=== PATIENT | male | born 1965 | race Caucasian/White ===

== ENCOUNTER → 2020-08-02 14:02 | Outpatient (BNVA) | payer OTHER, SELFPAY | PROVIDERS: PCP Internal Medicine; Visit Provider Internal Medicine | DX: Z86.718 Personal history of other venous thrombosis and embolism (principal); Z51.81 Encounter for therapeutic drug level monitoring; Z79.01 Long term (current) use of anticoagulants | CPT/HCPCS: 85610; 99211 ==

== ENCOUNTER → 2020-09-19 14:33 | Outpatient (BNVA) | payer OTHER, SELFPAY | PROVIDERS: PCP Internal Medicine; Visit Provider Internal Medicine | DX: Z86.718 Personal history of other venous thrombosis and embolism (principal); Z51.81 Encounter for therapeutic drug level monitoring; Z79.01 Long term (current) use of anticoagulants | CPT/HCPCS: 85610; 99211 ==

== ENCOUNTER → 2020-10-22 14:47 | Outpatient (BNVA) | payer OTHER, SELFPAY | PROVIDERS: PCP Internal Medicine; Visit Provider Internal Medicine | DX: Z86.718 Personal history of other venous thrombosis and embolism (principal); Z51.81 Encounter for therapeutic drug level monitoring; Z79.01 Long term (current) use of anticoagulants | CPT/HCPCS: 85610; 99211 ==

== ENCOUNTER → 2020-11-08 16:08 | Outpatient (BNV) | payer OTHER, SELFPAY | PROVIDERS: PCP Internal Medicine; Visit Provider Internal Medicine Medical Oncology | DX: D58.9 Hereditary hemolytic anemia, unspecified (principal) | CPT/HCPCS: 99213; 99214 ==

== ENCOUNTER → 2020-11-26 14:10 | Outpatient (BNVA) | payer OTHER, SELFPAY | PROVIDERS: PCP Internal Medicine; Visit Provider Internal Medicine | DX: Z86.718 Personal history of other venous thrombosis and embolism (principal); Z51.81 Encounter for therapeutic drug level monitoring; Z79.01 Long term (current) use of anticoagulants | CPT/HCPCS: 85610; 99211 ==

== ENCOUNTER → 2021-01-09 14:34 | Outpatient (BNVA) | payer OTHER, SELFPAY | PROVIDERS: PCP Internal Medicine; Visit Provider Internal Medicine | DX: Z86.718 Personal history of other venous thrombosis and embolism (principal); Z51.81 Encounter for therapeutic drug level monitoring; Z79.01 Long term (current) use of anticoagulants | CPT/HCPCS: 85610; 99211 ==

== ENCOUNTER → 2021-02-06 14:39 | Outpatient (BNVA) | payer OTHER, SELFPAY | PROVIDERS: PCP Internal Medicine; Visit Provider Internal Medicine | DX: Z86.718 Personal history of other venous thrombosis and embolism (principal); Z79.01 Long term (current) use of anticoagulants; Z51.81 Encounter for therapeutic drug level monitoring | CPT/HCPCS: 85610; 99211 ==

== ENCOUNTER → 2021-02-11 14:56 | Outpatient (BNVA) | payer OTHER, SELFPAY | PROVIDERS: PCP Internal Medicine; Visit Provider Internal Medicine | DX: Z86.718 Personal history of other venous thrombosis and embolism (principal); Z51.81 Encounter for therapeutic drug level monitoring; Z79.01 Long term (current) use of anticoagulants | CPT/HCPCS: 85610; 99211 ==

== ENCOUNTER → 2021-02-20 14:31 | Outpatient (BNVA) | payer OTHER, SELFPAY | PROVIDERS: PCP Internal Medicine; Visit Provider Internal Medicine | DX: Z86.718 Personal history of other venous thrombosis and embolism (principal); Z79.01 Long term (current) use of anticoagulants; Z51.81 Encounter for therapeutic drug level monitoring | CPT/HCPCS: 85610; 99211 ==

== ENCOUNTER → 2021-03-05 15:38 | Outpatient (BNVA) | payer OTHER, SELFPAY | PROVIDERS: PCP Internal Medicine; Visit Provider Internal Medicine | DX: Z86.718 Personal history of other venous thrombosis and embolism (principal); Z51.81 Encounter for therapeutic drug level monitoring; Z79.01 Long term (current) use of anticoagulants | CPT/HCPCS: 85610; 99211 ==

== ENCOUNTER → 2021-04-17 15:51 | Outpatient (BNVA) | payer OTHER, SELFPAY | PROVIDERS: PCP Internal Medicine; Visit Provider Internal Medicine | DX: Z86.718 Personal history of other venous thrombosis and embolism (principal); Z51.81 Encounter for therapeutic drug level monitoring; Z79.01 Long term (current) use of anticoagulants | CPT/HCPCS: 85610; 99211 ==

== ENCOUNTER → 2021-05-15 15:11 | Outpatient (BNVA) | payer OTHER, SELFPAY | PROVIDERS: PCP Internal Medicine; Visit Provider Internal Medicine | DX: Z86.718 Personal history of other venous thrombosis and embolism (principal); Z51.81 Encounter for therapeutic drug level monitoring; Z79.01 Long term (current) use of anticoagulants | CPT/HCPCS: 85610; 99211 ==

== ENCOUNTER 2021-06-06 11:12 | Outpatient (REF) | payer OTHER, SELFPAY ==
--- NOTE | ~2021-06-06 | MM_ITS ---
EXAMINATION: MM DIAGNOSTIC DIGITAL BREAST TOMOSYNTHESIS, BILATERAL US DIAGNOSTIC ULTRASOUND BREAST, LEFT CLINICAL INFORMATION: 55-year-old male with recent left breast sensitivity retroareolar region and 6-7 months. No palpable mass or discharge. No symptoms today. No known family history breast cancer. COMPARISON: Mammography: 05/20/2009 TECHNIQUE: Digital breast tomosynthesis is performed in both the craniocaudal and mediolateral oblique views along with computer-aided detection (CAD). Synthesized 2D images are generated from the tomosynthesis. Additional bilateral CC views are obtained. Ultrasound left breast is targeted to the area of clinical concern retroareolar and periareolar left breast. Grayscale imaging and color Doppler are performed without and with harmonics. FINDINGS: The breasts are almost entirely fatty (ACR BI-RADS breast composition Category a). There is mild asymmetry in the subareolar stromal markings, slightly greater on left, but stable to decreased when compared with remote prior mammography 2008. There is no interval mass or architectural abnormality. No interval duct ectasia. No abnormal calcifications. No skin thickening or coarsening of the Robert's ligaments. Ultrasound demonstrates no cystic or solid mass or architectural abnormality. There is no skin thickening or edema tracking in soft tissue planes. No hyperemia. Results are discussed with the patient at time of visit. MM/MM tomosynthesis diagnostic BI IMPRESSION: No mammographic evidence of malignancy or focal inflammatory changes. Unremarkable targeted left breast ultrasound. ASSESSMENT: BI-RADS 2: Benign RECOMMENDATION: Patient should be managed as needed based on the clinical impression.
== END 2021-06-06 11:13 | disposition home or self-care (01) ==
LOC: HO.MAMMO 11:12
PROVIDERS: PCP Internal Medicine; Visit Provider Internal Medicine
DX: N64.4 Mastodynia (principal)
CPT/HCPCS: 76642; 77062; 77066

== ENCOUNTER → 2021-06-26 08:49 | Outpatient (BNVA) | payer OTHER, SELFPAY | PROVIDERS: PCP Internal Medicine; Visit Provider Internal Medicine | DX: Z86.718 Personal history of other venous thrombosis and embolism (principal); Z51.81 Encounter for therapeutic drug level monitoring; Z79.01 Long term (current) use of anticoagulants | CPT/HCPCS: 85610; 99211 ==

== ENCOUNTER 2021-07-07 15:19 | Outpatient (REF) | payer OTHER, SELFPAY | END 2021-07-07 15:20 | disposition home or self-care (01) | LOC: HO.LAB 15:19 | PROVIDERS: PCP Internal Medicine; Visit Provider Internal Medicine | DX: Z20.822 Contact with and (suspected) exposure to COVID-19 (principal) | CPT/HCPCS: C9803; U0003; U0005 ==

== ENCOUNTER → 2021-07-11 08:33 | Outpatient (BNVA) | payer OTHER, SELFPAY | PROVIDERS: PCP Internal Medicine; Visit Provider Internal Medicine | DX: Z86.718 Personal history of other venous thrombosis and embolism (principal); Z51.81 Encounter for therapeutic drug level monitoring; Z79.01 Long term (current) use of anticoagulants | CPT/HCPCS: 85610; 99211 ==

== ENCOUNTER 2021-07-22 21:12 | Inpatient (IN) | payer OTHER, SELFPAY ==
[2021-07-22 22:02] VITALS: BP 109/82; PULSE 96; RESP 20; TEMP 36.2; O2SAT 98; BMI 56.9
[2021-07-22 22:42] LABS: MANUAL DIFF FLAG NO
[2021-07-22 22:43] LABS: Basophils Absolute Auto 0.1 X10*3/uL (0.0-0.2); Basophils Percent Auto 0.5 % (0-2); Eosinophils Absolute Auto 0.3 X10*3/uL (0.0-0.4); Eosinophils Percent Auto 3.2 % (0-4); Hematocrit 38.4 % (42-52); Hemoglobin 12.1 g/dl (14.0-18.0); Imm Gran Abs Auto 0.02 X10*3/uL (0.00-0.03); Imm Gran Pct Auto 0.2 % (0.0-0.4); Lymphocytes Absolute Auto 1.4 X10*3/uL (1.2-4.9); Lymphocytes Percent Auto 13.8 % (20-40); Mean Corpuscular HGB Conc 31.5 g/dl (31.0-36.0); Mean Corpuscular Hemoglobin 27.3 pg (27.0-33.0); Mean Corpuscular Volume 86.7 fL (80-98); Monocytes Absolute Auto 0.7 X10*3/uL (0.1-1.2); Monocytes Percent Auto 6.8 % (2-11); Neutrophils Absolute Auto 7.5 X10*3/uL (2.0-8.3); Neutrophils Percent Auto 75.5 % (45-73); Platelet Count 154 X10*3/uL (160-400); Red Blood Count 4.43 X10*6/uL (4.60-5.80); Red Cell Distribution Width 14.6 % (11.0-16.0); White Blood Count 9.9 X10*3/uL (4.8-10.8)
[2021-07-22 23:05] LABS: Alanine Aminotransferase 9 U/L (0-40); Albumin Level 3.9 g/dL (3.5-5.0); Alkaline Phosphatase 93 U/L (39-117); Anion Gap 12 (12-20); Aspartate Amino Transferase 15 U/L (5-37); Bilirubin Total 2.2 mg/dL (0.0-1.0); Blood Urea Nitrogen 14 mg/dL (9-16); Calcium 9.1 mg/dL (8.4-10.2); Carbon Dioxide 24 mmol/L (22-29); Chloride 109 mmol/L (96-108); Creatinine Clr Calc Pharmacy 115.9; Estimated Glomerular Filt Rate 60; Glucose Random 116 mg/dL (60-115); Potassium 3.8 mmol/L (3.3-5.1); Sodium 141 mmol/L (135-145); Total Protein 6.2 g/dL (6.5-8.0)
--- NOTE | 2021-07-22 23:24 | ECG_ITS ---
Test Reason : ABNORM LABS Blood Pressure : / mmHG Vent. Rate : 066 BPM Atrial Rate : 066 BPM P-R Int : 202 ms QRS Dur : 076 ms QT Int : 406 ms P-R-T Axes : 038 -10 011 degrees QTc Int : 425 ms Poor data quality, interpretation may be adversely affected Sinus rhythm with occasional Premature atrial complexes Moderate voltage criteria for LVH, may be normal variant Junctional ST depression, probably normal Borderline ECG When compared with ECG of 22-SEP-2008 17:36, Premature atrial complexes are now Present Referred By: Chino Cleary Electronically Signed By:MINNIE WARNER
[2021-07-22 23:52] LABS: INTERNATIONAL NORM RATIO 1.8 (0.9-1.1); Prothrombin Time 20.3 SEC (9.9-13.0)
[2021-07-22 23:54] LABS: Partial Thromboplastin Time 38.2 SEC (24.1-38.0)
[2021-07-22] MEDS: 0.9 % Sodium Chloride 1,000 ML 999 ML IV (23:57)
[2021-07-23] VITALS (7 sets, daily range): BP systolic 93–149; BP diastolic 49–94; PULSE 50–86; RESP 15–18; TEMP 36.5–37.2; O2SAT 97–100
[2021-07-23 00:03] LABS: COVID-19 Test Negative (Negative); Troponin-I High Sensitivity 26.1 ng/L (<3.5-35.0)
[2021-07-23 00:12] LABS: Lactic Acid 0.6 mmol/L (0.5-2.0)
--- NOTE | 2021-07-23 00:17 | ED.GENADULT ---
HPI - General Adult General Chief complaint: Skin/Abscess/Foreign Body Stated complaint: leg pain and swelling Time Seen by Provider: 07/22/21 23:01 Source: patient Mode of arrival: ambulatory Limitations: no limitations History of Present Illness HPI narrative: 56-year-old male who presents emergency department for evaluation of right lower extremity pain, swelling, chills and fatigue. Patient states that last night he developed fatigue and uncontrollable chills. States that several episodes throughout the night. He did notice some mild redness to his right lower extremity. He states that he is feeling dizzy and his entire body ache as well. Today, he states that the redness in his right lower extremity was worse, he states that he also had pain in his right lower extremity which described as a constant, your taking pain which was 5/10. Continued to have intermittent shaking chills and fatigue. He also states that today developed 3 episodes of loose diarrheal stools. Patient states that approximately 10 days ago at similar symptoms of shaking chills and fatigue without leg pain. States that a COVID-19 test which was negative at that time. Patient states he did have cellulitis of his lower extremities in the past. Patient has a history of atrial fibrillation is currently taking warfarin. He also has a history of DVT and pulmonary embolism, he has an IVC filter in place. Related Data Home Medications Medication Instructions Recorded Confirmed acetaminophen 500 mg tablet 500 mg PO Q6H PRN 02/11/21 04/17/21 Previous Rx's Medication Instructions Recorded warfarin 2.5 mg tablet 2.5 mg PO DAILY #90 tab 08/02/20 docusate sodium 100 mg capsule 100 mg PO DAILY PRN #30 cap 09/11/20 citalopram 20 mg tablet 20 mg PO DAILY #90 tab 01/24/21 allopurinol 300 mg tablet 450 mg PO DAILY #135 tab 03/20/21 omeprazole 40 mg capsule,delayed 40 mg PO DAILY #90 cap 04/02/21 release warfarin 10 mg tablet 10 mg PO DAILY #90 tab 04/25/21 diclofenac sodium 75 mg 75 mg PO BID #180 tab 05/20/21 tablet,delayed release Allergies Allergy/AdvReac Type Severity Reaction Status Date / Time warfarin AdvReac Mild hives Verified 07/11/21 08:46 Review of Systems Review of Systems: Yes all other systems are reviewed and are negative PMFSH Past Medical History PMFSH Narrative: Social history: The patient denies tobacco use. He occasionally drinks alcohol. He denies drug use. Medical History Atrial fibrillation Essential (primary) hypertension Morbid obesity with BMI of 60.0-69.9, adult Osteoarthritis Surgical History [place] filter in place Hematoma of left knee region History of appendectomy History of hernia repair History of removal of laparoscopic gastric banding device History of sleeve gastrectomy Hx of laparoscopic gastric banding Family History Family History Father Lung cancer Bone cancer Mother No problems noted. Social History Social History Housing: House Alcohol intake: current Alcohol intake frequency: holidays/special occasions only Alcohol type: hard liquor Patient Tobacco Use Status: Never used Tobacco Advance Directives: No Advance Directives Information Provided: No service: No Current occupational status: employed Physical Exam Vital Signs: Vital Signs: Last Vital Signs Temp 97.1 F 07/22/21 22:02 Pulse 96 07/22/21 22:02 Resp 20 07/22/21 22:02 BP 109/82 07/22/21 22:02 Pulse Ox 98 07/22/21 22:02 Body Mass Index 56.9 Const: Other: Awake alert male patient, very pleasant and cooperative, obese, does not appear to be in distress, answers all questions appropriately HENMT: Head: Yes normal to inspection, Yes normocephalic and Yes atraumatic Ears: external ears normal General nose exam: Normal external nose present Face and sinus: Yes normal facial exam Mouth: Normal oral and palatal mucosa present Throat: Yes posterior oropharynx normal Eyes: General: appearance normal, both eyes and all related structures Pupils: Equal, round and reactive pupils present Neck: Neck: Yes normal visual inspection, Yes no lymphadenopathy, Yes trachea midline and Yes supple Chest: Chest palpation & inspection: normal inspection of the chest and normal palpation of entire chest wall Resp: Effort & Inspection: normal respiratory effort and able to speak in complete sentences Auscultation: clear to auscultation bilaterally Cardio: Rate: regular rate Rhythm: regular rhythm Heart sounds: S1 normal heart sound present, S2 normal heart sound present and no murmurs GI: Inspection: Yes normal to inspection Palpation (GI): Soft to palpation, nontender and no guarding Auscultation: normal bowel sounds : General: Yes no CVA tenderness Back/Spine/Pelvis: Back: no CVA tenderness Skin: Other: Patient has brawny discoloration of both lower extremities, the right lower extremity has erythema with increased warmth from the ankle to just below the knee, the erythema is warm to the touch Neuro: Cranial nerves: Yes CN's II-XII intact bilaterally and Yes Equal, round and reactive pupils present Cognition (Neuro): normal cognition Motor exam (neuro): 5/5 motor strength present throughout Extrem: Other: Cellulitis to the right lower extremity, moves all extremities symmetrically, normal strength Psych: Appearance: grossly normal Speech and movement: Normal speech and movement present Affect: normal affect Attitude: cooperative Thought process: Normal thought process present Thought content: Normal thought content present Course Course Course Narrative: 56-year-old male who presents emergency department for evaluation of 2 days of fever uncontrolled blood chills fatigue, right lower extremity pain with erythema and diarrhea x1 day. Patient's vital sign were normal. The patient's examination did reveal evidence of cellulitis the right lower extremity below the knee. Revealed a normal WBC, had a slightly low platelet count of a [id number], had an elevated chloride of 109, elevated glucose of 116 an elevated total bilirubin of 2.2. INR was 1.8 which is elevated but subtherapeutic. Troponin was detectable at 26.1 but not elevated. Twelve EKG was unremarkable. COVID-19 test was negative. Patient's presentation is consistent with cellulitis of the right lower extremity with bacteremia. The patient was treated with Ancef 2 g IV. I will discuss the patient's presentation with the covering hospitalist. 0037: Did discuss the patient's presentation with the covering hospitalist, Dr. Rodriguez. The patient will be admitted to the hospital service for further treatment. Medical Decision Making Lab Data Result diagrams: 07/22/21 22:37 07/22/21 22:37 Labs: Lab Results 07/22/21 07/22/21 07/22/21 Range/Units 22:37 22:37 23:36 WBC 9.9 (4.8-10.8) X10*3/uL RBC 4.43 L (4.60-5.80) X10*6/uL Hgb 12.1 L (14.0-18.0) g/dl Hct 38.4 L (42-52) % MCV 86.7 (80-98) fL MCH 27.3 (27.0-33.0) pg MCHC 31.5 (31.0-36.0) g/dl RDW 14.6 (11.0-16.0) % Plt Count 154 L (160-400) X10*3/uL MPV 10.0 (9.4-12.4) fL Immature Gran % (Auto) 0.2 (0.0-0.4) % Neut % (Auto) 75.5 H (45-73) % Lymph % (Auto) 13.8 L (20-40) % [place] % (Auto) 6.8 (2-11) % Eos % (Auto) 3.2 (0-4) % Baso % (Auto) 0.5 (0-2) % Lymph # (Auto) 1.4 (1.2-4.9) X10*3/uL [place] # (Auto) 0.7 (0.1-1.2) X10*3/uL Eos # (Auto) 0.3 (0.0-0.4) X10*3/uL Baso # (Auto) 0.1 (0.0-0.2) X10*3/uL Abs Immat Gran (auto) 0.02 (0.00-0.03) X10*3/uL Absolute Neuts (auto) 7.5 (2.0-8.3) X10*3/uL Absolute Nucleated RBC 0.000 (0.0-0.012) X10*3/uL Nucleated RBC % (auto) 0.0 (0.0-0.2) /100WBC PT 20.3 H (9.9-13.0) SEC INR 1.8 H (0.9-1.1) APTT 38.2 H (24.1-38.0) SEC Sodium 141 (135-145) mmol/L Potassium 3.8 (3.3-5.1) mmol/L Chloride 109 H (96-108) mmol/L Carbon Dioxide 24 (22-29) mmol/L Anion Gap 12 (12-20) BUN 14 (9-16) mg/dL Creatinine 1.25 (0.5-1.4) mg/dL Estim Creat Clear Calc 115.9 Estimated GFR 60 Random Glucose 116 H (60-115) mg/dL Lactic Acid (0.5-2.0) mmol/L Calcium 9.1 (8.4-10.2) mg/dL Total Bilirubin 2.2 H (0.0-1.0) mg/dL AST 15 (5-37) U/L ALT 9 (0-40) U/L Alkaline Phosphatase 93 (39-117) U/L Troponin I High Sens (<3.5-35.0) ng/L Total Protein 6.2 L (6.5-8.0) g/dL Albumin 3.9 (3.5-5.0) g/dL COVID-19 (JAMILA) (Negative) COVID-19 Clin Com 07/22/21 07/22/21 07/22/21 Range/Units 23:36 23:36 23:45 WBC (4.8-10.8) X10*3/uL RBC (4.60-5.80) X10*6/uL Hgb (14.0-18.0) g/dl Hct (42-52) % MCV (80-98) fL MCH (27.0-33.0) pg MCHC (31.0-36.0) g/dl RDW (11.0-16.0) % Plt Count (160-400) X10*3/uL MPV (9.4-12.4) fL Immature Gran % (Auto) (0.0-0.4) % Neut % (Auto) (45-73) % Lymph % (Auto) (20-40) % [place] % (Auto) (2-11) % Eos % (Auto) (0-4) % Baso % (Auto) (0-2) % Lymph # (Auto) (1.2-4.9) X10*3/uL [place] # (Auto) (0.1-1.2) X10*3/uL Eos # (Auto) (0.0-0.4) X10*3/uL Baso # (Auto) (0.0-0.2) X10*3/uL Abs Immat Gran (auto) (0.00-0.03) X10*3/uL Absolute Neuts (auto) (2.0-8.3) X10*3/uL Absolute Nucleated RBC (0.0-0.012) X10*3/uL Nucleated RBC % (auto) (0.0-0.2) /100WBC PT (9.9-13.0) SEC INR (0.9-1.1) APTT (24.1-38.0) SEC Sodium (135-145) mmol/L Potassium (3.3-5.1) mmol/L Chloride (96-108) mmol/L Carbon Dioxide (22-29) mmol/L Anion Gap (12-20) BUN (9-16) mg/dL Creatinine (0.5-1.4) mg/dL Estim Creat Clear Calc Estimated GFR Random Glucose (60-115) mg/dL Lactic Acid 0.6 (0.5-2.0) mmol/L Calcium (8.4-10.2) mg/dL Total Bilirubin (0.0-1.0) mg/dL AST (5-37) U/L ALT (0-40) U/L Alkaline Phosphatase (39-117) U/L Troponin I High Sens 26.1 (<3.5-35.0) ng/L Total Protein (6.5-8.0) g/dL Albumin (3.5-5.0) g/dL COVID-19 (JAMILA) Negative (Negative) COVID-19 Clin Com See Note Discharge Plan Discharge Prescriptions: No Action docusate sodium 100 mg capsule 100 mg PO DAILY PRN (Reason: constipation) Qty: 30 RF: 9 citalopram 20 mg tablet 20 mg PO DAILY Qty: 90 RF: 3 allopurinol 300 mg tablet 450 mg PO DAILY Qty: 135 RF: 1 omeprazole 40 mg capsule,delayed release(DR/EC) 40 mg PO DAILY Qty: 90 RF: 1 warfarin 10 mg tablet 10 mg PO DAILY Qty: 90 RF: 0 diclofenac sodium 75 mg tablet,delayed release (DR/EC) 75 mg PO BID Qty: 180 RF: 0 warfarin 2.5 mg tablet 2.5 mg PO DAILY Qty: 90 RF: 0 acetaminophen 500 mg tablet 500 mg PO Q6H PRN (Reason: pain) RF: 0
--- NOTE | 2021-07-23 05:53 | P.HPHOSP_ITS ---
History of Present Illness Date of Service: 07/23/21 Chief Complaint: Skin redness This is a 56-year-old male with past medical history of PE, HTN, sleeve gastrectomy, and morbid obesity who presents to the hospital with complaints of right lower extremity redness as well as warms. Patient reports that his sympt oms started yesterday, he is having chills, rigors, fatigue. The redness developed suddenly and progressed significantly within the next 12 hours. Patient denies having any fever, has chills, no shortness of breath chest pain, no abdominal pain nausea or vomiting, no diarrhea constipation, no urinary symptoms. Patient reports that he has had cellulitis about 15 years ago in the same area. He denies having any headache or change in vision, no dizziness, numbness tingling or weakness. He has had no recent travel or prolonged immobility. Patient reports that he has been checking his temperature at home and is usually around [id number]. On arrival to the ED patient's vitals are significant for temp of 97.1, heart rate of 82, respiratory rate of 20, blood pressure 120/80, satting 96% on room air Labs are significant for WBC count of 9.9, hemoglobin of 12.1 which is around his baseline, PT of 20.3, INR 1.8, BUN of 1.25 with a baseline around 1.1, COVID negative EKG shows sinus rhythm with occasional PVCs, no changes from previous Patient will be admitted for further manage of cellulitis Review of Systems Review of Systems: Yes all other systems are reviewed and are negative [facility] Medical History Atrial fibrillation Essential (primary) hypertension Morbid obesity with BMI of 60.0-69.9, adult Osteoarthritis Family History Father Lung cancer Bone cancer Mother No problems noted. Pertinent family history: None pertinent Surgical History [place] filter in place Hematoma of left knee region History of appendectomy History of hernia repair History of removal of laparoscopic gastric banding device History of sleeve gastrectomy Hx of laparoscopic gastric banding Social History Housing: House Alcohol intake: current Alcohol intake frequency: holidays/special occasions only Alcohol type: hard liquor Patient Tobacco Use Status: Never used Tobacco Use of substances other than those prescribed or required for medical reasons: No Advance Directives: No Advance Directives Information Provided: No service: No Current occupational status: employed Meds Allergies Allergy/AdvReac Type Severity Reaction Status Date / Time warfarin AdvReac Mild hives Verified 07/11/21 08:46 Home Medications Medication Instructions Recorded Confirmed Last Taken Type warfarin 2.5 mg tablet 2.5 mg PO DIRECTED 07/23/21 07/23/21 03/05/21 History Physical Exam Vital Signs and Narrative: Vital Signs: Last Vital Signs Temp 98.6 F 07/23/21 00:52 Pulse 61 07/23/21 00:52 Resp 15 07/23/21 00:52 BP 104/51 L 07/23/21 00:52 Pulse Ox 98 07/23/21 00:52 Body Mass Index 56.9 Const: General: cooperative and no acute distress Orientation/consciousness: patient oriented x3 Eyes: General: appearance normal, both eyes and all related structures Resp: Effort & Inspection: normal respiratory effort Auscultation: clear to auscultation bilaterally Cardio: Rate: regular rate Rhythm: regular rhythm GI: Palpation (GI): Soft to palpation Auscultation: normal bowel sounds Skin: Other: Right lower extremity edema, warmth, slight tenderness, edema. Extending from the ankle all the way to just below the right knee Neuro: General: patient oriented x3 Cognition (Neuro): normal cognition Extrem: General: Yes normal to inspection and Yes no pedal edema Results Labs CBC and Chem 7: 07/22/21 22:37 07/22/21 22:37 Labs: Laboratory Results - last 24 hr 07/22/21 07/22/21 07/22/21 22:37 22:37 23:36 MCV 86.7 MCH 27.3 MCHC 31.5 RDW 14.6 Plt Count 154 L MPV 10.0 Immature Gran % (Auto) 0.2 Neut % (Auto) 75.5 H Lymph % (Auto) 13.8 L [place] % (Auto) 6.8 Eos % (Auto) 3.2 Baso % (Auto) 0.5 Lymph # (Auto) 1.4 [place] # (Auto) 0.7 Eos # (Auto) 0.3 Baso # (Auto) 0.1 Abs Immat Gran (auto) 0.02 Absolute Neuts (auto) 7.5 Absolute Nucleated RBC 0.000 Nucleated RBC % (auto) 0.0 PT 20.3 H INR 1.8 H APTT 38.2 H Anion Gap 12 Estim Creat Clear Calc 115.9 Estimated GFR 60 Random Glucose 116 H Lactic Acid Calcium 9.1 Total Bilirubin 2.2 H AST 15 ALT 9 Alkaline Phosphatase 93 Troponin I High Sens Total Protein 6.2 L Albumin 3.9 COVID-19 (JAMILA) COVID-19 Clin Com 07/22/21 07/22/21 07/22/21 23:36 23:36 23:45 MCV MCH MCHC RDW Plt Count MPV Immature Gran % (Auto) Neut % (Auto) Lymph % (Auto) [place] % (Auto) Eos % (Auto) Baso % (Auto) Lymph # (Auto) [place] # (Auto) Eos # (Auto) Baso # (Auto) Abs Immat Gran (auto) Absolute Neuts (auto) Absolute Nucleated RBC Nucleated RBC % (auto) PT INR APTT Anion Gap Estim Creat Clear Calc Estimated GFR Random Glucose Lactic Acid 0.6 Calcium Total Bilirubin AST ALT Alkaline Phosphatase Troponin I High Sens 26.1 Total Protein Albumin COVID-19 (JAMILA) Negative COVID-19 Clin Com See Note Assessment and Plan (1) Cellulitis of right leg: Status: Acute This is a 56-year-old male with morbid obesity who presents to the hospital with cellulitis # cellulitis - extensive covering a large area of his right lower extremity - erythema, warmth, tenderness, and slight edema - will start him on IV antibiotic - cultures collected will follow # history of PE - subtherapeutic INR - continue Coumadin - follow PT INR daily # GERD - continue omeprazole DVT prophylaxis: Coumadin Quality Stroke Does the patient have a stroke diagnosis?: No VTE Prior VTE?: No VTE Risk Level:: Medical - moderate - high VTE Device Contraindication: Treatment Not Indicated VTE Drug Contraindication: N/A - Med Ordered
[2021-07-23] MEDS: allopurinoL 300 MG TABLET 450 MG PO (09:39)
[2021-07-23] MEDS: Escitalopram Oxalate 10 MG TABLET PO (09:39)
[2021-07-23] MEDS: Diclofenac Sodium Delayed Rel 75 MG TABLET.DR PO ×2 (09:40→22:21)
[2021-07-23] MEDS: Omeprazole 40 MG CAPSULE.DR PO (09:40)
--- NOTE | 2021-07-23 09:59 | PC.NURSE ---
Assumed care of patient. Pt was initially sleeping this morning, but is now awake, alert and oriented. Pt ambulated to the bathroom without difficulty. Pt has family at the bedside. Morning medications administered. Pt is patiently waiting on a bed assignment.
--- NOTE | 2021-07-23 10:39 | MHC.CM.ED ---
Met with patient and sig other, Jennyfer in regards to discharge planning. Patient lives alone, ambulates independently and had no services prior to coming to the hospital. PCP verified. HCP completed, signed and witnessed. Original given to patient. Obs notice explained and signed. Jennyfer will transport patient home when medically stable. No services anticipated to be needed because patient is not home bound. Continue to monitor for d/c needs.
--- NOTE | 2021-07-23 15:00 | P.EN_ITS ---
Event Note Date of Service: 07/23/21 Event Note: Patient seen and examined in ER; exam unchanged from H& P. Rapid o nset of cellulitis with fever and chills; started on IV ceftriaxone upon admission. Will discuss with ID; question broader coverage at this time.
[2021-07-23] MEDS: vancomycin HCL 1,000 MG in 0.9 % Sodium Chloride 250 ML 270 MG IV (18:10)
[2021-07-23] MEDS: Warfarin Sodium 10 MG TABLET PO (19:55)
[2021-07-24] MEDS: 0.9 % Sodium Chloride Flush 3 ML SYRINGE IVFLUSH ×4 (00:45→21:29)
[2021-07-24 04:00] VITALS: BP 111/77; PULSE 82; RESP 17; TEMP 36.9; O2SAT 96
[2021-07-24 05:30] LABS: INTERNATIONAL NORM RATIO 2.1 (0.9-1.1)
[2021-07-24 05:43] LABS: Anion Gap 11 (12-20); Blood Urea Nitrogen 16 mg/dL (9-16); Calcium 8.3 mg/dL (8.4-10.2); Carbon Dioxide 24 mmol/L (22-29); Chloride 109 mmol/L (96-108); Creatinine Clr Calc Pharmacy 144.9; Estimated Glomerular Filt Rate > 60; Glucose Random 99 mg/dL (60-115); Potassium 3.9 mmol/L (3.3-5.1); Sodium 140 mmol/L (135-145)
[2021-07-24] MEDS: vancomycin HCL 1,000 MG in 0.9 % Sodium Chloride 250 ML 270 MG IV ×2 (06:07→17:12)
[2021-07-24] MEDS: Omeprazole 40 MG CAPSULE.DR PO (06:07)
[2021-07-24 08:00] VITALS: BP 105/68; PULSE 73; RESP 18; TEMP 36.4; O2SAT 97
[2021-07-24] MEDS: Diclofenac Sodium Delayed Rel 75 MG TABLET.DR PO ×2 (08:16→21:28)
[2021-07-24] MEDS: allopurinoL 300 MG TABLET 450 MG PO (08:17)
[2021-07-24] MEDS: Escitalopram Oxalate 10 MG TABLET PO (08:17)
[2021-07-24] MEDS: cefTRIAXone sodium 1 GM in 0.9 % Sodium Chloride 50 ML IV (08:18)
[2021-07-24 11:42] VITALS: BP 102/55; PULSE 68; RESP 18; TEMP 36.3; O2SAT 97
[2021-07-24 15:26] VITALS: BP 112/57; PULSE 69; RESP 16; TEMP 36.4; O2SAT 96
--- NOTE | 2021-07-24 16:07 | P.PNIM_ITS ---
Subjective Subjective Date of Service: 07/24/21 Interval History: No acute events overnight. Did complain of shaking chills without temp. Review of Systems Denies chest pain Denies shortness of breath Denies nausea vomiting diarrhea Physical Exam Vital Signs: Vital Signs: Last Vital Signs Temp 97.5 F 07/24/21 15:26 Pulse 69 07/24/21 15:26 Resp 16 07/24/21 15:26 BP 112/57 L 07/24/21 15:26 Pulse Ox 96 07/24/21 15:26 Body Mass Index 56.9 Const: Other: Awake alert no acute distress HENMT: Other: Membranes moist; oropharynx clear Resp: Other: Clear to auscultation; Cardio: Other: No S4; S1-S2; no S3 no murmurs rubs or gallops GI: Other: Obese; soft nontender positive bowel sounds Extrem: Other: Initial erythema marked with skin pattern; slightly improved this a.m. although warm to touch Objective Data Active Medications Acetaminophen (Acetaminophen 325 Mg Tablet) 650 mg PO Q6H PRN PRN Reason: Pain, Mild (Pain Scale 1-3) Allopurinol (Allopurinol 300 Mg Tablet) 450 mg PO DAILY [facility] Last Admin: 07/24/21 08:17 Dose: 450 mg Documented by: NYLA Diclofenac Sodium (Diclofenac Sodium Delayed Rel 75 Mg Tablet.) 75 mg PO BID [facility] Last Admin: 07/24/21 08:16 Dose: 75 mg Documented by: NYLA Docusate Sodium (Docusate Sodium 100 Mg Capsule) 100 mg PO DAILY PRN PRN Reason: constipation Escitalopram Oxalate (Escitalopram Oxalate 10 Mg Tablet) 10 mg PO DAILY [facility] Last Admin: 07/24/21 08:17 Dose: 10 mg Documented by: NYLA Ceftriaxone Sodium 1 gm/ (Sodium Chloride) 50 mls @ 100 mls/hr IV Q24H [facility] Last Infusion: 07/24/21 08:59 Dose: 0 mls/hr Documented by: NYLA Vancomycin HCl 1,000 mg/ (Sodium Chloride) 270 mls @ 270 mls/hr IV Q12H [facility] Last Infusion: 07/24/21 07:13 Dose: 0 mls/hr Documented by: NYLA Omeprazole (Omeprazole 40 Mg Capsule.) 40 mg PO DAILY@0630 [facility] Last Admin: 07/24/21 06:07 Dose: 40 mg Documented by: PATTIE Ondansetron HCl (Ondansetron Hcl 4 Mg/2 Ml Vial) 4 mg IVPUSH Q8H PRN PRN Reason: Nausea and Vomiting Pharmacy Consult (Consult Rx Vancomycin Dosing) 1 each MISCELLANE DAILY PRN PRN Reason: Consult order Sodium Chloride (0.9 % Sodium Chloride Flush 3 Ml Syringe) 3 ml IVFLUSH QSHIFT [facility] Last Admin: 07/24/21 08:18 Dose: 3 ml Documented by: NYLA Warfarin Sodium (Warfarin Sodium 10 Mg Tablet) 10 mg PO DAILY@1800 [facility] Last Admin: 07/23/21 19:55 Dose: 10 mg Documented by: MANIKAL Labs CBC & Chem 7: 07/22/21 22:37 07/24/21 04:53 Labs: Laboratory Results - last 24 hr 07/24/21 07/24/21 04:53 04:53 PT 24.0 H INR 2.1 H Anion Gap 11 L Estim Creat Clear Calc 144.9 Estimated GFR > 60 Random Glucose 99 Calcium 8.3 L D Microbiology Microbiology Results: Microbiology 07/22/21 23:46 Blood Culture - Preliminary Blood - Venous No growth after 24 hours. 07/22/21 23:46 Blood Culture - Preliminary Blood - Venous No growth after 24 hours. Assessment and Plan (1) Cellulitis of right leg: Status: Acute Assessment and Plan: 56-year-old male with morbid obesity who presents to the hospital with cellulitis; rapid onset 1.Cellulitis Initially started on ceftriaxone; vancomycin added yesterday. Id consult appreciated Continue [place] ceftriaxone; follow clinically discharge with oral doxycycline 2.History of PE INR therapeutic at 2.1. Continue Coumadin as ordered. Check INR daily and adjust as indicated 3. GERD Continue PPI as ordered DVT prophylaxis: Coumadin Quality Stroke Does the patient have a stroke diagnosis?: No VTE Prior VTE?: No VTE Risk Level:: Medical - low VTE Device Contraindication: Treatment Not Indicated VTE Drug Contraindication: N/A - Med Ordered
[2021-07-24] MEDS: Warfarin Sodium 10 MG TABLET PO (17:21)
[2021-07-24 17:34] LABS: Alanine Aminotransferase 9 U/L (0-40); Albumin Level 3.5 g/dL (3.5-5.0); Alkaline Phosphatase 84 U/L (39-117); Anion Gap 11 (12-20); Aspartate Amino Transferase 13 U/L (5-37); Bilirubin Total 0.7 mg/dL (0.0-1.0); Blood Urea Nitrogen 20 mg/dL (9-16); Calcium 8.8 mg/dL (8.4-10.2); Carbon Dioxide 24 mmol/L (22-29); Chloride 110 mmol/L (96-108); Creatinine Clr Calc Pharmacy 108.1; Estimated Glomerular Filt Rate 55; Glucose Fasting 126 mg/dL (60-99); Potassium 4.2 mmol/L (3.3-5.1); Sodium 141 mmol/L (135-145); Total Protein 5.5 g/dL (6.5-8.0)
[2021-07-24 19:50] VITALS: BP 108/56; PULSE 66; RESP 17; TEMP 36.4; O2SAT 97
--- NOTE | 2021-07-24 21:54 | P.CNID_ITS ---
History of Present Illness Data of Consult Service Date: 07/24/21 Requesting physician: Nick Corral Primary Care Provider: Tomas Holm MD [facility] Reason for consult: right leg cellulitis He presents with fever and chills for a day. He has chills for a week and then yesterday bright red area. He had cellulitis about ten years ago as well with similar symptoms. Review of Systems Review of Systems: Yes all other systems are reviewed and are negative PMFSH Past Medical History Medical History Atrial fibrillation Essential (primary) hypertension Morbid obesity with BMI of 60.0-69.9, adult Osteoarthritis Family History Family History Father Lung cancer Bone cancer Mother No problems noted. Family history: reviewed and not pertinent Surgical History Surgical History [place] filter in place Hematoma of left knee region History of appendectomy History of hernia repair History of removal of laparoscopic gastric banding device History of sleeve gastrectomy Hx of laparoscopic gastric banding Social History Social History Housing: House Alcohol intake: current Alcohol intake frequency: holidays/special occasions only Alcohol type: hard liquor Patient Tobacco Use Status: Never used Tobacco Use of substances other than those prescribed or required for medical reasons: No Advance Directives: No Advance Directives Information Provided: No service: No Current occupational status: employed Meds Allergies Allergy/AdvReac Type Severity Reaction Status Date / Time warfarin AdvReac Mild hives Verified 07/24/21 11:29 Active Medications: Current Medications Acetaminophen (Acetaminophen 325 Mg Tablet) 650 mg PO Q6H PRN PRN Reason: Pain, Mild (Pain Scale 1-3) Allopurinol (Allopurinol 300 Mg Tablet) 450 mg PO DAILY [facility] Last Admin: 07/24/21 08:17 Dose: 450 mg Documented by: Diclofenac Sodium (Diclofenac Sodium Delayed Rel 75 Mg Tablet.) 75 mg PO BID [facility] Last Admin: 07/24/21 21:28 Dose: 75 mg Documented by: Docusate Sodium (Docusate Sodium 100 Mg Capsule) 100 mg PO DAILY PRN PRN Reason: constipation Escitalopram Oxalate (Escitalopram Oxalate 10 Mg Tablet) 10 mg PO DAILY [facility] Last Admin: 07/24/21 08:17 Dose: 10 mg Documented by: Ceftriaxone Sodium 1 gm/ (Sodium Chloride) 50 mls @ 100 mls/hr IV Q24H [facility] Last Infusion: 07/24/21 08:59 Dose: Infused Documented by: Vancomycin HCl 1,000 mg/ (Sodium Chloride) 270 mls @ 270 mls/hr IV Q12H [facility] Last Infusion: 07/24/21 18:21 Dose: Infused Documented by: Omeprazole (Omeprazole 40 Mg Capsule.Dr) 40 mg PO DAILY@0630 [facility] Last Admin: 07/24/21 06:07 Dose: 40 mg Documented by: Ondansetron HCl (Ondansetron Hcl 4 Mg/2 Ml Vial) 4 mg IVPUSH Q8H PRN PRN Reason: Nausea and Vomiting Pharmacy Consult (Consult Rx Vancomycin Dosing) 1 each MISCELLANE DAILY PRN PRN Reason: Consult order Sodium Chloride (0.9 % Sodium Chloride Flush 3 Ml Syringe) 3 ml IVFLUSH QSHIFT [facility] Last Admin: 07/24/21 21:29 Dose: 3 ml Documented by: Warfarin Sodium (Warfarin Sodium 10 Mg Tablet) 10 mg PO DAILY@1800 [facility] Last Admin: 07/24/21 17:21 Dose: 10 mg Documented by: Home Medications Medication Instructions Recorded Confirmed Last Taken Type warfarin 10 mg tablet 1 tab PO DAILY@1800 07/23/21 07/23/21 07/22/21 17:00 History Physical Exam Vital Signs: Vital Signs: Last Vital Signs Temp 97.5 F 07/24/21 19:50 Pulse 66 07/24/21 19:50 Resp 17 07/24/21 19:50 BP 108/56 L 07/24/21 19:50 Pulse Ox 97 07/24/21 19:50 Body Mass Index 56.9 Const: General: cooperative HENMT: Head: Yes normal to inspection Mouth: Normal oral and palatal mucosa present Eyes: General: appearance normal, both eyes and all related structures Resp: Effort & Inspection: normal respiratory effort Cardio: Rate: regular rate GI: Palpation (GI): Soft to palpation and nontender Extrem: Other: reddened RLE,improving two cat scratches on it Results Labs CBC & Chem 7: 07/22/21 22:37 07/24/21 16:41 Labs: BMP 07/24/21 07/24/21 04:53 16:41 Sodium 140 141 Potassium 3.9 4.2 Chloride 109 H 110 H Carbon Dioxide 24 24 BUN 16 20 H Creatinine 1.00 1.34 Calcium 8.3 L D 8.8 D Liver Function 07/24/21 Range/Units 16:41 Total Bilirubin 0.7 (0.0-1.0) mg/dL AST 13 (5-37) U/L ALT 9 (0-40) U/L Alkaline Phosphatase 84 (39-117) U/L Albumin 3.5 (3.5-5.0) g/dL Microbiology Microbiology Results: Microbiology 07/22/21 23:46 Blood - Venous Blood Culture - Preliminary No growth after 24 hours. 07/22/21 23:46 Blood - Venous Blood Culture - Preliminary No growth after 24 hours. Assessment and Plan (1) Cellulitis of right leg: Status: Acute He has improved cellulitis. He had cat scratch ?Pasteurella,anerobes ,gram negative Continue Vancomycin Add po Levaquin for potential cat bacteria such as Pasteurella and HACEK organisms.
--- NOTE | 2021-07-24 22:04 | P.CNID_ITS ---
History of Present Illness Data of Consult Primary Care Provider: Tomas Holm MD [facility] Past Medical History Medical History Atrial fibrillation Essential (primary) hypertension Morbid obesity with BMI of 60.0-69.9, adult Osteoarthritis Family History Family History Father Lung cancer Bone cancer Mother No problems noted. Family history: reviewed and not pertinent Surgical History Surgical History [place] filter in place Hematoma of left knee region History of appendectomy History of hernia repair History of removal of laparoscopic gastric banding device History of sleeve gastrectomy Hx of laparoscopic gastric banding Social History Social History Housing: House Alcohol intake: current Alcohol intake frequency: holidays/special occasions only Alcohol type: hard liquor Patient Tobacco Use Status: Never used Tobacco Use of substances other than those prescribed or required for medical reasons: No Advance Directives: No Advance Directives Information Provided: No service: No Current occupational status: employed Meds Allergies Allergy/AdvReac Type Severity Reaction Status Date / Time warfarin AdvReac Mild hives Verified 07/24/21 11:29 Active Medications: Current Medications Acetaminophen (Acetaminophen 325 Mg Tablet) 650 mg PO Q6H PRN PRN Reason: Pain, Mild (Pain Scale 1-3) Allopurinol (Allopurinol 300 Mg Tablet) 450 mg PO DAILY [facility] Last Admin: 07/24/21 08:17 Dose: 450 mg Documented by: Diclofenac Sodium (Diclofenac Sodium Delayed Rel 75 Mg Tablet.) 75 mg PO BID [facility] Last Admin: 07/24/21 21:28 Dose: 75 mg Documented by: Docusate Sodium (Docusate Sodium 100 Mg Capsule) 100 mg PO DAILY PRN PRN Reason: constipation Escitalopram Oxalate (Escitalopram Oxalate 10 Mg Tablet) 10 mg PO DAILY [facility] Last Admin: 07/24/21 08:17 Dose: 10 mg Documented by: Ceftriaxone Sodium 1 gm/ (Sodium Chloride) 50 mls @ 100 mls/hr IV Q24H [facility] Last Infusion: 07/24/21 08:59 Dose: Infused Documented by: Vancomycin HCl 1,000 mg/ (Sodium Chloride) 270 mls @ 270 mls/hr IV Q12H [facility] Last Infusion: 07/24/21 18:21 Dose: Infused Documented by: Omeprazole (Omeprazole 40 Mg Capsule.Dr) 40 mg PO DAILY@0630 [facility] Last Admin: 07/24/21 06:07 Dose: 40 mg Documented by: Ondansetron HCl (Ondansetron Hcl 4 Mg/2 Ml Vial) 4 mg IVPUSH Q8H PRN PRN Reason: Nausea and Vomiting Pharmacy Consult (Consult Rx Vancomycin Dosing) 1 each MISCELLANE DAILY PRN PRN Reason: Consult order Sodium Chloride (0.9 % Sodium Chloride Flush 3 Ml Syringe) 3 ml IVFLUSH QSHIFT [facility] Last Admin: 07/24/21 21:29 Dose: 3 ml Documented by: Warfarin Sodium (Warfarin Sodium 10 Mg Tablet) 10 mg PO DAILY@1800 [facility] Last Admin: 07/24/21 17:21 Dose: 10 mg Documented by: Home Medications Medication Instructions Recorded Confirmed Last Taken Type warfarin 10 mg tablet 1 tab PO DAILY@1800 07/23/21 07/23/21 07/22/21 17:00 History Physical Exam Vital Signs: Vital Signs: Last Vital Signs Temp 97.5 F 07/24/21 19:50 Pulse 66 07/24/21 19:50 Resp 17 07/24/21 19:50 BP 108/56 L 07/24/21 19:50 Pulse Ox 97 07/24/21 19:50 Body Mass Index 56.9 Results Labs CBC & Chem 7: 07/22/21 22:37 07/24/21 16:41 Labs: BMP 07/24/21 07/24/21 04:53 16:41 Sodium 140 141 Potassium 3.9 4.2 Chloride 109 H 110 H Carbon Dioxide 24 24 BUN 16 20 H Creatinine 1.00 1.34 Calcium 8.3 L D 8.8 D Liver Function 07/24/21 Range/Units 16:41 Total Bilirubin 0.7 (0.0-1.0) mg/dL AST 13 (5-37) U/L ALT 9 (0-40) U/L Alkaline Phosphatase 84 (39-117) U/L Albumin 3.5 (3.5-5.0) g/dL Microbiology Microbiology Results: Microbiology 07/22/21 23:46 Blood - Venous Blood Culture - Preliminary No growth after 24 hours. 07/22/21 23:46 Blood - Venous Blood Culture - Preliminary No growth after 24 hours.
[2021-07-25] VITALS (7 sets, daily range): BP systolic 101–119; BP diastolic 52–64; PULSE 65–82; RESP 16–18; TEMP 36–36.6; O2SAT 95–99
[2021-07-25 04:58] LABS: MANUAL DIFF FLAG NO
[2021-07-25 05:00] LABS: Basophils Percent Auto 0.9 % (0-2); Eosinophils Absolute Auto 0.8 X10*3/uL (0.0-0.4); Eosinophils Percent Auto 18.3 % (0-4); Hematocrit 34.8 % (42-52); Hemoglobin 11.2 g/dl (14.0-18.0); Imm Gran Abs Auto 0.02 X10*3/uL (0.00-0.03); Imm Gran Pct Auto 0.4 % (0.0-0.4); Lymphocytes Absolute Auto 1.5 X10*3/uL (1.2-4.9); Lymphocytes Percent Auto 32.4 % (20-40); Mean Corpuscular HGB Conc 32.2 g/dl (31.0-36.0); Mean Corpuscular Hemoglobin 27.5 pg (27.0-33.0); Mean Corpuscular Volume 85.5 fL (80-98); Mean Platelet Volume 9.4 fL (9.4-12.4); Monocytes Absolute Auto 0.5 X10*3/uL (0.1-1.2); Monocytes Percent Auto 11.6 % (2-11); Neutrophils Absolute Auto 1.6 X10*3/uL (2.0-8.3); Neutrophils Percent Auto 36.4 % (45-73); Platelet Count 139 X10*3/uL (160-400); Red Blood Count 4.07 X10*6/uL (4.60-5.80); Red Cell Distribution Width 14.5 % (11.0-16.0); White Blood Count 4.5 X10*3/uL (4.8-10.8)
[2021-07-25 05:06] LABS: INTERNATIONAL NORM RATIO 2.3 (0.9-1.1); Prothrombin Time 26.6 SEC (9.9-13.0)
[2021-07-25 05:20] LABS: Vancomycin Trough 10.8 mcg/mL (10.0-20.0)
[2021-07-25] MEDS: Omeprazole 40 MG CAPSULE.DR PO (05:29)
[2021-07-25] MEDS: vancomycin HCL 1,000 MG in 0.9 % Sodium Chloride 250 ML 270 MG IV ×2 (05:29→17:34)
[2021-07-25] MEDS: cefTRIAXone sodium 1 GM in 0.9 % Sodium Chloride 50 ML IV (07:25)
[2021-07-25] MEDS: 0.9 % Sodium Chloride Flush 3 ML SYRINGE IVFLUSH ×3 (07:27→21:19)
[2021-07-25 08:48] LABS: Creatinine Clr Calc Pharmacy 149.4; Estimated Glomerular Filt Rate > 60
[2021-07-25] MEDS: Diclofenac Sodium Delayed Rel 75 MG TABLET.DR PO ×2 (09:46→21:18)
[2021-07-25] MEDS: levoFLOXacin 500 MG TABLET PO (09:46)
[2021-07-25] MEDS: allopurinoL 300 MG TABLET 450 MG PO (09:46)
[2021-07-25] MEDS: Escitalopram Oxalate 10 MG TABLET PO (09:47)
--- NOTE | 2021-07-25 10:21 | HO.PM.IMPN ---
Subjective Subjective Date of Service: 07/25/21 Interval History: No acute events overnight. No further rigors per patient. Ambulatory to be are without issue. States pain last when ambulating Review of Systems Denies chest pain Denies shortness of breath Denies nausea vomiting diarrhea Physical Exam Vital Signs: Vital Signs: Last Vital Signs Temp 97.2 F 07/25/21 08:00 Pulse 70 07/25/21 08:00 Resp 18 07/25/21 08:00 BP 102/61 07/25/21 08:00 Pulse Ox 99 07/25/21 08:00 Body Mass Index 56.9 Const: Other: Awake alert no acute distress HENMT: Other: Membranes moist; oropharynx clear Resp: Other: Clear to auscultation; Cardio: Other: No S4; S1-S2; no S3 no murmurs rubs or gallops GI: Other: Obese; soft nontender positive bowel sounds Extrem: Other: Initial erythema marked with skin pattern; improvement noted since admission. No longer warm to touch Objective Data Active Medications Acetaminophen (Acetaminophen 325 Mg Tablet) 650 mg PO Q6H PRN PRN Reason: Pain, Mild (Pain Scale 1-3) Allopurinol (Allopurinol 300 Mg Tablet) 450 mg PO DAILY [facility] Last Admin: 07/25/21 09:46 Dose: 450 mg Documented by: MICHAEL Diclofenac Sodium (Diclofenac Sodium Delayed Rel 75 Mg Tablet.) 75 mg PO BID [facility] Last Admin: 07/25/21 09:46 Dose: 75 mg Documented by: MICHAEL Docusate Sodium (Docusate Sodium 100 Mg Capsule) 100 mg PO DAILY PRN PRN Reason: constipation Escitalopram Oxalate (Escitalopram Oxalate 10 Mg Tablet) 10 mg PO DAILY [facility] Last Admin: 07/25/21 09:47 Dose: 10 mg Documented by: MICHAEL Ceftriaxone Sodium 1 gm/ (Sodium Chloride) 50 mls @ 100 mls/hr IV Q24H [facility] Last Infusion: 07/25/21 08:17 Dose: 0 mls/hr Documented by: BHUPINDER Vancomycin HCl 1,000 mg/ (Sodium Chloride) 270 mls @ 270 mls/hr IV Q12H [facility] Last Infusion: 07/25/21 06:35 Dose: 0 mls/hr Documented by: JOSEFINA Levofloxacin (Levofloxacin 500 Mg Tablet) 500 mg PO Q24H [facility] Last Admin: 07/25/21 09:46 Dose: 500 mg Documented by: MICHAEL Omeprazole (Omeprazole 40 Mg Capsule.Dr) 40 mg PO DAILY@0630 [facility] Last Admin: 07/25/21 05:29 Dose: 40 mg Documented by: JOSEFINA Ondansetron HCl (Ondansetron Hcl 4 Mg/2 Ml Vial) 4 mg IVPUSH Q8H PRN PRN Reason: Nausea and Vomiting Pharmacy Consult (Consult Rx Vancomycin Dosing) 1 each MISCELLANE DAILY PRN PRN Reason: Consult order Sodium Chloride (0.9 % Sodium Chloride Flush 3 Ml Syringe) 3 ml IVFLUSH QSHIFT [facility] Last Admin: 07/25/21 07:27 Dose: 3 ml Documented by: BHUPINDER Warfarin Sodium (Warfarin Sodium 10 Mg Tablet) 10 mg PO DAILY@1800 [facility] Last Admin: 07/24/21 17:21 Dose: 10 mg Documented by: NYLA Comments: REVIED WITH PHARMACY AND PATIENT.OK TO GIVE Labs CBC & Chem 7: 07/25/21 04:52 07/25/21 08:16 Labs: Laboratory Results - last 24 hr 07/24/21 07/25/21 07/25/21 16:41 04:51 04:52 MCV 85.5 MCH 27.5 MCHC 32.2 RDW 14.5 Plt Count 139 L MPV 9.4 Immature Gran % (Auto) 0.4 Neut % (Auto) 36.4 L Lymph % (Auto) 32.4 [place] % (Auto) 11.6 H Eos % (Auto) 18.3 H Baso % (Auto) 0.9 Lymph # (Auto) 1.5 [place] # (Auto) 0.5 Eos # (Auto) 0.8 H Baso # (Auto) 0.0 Abs Immat Gran (auto) 0.02 Absolute Neuts (auto) 1.6 L Absolute Nucleated RBC 0.000 Nucleated RBC % (auto) 0.0 PT INR Anion Gap 11 L Estim Creat Clear Calc 108.1 Estimated GFR 55 Fasting Glucose 126 H Calcium 8.8 D Total Bilirubin 0.7 AST 13 ALT 9 Alkaline Phosphatase 84 Total Protein 5.5 L Albumin 3.5 Vancomycin Trough 10.8 07/25/21 07/25/21 04:52 08:16 MCV MCH MCHC RDW Plt Count MPV Immature Gran % (Auto) Neut % (Auto) Lymph % (Auto) [place] % (Auto) Eos % (Auto) Baso % (Auto) Lymph # (Auto) [place] # (Auto) Eos # (Auto) Baso # (Auto) Abs Immat Gran (auto) Absolute Neuts (auto) Absolute Nucleated RBC Nucleated RBC % (auto) PT 26.6 H INR 2.3 H Anion Gap Estim Creat Clear Calc 149.4 Estimated GFR > 60 Fasting Glucose Calcium Total Bilirubin AST ALT Alkaline Phosphatase Total Protein Albumin Vancomycin Trough Microbiology Microbiology Results: Microbiology 07/22/21 23:46 Blood Culture - Preliminary Blood - Venous No growth after 48 hours. 07/22/21 23:46 Blood Culture - Preliminary Blood - Venous No growth after 48 hours. Assessment and Plan (1) Cellulitis of right leg: Status: Acute Assessment and Plan: 56-year-old male with morbid obesity who presents to the hospital with cellulitis; rapid onset 1.Cellulitis On ceftriaxone; vancomycin . Id consult appreciated. Slowly improving Follow clinically discharge with oral doxycycline 2.History of PE INR therapeutic at 2.3. Continue Coumadin as ordered. Check INR daily and adjust as indicated 3. GERD Continue PPI as ordered DVT prophylaxis: Coumadin Quality Stroke Does the patient have a stroke diagnosis?: No VTE Prior VTE?: No VTE Risk Level:: Medical - low VTE Device Contraindication: Treatment Not Indicated VTE Drug Contraindication: N/A - Med Ordered
--- NOTE | 2021-07-25 12:41 | MHC.CM.PN ---
Per ROUNDS discussion, Patient is not yet medically cleared for dc (IV Ceftriaxone, IV Vanco).Home is the goal for dc and CM will continue to follow for possible need to adjust the dc plan.
[2021-07-25] MEDS: Warfarin Sodium 10 MG TABLET PO (17:35)
[2021-07-26 04:00] VITALS: BP 104/52; PULSE 76; RESP 17; TEMP 37; O2SAT 97
--- NOTE | 2021-07-26 06:33 | PC.NURSE ---
Addendum entered by Dave Srivastava RN 07/26/21 06:58: Entered in error. Vanco admin at 0655 Original Note: IV Vancomycin not admin at 0600 due to awaiting results from vanco trough.
[2021-07-26] MEDS: Omeprazole 40 MG CAPSULE.DR PO (06:43)
[2021-07-26] MEDS: vancomycin HCL 1,000 MG in 0.9 % Sodium Chloride 250 ML 270 MG IV ×2 (06:49→17:48)
[2021-07-26 07:02] LABS: INTERNATIONAL NORM RATIO 2.4 (0.9-1.1); Prothrombin Time 28.1 SEC (9.9-13.0)
[2021-07-26 07:18] LABS: Creatinine Clr Calc Pharmacy 139.3; Estimated Glomerular Filt Rate > 60
[2021-07-26 07:23] LABS: Vancomycin Trough 11.9 mcg/mL (10.0-20.0)
[2021-07-26 07:42] VITALS: BP 111/60; PULSE 58; RESP 20; TEMP 36.2; O2SAT 97
[2021-07-26] MEDS: cefTRIAXone sodium 1 GM in 0.9 % Sodium Chloride 50 ML IV (08:19)
[2021-07-26] MEDS: Escitalopram Oxalate 10 MG TABLET PO (08:20)
[2021-07-26] MEDS: Diclofenac Sodium Delayed Rel 75 MG TABLET.DR PO ×2 (08:20→20:02)
[2021-07-26] MEDS: 0.9 % Sodium Chloride Flush 3 ML SYRINGE IVFLUSH ×3 (08:20→20:02)
[2021-07-26] MEDS: allopurinoL 300 MG TABLET 450 MG PO (08:20)
[2021-07-26] MEDS: levoFLOXacin 500 MG TABLET PO (08:20)
[2021-07-26 11:20] VITALS: BP 125/68; PULSE 67; RESP 18; TEMP 36.2; O2SAT 97
--- NOTE | 2021-07-26 11:37 | P.PNIM_ITS ---
Subjective Subjective Date of Service: 07/26/21 Interval History: No acute events overnight. No further rigors per patient. Ambulatory to be are without issue. States pain last when ambulating Review of Systems Denies chest pain Denies shortness of breath Denies nausea vomiting diarrhea Physical Exam Vital Signs: Vital Signs: Last Vital Signs Temp 97.2 F 07/26/21 11:20 Pulse 67 07/26/21 11:20 Resp 18 07/26/21 11:20 BP 125/68 07/26/21 11:20 Pulse Ox 97 07/26/21 11:20 Body Mass Index 56.9 Const: Other: Awake alert no acute distress HENMT: Other: Membranes moist; oropharynx clear Resp: Other: Clear to auscultation; Cardio: Other: No S4; S1-S2; no S3 no murmurs rubs or gallops GI: Other: Obese; soft nontender positive bowel sounds Extrem: Other: Minimal erythema right lower extremities; replaced with baseline w/ tawney discoloration secondary to venous stasis disease. Objective Data Active Medications Acetaminophen (Acetaminophen 325 Mg Tablet) 650 mg PO Q6H PRN PRN Reason: Pain, Mild (Pain Scale 1-3) Allopurinol (Allopurinol 300 Mg Tablet) 450 mg PO DAILY [facility] Last Admin: 07/26/21 08:20 Dose: 450 mg Documented by: COTEMA Diclofenac Sodium (Diclofenac Sodium Delayed Rel 75 Mg Tablet.) 75 mg PO BID [facility] Last Admin: 07/26/21 08:20 Dose: 75 mg Documented by: COTEMA Docusate Sodium (Docusate Sodium 100 Mg Capsule) 100 mg PO DAILY PRN PRN Reason: constipation Escitalopram Oxalate (Escitalopram Oxalate 10 Mg Tablet) 10 mg PO DAILY [facility] Last Admin: 07/26/21 08:20 Dose: 10 mg Documented by: [email or web address].[email or web address] Ceftriaxone Sodium 1 gm/ (Sodium Chloride) 50 mls @ 100 mls/hr IV Q24H [facility] Last Infusion: 07/26/21 08:59 Dose: 0 mls/hr Documented by: [email or web address] Vancomycin HCl 1,000 mg/ (Sodium Chloride) 270 mls @ 270 mls/hr IV Q12H [facility] Last Infusion: 07/26/21 08:14 Dose: 0 mls/hr Documented by: [email or web address].[email or web address] Levofloxacin (Levofloxacin 500 Mg Tablet) 500 mg PO Q24H [facility] Last Admin: 07/26/21 08:20 Dose: 500 mg Documented by: COTEMA Omeprazole (Omeprazole 40 Mg Capsule.) 40 mg PO DAILY@0630 [facility] Last Admin: 07/26/21 06:43 Dose: 40 mg Documented by: LABELLN Ondansetron HCl (Ondansetron Hcl 4 Mg/2 Ml Vial) 4 mg IVPUSH Q8H PRN PRN Reason: Nausea and Vomiting Pharmacy Consult (Consult Rx Vancomycin Dosing) 1 each MISCELLANE DAILY PRN PRN Reason: Consult order Sodium Chloride (0.9 % Sodium Chloride Flush 3 Ml Syringe) 3 ml IVFLUSH QSHIFT [facility] Last Admin: 07/26/21 08:20 Dose: 3 ml Documented by: COTEMA Warfarin Sodium (Warfarin Sodium 10 Mg Tablet) 10 mg PO DAILY@1800 [facility] Last Admin: 07/25/21 17:35 Dose: 10 mg Documented by: BHUPINDER Labs CBC & Chem 7: 07/25/21 04:52 07/26/21 05:58 Labs: Laboratory Results - last 24 hr 07/25/21 07/26/21 07/26/21 04:51 05:58 05:58 PT 28.1 H INR 2.4 H Estim Creat Clear Calc 139.3 Estimated GFR > 60 Vancomycin Trough 10.8 07/26/21 06:02 PT INR Estim Creat Clear Calc Estimated GFR Vancomycin Trough 11.9 Assessment and Plan (1) Cellulitis of right leg: Status: Acute Assessment and Plan: 56-year-old male with morbid obesity who presents to the hospital with cellulitis; rapid onset 1.Cellulitis On ceftriaxone; vancomycin . Id consult appreciated. Slowly improving; blood cultures negative x2 thus far Complete antibiotics as ordered today; no acute issues with discharge tomorrow after a.m. dosing 2.History of PE INR therapeutic at 2.4. Continue Coumadin as ordered. INR in am.... Follow-up Coumadin clinic 3. GERD Continue PPI as ordered DVT prophylaxis: Coumadin Quality Stroke Does the patient have a stroke diagnosis?: No VTE Prior VTE?: No VTE Risk Level:: Medical - low VTE Device Contraindication: Treatment Not Indicated VTE Drug Contraindication: N/A - Med Ordered
--- NOTE | 2021-07-26 12:50 | MHC.CM.PN ---
PATIENT IS AWARE THAT PLANS ARE FOR RETURN HOME TOMORROW- SELF CARE. SIGN[facility] OTHER (IN ROOM) WILL PROVIDE TRANSPORT HOME. IMM 07/26 SIGNED AND COPY IS IN CHART.
[2021-07-26 15:41] VITALS: BP 129/57; PULSE 73; RESP 18; TEMP 36.4; O2SAT 100
[2021-07-26] MEDS: Warfarin Sodium 10 MG TABLET PO (17:48)
[2021-07-26 19:31] VITALS: BP 134/66; PULSE 68; RESP 18; TEMP 36.8; O2SAT 97
[2021-07-26 23:41] VITALS: BP 110/53; PULSE 68; RESP 17; TEMP 36.6; O2SAT 96
[2021-07-27 04:00] VITALS: BP 127/59; PULSE 76; RESP 18; TEMP 36.2; O2SAT 98
[2021-07-27] MEDS: Omeprazole 40 MG CAPSULE.DR PO (06:13)
[2021-07-27] MEDS: vancomycin HCL 1,000 MG in 0.9 % Sodium Chloride 250 ML 270 MG IV ×2 (06:13→18:41)
[2021-07-27 07:01] LABS: INTERNATIONAL NORM RATIO 2.6 (0.9-1.1); Prothrombin Time 29.9 SEC (9.9-13.0)
[2021-07-27 07:05] LABS: Estimated Glomerular Filt Rate > 60
[2021-07-27 07:09] VITALS: BP 130/60; PULSE 65; RESP 20; TEMP 35.7; O2SAT 100
[2021-07-27] MEDS: 0.9 % Sodium Chloride Flush 3 ML SYRINGE IVFLUSH ×3 (07:24→20:23)
[2021-07-27] MEDS: cefTRIAXone sodium 1 GM in 0.9 % Sodium Chloride 50 ML IV (07:25)
[2021-07-27] MEDS: Diclofenac Sodium Delayed Rel 75 MG TABLET.DR PO ×2 (07:26→20:22)
[2021-07-27] MEDS: allopurinoL 300 MG TABLET 450 MG PO (07:26)
[2021-07-27] MEDS: levoFLOXacin 500 MG TABLET PO (07:26)
[2021-07-27] MEDS: Escitalopram Oxalate 10 MG TABLET PO (07:27)
--- NOTE | 2021-07-27 11:23 | HO.PM.IMPN ---
Subjective Subjective Date of Service: 07/27/21 Interval History: No acute events overnight. Still complains of resting pain worse with ambulation Review of Systems Denies chest pain Denies shortness of breath Denies nausea vomiting diarrhea Physical Exam Vital Signs: Vital Signs: Last Vital Signs Temp 96.2 F L 07/27/21 07:09 Pulse 65 07/27/21 07:09 Resp 20 07/27/21 07:09 BP 130/60 07/27/21 07:09 Pulse Ox 100 07/27/21 07:09 Body Mass Index 56.9 Const: Other: Awake alert no acute distress HENMT: Other: Membranes moist; oropharynx clear Resp: Other: Clear to auscultation; Cardio: Other: No S4; S1-S2; no S3 no murmurs rubs or gallops GI: Other: Obese; soft nontender positive bowel sounds Extrem: Other: Erythema right lower extremity; slightly warm to touch this am Objective Data Active Medications Acetaminophen (Acetaminophen 325 Mg Tablet) 650 mg PO Q6H PRN PRN Reason: Pain, Mild (Pain Scale 1-3) Allopurinol (Allopurinol 300 Mg Tablet) 450 mg PO DAILY [facility] Last Admin: 07/27/21 07:26 Dose: 450 mg Documented by: COTEMA Diclofenac Sodium (Diclofenac Sodium Delayed Rel 75 Mg Tablet.Dr) 75 mg PO BID [facility] Last Admin: 07/27/21 07:26 Dose: 75 mg Documented by: LEÓN Docusate Sodium (Docusate Sodium 100 Mg Capsule) 100 mg PO DAILY PRN PRN Reason: constipation Escitalopram Oxalate (Escitalopram Oxalate 10 Mg Tablet) 10 mg PO DAILY [facility] Last Admin: 07/27/21 07:27 Dose: 10 mg Documented by: COTEMA Ceftriaxone Sodium 1 gm/ (Sodium Chloride) 50 mls @ 100 mls/hr IV Q24H [facility] Last Infusion: 07/27/21 08:13 Dose: 0 mls/hr Documented by: COTEMA Vancomycin HCl 1,000 mg/ (Sodium Chloride) 270 mls @ 270 mls/hr IV Q12H [facility] Last Infusion: 07/27/21 07:27 Dose: 0 mls/hr Documented by: COTEMA Levofloxacin (Levofloxacin 500 Mg Tablet) 500 mg PO Q24H [facility] Last Admin: 07/27/21 07:26 Dose: 500 mg Documented by: LEÓN Omeprazole (Omeprazole 40 Mg Capsule.) 40 mg PO DAILY@0630 [facility] Last Admin: 07/27/21 06:13 Dose: 40 mg Documented by: ROSELIA Ondansetron HCl (Ondansetron Hcl 4 Mg/2 Ml Vial) 4 mg IVPUSH Q8H PRN PRN Reason: Nausea and Vomiting Pharmacy Consult (Consult Rx Vancomycin Dosing) 1 each MISCELLANE DAILY PRN PRN Reason: Consult order Sodium Chloride (0.9 % Sodium Chloride Flush 3 Ml Syringe) 3 ml IVFLUSH QSHIFT [facility] Last Admin: 07/27/21 07:24 Dose: 3 ml Documented by: LEÓN Warfarin Sodium (Warfarin Sodium 10 Mg Tablet) 10 mg PO DAILY@1800 [facility] Last Admin: 07/26/21 17:48 Dose: 10 mg Documented by: LEÓN Labs CBC & Chem 7: 07/25/21 04:52 07/27/21 06:31 Labs: Laboratory Results - last 24 hr 07/27/21 07/27/21 06:31 06:31 PT 29.9 H INR 2.6 H Estim Creat Clear Calc 142.0 Estimated GFR > 60 Assessment and Plan (1) Cellulitis of right leg: Status: Acute Assessment and Plan: 56-year-old male with morbid obesity who presents to the hospital with cellulitis; rapid onset 1.Cellulitis On ceftriaxone; vancomycin . Id consult appreciated. Slowly improving; blood cultures negative x2 thus far Complete antibiotics as ordered today; mild erythema that is warm this a.m. .... 24 hours more of additional antibiotics likely discharge in a.m. 2.History of PE INR therapeutic at 2.4. Continue Coumadin as ordered. INR in am.... Follow-up Coumadin clinic 3. GERD Continue PPI as ordered DVT prophylaxis: Coumadin Quality Stroke Does the patient have a stroke diagnosis?: No VTE Prior VTE?: No VTE Risk Level:: Medical - low VTE Device Contraindication: Treatment Not Indicated VTE Drug Contraindication: N/A - Med Ordered
[2021-07-27 11:35] VITALS: BP 111/64; PULSE 82; RESP 18; TEMP 36.1; O2SAT 96
[2021-07-27 15:19] VITALS: BP 126/60; PULSE 75; RESP 18; TEMP 36.5; O2SAT 97
[2021-07-27 17:43] LABS: Vancomycin Trough 14.9 mcg/mL (10.0-20.0)
[2021-07-27] MEDS: Warfarin Sodium 10 MG TABLET PO (18:40)
[2021-07-27 19:37] VITALS: BP 125/60; PULSE 79; RESP 17; TEMP 36.6; O2SAT 100
[2021-07-27] MEDS: Loperamide HCl 2 MG CAPSULE PO (19:50)
[2021-07-28] VITALS (7 sets, daily range): BP systolic 101–131; BP diastolic 53–70; PULSE 60–87; RESP 16–18; TEMP 36.4–37.2; O2SAT 96–99
[2021-07-28] MEDS: vancomycin HCL 1,000 MG in 0.9 % Sodium Chloride 250 ML 270 MG IV ×2 (05:29→17:57)
[2021-07-28] MEDS: Omeprazole 40 MG CAPSULE.DR PO (05:29)
[2021-07-28] MEDS: Acetaminophen 325 MG TABLET 650 MG PO (05:35)
[2021-07-28 06:20] LABS: INTERNATIONAL NORM RATIO 2.6 (0.9-1.1); Prothrombin Time 29.9 SEC (9.9-13.0)
[2021-07-28] MEDS: cefTRIAXone sodium 1 GM in 0.9 % Sodium Chloride 50 ML IV (06:36)
[2021-07-28 06:39] LABS: Creatinine Clr Calc Pharmacy 146.3; Estimated Glomerular Filt Rate > 60
[2021-07-28] MEDS: 0.9 % Sodium Chloride Flush 3 ML SYRINGE IVFLUSH ×3 (07:13→21:07)
[2021-07-28] MEDS: levoFLOXacin 500 MG TABLET PO (07:19)
[2021-07-28] MEDS: Escitalopram Oxalate 10 MG TABLET PO (07:20)
[2021-07-28] MEDS: allopurinoL 300 MG TABLET 450 MG PO (07:20)
[2021-07-28] MEDS: Diclofenac Sodium Delayed Rel 75 MG TABLET.DR PO ×2 (07:20→21:06)
--- NOTE | 2021-07-28 11:18 | P.PNIM_ITS ---
Subjective Subjective Date of Service: 07/28/21 Interval History: Subjective fever and chills overnight; no documented fever Still complains of resting pain worse with ambulation and now at rest. States he feels ?lousy? Review of Systems Denies chest pain Denies shortness of breath Denies nausea vomiting diarrhea Physical Exam Vital Signs: Vital Signs: Last Vital Signs Temp 97.6 F 07/28/21 07:29 Pulse 61 07/28/21 07:29 Resp 18 07/28/21 07:29 BP 102/65 07/28/21 07:29 Pulse Ox 98 07/28/21 07:29 Body Mass Index 56.9 Const: Other: Awake alert no acute distress HENMT: Other: Membranes moist; oropharynx clear Resp: Other: Clear to auscultation; Cardio: Other: No S4; S1-S2; no S3 no murmurs rubs or gallops GI: Other: Obese; soft nontender positive bowel sounds Extrem: Other: Erythema right lower extremity extending past original marker line; extremely tender and warm Objective Data Active Medications Acetaminophen (Acetaminophen 325 Mg Tablet) 650 mg PO Q6H PRN PRN Reason: Pain, Mild (Pain Scale 1-3) Last Admin: 07/28/21 05:35 Dose: 650 mg Documented by: JOSEFINA Allopurinol (Allopurinol 300 Mg Tablet) 450 mg PO DAILY [facility] Last Admin: 07/28/21 07:20 Dose: 450 mg Documented by: COTEMA Diclofenac Sodium (Diclofenac Sodium Delayed Rel 75 Mg Tablet.Dr) 75 mg PO BID [facility] Last Admin: 07/28/21 07:20 Dose: 75 mg Documented by: COTEMA Docusate Sodium (Docusate Sodium 100 Mg Capsule) 100 mg PO DAILY PRN PRN Reason: constipation Escitalopram Oxalate (Escitalopram Oxalate 10 Mg Tablet) 10 mg PO DAILY [facility] Last Admin: 07/28/21 07:20 Dose: 10 mg Documented by: COTEMA Ceftriaxone Sodium 1 gm/ (Sodium Chloride) 50 mls @ 100 mls/hr IV Q24H [facility] Last Infusion: 07/28/21 07:15 Dose: 0 mls/hr Documented by: COTEMA Vancomycin HCl 1,000 mg/ (Sodium Chloride) 270 mls @ 270 mls/hr IV Q12H [facility] Last Infusion: 07/28/21 06:38 Dose: 0 mls/hr Documented by: JOSEFINA Levofloxacin (Levofloxacin 500 Mg Tablet) 500 mg PO Q24H [facility] Last Admin: 07/28/21 07:19 Dose: 500 mg Documented by: LEÓN Loperamide HCl (Loperamide Hcl 2 Mg Capsule) 2 mg PO Q6H PRN PRN Reason: Diarrhea Last Admin: 07/27/21 19:50 Dose: 2 mg Documented by: JOSEFINA Omeprazole (Omeprazole 40 Mg Capsule.) 40 mg PO DAILY@0630 [facility] Last Admin: 07/28/21 05:29 Dose: 40 mg Documented by: JOSEFINA Ondansetron HCl (Ondansetron Hcl 4 Mg/2 Ml Vial) 4 mg IVPUSH Q8H PRN PRN Reason: Nausea and Vomiting Pharmacy Consult (Consult Rx Vancomycin Dosing) 1 each MISCELLANE DAILY PRN PRN Reason: Consult order Sodium Chloride (0.9 % Sodium Chloride Flush 3 Ml Syringe) 3 ml IVFLUSH QSHIFT [facility] Last Admin: 07/28/21 07:13 Dose: 3 ml Documented by: LEÓN Warfarin Sodium (Warfarin Sodium 10 Mg Tablet) 10 mg PO DAILY@1800 [facility] Last Admin: 07/27/21 18:40 Dose: 10 mg Documented by: LEÓN Labs CBC & Chem 7: 07/25/21 04:52 07/28/21 05:50 Labs: Laboratory Results - last 24 hr 07/22/21 07/27/21 07/28/21 22:37 17:04 05:50 WBC 9.9 PT 29.9 H INR 2.6 H Estim Creat Clear Calc Estimated GFR Vancomycin Trough 14.9 07/28/21 05:50 WBC PT INR Estim Creat Clear Calc 146.3 Estimated GFR > 60 Vancomycin Trough Microbiology Microbiology Results: Microbiology 07/22/21 23:46 Blood Culture - Final Blood - Venous No growth after 5 days. 07/22/21 23:46 Blood Culture - Final Blood - Venous No growth after 5 days. Assessment and Plan (1) Cellulitis of right leg: Status: Acute Assessment and Plan: 56-year-old male with morbid obesity who presents to the hospital with cellulitis; rapid onset. Initially responded to vanc and ceftriaxone; Levaquin added to cover possible cat scratch. This morning, redness passed initial demarcation line and now more pain at rest 1.Cellulitis On ceftriaxone; vancomycin/Levaquin.. Despite this worse. Will check CBC; discussed with ID 2.History of PE INR therapeutic at 2.6. Continue Coumadin as ordered. INR in am.... Follow-up Coumadin clinic 3. GERD Continue PPI as ordered DVT prophylaxis: Coumadin Quality Stroke Does the patient have a stroke diagnosis?: No VTE Prior VTE?: No VTE Risk Level:: Medical - low VTE Device Contraindication: Treatment Not Indicated VTE Drug Contraindication: N/A - Med Ordered
[2021-07-28 11:39] LABS: MANUAL DIFF FLAG NO
[2021-07-28 11:55] LABS: Basophils Percent Auto 0.8 % (0-2); Eosinophils Absolute Auto 0.9 X10*3/uL (0.0-0.4); Eosinophils Percent Auto 18.4 % (0-4); Hematocrit 34.5 % (42-52); Imm Gran Abs Auto 0.07 X10*3/uL (0.00-0.03); Imm Gran Pct Auto 1.4 % (0.0-0.4); Lymphocytes Absolute Auto 1.1 X10*3/uL (1.2-4.9); Lymphocytes Percent Auto 22.7 % (20-40); Mean Corpuscular HGB Conc 31.9 g/dl (31.0-36.0); Mean Corpuscular Hemoglobin 27.5 pg (27.0-33.0); Mean Corpuscular Volume 86.3 fL (80-98); Mean Platelet Volume 9.9 fL (9.4-12.4); Monocytes Absolute Auto 0.7 X10*3/uL (0.1-1.2); Monocytes Percent Auto 13.7 % (2-11); Neutrophils Absolute Auto 2.1 X10*3/uL (2.0-8.3); Platelet Count 181 X10*3/uL (160-400); Red Cell Distribution Width 14.5 % (11.0-16.0); White Blood Count 4.9 X10*3/uL (4.8-10.8)
[2021-07-28 13:09] LABS: Alanine Aminotransferase 12 U/L (0-40); Albumin Level 3.7 g/dL (3.5-5.0); Alkaline Phosphatase 84 U/L (39-117); Anion Gap 11 (12-20); Aspartate Amino Transferase 16 U/L (5-37); Bilirubin Total 0.9 mg/dL (0.0-1.0); Blood Urea Nitrogen 16 mg/dL (9-16); Calcium 8.7 mg/dL (8.4-10.2); Carbon Dioxide 26 mmol/L (22-29); Chloride 108 mmol/L (96-108); Creatinine Clr Calc Pharmacy 146.3; Estimated Glomerular Filt Rate > 60; Glucose Fasting 96 mg/dL (60-99); Potassium 4.4 mmol/L (3.3-5.1); Sodium 141 mmol/L (135-145); Total Protein 5.8 g/dL (6.5-8.0)
[2021-07-28] MEDS: Warfarin Sodium 10 MG TABLET PO (17:57)
[2021-07-29 04:00] VITALS: BP 108/56; PULSE 61; RESP 17; TEMP 36.3; O2SAT 98
[2021-07-29 04:56] LABS: INTERNATIONAL NORM RATIO 2.7 (0.9-1.1); Prothrombin Time 30.8 SEC (9.9-13.0)
[2021-07-29 05:14] LABS: Creatinine Clr Calc Pharmacy 155.8; Estimated Glomerular Filt Rate > 60
[2021-07-29 05:20] LABS: Vancomycin Trough 16.8 mcg/mL (10.0-20.0)
[2021-07-29] MEDS: vancomycin HCL 1,000 MG in 0.9 % Sodium Chloride 250 ML 270 MG IV (05:40)
[2021-07-29] MEDS: Omeprazole 40 MG CAPSULE.DR PO (05:40)
[2021-07-29 07:41] VITALS: BP 130/67; PULSE 71; RESP 18; TEMP 36.6; O2SAT 97
[2021-07-29] MEDS: cefTRIAXone sodium 1 GM in 0.9 % Sodium Chloride 50 ML IV (08:08)
[2021-07-29] MEDS: allopurinoL 300 MG TABLET 450 MG PO (08:09)
[2021-07-29] MEDS: levoFLOXacin 500 MG TABLET PO (08:09)
[2021-07-29] MEDS: 0.9 % Sodium Chloride Flush 3 ML SYRINGE IVFLUSH (08:09)
[2021-07-29] MEDS: Escitalopram Oxalate 10 MG TABLET PO (08:09)
[2021-07-29] MEDS: Diclofenac Sodium Delayed Rel 75 MG TABLET.DR PO (08:10)
[2021-07-29 11:18] VITALS: BP 111/62; PULSE 101; RESP 18; TEMP 36.3; O2SAT 94
--- NOTE | 2021-07-29 11:31 | P.DS_ITS ---
DS: Providers Provider Date of Service: 07/29/21 Date of admission: 07/24/21 15:15 Date of discharge: 07/29/21 Primary care physician: Tomas Holm MD Consults: 07/23/21 15:04 Consult to Infectious Diseases Routine Consulting Provider: Enedelia Durbin Reason for consultation: cellulitis Has provider been notified: Yes DS: Diagnosis Discharge Diagnosis (1) Cellulitis of right leg: Status: Acute DS: Summary Hospital Course Hospital Course: 56yr-old male with past medical history of PE, HTN, sleeve gastrectomy, and morbid obesity who presents to the hospital with complaints of right lower extremity redness as well as warms.? Patient reports that his symptoms started yesterday, he is having chills, rigors, fatigue.? The redness developed suddenly and progressed significantly within the next 12 hours.? Patient denies having any fever, has chills, no shortness of breath chest pain, no abdominal pain nausea or vomiting, no diarrhea constipation, no urinary symptoms.? Patient reports that he has had cellulitis about 15 years ago in the same area.? He denies having any headache or change in vision, no dizziness, numbness tingling or weakness.? He has had no recent travel or prolonged immobility.? On arrival to the ED patient's vitals are significant for temp of 97.1, heart rate of 82, respiratory rate of 20, blood pressure 120/80, satting 96% on room air Labs are significant for WBC count of 9.9, hemoglobin of 12.1 which is around his baseline, PT of 20.3, INR 1.8, BUN of 1.25 with a baseline around 1.1, COVID negative EKG shows sinus rhythm with occasional PVCs, no changes from previous Hospital course Patient admitted started on IV vancomycin and ceftriaxone. Seen in consult by Infectious Disease who advised adding Levaquin for question of a cat bite/scratch. Over the next 5 days he continued to progress slowly although consistently. On the day of discharge his wound is improved not warm to touch and he is requesting same. He is medically acceptable for discharge oral antibiotics Time Spent with Patient Time attestation: Total time spent providing and/or coordinating discharge services: Discharge coordination time: Greater than 30 minutes Quality: Stroke Does the patient have a stroke diagnosis?: No Physical Exam Vital Signs: Vital Signs: Last Vital Signs Temp 97.3 F 07/29/21 11:18 Pulse 101 H 07/29/21 11:18 Resp 18 07/29/21 11:18 BP 111/62 07/29/21 11:18 Pulse Ox 94 07/29/21 11:18 Body Mass Index 56.9 Const: Other: Awake alert no acute distress HENMT: Other: Membranes moist; oropharynx clear Resp: Other: Clear to auscultation; Cardio: Other: No S4; S1-S2; no S3 no murmurs rubs or gallops GI: Other: Obese; soft nontender positive bowel sounds Extrem: Other: Erythema right lower extremity markedly improved; less tender no warmth DS: Data Data Completed and Pending Labs on day of discharge: Laboratory Results - last 24 hr 07/28/21 07/28/21 07/29/21 11:35 11:35 04:42 WBC 4.9 RBC 4.00 L Hgb 11.0 L Hct 34.5 L MCV 86.3 MCH 27.5 MCHC 31.9 RDW 14.5 Plt Count 181 D MPV 9.9 Immature Gran % (Auto) 1.4 H Neut % (Auto) 43.0 L Lymph % (Auto) 22.7 [place] % (Auto) 13.7 H Eos % (Auto) 18.4 H Baso % (Auto) 0.8 Lymph # (Auto) 1.1 L [place] # (Auto) 0.7 Eos # (Auto) 0.9 H Baso # (Auto) 0.0 Abs Immat Gran (auto) 0.07 H Absolute Neuts (auto) 2.1 Absolute Nucleated RBC 0.000 Nucleated RBC % (auto) 0.0 PT 30.8 H INR 2.7 H Sodium 141 Potassium 4.4 Chloride 108 Carbon Dioxide 26 Anion Gap 11 L BUN 16 Creatinine 0.99 Estim Creat Clear Calc 146.3 Estimated GFR > 60 Fasting Glucose 96 Calcium 8.7 Total Bilirubin 0.9 AST 16 ALT 12 Alkaline Phosphatase 84 Total Protein 5.8 L Albumin 3.7 Vancomycin Trough 07/29/21 07/29/21 04:42 04:42 WBC RBC Hgb Hct MCV MCH MCHC RDW Plt Count MPV Immature Gran % (Auto) Neut % (Auto) Lymph % (Auto) [place] % (Auto) Eos % (Auto) Baso % (Auto) Lymph # (Auto) [place] # (Auto) Eos # (Auto) Baso # (Auto) Abs Immat Gran (auto) Absolute Neuts (auto) Absolute Nucleated RBC Nucleated RBC % (auto) PT INR Sodium Potassium Chloride Carbon Dioxide Anion Gap BUN Creatinine 0.93 Estim Creat Clear Calc 155.8 Estimated GFR > 60 Fasting Glucose Calcium Total Bilirubin AST ALT Alkaline Phosphatase Total Protein Albumin Vancomycin Trough 16.8 Discharge Plan Discharge Patient Disposition: Home, Self-Care Discharge Diagnosis: Cellulitis Referrals: Tomas Holm MD [Primary Care Provider] - 1 Week Discharge Medications: New levofloxacin 500 mg Tablet 500 mg PO Q24H Qty: 7 RF: 0 Continued citalopram 20 mg tablet 20 mg PO DAILY Qty: 90 RF: 3 allopurinol 300 mg tablet 450 mg PO DAILY Qty: 135 RF: 1 omeprazole 40 mg capsule,delayed release(DR/EC) 40 mg PO DAILY Qty: 90 RF: 1 diclofenac sodium 75 mg tablet,delayed release (DR/EC) 75 mg PO BID Qty: 180 RF: 0 warfarin 10 mg tablet 1 tab PO DAILY@1800 RF: 0 Discharge Orders: Discharge Order (Routine); Ordered 07/29/21 Ordered By: Nick Corral Diet: advance to usual diet Activity on Discharge: As tolerated Stand Alone Forms: Patient Portal Discharge page, Work/School Release Care Plan Goals: High his level of function Health Concerns: Recurrent cellulitis Plan of Treatment: Plan as ordered Assessment: Improved
--- NOTE | 2021-07-29 11:40 | PC.NURSE ---
Skin assessment completed. Patient has cellulitis on bilateral extremities. Cellulitis is resolving from administration of antibiotics. No open areas noted. No other skin issues noted at this time.
--- NOTE | 2021-07-29 11:48 | MHC.CM.PN ---
PATIENT IS DC HOME - SELF CARE. RN AWARE OF PLAN.
== END 2021-07-29 15:46 | disposition home or self-care (01) | DRG 383 ==
LOC: HO.ED 07-23 00:38 → HO.EDOVER 07-23 01:41 → HO.S3 07-23 19:27
PROVIDERS: Admitting Provider Internal Medicine; Emergency Provider Emergency Medicine Emergency Medical Services; PCP Internal Medicine; Visit Provider Hospitalist
DX: L03.115 Cellulitis of right lower limb (principal); Z68.43 Body mass index [BMI] 50.0-59.9, adult; E66.01 Morbid (severe) obesity due to excess calories; K21.9 Gastro-esophageal reflux disease without esophagitis; Z20.822 Contact with and (suspected) exposure to COVID-19; Z86.711 Personal history of pulmonary embolism; Z98.84 Bariatric surgery status; Z79.01 Long term (current) use of anticoagulants; Z79.899 Other long term (current) drug therapy
CPT/HCPCS: 36415; 80048; 80053; 80202; 82565; 83605; 84484; 85025; 85610; 85730; 87040; 87635; 93005; 96361; 96374; 99285; J0690; J0696; J3370

== ENCOUNTER 2021-08-01 14:27 | Outpatient (REF) | payer OTHER, SELFPAY ==
--- NOTE | ~2021-08-01 | US_ITS ---
EXAMINATION: US VENOUS ULTRASOUND WITH DOPPLER LOWER EXTREMITY, RIGHT CLINICAL INFORMATION: Right leg pain and erythema. Evaluate for a deep vein thrombosis. COMPARISON: Bilateral lower extremity venous ultrasound dated 08/23/2017. TECHNIQUE: Ultrasound of the deep veins is performed from the hip to the calf with compression sonography and color and pulse Doppler assessment. Spectral analysis with color-flow imaging is performed. FINDINGS: There is normal venous compression and respiratory variation and augmented flow. The visualized common femoral vein, superficial femoral vein, profunda femoral vein, popliteal vein, and the trifurcation region shows no evidence of deep venous thrombosis. Heterogeneous echogenicity, noncompressibility, and decreased vascular flow within the mid/proximal right greater saphenous vein, consistent with superficial thrombophlebitis. There is no significant popliteal fossa cyst. If the patient's symptoms persist, followup ultrasound in 5 days 7 days might be of value to exclude proximal propagation from a non-visualized calf vein. US/US venous duplex LE RT IMPRESSION: Superficial thrombophlebitis within the mid/proximal right greater saphenous vein. No evidence of deep vein thrombosis.
== END 2021-08-01 14:28 | disposition home or self-care (01) ==
LOC: HO.US 14:27
PROVIDERS: PCP Internal Medicine; Visit Provider Nurse Practitioner Family
DX: M79.604 Pain in right leg (principal); M79.89 Other specified soft tissue disorders
CPT/HCPCS: 93971

== ENCOUNTER 2021-08-10 13:58 | Emergency (ER) | payer OTHER, SELFPAY ==
[2021-08-10 14:03] VITALS: BP 148/84; PULSE 96; RESP 16; TEMP 36.6; O2SAT 96; BMI 58.6
--- NOTE | 2021-08-10 14:29 | ED.SKABFB ---
HPI - Skin/Abscess/Foreign Bdy General Chief complaint: Skin/Abscess/Foreign Body Stated complaint: Cellulitis Time Seen by Provider: 08/10/21 14:22 Source: patient and family Mode of arrival: ambulatory Limitations: no limitations History of Present Illness HPI narrative: 56 y/o male with history of obesity s/p gastric sleeve, osteoarthritis, PE on Coumadin since 1993, HTN, history of hemolytic anemia with recent admission to [facility] [place] 07/23-07/29 for RLE cellulitis which he was treated with IV vanco/rocpehin and levaquin (discharged on an additional week of levaquin) presents to the ER with ongoing right lower extremity redness and warmth. He also has increased pain in his right lower leg as well. He completed his antibiotic course about 5 days ago. He reports the redness and warmth but never fully resolved. He thinks the redness and warmth have stayed the same over the last 5 days but the pain has gotten worse. He has no fever or chills at home. He had a recent ultrasound of his right lower extremity that did not show any deep vein thrombosis. He has maintained his Coumadin therapy with last INR 2.2. MD complaint: discoloration and other (Warmth) Onset (ago): day(s) (5) Tetanus up to date: yes Location: RLE Severity: moderate Severity scale (1-10): 6 Quality: aching Pain Consistency: intermittent Relieving factors: rest and other (Elevation) Exacerbating factors: palpation, movement and other (Ambulation) Context: none Associated symptoms: denies other symptoms Treatments prior to arrival: none Related Data Home Medications Medication Instructions Recorded Confirmed warfarin 10 mg tablet 1 tab PO DAILY@1800 07/23/21 08/01/21 Previous Rx's Medication Instructions Recorded citalopram 20 mg tablet 20 mg PO DAILY #90 tab 01/24/21 allopurinol 300 mg tablet 450 mg PO DAILY #135 tab 03/20/21 omeprazole 40 mg capsule,delayed 40 mg PO DAILY #90 cap 04/02/21 release diclofenac sodium 75 mg 75 mg PO BID #180 tab 07/25/21 tablet,delayed release levofloxacin 500 mg tablet 500 mg PO Q24H #7 tab 07/29/21 fluconazole 150 mg tablet 150 mg PO DAILY #1 tab 08/01/21 (Diflucan) nystatin 100,000 unit/mL oral 5 ml PO QID PRN 7 Days #140 ml 08/01/21 suspension cephalexin 500 mg capsule 500 mg PO Q6H 10 Days #40 cap 08/10/21 doxycycline hyclate 100 mg tablet 100 mg PO BID #14 tab 08/10/21 Allergies Allergy/AdvReac Type Severity Reaction Status Date / Time No Known Allergies Allergy Verified 08/01/21 11:45 Review of Systems Review of Systems: Constitutional: No Fever, No Chills Cardiovascular: No Chest Pain, No SOB, No Orthopnea, No Edema Respiratory: No Cough, No Sputum, No Wheezing, No dyspnea Gastrointestinal: No Nausea, No Vomiting, No Diarrhea, No abdominal Pain Genitourinary: No Dysuria, No Urinary Frequency, No Hematuria Musculoskeletal: No joint pain, No Myalgias Skin: + Skin Lesions, + rash Neuro: No Weakness, No Numbness, No Dizziness, No Headache Psych: No Anxiety/Panic, No Depression Heme/Lymph: No Bruising, No Lymphadenopathy Endocrine: No Polyuria, No Polydipsia PMFSH Past Medical History Medical History Atrial fibrillation Essential (primary) hypertension Morbid obesity with BMI of 60.0-69.9, adult Osteoarthritis Surgical History Benny filter in place Hematoma of left knee region History of appendectomy History of hernia repair History of removal of laparoscopic gastric banding device History of sleeve gastrectomy Hx of laparoscopic gastric banding Family History Family History Father Lung cancer Bone cancer Mother No problems noted. Social History Social History Housing: House Alcohol intake: current Alcohol intake frequency: holidays/special occasions only Alcohol type: hard liquor Patient Tobacco Use Status: Never used Tobacco Advance Directives: No Advance Directives Information Provided: No service: No Current occupational status: employed Physical Exam Vital Signs: Vital Signs: Last Vital Signs Temp 97.9 F 08/10/21 14:03 Pulse 96 08/10/21 14:03 Resp 16 08/10/21 14:03 BP 148/84 H 08/10/21 14:03 Pulse Ox 96 08/10/21 14:03 Body Mass Index 58.6 Appearance: Alert. Oriented X3. No acute distress. HEENT: Normal external inspection, no white plaques on tongue Neck: Normal inspection. Neck supple. CVS: Normal heart rate and rhythm. Pulses normal. Respiratory: No respiratory distress. Breath sounds normal. Abdomen: Obese, Soft and nontender. +BS x4 Skin: Skin warm and dry. Normal skin color. Normal skin turgor. No rashes. Extremities: right lateral lower leg with small area of erythema and warmth, chronic venous status changes on anterior lower legs bilaterally worse on the right. no pitting edema. Neuro: Oriented X 3. No motor deficit. No sensory deficit. Course Course Course Narrative: 56-year-old male with recent admission for right lower extremity cellulitis presents with some ongoing redness and warmth of his right lower leg. He has no systemic signs of infection. The erythematous and warm area on exam is small to moderate in size, not circumferential. Vital signs are normal. Will check basic blood workup. Anticipate he will be able to be discharged home on oral antibiotics and outpatient follow-up. Reevaluation(s) Reevaluation #1: Labs show very mild OSCAR with creatinine 1.41, mildly elevated BUN. He is slightly leukopenic at 4.3. At this time he is stable for discharge home with plan to start both doxycycline and Keflex for 7 in 10 days respectively. Patient will follow-up with his PCP and make another attempt to follow-up with the wound care center. He has no open wounds at this time. He will monitor the area of cellulitis and plan on returning to the ER or calling his doctor if the area gets more red, swollen, painful. Patient agrees with plan is stable for discharge home. MDM - Skin/Abscess/Foreign Bdy Lab Data Result diagrams: 08/10/21 14:42 08/10/21 14:42 Labs: Lab Results 08/10/21 08/10/21 08/10/21 Range/Units 14:25 14:42 14:42 WBC 4.3 L (4.8-10.8) X10*3/uL RBC 4.43 L (4.60-5.80) X10*6/uL Hgb 12.0 L (14.0-18.0) g/dl Hct 38.6 L (42-52) % MCV 87.1 (80-98) fL MCH 27.1 (27.0-33.0) pg MCHC 31.1 (31.0-36.0) g/dl RDW 14.2 (11.0-16.0) % Plt Count 236 D (160-400) X10*3/uL MPV 10.0 (9.4-12.4) fL Immature Gran % (Auto) 0.7 H (0.0-0.4) % Neut % (Auto) 33.5 L (45-73) % Lymph % (Auto) 29.9 (20-40) % [place] % (Auto) 11.8 H (2-11) % Eos % (Auto) 22.5 H (0-4) % Baso % (Auto) 1.6 (0-2) % Lymph # (Auto) 1.3 (1.2-4.9) X10*3/uL [place] # (Auto) 0.5 (0.1-1.2) X10*3/uL Eos # (Auto) 1.0 H (0.0-0.4) X10*3/uL Baso # (Auto) 0.1 (0.0-0.2) X10*3/uL Abs Immat Gran (auto) 0.03 (0.00-0.03) X10*3/uL Absolute Neuts (auto) 1.4 L (2.0-8.3) X10*3/uL Absolute Nucleated RBC 0.000 (0.0-0.012) X10*3/uL Nucleated RBC % (auto) 0.0 (0.0-0.2) /100WBC Sodium 143 (135-145) mmol/L Potassium 4.1 (3.3-5.1) mmol/L Chloride 109 H (96-108) mmol/L Carbon Dioxide 25 (22-29) mmol/L Anion Gap 13 (12-20) BUN 18 H (9-16) mg/dL Creatinine 1.41 H (0.5-1.4) mg/dL Estim Creat Clear Calc 101.6 Estimated GFR 52 Random Glucose 102 (60-115) mg/dL Lactic Acid 1.1 (0.5-2.0) mmol/L Calcium 9.0 (8.4-10.2) mg/dL Magnesium 2.1 (1.6-2.6) mg/dL Critical Care Time Critical Care Time Critical Care Time: No Discharge Plan Discharge Clinical Impression: Cellulitis Qualifiers: Site of cellulitis: extremity Site of cellulitis of extremity: lower extremity Laterality: right Qualified Code(s): L03.115 - Cellulitis of right lower limb Patient Disposition: Home, Self-Care Instructions: Cellulitis (ED), Warm Compress or Soak (ED) Additional Instructions: Take the prescribed antibiotics as directed; 1 is for 1 week 1 is for 10 days. Follow-up with your doctor this week if able. If you notice worsening redness, warmth, pain or develops fever or chills or any work other concerning signs for infection come back to the ER for further evaluation. You labs showed some mild dehydration, recommend increasing you water intake Prescriptions: New doxycycline hyclate 100 mg tablet 100 mg PO BID Qty: 14 RF: 0 cephalexin 500 mg capsule 500 mg PO Q6H 10 Days Qty: 40 RF: 0 No Action citalopram 20 mg tablet 20 mg PO DAILY Qty: 90 RF: 3 allopurinol 300 mg tablet 450 mg PO DAILY Qty: 135 RF: 1 omeprazole 40 mg capsule,delayed release(DR/EC) 40 mg PO DAILY Qty: 90 RF: 1 diclofenac sodium 75 mg tablet,delayed release (DR/EC) 75 mg PO BID Qty: 180 RF: 0 warfarin 10 mg tablet 1 tab PO DAILY@1800 RF: 0 levofloxacin 500 mg Tablet 500 mg PO Q24H Qty: 7 RF: 0 nystatin 100,000 unit/mL suspension 5 ml PO QID PRN (Reason: thrush) 7 Days Qty: 140 RF: 0 fluconazole [Diflucan] 150 mg tablet 150 mg PO DAILY Qty: 1 RF: 1 Referrals: Wound Care [facility] [Outside] - 2 days
[2021-08-10 14:58] LABS: MANUAL DIFF FLAG NO
[2021-08-10 15:02] LABS: Basophils Absolute Auto 0.1 X10*3/uL (0.0-0.2); Basophils Percent Auto 1.6 % (0-2); Eosinophils Percent Auto 22.5 % (0-4); Hematocrit 38.6 % (42-52); Imm Gran Abs Auto 0.03 X10*3/uL (0.00-0.03); Imm Gran Pct Auto 0.7 % (0.0-0.4); Lymphocytes Absolute Auto 1.3 X10*3/uL (1.2-4.9); Lymphocytes Percent Auto 29.9 % (20-40); Mean Corpuscular HGB Conc 31.1 g/dl (31.0-36.0); Mean Corpuscular Hemoglobin 27.1 pg (27.0-33.0); Mean Corpuscular Volume 87.1 fL (80-98); Monocytes Absolute Auto 0.5 X10*3/uL (0.1-1.2); Monocytes Percent Auto 11.8 % (2-11); Neutrophils Absolute Auto 1.4 X10*3/uL (2.0-8.3); Neutrophils Percent Auto 33.5 % (45-73); Platelet Count 236 X10*3/uL (160-400); Red Blood Count 4.43 X10*6/uL (4.60-5.80); Red Cell Distribution Width 14.2 % (11.0-16.0); White Blood Count 4.3 X10*3/uL (4.8-10.8)
[2021-08-10 15:17] LABS: Lactic Acid 1.1 mmol/L (0.5-2.0)
[2021-08-10 15:28] LABS: Anion Gap 13 (12-20); Blood Urea Nitrogen 18 mg/dL (9-16); Carbon Dioxide 25 mmol/L (22-29); Chloride 109 mmol/L (96-108); Creatinine Clr Calc Pharmacy 101.6; Estimated Glomerular Filt Rate 52; Glucose Random 102 mg/dL (60-115); Magnesium 2.1 mg/dL (1.6-2.6); Potassium 4.1 mmol/L (3.3-5.1); Sodium 143 mmol/L (135-145)
== END 2021-08-10 17:03 | disposition home or self-care (01) ==
PROVIDERS: Physician Assistant; Emergency Provider Emergency Medicine
DX: L03.115 Cellulitis of right lower limb (principal); Z79.899 Other long term (current) drug therapy
CPT/HCPCS: 36415; 80048; 83605; 83735; 85025; 87040; 99283

== ENCOUNTER → 2021-08-12 13:18 | Outpatient (BNVA) | payer OTHER, SELFPAY | PROVIDERS: PCP Internal Medicine; Visit Provider Internal Medicine | DX: M79.89 Other specified soft tissue disorders (principal) | CPT/HCPCS: 85610; 99211 ==

== ENCOUNTER → 2021-09-03 15:52 | Outpatient (BNVA) | payer OTHER, SELFPAY | PROVIDERS: PCP Internal Medicine; Visit Provider Internal Medicine | DX: Z86.718 Personal history of other venous thrombosis and embolism (principal); Z51.81 Encounter for therapeutic drug level monitoring; Z79.01 Long term (current) use of anticoagulants | CPT/HCPCS: 85610; 99211 ==

== ENCOUNTER → 2021-10-21 10:21 | Outpatient (BNVA) | payer OTHER, SELFPAY | PROVIDERS: PCP Internal Medicine; Visit Provider Internal Medicine | DX: Z86.718 Personal history of other venous thrombosis and embolism (principal); Z51.81 Encounter for therapeutic drug level monitoring; Z79.01 Long term (current) use of anticoagulants | CPT/HCPCS: 85610; 99211 ==

== ENCOUNTER 2021-10-30 10:58 | Emergency (ER) | payer OTHER, SELFPAY ==
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
[2021-10-30 11:11] VITALS: BP 150/110; PULSE 80; O2SAT 100
[2021-10-30 12:50] VITALS: BP 138/62; PULSE 59; RESP 22; TEMP 36; O2SAT 100; BMI 57.2
--- NOTE | 2021-10-30 12:56 | ECG_ITS ---
Test Reason : cp Blood Pressure : / mmHG Vent. Rate : 065 BPM Atrial Rate : 065 BPM P-R Int : 186 ms QRS Dur : 078 ms QT Int : 396 ms P-R-T Axes : 009 -13 020 degrees QTc Int : 411 ms Normal sinus rhythm Minimal voltage criteria for LVH, may be normal variant ( R in aVL ) Cannot rule out Anterior infarct , age undetermined Abnormal ECG When compared with ECG of 22-JUL-2021 23:50, Premature atrial complexes are no longer Present Referred By: Generic ED Physician Electronically Signed By:SANTOS JEONG
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
== END 2021-10-30 16:29 | disposition home or self-care (01) ==
PROVIDERS: Emergency Provider Emergency Medicine; PCP Internal Medicine
DX: Z04.1 Encounter for examination and observation following transport accident (principal); R07.89 Other chest pain; Z86.711 Personal history of pulmonary embolism; Z79.01 Long term (current) use of anticoagulants
CPT/HCPCS: 71046; 93005; 99283

== ENCOUNTER → 2021-11-14 14:33 | Outpatient (BNVA) | payer OTHER, SELFPAY | PROVIDERS: PCP Internal Medicine; Visit Provider Internal Medicine | DX: Z86.718 Personal history of other venous thrombosis and embolism (principal); Z51.81 Encounter for therapeutic drug level monitoring; Z79.01 Long term (current) use of anticoagulants | CPT/HCPCS: 85610; 99211 ==

== ENCOUNTER → 2022-01-02 14:58 | Outpatient (BNVA) | payer OTHER, SELFPAY | PROVIDERS: PCP Internal Medicine; Visit Provider Internal Medicine | DX: Z86.718 Personal history of other venous thrombosis and embolism (principal); Z79.01 Long term (current) use of anticoagulants; Z51.81 Encounter for therapeutic drug level monitoring | CPT/HCPCS: 85610; 99211 ==

== ENCOUNTER → 2022-01-16 15:32 | Outpatient (BNVA) | payer OTHER, SELFPAY | PROVIDERS: PCP Internal Medicine; Visit Provider Internal Medicine | DX: Z86.718 Personal history of other venous thrombosis and embolism (principal); Z51.81 Encounter for therapeutic drug level monitoring; Z79.01 Long term (current) use of anticoagulants | CPT/HCPCS: 85610; 99211 ==

== ENCOUNTER → 2022-01-23 15:11 | Outpatient (BNVA) | payer OTHER, SELFPAY | PROVIDERS: PCP Internal Medicine; Visit Provider Internal Medicine | DX: Z86.718 Personal history of other venous thrombosis and embolism (principal); Z51.81 Encounter for therapeutic drug level monitoring; Z79.01 Long term (current) use of anticoagulants | CPT/HCPCS: 85610; 99211 ==

== ENCOUNTER → 2022-02-20 14:25 | Outpatient (BNVA) | payer OTHER, SELFPAY | PROVIDERS: PCP Internal Medicine; Visit Provider Internal Medicine | DX: Z86.718 Personal history of other venous thrombosis and embolism (principal); Z79.01 Long term (current) use of anticoagulants; Z51.81 Encounter for therapeutic drug level monitoring; L03.90 Cellulitis, unspecified | CPT/HCPCS: 85610; 99211 ==

== ENCOUNTER → 2022-03-27 14:39 | Outpatient (BNVA) | payer OTHER, SELFPAY | PROVIDERS: PCP Internal Medicine; Visit Provider Internal Medicine | DX: Z86.718 Personal history of other venous thrombosis and embolism (principal); Z79.01 Long term (current) use of anticoagulants; Z51.81 Encounter for therapeutic drug level monitoring | CPT/HCPCS: 85610; 99211 ==

== ENCOUNTER → 2022-05-13 14:28 | Outpatient (BNVA) | payer OTHER, SELFPAY | PROVIDERS: PCP Internal Medicine; Visit Provider Internal Medicine | DX: Z86.718 Personal history of other venous thrombosis and embolism (principal); Z51.81 Encounter for therapeutic drug level monitoring; Z79.01 Long term (current) use of anticoagulants | CPT/HCPCS: 85610; 99211 ==

== ENCOUNTER → 2022-06-10 14:20 | Outpatient (BNVA) | payer OTHER, SELFPAY | PROVIDERS: PCP Internal Medicine; Visit Provider Internal Medicine | DX: Z86.718 Personal history of other venous thrombosis and embolism (principal); Z51.81 Encounter for therapeutic drug level monitoring; Z79.01 Long term (current) use of anticoagulants | CPT/HCPCS: 85610; 99211 ==

== ENCOUNTER → 2022-07-02 10:36 | Outpatient (BNVA) | payer OTHER, SELFPAY | PROVIDERS: PCP Internal Medicine; Visit Provider Internal Medicine | DX: Z86.718 Personal history of other venous thrombosis and embolism (principal); Z51.81 Encounter for therapeutic drug level monitoring; Z79.01 Long term (current) use of anticoagulants | CPT/HCPCS: 99211 ==

== ENCOUNTER → 2022-07-08 14:49 | Outpatient (BNVA) | payer OTHER, SELFPAY | PROVIDERS: PCP Internal Medicine; Visit Provider Internal Medicine | DX: Z86.718 Personal history of other venous thrombosis and embolism (principal); Z51.81 Encounter for therapeutic drug level monitoring; Z79.01 Long term (current) use of anticoagulants | CPT/HCPCS: Q3014 ==

== ENCOUNTER → 2022-07-16 15:56 | Outpatient (BNVA) | payer OTHER, SELFPAY | PROVIDERS: PCP Internal Medicine; Visit Provider Internal Medicine | DX: Z86.718 Personal history of other venous thrombosis and embolism (principal); Z79.01 Long term (current) use of anticoagulants; Z51.81 Encounter for therapeutic drug level monitoring | CPT/HCPCS: 99211 ==

== ENCOUNTER 2022-08-13 14:15 | Emergency (ER) | payer OTHER, SELFPAY ==
--- NOTE | ~2022-08-13 | XR_ITS ---
EXAMINATION: XR KNEE, LEFT CLINICAL INFORMATION: Left knee pain. COMPARISON: Left knee radiographs dated 06/27/2020. TECHNIQUE: Four views of the left knee. FINDINGS: Moderate to severe tricompartmental degenerative joint changes are seen most pronounced in the medial femoral-tibial compartment. There is no acute fracture, dislocation or joint effusion. The soft tissues are unremarkable XR/XR knee LT 4V IMPRESSION: Tricompartmental degenerative joint changes without acute abnormality. No significant interval change.
--- NOTE | ~2022-08-13 | CT_ITS ---
EXAMINATION: CT LEFT KNEE WITH CONTRAST CLINICAL INFORMATION: Evaluate hematoma/seroma, rule out extravasation COMPARISON: Lower extremity ultrasound 08/13/2022 TECHNIQUE: Multidetector volumetric imaging was performed of the left knee administration of 100 mL of Omnipaque 350. Oral Sagittal and coronal reformatted images were obtained on the technologist's workstation. This CT examination was performed using dose optimization techniques as appropriate, variously including the following: *Automated exposure control *Adjustment of mA and/or kV according to patient size (this includes techniques or standardized protocols for targeted exams where dose is matched to indication/reason for exam; i.e. extremities or head) *Use of iterative reconstruction technique DLP: 239 mGy-cm FINDINGS: OSSEOUS STRUCTURES: No acute fracture or dislocation. Advanced tricompartmental degenerative changes of the knee worst involving the medial compartment where there is [id number] articulation with tricompartmental osteophytes. SOFT TISSUES:: Simple fluid attenuation large suprapatellar joint effusion noted tracking along the superior lateral aspect of the knee corresponding to the previously seen fluid collection on prior ultrasound. No high density fluid attenuation is seen to suggest blood products however there is minimal if any discernible intravenous contrast appreciated within the vascular system on the exam limiting assessment for active extravasation. Multiple dilated varicosities in the leg. Mild subcutaneous edema. Few nonspecific coarse calcifications possibly calcified granulomas or phleboliths. CT/CT knee LT w IV con IMPRESSION: 1. Simple fluid attenuation large suprapatellar joint effusion noted tracking along the superior lateral aspect of the knee corresponding to the previously seen fluid collection on prior ultrasound. No high density fluid attenuation is seen to suggest blood products however there is minimal if any discernible intravenous contrast appreciated within the vascular system on the exam limiting assessment for active extravasation. 2. Advanced tricompartmental degenerative changes of the knee worst involving the medial compartment where there is [id number] articulation with tricompartmental osteophytes.
--- NOTE | ~2022-08-13 | US_ITS ---
Indication: Status post fall, evaluate for hematoma, on Coumadin EXAMINATION: Directed ultrasound lateral to the left patella. This examination does demonstrate a fluid collection. Measuring 10.2 x 3.3 x 3.8 cm. This may represent a seroma or possibly hematoma. The underlying popliteal vein is patent. US/US extremity nonvascular IMPRESSION: Exam does confirm a fluid collection lateral to the patella region left lower extremity consistent with hematoma or seroma
[2022-08-13 14:18] VITALS: BP 174/64; PULSE 81; RESP 18; TEMP 36.6; O2SAT 97; BMI 59.8
--- NOTE | 2022-08-13 17:30 | ED_ITS ---
HPI - Extremity Injury (Lower) General Chief Complaint: Extremity Injury, Lower <URI Child - Last Filed: 08/13/22 18:36> Stated Complaint: fell at work wednesday, leg pain <URI Child - Last Filed: 08/13/22 18:36> Time Seen by Provider: 08/13/22 17:00 <URI Child - Last Filed: 08/13/22 18:36> Source: patient <URI Child - Last Filed: 08/13/22 18:36> Mode of arrival: ambulatory <URI Child - Last Filed: 08/13/22 18:36> History of Present Illness HPI Narrative: 57-year-old male with a past medical history KATIE, osteoarthritis, PE on Coumadin, obesity, presenting to the ED complaining knee/calf pain s/p 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 Denies head trauma or LOC. reports pain greatest behind knee. Denies numbness, tingling, weakness <URI Child - Last Filed: 08/13/22 18:36> MD complaint: knee injury <URI Child - Last Filed: 08/13/22 18:36> Onset (ago): day(s) <URI Child - Last Filed: 08/13/22 18:36> Related Data Home Medications: Home Medications Medication Instructions Recorded Confirmed furosemide 40 mg tablet 40 mg PO DAILY 09/08/21 08/14/22 Previous Rx's Medication Instructions Recorded comp.stocking,knee,long,medium #12 ea 08/14/21 miscellaneous medical supply #2 ea 08/25/21 warfarin 10 mg tablet 1 tab PO DAILY@1800 #90 tabs 11/06/21 warfarin 2.5 mg tablet 2.5 mg PO DAILY #90 tabs 11/06/21 diclofenac sodium 75 mg 75 mg PO BID #180 tabs 01/07/22 tablet,delayed release citalopram 40 mg tablet 40 mg PO DAILY #90 tabs 02/13/22 allopurinol 300 mg tablet 450 mg PO DAILY #135 tabs 06/26/22 ondansetron 8 mg disintegrating 8 mg PO Q8H nausea #50 tabs 06/26/22 tablet omeprazole 40 mg capsule,delayed 40 mg PO DAILY #90 caps 07/01/22 release oxycodone 5 mg tablet 5 mg PO TID PRN pain 3 days #9 tabs 08/13/22 prednisone 20 mg tablet 40 mg PO DAILY 5 days #10 tabs 08/13/22 <URI Child - Last Filed: 08/13/22 18:36> Allergies/Adverse Reactions: Allergies Allergy/AdvReac Type Severity Reaction Status Date / Time No Known Allergies Allergy Verified 08/14/22 15:45 <URI Child Last Filed: 08/13/22 18:36> Review of Systems Review of Systems: Constitutional: No Fever, No Chills ENT/Mouth: No Ear Pain, No Nasal Congestion, No Sinus Pain, No sore throat, No Rhinorrhea, No Swallowing Difficulty Cardiovascular: No Chest Pain, No SOB Respiratory: No Cough, No Sputum, No Wheezing Gastrointestinal: No Nausea, No Vomiting, No Diarrhea, No Constipation, No Abdominal pain Genitourinary: No Dysuria, No Urinary Frequency, No Hematuria, No Urinary Incontinence/retention, No Flank Pain Musculoskeletal: + joint pain, No Myalgias, No Joint Swelling Skin: No Skin Lesions, No rash Neuro: No Weakness, No Numbness, No Paresthesias <URI Child Last Filed: 08/13/22 18:36> Yes all other systems are reviewed and are negative <URI Child Last Filed: 08/13/22 18:36> Constitutional: Constitutional: Reports as per HPI <URI Child Last Filed: 08/13/22 18:36> [facility] Past Medical History Attestation statement: The following information was validated with the patient. <URI Child Last Filed: 08/13/22 18:36> Medical History: Medical History Annual physical exam COVID-19 Leg edema Morbid obesity with BMI of 60.0-69.9, adult Nephrolithiasis KATIE (obstructive sleep apnea) Osteoarthritis Pulmonary embolism <URI Child Last Filed: 08/13/22 18:36> Surgical History: Surgical History Benny filter in place Hematoma of left knee region History of appendectomy History of hernia repair History of removal of laparoscopic gastric banding device History of sleeve gastrectomy Hx of laparoscopic gastric banding <URI Child - Last Filed: 08/13/22 18:36> Family History Family History: Family History Father Lung cancer Bone cancer Mother No problems noted. <URI Child - Last Filed: 08/13/22 18:36> Social History Social History: Social History Household Members: None Housing: House Are you a primary medicare sales executive to a significant other at home: No Do you presently have visiting nurse or other home services: No Alcohol intake: never Patient Tobacco Use Status: Never used Tobacco e-Cigarette/Vaping Use: Never Used Use of substances other than those prescribed or required for medical reasons: No Have you been hit, kicked, punched, or otherwise hurt by someone within the past year? If so, by whom?: No Do you feel safe in your current relationship?: Yes Is there a partner from a previous relationship who is making you feel unsafe now?: No Advance Directives Date on File: 07/23/21 Do you have thoughts of harming others: None Do you have a plan to hurt others: No Plan Do you have the means to hurt others: No Recently lost weight without trying: No Eating poorly because of decreased appetite: No service: No Current occupational status: employed <URI Child - Last Filed: 08/13/22 18:36> Physical Exam Vital Signs: Vital Signs: Last Vital Signs Temp 97.9 F 08/13/22 14:18 Pulse 81 08/13/22 14:18 Resp 18 08/13/22 14:18 BP 174/64 H 08/13/22 14:18 Pulse Ox 97 08/13/22 14:18 O2 Del Method 08/13/22 14:18 BMI result Body Mass Index 59.8 <URI Child - Last Filed: 08/13/22 18:36> Vital Signs: Last Vital Signs Temp 97.9 F 08/13/22 14:18 Pulse 81 08/13/22 14:18 Resp 18 08/13/22 14:18 BP 174/64 H 08/13/22 14:18 Pulse Ox 97 08/13/22 14:18 O2 Del Method 08/13/22 14:18 BMI result Body Mass Index 59.8 <URI Waters - Last Filed: 08/16/22 18:11> Const: General: cooperative, healthy appearing, no acute distress, alert and awake <URI Child - Last Filed: 08/13/22 18:36> Orientation/consciousness: patient oriented x3 <URI Child - Last Filed: 08/13/22 18:36> Limitations: no limitations <URI Child - Last Filed: 08/13/22 18:36> HEENT: Head: Yes normal to inspection and Yes atraumatic <URI Child - Last Filed: 08/13/22 18:36> Ears: hearing grossly normal bilaterally <URI Child - Last Filed: 08/13/22 18:36> General nose exam: Normal external nose present <URI Child - Last Filed: 08/13/22 18:36> Face and sinus: Yes normal facial exam <URI Child - Last Filed: 08/13/22 18:36> Eyes: General: appearance normal, both eyes and all related structures <URI Child - Last Filed: 08/13/22 18:36> EOM: EOMs intact bilaterally <URI Child - Last Filed: 08/13/22 18:36> Neck: Neck: Yes normal visual inspection and Yes no meningeal signs <URI Child - Last Filed: 08/13/22 18:36> Resp: Effort & Inspection: normal respiratory effort and no respiratory distress <URI Child - Last Filed: 08/13/22 18:36> Cardio: Rate: regular rate <URI Child - Last Filed: 08/13/22 18:36> Heart sounds: S1 normal heart sound present and S2 normal heart sound present <URI Child - Last Filed: 08/13/22 18:36> Peripheral pulses: Peripheral pulses 2+ throughout <URI Child - Last Filed: 08/13/22 18:36> GI: Inspection: Yes normal to inspection <URI Child - Last Filed: 08/13/22 18:36> Skin: Rashes: no rashes <URI Child - Last Filed: 08/13/22 18:36> Wounds: no wounds <UIR Child - Last Filed: 08/13/22 18:36> Neuro: General: patient oriented x3, tone normal and no meningeal signs <URI Child - Last Filed: 08/13/22 18:36> Gait exam (Neuro): Assisted gait required Gait assisted method: walking stick <URI Child - Last Filed: 08/13/22 18:36> Extrem: Other: Left knee with small healing ecchymosis. Tender to palpation, decreased full flexion secondary to pain, extension intact. No appreciable deformity. Neurovascularly intact distally. No pitting edema. No appreciable hematoma Chronic bilateral lower extremity venous stasis changes. <URI Child Last Filed: 08/13/22 18:36> Course Course Course Narrative: XR knee LT 4V IMPRESSION: Tricompartmental degenerative joint changes without acute abnormality. No significant interval change. -H&H stable/at patient's baseline. No leukocytosis. INR therapeutic at 2.6. Labs otherwise reassuring US extremity nonvascular IMPRESSION: Exam does confirm a fluid collection lateral to the patella region left lower extremity consistent with hematoma or seroma >> case discussed with Dr. Rowan will obtain CT with contrast for further evaluation, eval for extravasation -0--ED care transferred to [facility] pending CT and re-eval <URI Child - Last Filed: 08/13/22 18:36> Reevaluation(s) Reevaluation #1: CT scan does not show extravasation. CT scan shows large suprapatellar joint effusion with severe arthritis. CT scan negative for blood. Presently no indication for arthrocentesis. Not suspecting septic joint. Trauma with knee swelling patient may need MRI machine to rule out meniscus/ligament tear Patient placed in Mark wrap crutches with pain medication and steroids. Patient informed to follow-up with orthopedic clinic. Spoke with Dr. Rowan agreeable with plan. 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 On exam vital signs stable, NAD, nontoxic appearing, physical exam as above with noted knee tenderness and healing ecchymosis. Neurovascularly intact distally. No appreciable deformity pitting edema. Concern for fracture vs sprain vs meniscal or ligamental injury. Rule out hematoma due to being on warfarin. INR 2.6 today, therapeutic. Lower suspicion for DVT as patient is anticoagulated. Plan: XR, Ultrasound to evaluate DVT/hematoma <URI Child - Last Filed: 08/13/22 18:36> Medical Records Attestation: I reviewed the patient's medical records. <URI Child - Last Filed: 08/13/22 18:36> Lab Data Attestation: I reviewed the patient's lab results. <URI Child - Last Filed: 08/13/22 18:36> Discharge Plan Discharge Clinical Impression: Swelling of joint, knee, left <URI Child - Last Filed: 08/13/22 18:36> Patient Disposition: Home, Self-Care <URI Child - Last Filed: 08/13/22 18:36> Instructions: Knee Sprain (ED), Swollen Knee Joint (ED) <URI Child - Last Filed: 08/13/22 18:36> Additional Instructions: Please follow-up with orthopedic surgeon for re-evaluation of knee may need MRI admission to check for meniscus or ligament injury. Return to the ED immediately for any fever, chills, redness, red streaks, inability to ambulate, bluish discoloration of extremity, numbness, tingling, coolness, hotness, chest pain, shortness of breath, leg swelling, calf pain or any other concerning symptoms. <URI Child - Last Filed: 08/13/22 18:36> Prescriptions: New prednisone 20 mg tablet 40 mg PO DAILY 5 Days Qty: 10 0RF oxycodone 5 mg tablet 5 mg PO TID PRN (Reason: pain) 3 Days Qty: 9 0RF Rx Instructions: Partial Fill upon patient request. No Action (DME) comp.stocking,knee,long,medium Misc See Rx Instructions .Route Qty: 12 6RF Rx Instructions: As directed 20mmHg (DME) miscellaneous medical supply Misc See Rx Instructions .Route Qty: 2 0RF Rx Instructions: custom compressor class 1 stockings for 2 pair diclofenac sodium 75 mg tablet,delayed release (DR/EC) 75 mg PO BID Qty: 180 3RF citalopram 40 mg tablet 40 mg PO DAILY Qty: 90 3RF allopurinol 300 mg tablet 450 mg PO DAILY Qty: 135 3RF omeprazole 40 mg capsule,delayed release(DR/EC) 40 mg PO DAILY Qty: 90 3RF warfarin 10 mg tablet 1 tab PO DAILY@1800 Qty: 90 4RF Protocol: Dose Management Condition: Wednesday (Week One) Dose/Route: 5 mg Instruction: 2 x 2.5 mg tablets Condition: Wednesday Dose/Route: 10 mg Instruction: 1 x 10 mg tablet Condition: Wednesday Dose/Route: 10 mg Instruction: 1 x 10 mg tablet Condition: Wednesday Dose/Route: 10 mg Instruction: 1 x 10 mg tablet Condition: Dose/Route: 10 mg Instruction: 1 x 10 mg tablet Condition: Wednesday Dose/Route: 10 mg Instruction: 1 x 10 mg tablet Condition: Wednesday Dose/Route: 10 mg Instruction: 1 x 10 mg tablet Condition: Wednesday (Week Two) Dose/Route: 5 mg Instruction: 2 x 2.5 mg tablets Condition: Wednesday Dose/Route: 10 mg Instruction: 1 x 10 mg tablet Condition: Wednesday Dose/Route: 10 mg Instruction: 1 x 10 mg tablet Condition: Wednesday Dose/Route: 10 mg Instruction: 1 x 10 mg tablet Condition: Dose/Route: 10 mg Instruction: 1 x 10 mg tablet Condition: Wednesday Dose/Route: 10 mg Instruction: 1 x 10 mg tablet Condition: Wednesday Dose/Route: 10 mg Instruction: 1 x 10 mg tablet Protocol Text: Adjustment Start Date: 08/13/22 INR Value: 2.6 INR Date: 08/13/22 Recheck Date: 08/20/22 Additional Instructions: INR is in range continue usual dosing balance greens and reds in diet warfarin 2.5 mg Tablet 2.5 mg PO DAILY Qty: 90 4RF Protocol: Dose Management Condition: Wednesday (Week One) Dose/Route: 5 mg Instruction: 2 x 2.5 mg tablets Condition: Wednesday Dose/Route: 10 mg Instruction: 1 x 10 mg tablet Condition: Wednesday Dose/Route: 10 mg Instruction: 1 x 10 mg tablet Condition: Wednesday Dose/Route: 10 mg Instruction: 1 x 10 mg tablet Condition: Dose/Route: 10 mg Instruction: 1 x 10 mg tablet Condition: Wednesday Dose/Route: 10 mg Instruction: 1 x 10 mg tablet Condition: Wednesday Dose/Route: 10 mg Instruction: 1 x 10 mg tablet Condition: Wednesday (Week Two) Dose/Route: 5 mg Instruction: 2 x 2.5 mg tablets Condition: Wednesday Dose/Route: 10 mg Instruction: 1 x 10 mg tablet Condition: Wednesday Dose/Route: 10 mg Instruction: 1 x 10 mg tablet Condition: Wednesday Dose/Route: 10 mg Instruction: 1 x 10 mg tablet Condition: Dose/Route: 10 mg Instruction: 1 x 10 mg tablet Condition: Wednesday Dose/Route: 10 mg Instruction: 1 x 10 mg tablet Condition: Wednesday Dose/Route: 10 mg Instruction: 1 x 10 mg tablet Protocol Text: Adjustment Start Date: 08/13/22 INR Value: 2.6 INR Date: 08/13/22 Recheck Date: 08/20/22 Additional Instructions: INR is in range continue usual dosing balance greens and reds in diet ondansetron 8 mg Tablet,Disintegrating 8 mg PO Q8H Qty: 50 5RF furosemide 40 mg tablet 40 mg PO DAILY <URI Child - Last Filed: 08/13/22 18:36> Referrals: [facility] [Provider Group] (Swollen knee joint after trauma) <URI Child - Last Filed: 08/13/22 18:36> Stand Alone Forms: Work/School Release <URI Child - Last Filed: 08/13/22 18:36> Interventions: ED Discharge Assessment Last Done: 08/13/22 22:03 <URI Child - Last Filed: 08/13/22 18:36> Discharge Date/Time: 08/13/22 22:05 <URI Child - Last Filed: 08/13/22 18:36> Print Language: Kazakh <URI Child - Last Filed: 08/13/22 18:36>
[2022-08-13] MEDS: iohexoL 350 MG/ML 100 ML INFUS..BTL IV (19:07)
[2022-08-13] MEDS: oxyCODONE HCl Immed Release 5 MG TABLET PO (21:42)
[2022-08-13] MEDS: predniSONE 20 MG TABLET 60 MG PO (21:42)
--- NOTE | 2022-08-13 21:47 | PC.NURSE ---
pt declined the crutches due to ambulation with a cane on a daily basis
== END 2022-08-13 22:05 | disposition home or self-care (01) ==
PROVIDERS: Emergency Provider Emergency Medicine; PCP Internal Medicine
DX: S83.92XA Sprain of unspecified site of left knee, initial encounter (principal); M25.562 Pain in left knee; W01.10XA Fall on same level from slipping, tripping and stumbling with subsequent striking against unspecified object, initial encounter; Y93.9 Activity, unspecified; Y92.9 Unspecified place or not applicable; Y99.0 Civilian activity done for income or pay; Z86.711 Personal history of pulmonary embolism; Z79.01 Long term (current) use of anticoagulants; Z79.899 Other long term (current) drug therapy
CPT/HCPCS: 73564; 73701; 76882; 99283; 99284; Q9967

== ENCOUNTER 2022-08-27 05:54 | Outpatient (REF) | payer OTHER, SELFPAY ==
--- NOTE | ~2022-08-27 | XR_ITS ---
EXAMINATION: Bilateral standing knees CLINICAL INFORMATION: Pain in the right knee COMPARISON: 03/02/2017 TECHNIQUE: AP bilateral standing view of the knees was obtained. FINDINGS: On the right there is significant periarticular osteopenia loss of medial compartment of left knee joint and bilateral deformity of the knee there is marginal spurring of the medial and lateral femoral condyle and lateral tibial plateau. There is significant slippage of tibia laterally. On the left there is significant narrowing of the medial compartment of left knee joint, periarticular osteopenia, marginal spurring, loss of medial compartment of left knee joint and marginal spurring. The lateral and medial components of the knee. There is varus deformity of the knee. XR/XR knee standing BI IMPRESSION: Changes of severe osteoarthritis in both knee joints, more prominent on the left with malalignment. There is varus deformity of both knee joints, bone prominent on the right.
== END 2022-08-27 05:55 | disposition home or self-care (01) ==
LOC: HO.HOSX 05:54
PROVIDERS: Visit Provider Physician Assistant
DX: M25.561 Pain in right knee (principal); M25.562 Pain in left knee; M25.462 Effusion, left knee; M17.12 Unilateral primary osteoarthritis, left knee; D58.9 Hereditary hemolytic anemia, unspecified; I26.99 Other pulmonary embolism without acute cor pulmonale; Z79.01 Long term (current) use of anticoagulants
CPT/HCPCS: 20610; 73565; 99202; 99211; J1040

== ENCOUNTER → 2022-09-14 16:27 | Outpatient (BNVA) | payer OTHER, SELFPAY | PROVIDERS: PCP Internal Medicine; Visit Provider Internal Medicine | DX: Z86.718 Personal history of other venous thrombosis and embolism (principal); Z51.81 Encounter for therapeutic drug level monitoring; Z79.01 Long term (current) use of anticoagulants | CPT/HCPCS: 99211 ==

== ENCOUNTER → 2022-09-21 08:47 | Outpatient (BNVA) | payer OTHER, SELFPAY | PROVIDERS: PCP Internal Medicine; Visit Provider Physician Assistant | DX: M17.11 Unilateral primary osteoarthritis, right knee (principal) | CPT/HCPCS: 20610; 99212; J1040 ==

== ENCOUNTER → 2022-10-05 16:57 | Outpatient (BNVA) | payer OTHER, SELFPAY | PROVIDERS: PCP Internal Medicine; Visit Provider Internal Medicine | DX: Z79.01 Long term (current) use of anticoagulants (principal) ==

== ENCOUNTER → 2022-10-26 08:43 | Outpatient (BNVA) | payer OTHER, SELFPAY | PROVIDERS: PCP Internal Medicine; Visit Provider Physician Assistant | DX: M17.0 Bilateral primary osteoarthritis of knee (principal) | CPT/HCPCS: 20610; J7323 ==

== ENCOUNTER → 2022-10-27 09:19 | Outpatient (BNVA) | payer OTHER, SELFPAY | PROVIDERS: PCP Internal Medicine; Visit Provider Internal Medicine | DX: Z86.718 Personal history of other venous thrombosis and embolism (principal); Z51.81 Encounter for therapeutic drug level monitoring; Z79.01 Long term (current) use of anticoagulants | CPT/HCPCS: 85610; 99211 ==

== ENCOUNTER → 2022-11-02 08:34 | Outpatient (BNVA) | payer OTHER, SELFPAY | PROVIDERS: PCP Internal Medicine; Visit Provider Physician Assistant | DX: M17.0 Bilateral primary osteoarthritis of knee (principal) | CPT/HCPCS: 20610; J7323 ==

== ENCOUNTER → 2022-11-09 08:41 | Outpatient (BNVA) | payer OTHER, SELFPAY | PROVIDERS: PCP Internal Medicine; Visit Provider Physician Assistant | DX: M17.0 Bilateral primary osteoarthritis of knee (principal) | CPT/HCPCS: 20610; J7323 ==

== ENCOUNTER → 2022-11-30 09:47 | Outpatient (BNVA) | payer OTHER, SELFPAY | PROVIDERS: PCP Internal Medicine; Visit Provider Internal Medicine | DX: Z86.718 Personal history of other venous thrombosis and embolism (principal); Z51.81 Encounter for therapeutic drug level monitoring; Z79.01 Long term (current) use of anticoagulants | CPT/HCPCS: 85610; 99211 ==

== ENCOUNTER → 2022-12-02 14:26 | Outpatient (BNVA) | payer SELFPAY | PROVIDERS: PCP Internal Medicine; Visit Provider Physician Assistant | DX: Z02.79 Encounter for issue of other medical certificate (principal) ==

== ENCOUNTER → 2023-01-14 08:41 | Outpatient (BNVA) | payer OTHER, SELFPAY | PROVIDERS: PCP Internal Medicine; Visit Provider Internal Medicine | DX: Z86.718 Personal history of other venous thrombosis and embolism (principal); Z51.81 Encounter for therapeutic drug level monitoring; Z79.01 Long term (current) use of anticoagulants | CPT/HCPCS: 85610; 99211 ==

== ENCOUNTER → 2023-01-18 10:25 | Outpatient (BNVA) | payer OTHER, SELFPAY | PROVIDERS: PCP Internal Medicine; Visit Provider Physician Assistant | DX: M17.12 Unilateral primary osteoarthritis, left knee (principal) | CPT/HCPCS: 99212 ==

== ENCOUNTER 2023-01-21 21:27 | Emergency (ER) | payer OTHER, SELFPAY ==
[2023-01-21 21:30] VITALS: BP 168/79; PULSE 70; RESP 18; TEMP 36.6; O2SAT 97; BMI 59.8
--- NOTE | 2023-01-22 00:13 | ED_ITS ---
HPI - Dental/Oral General Chief complaint: Dental/Oral Stated complaint: toothache Time Seen by Provider: 01/22/23 00:00 Source: patient Mode of arrival: ambulatory Limitations: no limitations History of Present Illness HPI Narrative: Patient comes in the emergency room complaining of left mandibular pain.? Patient states that he has been dealing with intermittent infections and molar pain for approximately 1 year.? 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 Patient states that initially when he started having molar pain, he went to see a dentist, antibiotics were given, at the same time patient started chemotherapy and then the dental pain went away.? However, over the next few months, patient has had intermittent pain.? Patient states that yesterday the pain started really bad in the left mandibular side.? Denies fever chills. MD Complaint: tooth pain Related Data Home Medications Medication Instructions Recorded Confirmed furosemide 40 mg tablet 40 mg PO DAILY 09/08/21 01/14/23 acetaminophen 650 mg 650 mg PO Q8H PRN Pain 09/14/22 01/14/23 tablet,extended release Previous Rx's Medication Instructions Recorded comp.stocking,knee,long,medium #12 ea 08/14/21 miscellaneous medical supply #2 ea 08/25/21 warfarin 2.5 mg tablet 2.5 mg PO DAILY #90 tabs 11/06/21 diclofenac sodium 75 mg 75 mg PO BID #180 tabs 01/07/22 tablet,delayed release citalopram 40 mg tablet 40 mg PO DAILY #90 tabs 02/13/22 allopurinol 300 mg tablet 450 mg PO DAILY #135 tabs 06/26/22 ondansetron 8 mg disintegrating 8 mg PO Q8H nausea #50 tabs 06/26/22 tablet omeprazole 40 mg capsule,delayed 40 mg PO DAILY #90 caps 07/01/22 release warfarin 10 mg tablet 1 tab PO DAILY@1800 #90 tabs 11/12/22 CPAP (CPAP Machine/Device) #1 ea 12/04/22 oxycodone 5 mg tablet 5 mg PO TID PRN pain #9 tabs 01/22/23 penicillin V potassium 500 mg 500 mg PO TID 10 days #30 tabs 01/22/23 tablet Allergies Allergy/AdvReac Type Severity Reaction Status Date / Time No Known Allergies Allergy Verified 01/21/23 21:35 Review of Systems Review of Systems: Constitutional : No Weight loss, No Fever, No Chills, No Night Sweats, No Fatigue, No Malaise ENT/Mouth : Complaining of dental pain right mandibular side, No Hearing loss, No Ear Pain, No Nasal Congestion, No Sinus Pain, No Hoarseness, No sore throat, No Rhinorrhea, No Swallowing Difficulty Eyes: No Eye Pain, No Swelling, No Redness, No Foreign Body, No Discharge, No Vision Changes Cardiovascular : No Chest Pain, No SOB, No Dyspnea on Exertion, No Orthopnea, No Edema, No Palpitations Respiratory : No Cough, No Sputum, No Wheezing, No Smoke Exposure, No Dyspnea Gastrointestinal : No Nausea, No Vomiting, No Diarrhea, No Constipation, No abdominal Pain, No Hematochezia, No Melena Genitourinary : no irregular bleeding, No Dysuria, No Urinary Frequency, No Hematuria, No Urinary Incontinence, No Urgency, No Flank Pain, No Urinary Flow Changes, No Hesitancy Musculoskeletal : No joint pain, No Myalgias, No Joint Swelling Skin : No Skin Lesions, No rash Neuro : No Weakness, No Numbness, No Paresthesias, No Loss of Consciousness, No Dizziness, No Headache Psych : No Anxiety/Panic, No Depression, No SI/HI/AH/VH, No Social Issues, Heme/Lymph: No Bruising, No Bleeding,No Lymphadenopathy Endocrine : No Polyuria, No Polydipsia, No Temperature Intolerance [facility] Past Medical History Medical History Annual physical exam COVID-19 Leg edema Morbid obesity with BMI of 60.0-69.9, adult Nephrolithiasis KATIE (obstructive sleep apnea) Osteoarthritis Pulmonary embolism Surgical History Benny filter in place Hematoma of left knee region History of appendectomy History of hernia repair History of removal of laparoscopic gastric banding device History of sleeve gastrectomy Hx of laparoscopic gastric banding Family History Family History Father Lung cancer Bone cancer Mother No problems noted. Social History Social History Household Members: None Housing: House Are you a primary child care centre director to a significant other at home: No Do you presently have visiting nurse or other home services: No Alcohol intake: never Patient Tobacco Use Status: Never used Tobacco e-Cigarette/Vaping Use: Never Used Advance Directives: Yes Advance Directives on File: Yes Advance Directives Date on File: 07/23/21 service: No Current occupational status: employed Current occupation: right handed. Physical Exam Vital Signs: Vital Signs: Last Vital Signs Temp 98 F 01/21/23 21:30 Pulse 70 01/21/23 21:30 Resp 18 01/21/23 21:30 BP 168/79 H 01/21/23 21:30 Pulse Ox 97 01/21/23 21:30 O2 Del Method Room Air 01/21/23 21:30 BMI result Body Mass Index 59.8 Const: Other: Appearance: Alert. Oriented X3. No acute distress. Eyes: Pupils equal, round and reactive to light. ENT: Pharynx normal. Patient has poor dentition, no drainable abscess visualized. Erythematous gingiva on the right mandibular side. Neck: Normal inspection. Neck supple. No lymph nodes noted. No crepitus CVS: Normal heart rate and rhythm. Pulses normal. Normal S1 and S2 Respiratory: No respiratory distress. Breath sounds normal. No Wheezing. No rales Abdomen: Soft and nontender. No rigidity. No distention. Skin: Skin warm and dry. Normal skin color. Normal skin turgor. Extremities: No lower extremity edema. No Lacerations. No Rash Neuro: Oriented X 3. No motor deficit. No sensory deficit. Moving all extremities. No slurred speech. CN 2 through 12 grossly intact Psych: calm, cooperative, normal affect Medical Decision Making Medical Decision Making MDM Narrative: -patient has poor dentition. Patient will follow-up his dentist. Patient started on antibiotics. First dose of penicillin given in the emergency room, 500 mg and penicillin. Patient was given oxycodone 5 mg for pain. Patient is currently on Coumadin for previous pulmonary embolisms, we will avoid NSAIDs, patient has tried Tylenol without any significant pain relief. -Mass Pat checked. Last prescription for narcotics in 2021. Seems that patient has appropriate use of narcotics. Differential Diagnosis Differential Diagnoses: The differential diagnosis associated with the presentation includes (Dental pain, abscess, gingivitis) Discharge Plan Discharge Clinical Impression: Pain, dental Patient Disposition: Home, Self-Care Instructions: Toothache (ED) Additional Instructions: Please follow-up with your primary care physician tomorrow. If you have any worsening or new symptoms, please return to the emergency room or call 911 Prescriptions: New oxycodone 5 mg tablet 5 mg PO TID PRN (Reason: pain) Qty: 9 0RF Rx Instructions: Partial Fill upon patient request. penicillin V potassium 500 mg tablet 500 mg PO TID 10 Days Qty: 30 0RF No Action (DME) comp.stocking,knee,long,medium Misc See Rx Instructions .Route Qty: 12 6RF Rx Instructions: As directed 20mmHg (DME) miscellaneous medical supply Misc See Rx Instructions .Route Qty: 2 0RF Rx Instructions: custom compressor class 1 stockings for 2 pair diclofenac sodium 75 mg tablet,delayed release (DR/EC) 75 mg PO BID Qty: 180 3RF citalopram 40 mg tablet 40 mg PO DAILY Qty: 90 3RF allopurinol 300 mg tablet 450 mg PO DAILY Qty: 135 3RF omeprazole 40 mg capsule,delayed release(DR/EC) 40 mg PO DAILY Qty: 90 3RF warfarin 10 mg tablet 1 tab PO DAILY@1800 Qty: 90 3RF Protocol: Dose Management Condition: Wednesday (Week One) Dose/Route: 5 mg Instruction: 2 x 2.5 mg tablets Condition: Wednesday Dose/Route: 10 mg Instruction: 1 x 10 mg tablet Condition: Wednesday Dose/Route: 10 mg Instruction: 1 x 10 mg tablet Condition: Wednesday Dose/Route: 10 mg Instruction: 1 x 10 mg tablet Condition: Dose/Route: 15 mg Instruction: 2 x 2.5 mg tablets, 1 x 10 mg tablet Condition: Wednesday Dose/Route: 10 mg Instruction: 1 x 10 mg tablet Condition: Wednesday Dose/Route: 10 mg Instruction: 1 x 10 mg tablet Condition: Wednesday (Week Two) Dose/Route: 5 mg Instruction: 2 x 2.5 mg tablets Condition: Wednesday Dose/Route: 10 mg Instruction: 1 x 10 mg tablet Condition: Wednesday Dose/Route: 10 mg Instruction: 1 x 10 mg tablet Condition: Wednesday Dose/Route: 10 mg Instruction: 1 x 10 mg tablet Condition: Dose/Route: 10 mg Instruction: 1 x 10 mg tablet Condition: Wednesday Dose/Route: 10 mg Instruction: 1 x 10 mg tablet Condition: Wednesday Dose/Route: 10 mg Instruction: 1 x 10 mg tablet Protocol Text: Adjustment Start Date: 01/14/23 INR Value: 1.8 INR Date: 01/14/23 Recheck Date: 01/24/23 Additional Instructions: INR is below range increase warfarin to 15mg today then resume usual dosing tomorrow no greens today then balance greens and reds in diet, watch serving size of heavy duty greens and be consistent (DME) CPAP Machine/Device Device See Rx Instructions .Route Qty: 1 0RF Rx Instructions: As directed, with supplies warfarin 2.5 mg Tablet 2.5 mg PO DAILY Qty: 90 4RF Protocol: Dose Management Condition: Wednesday (Week One) Dose/Route: 5 mg Instruction: 2 x 2.5 mg tablets Condition: Wednesday Dose/Route: 10 mg Instruction: 1 x 10 mg tablet Condition: Wednesday Dose/Route: 10 mg Instruction: 1 x 10 mg tablet Condition: Wednesday Dose/Route: 10 mg Instruction: 1 x 10 mg tablet Condition: Dose/Route: 15 mg Instruction: 2 x 2.5 mg tablets, 1 x 10 mg tablet Condition: Wednesday Dose/Route: 10 mg Instruction: 1 x 10 mg tablet Condition: Wednesday Dose/Route: 10 mg Instruction: 1 x 10 mg tablet Condition: Wednesday (Week Two) Dose/Route: 5 mg Instruction: 2 x 2.5 mg tablets Condition: Wednesday Dose/Route: 10 mg Instruction: 1 x 10 mg tablet Condition: Wednesday Dose/Route: 10 mg Instruction: 1 x 10 mg tablet Condition: Wednesday Dose/Route: 10 mg Instruction: 1 x 10 mg tablet Condition: Dose/Route: 10 mg Instruction: 1 x 10 mg tablet Condition: Wednesday Dose/Route: 10 mg Instruction: 1 x 10 mg tablet Condition: Wednesday Dose/Route: 10 mg Instruction: 1 x 10 mg tablet Protocol Text: Adjustment Start Date: 01/14/23 INR Value: 1.8 INR Date: 01/14/23 Recheck Date: 01/24/23 Additional Instructions: INR is below range increase warfarin to 15mg today then resume usual dosing tomorrow no greens today then balance greens and reds in diet, watch serving size of heavy duty greens and be consistent ondansetron 8 mg Tablet,Disintegrating 8 mg PO Q8H Qty: 50 5RF furosemide 40 mg tablet 40 mg PO DAILY acetaminophen 650 mg tablet extended release 650 mg PO Q8H PRN (Reason: Pain)
[2023-01-22] MEDS: Penicillin V Potassium 250 MG TABLET 500 MG PO (00:23)
[2023-01-22] MEDS: oxyCODONE HCl Immed Release 5 MG TABLET PO (00:23)
== END 2023-01-22 00:32 | disposition home or self-care (01) ==
PROVIDERS: Emergency Provider Emergency Medicine; PCP Internal Medicine
DX: K08.89 Other specified disorders of teeth and supporting structures (principal); R51.9 Headache, unspecified; Z79.899 Other long term (current) drug therapy
CPT/HCPCS: 85610; 99211; 99283

== ENCOUNTER → 2023-02-02 09:10 | Outpatient (BNVA) | payer OTHER, SELFPAY | PROVIDERS: PCP Internal Medicine; Visit Provider Internal Medicine | DX: Z86.718 Personal history of other venous thrombosis and embolism (principal); Z51.81 Encounter for therapeutic drug level monitoring; Z79.01 Long term (current) use of anticoagulants | CPT/HCPCS: 85610; 99211 ==

== ENCOUNTER → 2023-02-16 15:00 | Outpatient (BNVA) | payer OTHER, SELFPAY | PROVIDERS: PCP Internal Medicine; Visit Provider Internal Medicine | DX: Z79.01 Long term (current) use of anticoagulants (principal) ==

== ENCOUNTER 2023-02-19 04:15 | Emergency (ER) | payer OTHER, SELFPAY ==
--- NOTE | ~2023-02-19 | CT_ITS ---
CT cervical spine and CT dorsal spine without contrast. Clinical indications: Status post injury. TECHNIQUE: 2 mm thin axial and reconstructed sagittal and coronal images of cervical and dorsal spine were obtained. DLP 2602. This CT examination was performed using dose optimization technique as appropriate, variously including the following: Automated exposure control Adjustment of MA and/or KV according to patient size(this includes techniques or standardized protocols for targeted exams where dose is matched to indication/reason for exam; extremities or head. Use of iterative reconstruction techniques. FINDINGS: Cervical spine: On sagittal reconstructed images there is mild straightening of cervical lordosis. There is loss of C4-C5, C5-C6, C6-C7 and C7-T1 disc heights. The craniovertebral junction and C1-C2 alignment is normal. No visible acute fracture, dislocation or subluxation seen. The prevertebral and paravertebral soft tissues are normal. The airway is widely patent. Lung apices are clear. Dorsal spine: There is normal thoracic kyphosis. The vertebral heights, alignment and disc heights are normal. No visible acute acute fracture, dislocation or subluxation seen. No bony erosive changes. There is minimal spondylosis. There are degenerative disc changes lower dorsal spine. There is no spinal canal stenosis, disc bulge or herniation. The paravertebral soft tissues are normal. CT/CT cervical spine wo IV con IMPRESSION: 1. Degenerative disc changes C4-C5, C5-C6, C6-C7 and C7-T1 disc levels. No visible acute fracture, dislocation or subluxation seen. 2. There is no acute fracture, dislocation or subluxation seen in dorsal spine.
--- NOTE | ~2023-02-19 | CT_ITS ---
CT cervical spine and CT dorsal spine without contrast. Clinical indications: Status post injury. TECHNIQUE: 2 mm thin axial and reconstructed sagittal and coronal images of cervical and dorsal spine were obtained. DLP 2602. This CT examination was performed using dose optimization technique as appropriate, variously including the following: Automated exposure control Adjustment of MA and/or KV according to patient size(this includes techniques or standardized protocols for targeted exams where dose is matched to indication/reason for exam; extremities or head. Use of iterative reconstruction techniques. FINDINGS: Cervical spine: On sagittal reconstructed images there is mild straightening of cervical lordosis. There is loss of C4-C5, C5-C6, C6-C7 and C7-T1 disc heights. The craniovertebral junction and C1-C2 alignment is normal. No visible acute fracture, dislocation or subluxation seen. The prevertebral and paravertebral soft tissues are normal. The airway is widely patent. Lung apices are clear. Dorsal spine: There is normal thoracic kyphosis. The vertebral heights, alignment and disc heights are normal. No visible acute acute fracture, dislocation or subluxation seen. No bony erosive changes. There is minimal spondylosis. There are degenerative disc changes lower dorsal spine. There is no spinal canal stenosis, disc bulge or herniation. The paravertebral soft tissues are normal. CT/CT thoracic spine wo IV con IMPRESSION: 1. Degenerative disc changes C4-C5, C5-C6, C6-C7 and C7-T1 disc levels. No visible acute fracture, dislocation or subluxation seen. 2. There is no acute fracture, dislocation or subluxation seen in dorsal spine.
[2023-02-19 04:31] VITALS: BP 165/60; PULSE 71; RESP 20; TEMP 36.3; O2SAT 97; BMI 61.9
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
[2023-02-19 07:15] VITALS: BP 145/76; PULSE 73; RESP 20; O2SAT 97
== END 2023-02-19 07:26 | disposition home or self-care (01) ==
PROVIDERS: Emergency Provider Internal Medicine; PCP Internal Medicine
DX: S20.229A Contusion of unspecified back wall of thorax, initial encounter (principal); M54.6 Pain in thoracic spine; M54.50 Low back pain, unspecified; M54.2 Cervicalgia; R51.9 Headache, unspecified; Y29.XXXA Contact with blunt object, undetermined intent, initial encounter; Y93.9 Activity, unspecified; Y92.9 Unspecified place or not applicable; Y99.0 Civilian activity done for income or pay; Z79.899 Other long term (current) drug therapy
CPT/HCPCS: 72125; 72128; 99284

== ENCOUNTER → 2023-02-22 14:43 | Outpatient (BNVA) | payer OTHER, SELFPAY | PROVIDERS: PCP Internal Medicine; Visit Provider Internal Medicine | DX: Z51.81 Encounter for therapeutic drug level monitoring (principal); Z79.01 Long term (current) use of anticoagulants; Z86.718 Personal history of other venous thrombosis and embolism | CPT/HCPCS: 85610; 99211 ==

== ENCOUNTER → 2023-03-17 14:32 | Outpatient (BNVA) | payer OTHER, SELFPAY | PROVIDERS: PCP Internal Medicine; Visit Provider Internal Medicine | DX: Z51.81 Encounter for therapeutic drug level monitoring (principal); Z79.01 Long term (current) use of anticoagulants; Z86.718 Personal history of other venous thrombosis and embolism | CPT/HCPCS: 85610; 99211 ==

== ENCOUNTER → 2023-03-29 14:59 | Outpatient (BNVA) | payer OTHER, SELFPAY | PROVIDERS: PCP Internal Medicine; Visit Provider Internal Medicine | DX: Z86.718 Personal history of other venous thrombosis and embolism (principal); Z51.81 Encounter for therapeutic drug level monitoring; Z79.01 Long term (current) use of anticoagulants | CPT/HCPCS: 85610; 99211 ==

== ENCOUNTER 2023-04-12 13:24 | Outpatient (REF) | payer OTHER, SELFPAY ==
[2023-04-12 13:57] LABS: INTERNATIONAL NORM RATIO 4.4 (0.9-1.1); Prothrombin Time 54.3 SEC (10.0-13.1)
== END 2023-04-12 13:25 | disposition home or self-care (01) ==
LOC: HO.LAB 13:24
PROVIDERS: PCP Internal Medicine; Visit Provider Internal Medicine
DX: Z86.718 Personal history of other venous thrombosis and embolism (principal); Z51.81 Encounter for therapeutic drug level monitoring; Z79.01 Long term (current) use of anticoagulants
CPT/HCPCS: 36415; 85610; 99212

== ENCOUNTER 2023-05-21 14:00 | Outpatient (AMB) | payer OTHER, SELFPAY ==
--- NOTE | 2023-05-21 14:03 | MHC.OFFVISCO ---
Intake Intake Visit Reasons: Anticoagulation Allergies No Known Allergies Allergy (Verified 05/21/23 14:15) Medication List - Last Reconciled 05/21/23 by Hortencia Watt, RN acetaminophen ER 650 mg PO Q8H PRN allopurinol 450 mg (1.5 x 300 mg) PO DAILY citalopram 40 mg PO DAILY comp.stocking,knee,long,medium As directed 20mmHg CPAP (CPAP Machine/Device) As directed, with supplies diclofenac sodium 75 mg PO BID furosemide 40 mg PO DAILY miscellaneous medical supply custom compressor class 1 stockings for 2 pair omeprazole 40 mg PO DAILY tizanidine 2 mg PO TID PRN warfarin 1 tab See Protocol PO DAILY@1800 warfarin 2.5 mg See Protocol PO DAILY Nursing Note INR: 2.2 in therapeutic range pt is very fatigues appears to be pale - called Dr Wong- she is going to see him and do labs Medications and supplements reviewed No changes in health, diet, medications, or supplements, Denies any signs and symptoms of bleeding or bruising or clotting. Bleeding, bruising, clotting discussed Nutritional guidance given Dose: 5mg x 1 day/ 10mg x 6 days F/U INR: 4 weeks Patient verbalizes understanding of instructions given Anti-Coag Initial Assessment Social Hx Patient Tobacco Use Status: Never used Tobacco alcohol intake: current Alcohol intake frequency: holidays/special occasions only Coding Level of Care Code Est Patient Level 1 Diagnoses Current use of anticoagulant therapy Z79.01 Assessment & Plan Assessment & Plan (1) Current use of anticoagulant therapy: Onset Date: ~09/08/21 Code(s): Z79.01 - assisted (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
[2023-05-21 14:12] LABS: Prothrombin Time Whole Bld POC 26.5 sec (11.1-13.5); ~PT, ~INR - Anti Coag Clinic 2.2 (0.9-1.1)
== END 2023-05-21 14:28 | disposition home or self-care (01) ==
LOC: HO.ACS 14:00
PROVIDERS: PCP Internal Medicine; Visit Provider Internal Medicine
DX: Z79.01 Long term (current) use of anticoagulants (principal)

== ENCOUNTER → 2023-05-21 14:00 | Outpatient (BNVA) | payer OTHER, SELFPAY | PROVIDERS: PCP Internal Medicine; Visit Provider Internal Medicine | DX: Z51.81 Encounter for therapeutic drug level monitoring (principal); Z79.01 Long term (current) use of anticoagulants; Z86.718 Personal history of other venous thrombosis and embolism | CPT/HCPCS: 85610; 99211 ==

== ENCOUNTER 2023-07-07 13:27 | Outpatient (AMB) | payer OTHER, SELFPAY ==
--- NOTE | 2023-07-07 13:45 | MHC.OFFVISCO ---
Intake Intake Visit Reasons: Anticoagulation Allergies No Known Allergies Allergy (Verified 07/07/23 13:39) Medication List - Last Reconciled 07/07/23 by Bianca Gotti RN acetaminophen ER 650 mg PO Q8H PRN allopurinol 450 mg (1.5 x 300 mg) PO DAILY citalopram 40 mg PO DAILY comp.stocking,knee,long,medium As directed 20mmHg CPAP (CPAP Machine/Device) As directed, with supplies diclofenac sodium 75 mg PO BID furosemide 40 mg PO DAILY miscellaneous medical supply custom compressor class 1 stockings for 2 pair omeprazole 40 mg PO DAILY tizanidine 2 mg PO TID PRN warfarin 1 tab See Protocol PO DAILY@1800 warfarin 2.5 mg See Protocol PO DAILY Nursing Note INR: 2.9- in therapeutic range Medications and supplements reviewed- pt took 2 doses of gabapentin 100mg and d/c due to drowsiness No changes in health, diet, medications, or supplements, Denies any signs and symptoms of bleeding or bruising or clotting. Bleeding, bruising, clotting discussed Nutritional guidance given Dose: 5mg x 1, 10mg x 6 F/U INR: 4 weeks Patient verbalizes understanding of instructions given pt states injured at work with c.o upper and lower back pain. numbness to left hand pt amb with cane Anti-Coag Initial Assessment Social Hx Patient Tobacco Use Status: Never used Tobacco alcohol intake: current Alcohol intake frequency: holidays/special occasions only Coding Level of Care Code Est Patient Level 1 Diagnoses Current use of anticoagulant therapy Z79.01 Assessment & Plan Assessment & Plan (1) Current use of anticoagulant therapy: Onset Date: ~09/08/21 Code(s): Z79.01 - java lead (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
[2023-07-07 13:46] LABS: Prothrombin Time Whole Bld POC 34.3 sec (11.1-13.5); ~PT, ~INR - Anti Coag Clinic 2.9 (0.9-1.1)
--- NOTE | 2023-07-07 15:00 | MHC.OFFVISCO ---
Intake Intake Visit Reasons: Anticoagulation Allergies No Known Allergies Allergy (Verified 07/07/23 13:39) Medication List - Last Reconciled 07/07/23 by Bianca Gotti RN acetaminophen ER 650 mg PO Q8H PRN allopurinol 450 mg (1.5 x 300 mg) PO DAILY citalopram 40 mg PO DAILY comp.stocking,knee,long,medium As directed 20mmHg CPAP (CPAP Machine/Device) As directed, with supplies diclofenac sodium 75 mg PO BID furosemide 40 mg PO DAILY miscellaneous medical supply custom compressor class 1 stockings for 2 pair omeprazole 40 mg PO DAILY tizanidine 2 mg PO TID PRN warfarin 1 tab See Protocol PO DAILY@1800 warfarin 2.5 mg See Protocol PO DAILY Nursing Note INR: 2.9-in therapeutic range Medications and supplements reviewed- pt took gabapentin 100mg times 2 doses but d/c due to extreme drowsiness No changes in health, diet, medications, or supplements, Denies any signs and symptoms of bleeding or bruising or clotting. Bleeding, bruising, clotting discussed Nutritional guidance given Dose: 5mg x 1. 10mg x 6 F/U INR: 4 weeks Patient verbalizes understanding of instructions given pt states injury at work 02/2023 injuring upper and lower back. he has done physical therapy and has f/u with cont with pain and numbness left hand. 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
== END 2023-07-07 14:07 | disposition home or self-care (01) ==
LOC: HO.ACS 13:27
PROVIDERS: PCP Internal Medicine; Visit Provider Internal Medicine
DX: Z79.01 Long term (current) use of anticoagulants (principal)

== ENCOUNTER → 2023-07-07 13:27 | Outpatient (BNVA) | payer OTHER, SELFPAY | PROVIDERS: PCP Internal Medicine; Visit Provider Internal Medicine | DX: Z86.718 Personal history of other venous thrombosis and embolism (principal); Z51.81 Encounter for therapeutic drug level monitoring; Z79.01 Long term (current) use of anticoagulants | CPT/HCPCS: 85610; 99211 ==

== ENCOUNTER 2023-08-11 15:06 | Outpatient (AMB) | payer OTHER, SELFPAY ==
[2023-08-11 15:15] LABS: ~PT, ~INR - Anti Coag Clinic 4.6 (0.9-1.1)
--- NOTE | 2023-08-11 15:21 | MHC.OFFVISCO ---
Intake Intake Visit Reasons: Anticoagulation Allergies No Known Allergies Allergy (Verified 08/11/23 15:10) Medication List - Last Reconciled 08/11/23 by Manju Lee RN acetaminophen ER 650 mg PO Q8H PRN allopurinol 450 mg (1.5 x 300 mg) PO DAILY citalopram 40 mg PO DAILY comp.stocking,knee,long,medium As directed 20mmHg CPAP (CPAP Machine/Device) As directed, with supplies diclofenac sodium 75 mg PO BID furosemide 40 mg PO DAILY miscellaneous medical supply custom compressor class 1 stockings for 2 pair omeprazole 40 mg PO DAILY tizanidine 2 mg PO TID PRN warfarin 1 tab See Protocol PO DAILY@1800 warfarin 2.5 mg See Protocol PO DAILY Nursing Note PT. STATES THAt he has had large amt. OF BLACK LICORICE THIS WEEK. NO CP,SOB,DIET/MED CHANGES,FALLS OR SX OF BLEEDING. HOLD WARFARIN TODFAY THEN RESUME USUAL DOSE AND FOLLOW-UP IN 1 WEEK. GOOD UNDERSTANDING OF DOSING INSTR. Anti-Coag Initial Assessment Social Hx Patient Tobacco Use Status: Never used Tobacco alcohol intake: current Alcohol intake frequency: holidays/special occasions only Coding Level of Care Code Est Patient Level 1 Diagnoses Current use of anticoagulant therapy Z79.01 Assessment & Plan Assessment & Plan (1) Current use of anticoagulant therapy: Onset Date: ~09/08/21 Code(s): Z79.01 - correction (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
== END 2023-08-11 15:24 | disposition home or self-care (01) ==
LOC: HO.ACS 15:06
PROVIDERS: PCP Internal Medicine; Visit Provider Internal Medicine
DX: Z79.01 Long term (current) use of anticoagulants (principal)

== ENCOUNTER → 2023-08-11 15:06 | Outpatient (BNVA) | payer OTHER, SELFPAY | PROVIDERS: PCP Internal Medicine; Visit Provider Internal Medicine | DX: Z86.718 Personal history of other venous thrombosis and embolism (principal); Z51.81 Encounter for therapeutic drug level monitoring; Z79.01 Long term (current) use of anticoagulants | CPT/HCPCS: 85610; 99211 ==

== ENCOUNTER 2023-08-24 14:38 | Outpatient (AMB) | payer OTHER, SELFPAY ==
[2023-08-24 14:45] LABS: Prothrombin Time Whole Bld POC 36.6 sec (11.1-13.5); ~PT, ~INR - Anti Coag Clinic 3.1 (0.9-1.1)
--- NOTE | 2023-08-24 14:49 | MHC.OFFVISCO ---
Intake Intake Visit Reasons: Anticoagulation Allergies No Known Allergies Allergy (Verified 08/24/23 14:39) Medication List - Last Reconciled 08/24/23 by Hortencia Watt RN acetaminophen ER 650 mg PO Q8H PRN allopurinol 450 mg (1.5 x 300 mg) PO DAILY citalopram 40 mg PO DAILY comp.stocking,knee,long,medium As directed 20mmHg CPAP (CPAP Machine/Device) As directed, with supplies diclofenac sodium 75 mg PO BID furosemide 40 mg PO DAILY miscellaneous medical supply custom compressor class 1 stockings for 2 pair omeprazole 40 mg PO DAILY tizanidine 2 mg PO TID PRN warfarin 1 tab See Protocol PO DAILY@1800 warfarin 2.5 mg See Protocol PO DAILY Nursing Note INR: 3.1 almost in therapeutic range Medications and supplements reviewed previous visit had gladis haganoriceb alot of it - he recently had avocado Denies any signs and symptoms of bleeding or bruising or clotting. Bleeding, bruising, clotting discussed Nutritional guidance given- eat cooked greens weekly to keep INR in range Dose: 5mg x 1 day/ 10mg x 6 days F/U INR: 2 weeks Patient verbalizes understanding of instructions given Anti-Coag Initial Assessment Social Hx Patient Tobacco Use Status: Never used Tobacco alcohol intake: current Alcohol intake frequency: holidays/special occasions only Coding Level of Care Code Est Patient Level 1 Diagnoses Current use of anticoagulant therapy Z79.01 Assessment & Plan Assessment & Plan (1) Current use of anticoagulant therapy: Onset Date: ~09/08/21 Code(s): Z79.01 - intermediate card tender (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
== END 2023-08-24 14:55 | disposition home or self-care (01) ==
LOC: HO.ACS 14:38
PROVIDERS: PCP Internal Medicine; Visit Provider Internal Medicine
DX: Z79.01 Long term (current) use of anticoagulants (principal)

== ENCOUNTER → 2023-08-24 14:38 | Outpatient (BNVA) | payer OTHER, SELFPAY | PROVIDERS: PCP Internal Medicine; Visit Provider Internal Medicine | DX: I82.402 Acute embolism and thrombosis of unspecified deep veins of left lower extremity (principal); Z51.81 Encounter for therapeutic drug level monitoring; Z79.01 Long term (current) use of anticoagulants | CPT/HCPCS: 85610; 99211 ==

== ENCOUNTER 2023-09-14 14:45 | Outpatient (AMB) | payer OTHER, SELFPAY ==
[2023-09-14 14:53] LABS: ~PT, ~INR - Anti Coag Clinic 2.5 (0.9-1.1)
--- NOTE | 2023-09-14 15:03 | MHC.OFFVISCO ---
Intake Intake Visit Reasons: Anticoagulation Allergies No Known Allergies Allergy (Verified 09/14/23 14:46) Medication List - Last Reconciled 09/14/23 by Hortencia Watt RN acetaminophen ER 650 mg PO Q8H PRN allopurinol 450 mg (1.5 x 300 mg) PO DAILY citalopram 40 mg PO DAILY comp.stocking,knee,long,medium As directed 20mmHg CPAP (CPAP Machine/Device) As directed, with supplies diclofenac sodium 75 mg PO BID furosemide 40 mg PO DAILY miscellaneous medical supply custom compressor class 1 stockings for 2 pair omeprazole 40 mg PO DAILY tizanidine 2 mg PO TID PRN warfarin 1 tab See Protocol PO DAILY@1800 warfarin 2.5 mg See Protocol PO DAILY Nursing Note INR: 2.5 in therapeutic range Medications and supplements reviewed PT C/O OF CHRONIC BACK PAIN AND KNEE PAIN, TRYING TO GET DISABILITY Denies any signs and symptoms of bleeding or bruising or clotting. Bleeding, bruising, clotting discussed Nutritional guidance given Dose: 5MG X 1 [id number] X 6 DAYS F/U INR: 4 WEEKS Patient verbalizes understanding of instructions given Anti-Coag Initial Assessment Social Hx Patient Tobacco Use Status: Never used Tobacco alcohol intake: current Alcohol intake frequency: holidays/special occasions only Coding Level of Care Code Est Patient Level 1
== END 2023-09-14 15:07 | disposition home or self-care (01) ==
LOC: HO.ACS 14:45
PROVIDERS: PCP Internal Medicine; Visit Provider Internal Medicine
DX: Z79.01 Long term (current) use of anticoagulants (principal)

== ENCOUNTER → 2023-09-14 14:45 | Outpatient (BNVA) | payer OTHER, SELFPAY | PROVIDERS: PCP Internal Medicine; Visit Provider Internal Medicine | DX: Z86.718 Personal history of other venous thrombosis and embolism (principal); Z51.81 Encounter for therapeutic drug level monitoring; Z79.01 Long term (current) use of anticoagulants | CPT/HCPCS: 85610; 99211 ==

== ENCOUNTER 2023-09-25 17:28 | Emergency (ER) | payer OTHER, SELFPAY ==
--- NOTE | ~2023-09-25 | XR_ITS ---
EXAMINATION: XR CHEST CLINICAL INFORMATION: Cough COMPARISON: 10/30/2021 TECHNIQUE: 2 views of the chest were obtained. FINDINGS: No focal consolidation, pulmonary edema, or pleural effusion. Stable cardiomediastinal silhouette. XR/XR chest 2V IMPRESSION: No acute cardiopulmonary findings.
--- NOTE | 2023-09-25 17:48 | ED.URI ---
HPI - URI/Sore Throat General Chief Complaint: Upper Respiratory Symptoms Stated Complaint: congestion cough Time Seen by Provider: 09/25/23 18:53 Source: patient Mode of arrival: ambulatory Limitations: no limitations History of Present Illness HPI Narrative: 58 yo male with history of konrad disease, PE on coumadin, IVC filter, Klinefelter syndrome here with complaints of nonproductive cough >1 week. +SOB which he describes as mild. Intermittently compliant with lasix, chronic leg swelling which he does not feel is worse then his baseline. No chest pain, headache, skin rash, fevers, chills, vomiting or diarrhea. He has been compliant with his coumadin with no missed doses. Related Data Home Medications Medication Instructions Recorded Confirmed acetaminophen 650 mg 650 mg PO Q8H PRN Pain 09/14/22 09/14/23 tablet,extended release tizanidine 2 mg capsule 2 mg PO TID PRN muscle spasm 03/29/23 09/14/23 Previous Rx's Medication Instructions Recorded comp.stocking,knee,long,medium #12 ea 08/14/21 miscellaneous medical supply #2 ea 08/25/21 warfarin 10 mg tablet 1 tab PO DAILY@1800 #90 tabs 11/12/22 CPAP (CPAP Machine/Device) #1 ea 12/04/22 warfarin 2.5 mg tablet 2.5 mg PO DAILY #90 tabs 02/07/23 diclofenac sodium 75 mg 75 mg PO BID #180 tabs 04/23/23 tablet,delayed release omeprazole 40 mg capsule,delayed 40 mg PO DAILY #90 caps 04/30/23 release furosemide 40 mg tablet 40 mg PO DAILY #90 tabs 05/24/23 allopurinol 300 mg tablet 450 mg (1.5 x 300 mg) PO DAILY 06/17/23 #135 tabs citalopram 40 mg tablet 40 mg PO DAILY #90 tabs 06/30/23 amoxicillin 875 mg-potassium 1 tab PO BID #14 tabs 09/25/23 clavulanate 125 mg tablet benzonatate 200 mg capsule 200 mg PO TID PRN cough #14 caps 09/25/23 Allergies Allergy/AdvReac Type Severity Reaction Status Date / Time No Known Allergies Allergy Verified 09/14/23 14:46 Review of Systems Review of Systems: Yes all other systems are reviewed and are negative Constitutional: Constitutional: Reports no additional constitutional complaints, Denies body ache(s), Denies chills, Denies fever(s), Denies headache(s) and Denies weakness Eyes: Eyes: Reports no additional eye complaints and Denies change in vision ENT: Reports system reviewed and no additional complaints, except as documented, Denies dizziness, Denies headache(s), Denies nasal congestion, Denies nasal discharge and Denies neck pain Cardiovascular: Cardiovascular: Reports no additional cardiovascular complaints, Denies chest pain, Reports leg edema and Reports dyspnea Respiratory: Respiratory: Reports no additional respiratory complaints, Reports cough and Reports dyspnea Gastrointestinal: Gastrointestinal: Reports no additional gastrointestinal complaints, Denies abdominal pain, Denies diarrhea, Denies nausea and Denies vomiting Genitourinary: Genitourinary: Denies urinary incontinence Musculoskeletal: Musculoskeletal: Reports no additional musculoskeletal complaints, Denies back pain, Denies arthralgias, Denies joint swelling, Denies neck pain, Denies numbness and Denies tingling Integumentary/Breasts: Skin/Breast: Reports system reviewed and no additional complaints, except as docu and Denies rash Neurologic: Reports system reviewed and no additional complaints, except as documented, Denies Abnormal speech present, Denies dizziness, Denies headache(s), Denies numbness, Denies tingling and Denies weakness PMF Past Medical History Attestation statement: The following information was validated with the patient. Source: old records reviewed and nursing notes reviewed Medical History COVID-19 Annual physical exam Nephrolithiasis Leg edema KATIE (obstructive sleep apnea) Pulmonary embolism Osteoarthritis Morbid obesity with BMI of 60.0-69.9, adult Surgical History Hematoma of left knee region History of sleeve gastrectomy History of hernia repair History of appendectomy History of removal of laparoscopic gastric banding device Benny filter in place Hx of laparoscopic gastric banding Family History Family History Father Lung cancer Bone cancer Mother No problems noted. Social History Social History Household Members: None Housing: House Are you a primary director of healthcare systems to a significant other at home: No Do you presently have visiting nurse or other home services: No Alcohol intake: current Alcohol intake frequency: holidays/special occasions only Patient Tobacco Use Status: Never used Tobacco e-Cigarette/Vaping Use: Never Used Advance Directives: Yes Advance Directives on File: Yes Advance Directives Date on File: 07/23/21 service: No Current occupational status: employed Current occupation: right handed. Physical Exam Vital Signs: Vital Signs: Last Vital Signs Temp 98.1 F 09/25/23 17:49 Pulse 65 09/25/23 17:49 Resp 17 09/25/23 17:49 BP 130/68 09/25/23 17:49 Pulse Ox 100 09/25/23 17:49 O2 Del Method Room Air 09/25/23 17:49 BMI result Body Mass Index 62.5 Const: General: cooperative, healthy appearing, comfortable and no acute distress Orientation/consciousness: patient oriented x3 Limitations: no limitations HEENT: Head: Yes normal to inspection Ears: hearing grossly normal bilaterally, TM normal on the right, EAC's normal, mastoids normal, no periauricular adenopathy and TM abnormal (Left TM) bulging and erythematous; not perforated General nose exam: Normal external nose present Face and sinus: Yes normal facial exam Mouth: Normal oral and palatal mucosa present Throat: Yes posterior oropharynx normal, Yes tonsils normal and Yes uvula midline Eyes: General: appearance normal, both eyes and all related structures Pupils: Equal, round and reactive pupils present Neck: Neck: Yes normal visual inspection, Yes full ROM, Yes no lymphadenopathy and Yes no meningeal signs Chest: Chest palpation & inspection: normal inspection of the chest Resp: Effort & Inspection: normal respiratory effort Auscultation: clear to auscultation bilaterally Cardio: Rate: regular rate Rhythm: regular rhythm Peripheral pulses: Peripheral pulses 2+ throughout GI: Inspection: Yes normal to inspection Palpation (GI): Soft to palpation and nontender Auscultation: normal bowel sounds Back/Spine/Pelvis: Thoracic/Lumbar Spine: thoracic and lumbar spine normal to inspection Skin: General skin exam: no rashes or lesions noted Neuro: General: patient oriented x3, no meningeal signs, no focal motor deficits and normal sensation to monofilament Cranial nerves: Yes Equal, round and reactive pupils present Cognition (Neuro): normal cognition Speech: No Abnormal speech present Gait exam (Neuro): Normal gait present Motor exam (neuro): 5/5 motor strength present throughout Extrem: General: No no calf tenderness and Yes edema (bilateral) Course Course Course Narrative: This is a rapid medical exam. Deferred additional HPI, ROS, PE to primary provider. 58 yo male with history of konrad disease, PE on coumadin, IVC filter, Klinefelter syndrome here with complaints of cough >1 week. +SOB which he describes as mild. Intermittently compliant with lasix, +leg swelling. Will need labs, CXR, viral testing. VSS Reevaluation(s) Reevaluation #1: Viral screen is negative. Chest x-ray shows no focal pneumonia. Labs are unremarkable. Patient informed of his INR results. Likely bronchitis. Patient also has a left otitis media and we will treat him with antibiotics and given a cough suppressant for home. No hypoxia or tachypnea. Patient nontoxic appearing. Reviewed worrisome signs and symptoms of when to return to the emergency room. Comfortable plan for discharge home. Medical Decision Making Medical Decision Making [facility] Narrative: 58 yo male with history of konrad disease, PE on coumadin, IVC filter, Klinefelter syndrome here with complaints of nonproductive cough >1 week. +SOB which he describes as mild. Intermittently compliant with lasix, chronic leg swelling which he does not feel is worse then his baseline. No chest pain, headache, skin rash, fevers, chills, vomiting or diarrhea. He has been compliant with his coumadin with no missed doses. L AOM on exam. LS CTA. VSS +bilateral non pitting lower extremity edema-patient states chronic and not changed from baseline Will review labs, viral testing, CXR ordered from triage Differential Diagnosis Differential Diagnoses: The differential diagnosis associated with the presentation includes viral syndrome, influenza, PNA, chf doubt PE as patient is compliant with ac therapy Admission/Observation Consideration of admission/observation: Escalation of care including admission/observation considered No hypoxia or tachypnea requiring supplemental oxygen, no s/s concerning for fluid overload requiring IV lasix and or admission Lab Data [facility] Lab Attestation statement: I reviewed the patient's lab results. 09/25/23 18:17 09/25/23 18:17 Labs: Lab Results 09/25/23 Range/Units 18:17 WBC 5.8 (4.8-10.8) X10*3/uL RBC 4.51 L (4.60-5.80) X10*6/uL Hgb 11.9 L (14.0-18.0) g/dl Hct 38.9 L (42.0-52.0) % MCV 86.3 (80.0-98.0) fL MCH 26.4 L (27.0-33.0) pg MCHC 30.6 L (31.0-36.0) g/dl RDW 14.8 (11.0-16.0) % Plt Count 227 (160-400) X10*3/uL MPV 10.7 (9.4-12.4) fL Immature Gran % (Auto) 0.5 H (0.0-0.4) % Neut % (Auto) 59.2 (45-73) % Lymph % (Auto) 14.2 L (20-40) % [place] % (Auto) 7.2 (2-11) % Eos % (Auto) 18.0 H (0-4) % Baso % (Auto) 0.9 (0-2) % Lymph # (Auto) 0.8 L (1.2-4.9) X10*3/uL [place] # (Auto) 0.4 (0.1-1.2) X10*3/uL Eos # (Auto) 1.1 H (0.0-0.4) X10*3/uL Baso # (Auto) 0.1 (0.0-0.2) X10*3/uL Abs Immat Gran (auto) 0.03 (0.00-0.03) X10*3/uL Absolute Neuts (auto) 3.5 (2.0-8.3) x10*3/uL Absolute Nucleated RBC 0.000 (0.0-0.012) X10*3/uL Nucleated RBC % (auto) 0.0 (0.0-0.2) /100WBC PT 36.2 H (11.1-13.3) SEC INR 3.0 H (0.9-1.1) Sodium 144 (135-145) mmol/L Potassium 4.6 (3.3-5.1) mmol/L Chloride 113 H (96-108) mmol/L Carbon Dioxide 25 (22-29) mmol/L Anion Gap 11 L (12-20) BUN 18 H (9-16) mg/dL Creatinine 1.11 (0.5-1.4) mg/dL Estim Creat Clear Calc 131.3 Estimated GFR > 60 Random Glucose 117 H (60-115) mg/dL Calcium 9.6 D (8.4-10.2) mg/dL Total Bilirubin 0.7 (0.0-1.0) mg/dL Direct Bilirubin 0.3 (0.0-0.5) mg/dL AST 16 (5-37) U/L ALT 9 (0-40) U/L Alkaline Phosphatase 77 (39-117) U/L B-Natriuretic Peptide 32 (<100) pg/mL Total Protein 6.7 (6.5-8.0) g/dL Albumin 4.1 (3.5-5.0) g/dL Influenza Type A (PCR) NEGATIVE (Negative) Influenza Type B (PCR) NEGATIVE (Negative) RSV RNA Qual (PCR) NEGATIVE (Negative) SARS-CoV-2 RNA (RT-PCR) NEGATIVE (Negative) Independent Interpretation I performed an independent interpretation of an: Plain X-Ray Interpretation: I independently reviewed the x-ray and agree with the radiology report Radiology Impression Discussion of test interpretation with radiology: I have reviewed the radiologist's reading. Radiologist Impression: [place] [id number] XRay Report Signed Patient: Wm Shepard MR#: [id number] : 1965 Acct:[id number] Age/Sex: 58 / M ADM Date: 09/25/23 Loc: .ED Attending Dr: Ordering Physician: Krista Conley NP Date of Service: 09/25/23 Procedure(s): XR chest 2V Accession Number(s): [id number] cc: Alessandra Torres MD; Krista Conley NP~ EXAMINATION: XR CHEST CLINICAL INFORMATION: Cough COMPARISON: 10/30/2021 TECHNIQUE: 2 views of the chest were obtained. FINDINGS: No focal consolidation, pulmonary edema, or pleural effusion. Stable cardiomediastinal silhouette. XR/XR chest 2V IMPRESSION: No acute cardiopulmonary findings. Tests considered The following testing was considered but not selected: no need for cta as patient is on coumadin with therapeutic inr Prescription Management I considered prescription management with: Antiviral and Antibiotic Discharge Plan Discharge Clinical Impression: Bronchitis, Otitis media Patient Disposition: Home, Self-Care Instructions: Ear Infection (ED), Acute Bronchitis (ED) Additional Instructions: Testing for flu, covid and rsv are negative Blood work is normal Chest x-ray shows no pneumonia Your INR today was 3.0 Prescriptions: New amoxicillin-pot clavulanate 875-125 mg tablet 1 tab PO BID Qty: 14 0RF benzonatate 200 mg capsule 200 mg PO TID PRN (Reason: cough) Qty: 14 0RF No Action (DME) comp.stocking,knee,long,medium Misc See Rx Instructions .Route Qty: 12 6RF Rx Instructions: As directed 20mmHg (DME) miscellaneous medical supply Misc See Rx Instructions .Route Qty: 2 0RF Rx Instructions: custom compressor class 1 stockings for 2 pair warfarin 10 mg tablet 1 tab PO DAILY@1800 Qty: 90 3RF Protocol: Dose Management Condition: Wednesday (Week One) Dose/Route: 5 mg Instruction: 2 x 2.5 mg tablets Condition: Wednesday Dose/Route: 10 mg Instruction: 1 x 10 mg tablet Condition: Wednesday Dose/Route: 10 mg Instruction: 1 x 10 mg tablet Condition: Wednesday Dose/Route: 10 mg Instruction: 1 x 10 mg tablet Condition: Dose/Route: 10 mg Instruction: 1 x 10 mg tablet Condition: Wednesday Dose/Route: 10 mg Instruction: 1 x 10 mg tablet Condition: Wednesday Dose/Route: 10 mg Instruction: 1 x 10 mg tablet Condition: Wednesday (Week Two) Dose/Route: 5 mg Instruction: 2 x 2.5 mg tablets Condition: Wednesday Dose/Route: 10 mg Instruction: 1 x 10 mg tablet Condition: Wednesday Dose/Route: 10 mg Instruction: 1 x 10 mg tablet Condition: Wednesday Dose/Route: 10 mg Instruction: 1 x 10 mg tablet Condition: Dose/Route: 10 mg Instruction: 1 x 10 mg tablet Condition: Wednesday Dose/Route: 10 mg Instruction: 1 x 10 mg tablet Condition: Wednesday Dose/Route: 10 mg Instruction: 1 x 10 mg tablet Protocol Text: Adjustment Start Date: Wednesday09/14/23 INR Value: 2.5 INR Date: 09/14/23 Recheck Date: 10/13/23 Additional Instructions: CONT TO EAT A MIX OF FRUITS AND VEGETABLES (DME) CPAP Machine/Device Device See Rx Instructions .Route Qty: 1 0RF Rx Instructions: As directed, with supplies warfarin 2.5 mg Tablet 2.5 mg PO DAILY Qty: 90 3RF Protocol: Dose Management Condition: Wednesday (Week One) Dose/Route: 5 mg Instruction: 2 x 2.5 mg tablets Condition: Wednesday Dose/Route: 10 mg Instruction: 1 x 10 mg tablet Condition: Wednesday Dose/Route: 10 mg Instruction: 1 x 10 mg tablet Condition: Wednesday Dose/Route: 10 mg Instruction: 1 x 10 mg tablet Condition: Dose/Route: 10 mg Instruction: 1 x 10 mg tablet Condition: Wednesday Dose/Route: 10 mg Instruction: 1 x 10 mg tablet Condition: Wednesday Dose/Route: 10 mg Instruction: 1 x 10 mg tablet Condition: Wednesday (Week Two) Dose/Route: 5 mg Instruction: 2 x 2.5 mg tablets Condition: Wednesday Dose/Route: 10 mg Instruction: 1 x 10 mg tablet Condition: Wednesday Dose/Route: 10 mg Instruction: 1 x 10 mg tablet Condition: Wednesday Dose/Route: 10 mg Instruction: 1 x 10 mg tablet Condition: Dose/Route: 10 mg Instruction: 1 x 10 mg tablet Condition: Wednesday Dose/Route: 10 mg Instruction: 1 x 10 mg tablet Condition: Wednesday Dose/Route: 10 mg Instruction: 1 x 10 mg tablet Protocol Text: Adjustment Start Date: Wednesday09/14/23 INR Value: 2.5 INR Date: 09/14/23 Recheck Date: 10/13/23 Additional Instructions: CONT TO EAT A MIX OF FRUITS AND VEGETABLES diclofenac sodium 75 mg tablet,delayed release (DR/EC) 75 mg PO BID Qty: 180 3RF omeprazole 40 mg capsule,delayed release(DR/EC) 40 mg PO DAILY Qty: 90 3RF furosemide 40 mg tablet 40 mg PO DAILY Qty: 90 1RF allopurinol 300 mg tablet 450 mg PO DAILY Qty: 135 3RF citalopram 40 mg tablet 40 mg PO DAILY Qty: 90 0RF acetaminophen 650 mg tablet extended release 650 mg PO Q8H PRN (Reason: Pain) tizanidine 2 mg capsule 2 mg PO TID PRN (Reason: muscle spasm) Referrals: Alessandra Torres MD [Primary Care Provider] - 1 week (as needed)
[2023-09-25 17:49] VITALS: BP 130/68; PULSE 65; RESP 17; TEMP 36.7; O2SAT 100; BMI 62.5
[2023-09-25 18:22] LABS: MANUAL DIFF FLAG NO
[2023-09-25 18:27] LABS: Basophils Absolute Auto 0.1 X10*3/uL (0.0-0.2); Basophils Percent Auto 0.9 % (0-2); Eosinophils Absolute Auto 1.1 X10*3/uL (0.0-0.4); Hematocrit 38.9 % (42.0-52.0); Hemoglobin 11.9 g/dl (14.0-18.0); Imm Gran Abs Auto 0.03 X10*3/uL (0.00-0.03); Imm Gran Pct Auto 0.5 % (0.0-0.4); Lymphocytes Absolute Auto 0.8 X10*3/uL (1.2-4.9); Lymphocytes Percent Auto 14.2 % (20-40); Mean Corpuscular HGB Conc 30.6 g/dl (31.0-36.0); Mean Corpuscular Hemoglobin 26.4 pg (27.0-33.0); Mean Corpuscular Volume 86.3 fL (80.0-98.0); Mean Platelet Volume 10.7 fL (9.4-12.4); Monocytes Absolute Auto 0.4 X10*3/uL (0.1-1.2); Monocytes Percent Auto 7.2 % (2-11); Neutrophils Absolute Auto 3.5 x10*3/uL (2.0-8.3); Neutrophils Percent Auto 59.2 % (45-73); Platelet Count 227 X10*3/uL (160-400); Red Blood Count 4.51 X10*6/uL (4.60-5.80); Red Cell Distribution Width 14.8 % (11.0-16.0); White Blood Count 5.8 X10*3/uL (4.8-10.8)
[2023-09-25 18:36] LABS: Prothrombin Time 36.2 SEC (11.1-13.3)
[2023-09-25 18:39] LABS: Alanine Aminotransferase 9 U/L (0-40); Albumin Level 4.1 g/dL (3.5-5.0); Alkaline Phosphatase 77 U/L (39-117); Anion Gap 11 (12-20); Aspartate Amino Transferase 16 U/L (5-37); Bilirubin Direct 0.3 mg/dL (0.0-0.5); Bilirubin Total 0.7 mg/dL (0.0-1.0); Blood Urea Nitrogen 18 mg/dL (9-16); Calcium 9.6 mg/dL (8.4-10.2); Carbon Dioxide 25 mmol/L (22-29); Chloride 113 mmol/L (96-108); Creatinine Clr Calc Pharmacy 131.3; Estimated Glomerular Filt Rate > 60; Glucose Random 117 mg/dL (60-115); Potassium 4.6 mmol/L (3.3-5.1); Sodium 144 mmol/L (135-145); Total Protein 6.7 g/dL (6.5-8.0)
[2023-09-25 18:45] LABS: B Type Natriuretic Peptide 32 pg/mL (<100)
[2023-09-25 19:01] LABS: Influenza A PCR NEGATIVE (Negative); Influenza B PCR NEGATIVE (Negative); Resp Syncy Virus RNA Qual PCR NEGATIVE (Negative); SARS COV2 PCR INHOUSE NEGATIVE (Negative)
== END 2023-09-25 20:49 | disposition home or self-care (01) ==
PROVIDERS: Nurse Practitioner Family; Emergency Provider Internal Medicine; PCP Internal Medicine
DX: J40 Bronchitis, not specified as acute or chronic (principal); H66.90 Otitis media, unspecified, unspecified ear; R05.9 Cough, unspecified; R06.02 Shortness of breath; M79.89 Other specified soft tissue disorders; Z20.822 Contact with and (suspected) exposure to COVID-19; Z20.828 Contact with and (suspected) exposure to other viral communicable diseases
CPT/HCPCS: 0241U; 36415; 71046; 80048; 80076; 83880; 85025; 85610; 99282; 99284

== ENCOUNTER 2023-10-02 11:34 | Outpatient (AMB) | payer OTHER, SELFPAY ==
--- NOTE | 2023-10-02 11:42 | MHC.OFFWIV ---
Intake Vital Signs 10/02/23 11:46 Height 5 ft 11 in Weight 203.209 kg BMI 62.5 BP 118/76 Blood Pressure Location Rt brachial Position Sitting Pulse 78 Pulse Source Pulse Oximeter Temp 97.8 F Temp Source Oral Pulse Oximetry (%) 100 Oxygen Delivery Method Room Air Intake Visit Reasons: EP bronchitis Intake Note: Patient here because he was at the ED the other day and was advised he has bronchitis and ear infection but is still is coughing very bad. He was put on amox and benzonatate. Patient Tobacco Use Status: Never used Tobacco Allergies No Known Allergies Allergy (Verified 10/02/23 11:46) Do you need a note to return to daycare/school/sports/work: No HPI HPI Comments History of Present Illness Details 1154 58-year-old male history of konrad disease, PE on coumadin, IVC filter, Klinefelter syndrome presents with fatigue, malaise, productive cough for greater than a week, wheezing, myalgias, patient reports he was seen at the emergency department on September 25 told he had bronchitis he was discharged home with amoxicillin, and benzoin 8 however his symptoms have not improved. Denies chest pain, fevers, chills, headache, vision changes, dizziness, weakness. Physical examination benign Likely bronchitis versus pneumonia. Unlikely ACS, PE, dissection, acute respiratory distress Likely bronchitis will treat with doxycycline. Will also give prednisone, albuterol. Educated patient on diagnosis and treatment plan, answered all question, patient verbalizes understanding. At this time patient will be discharged home, advised to return with new or worsening symptoms. Educated on worrisome signs and symptoms and when to return. At this time I feel comfortable discharge home. [facility] Medical History COVID-19 Annual physical exam Nephrolithiasis Leg edema KATIE (obstructive sleep apnea) Pulmonary embolism Osteoarthritis Morbid obesity with BMI of 60.0-69.9, adult Surgical History Hematoma of left knee region History of sleeve gastrectomy History of hernia repair History of appendectomy History of removal of laparoscopic gastric banding device Benny filter in place Hx of laparoscopic gastric banding Family History Father Lung cancer Bone cancer Mother No problems noted. Social History Household Members: None Housing: House Are you a primary youth care professional to a significant other at home: No Do you presently have visiting nurse or other home services: No Alcohol intake: current Alcohol intake frequency: holidays/special occasions only Patient Tobacco Use Status: Never used Tobacco e-Cigarette/Vaping Use: Never Used Advance Directives Date on File: 07/23/21 service: No Current occupational status: employed Current occupation: right handed. Review of Systems Const Details: Constitutional : No Weight loss, No Fever, No Chills, No Fatigue, No Malaise ENT/Mouth : No sore throat, No Rhinorrhea Eyes: No Eye Pain, No Swelling, No Redness Cardiovascular : No Chest Pain, No SOB, No Dyspnea on Exertion, No Orthopnea, No Edema, No Palpitations Respiratory : No Cough, No Sputum, No Wheezing Gastrointestinal : No Nausea, No Vomiting, No Diarrhea, No Constipation, No abdominal Pain, No Hematochezia, No Melena Genitourinary : No Dysuria, No Urinary Frequency, No Hematuria, Musculoskeletal : No joint pain, No Myalgias, No Joint Swelling Skin : No Skin Lesions, No rash Neuro : No Weakness, No Numbness, No Dizziness, No Headache Psych : No Anxiety/Panic, No Depression Heme/Lymph: No Bruising, No Bleeding,No Lymphadenopathy Endocrine : No Polyuria, No Polydipsia All other systems reviewed and are negative All systems reviewed & are unremarkable except as noted in HPI and below Physical Exam Vital Signs: Last Vital Signs Temp 97.8 F 10/02/23 11:46 Pulse 78 10/02/23 11:46 BP 118/76 10/02/23 11:46 Pulse Ox 100 10/02/23 11:46 Oxygen Delivery Method Room Air 10/02/23 11:46 BMI result Body Mass Index 62.5 vss Appearance: Alert.? Oriented X3.? No acute distress.? Head: Normocephalic, atraumatic, no step-offs or deformities Eyes: Pupils equal, round and reactive to light.? ENT: Pharynx normal.? Neck: Normal inspection.? Neck supple.? CVS: Normal heart rate and rhythm.? Pulses normal.? Respiratory: No respiratory distress.? Breath sounds normal.? Abdomen: Soft and nontender.? Skin: Skin warm and dry.? Normal skin color.? Normal skin turgor.? Extremities: No lower extremity edema.? No calf ttp. 5/5 strength to bilateral upper and lower extremities Neuro: Oriented X 3.? No motor deficit.? No sensory deficit. CN 2-12 intact Assessment & Plan Assessment & Plan (1) Bronchitis: Code(s): J40 - Bronchitis, not specified as acute or chronic Plan Take your medications as prescribed. If you were prescribed antibiotics today, it is important that you take your medication to their entirety, do not skip any doses, do not finish them early. Follow-up with your primary care provider this week. Return to the emergency department with new or worsening symptoms. Such as fevers, chills, chest pain, shortness of breath, nausea, vomiting, dizziness, headache, vision changes, lethargy In case of emergency call 911 Medications: New doxycycline hyclate 100 mg PO BID 14 caps 0RF 7 days prednisone 40 mg (2 x 20 mg) PO DAILY 10 tabs 0RF 5 days albuterol sulfate 90 mcg/actuation 2 puffs inhalation Q6H PRN 6.7 grams 0RF shortness of breath or wheezing Coding Level of Care Code Est Pt Level 3 (91726) Diagnoses Bronchitis J40
[2023-10-02 11:46] VITALS: BP 118/76; PULSE 78; TEMP 36.6; O2SAT 100; BMI 62.5
== END 2023-10-02 12:03 | disposition home or self-care (01) ==
PROVIDERS: PCP Internal Medicine; Visit Provider Physician Assistant
DX: J40 Bronchitis, not specified as acute or chronic (principal)
CPT/HCPCS: 99051; 99213

== ENCOUNTER 2023-10-26 13:05 | Outpatient (REF) | payer OTHER, SELFPAY ==
[2023-10-26 14:31] LABS: Prothrombin Time 46.4 SEC (11.1-13.3)
[2023-10-26 14:34] LABS: INTERNATIONAL NORM RATIO 3.8 (0.9-1.1)
== END 2023-10-26 13:06 | disposition home or self-care (01) ==
LOC: HO.LAB 13:05
PROVIDERS: PCP Internal Medicine; Visit Provider Internal Medicine
DX: Z86.718 Personal history of other venous thrombosis and embolism (principal); Z51.81 Encounter for therapeutic drug level monitoring; Z79.01 Long term (current) use of anticoagulants
CPT/HCPCS: 36415; 85610; 99211

== ENCOUNTER 2023-10-26 13:05 | Outpatient (AMB) | payer OTHER, SELFPAY ==
--- NOTE | 2023-10-26 13:14 | MHC.OFFVISCO ---
Intake Intake Visit Reasons: Anticoagulation Allergies No Known Allergies Allergy (Verified 10/26/23 13:10) Medication List - Last Reconciled 10/26/23 by Bianca Gotti RN acetaminophen ER 650 mg PO Q8H PRN albuterol sulfate 90 mcg/actuation 2 puffs inhalation Q6H PRN allopurinol 450 mg (1.5 x 300 mg) PO DAILY benzonatate 200 mg PO TID PRN citalopram 40 mg PO DAILY comp.stocking,knee,long,medium As directed 20mmHg CPAP (CPAP Machine/Device) As directed, with supplies diclofenac sodium 75 mg PO BID doxycycline hyclate 100 mg PO BID 7 days furosemide 40 mg PO DAILY miscellaneous medical supply custom compressor class 1 stockings for 2 pair omeprazole 40 mg PO DAILY tizanidine 2 mg PO TID PRN warfarin 2.5 mg See Protocol PO DAILY warfarin 1 tab See Protocol PO DAILY@1800 Nursing Note INR 5.0-? out of therapeutic range of 2-3, pt agreed to pt/inr stat at the lab- inr 3.8 called by marina Medications and supplements reviewed Patient status: pt states went to [facility] [place] ed on 09/25/23 for bronchitis, ear ache, then to urgent care on 10/02/23 and was placed on prednisone 40mg daily x 5 days. pt did not call acs with these med changes Medications or supplements: no changes other than completed course of antibiotics amox/clav and prednisone Diet: same Denies any signs and symptoms of bleeding or clotting or unusual bruising Bleeding, bruising, clotting discussed- pt aware at high risk for bleeding and to avoid high risk activity Nutritional guidance given: eat greens to lower inr, no reds for 2-3 days Dose: hold dose today then cont reg 10mg x 6, 5mg x 1 F/U INR Date : wed11/03/23?? Patient verbalizing understanding of instructions given. 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
[2023-10-26 13:19] LABS: Prothrombin Time Whole Bld POC 59.7 sec (11.1-13.5)
== END 2023-10-26 14:43 | disposition home or self-care (01) ==
LOC: HO.ACS 13:05
PROVIDERS: PCP Internal Medicine; Visit Provider Internal Medicine
DX: Z79.01 Long term (current) use of anticoagulants (principal)

== ENCOUNTER 2023-11-10 14:17 | Outpatient (AMB) | payer OTHER, SELFPAY ==
--- NOTE | 2023-11-10 14:23 | MHC.OFFVISCO ---
Intake Intake Visit Reasons: Anticoagulation Allergies No Known Allergies Allergy (Verified 11/10/23 14:19) Medication List - Last Reconciled 11/10/23 by Bianca Gotti RN acetaminophen ER 650 mg PO Q8H PRN albuterol sulfate 90 mcg/actuation 2 puffs inhalation Q6H PRN allopurinol 450 mg (1.5 x 300 mg) PO DAILY benzonatate 200 mg PO TID PRN citalopram 40 mg PO DAILY comp.stocking,knee,long,medium As directed 20mmHg CPAP (CPAP Machine/Device) As directed, with supplies diclofenac sodium 75 mg PO BID doxycycline hyclate 100 mg PO BID 7 days furosemide 40 mg PO DAILY miscellaneous medical supply custom compressor class 1 stockings for 2 pair omeprazole 40 mg PO DAILY tizanidine 2 mg PO TID PRN warfarin 2.5 mg See Protocol PO DAILY warfarin 1 tab See Protocol PO DAILY@1800 Nursing Note INR 4.8-?? out of therapeutic range of 2-3 Medications and supplements reviewed Patient status: pt c.o arthritic pain, amb with cane, pt states missed a dose on wednesday pt with c.o increased stress Medications or supplements: no changes, not taking tylenol Diet: appetite fair Denies any signs and symptoms of bleeding or clotting or unusual bruising Bleeding, bruising, clotting discussed - aware at risk of bleeding, avoid high risk activity Nutritional guidance given: eat greens for 3 days, no reds for 3 days Dose: hold dose today, 7.5mg tomm then reduce weekly dosing due to prev elev inr F/U INR Date : pt req one week? Patient verbalizing understanding of instructions given. Anti-Coag Initial Assessment Social Hx Patient Tobacco Use Status: Never used Tobacco alcohol intake: current Alcohol intake frequency: holidays/special occasions only Coding Level of Care Code Est Patient Level 1 Diagnoses Current use of anticoagulant therapy Z79.01 Assessment & Plan Assessment & Plan (1) Current use of anticoagulant therapy: Onset Date: ~09/08/21 Code(s): Z79.01 - USP (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
[2023-11-10 14:25] LABS: ~PT, ~INR - Anti Coag Clinic 4.8 (0.9-1.1)
== END 2023-11-10 14:50 | disposition home or self-care (01) ==
LOC: HO.ACS 14:17
PROVIDERS: PCP Internal Medicine; Visit Provider Internal Medicine
DX: Z79.01 Long term (current) use of anticoagulants (principal)

== ENCOUNTER → 2023-11-10 14:17 | Outpatient (BNVA) | payer OTHER, SELFPAY | PROVIDERS: PCP Internal Medicine; Visit Provider Internal Medicine | DX: Z86.718 Personal history of other venous thrombosis and embolism (principal); Z51.81 Encounter for therapeutic drug level monitoring; Z79.01 Long term (current) use of anticoagulants | CPT/HCPCS: 85610; 99211 ==

== ENCOUNTER 2023-11-26 14:25 | Outpatient (REF) | payer OTHER, SELFPAY | END 2023-11-26 14:26 | disposition home or self-care (01) | LOC: HO.LAB 14:25 | PROVIDERS: PCP Internal Medicine; Visit Provider Internal Medicine | DX: Z86.718 Personal history of other venous thrombosis and embolism (principal); Z51.81 Encounter for therapeutic drug level monitoring; Z79.01 Long term (current) use of anticoagulants | CPT/HCPCS: 85610; 99211 ==

== ENCOUNTER 2023-11-26 14:25 | Outpatient (AMB) | payer OTHER, SELFPAY ==
[2023-11-26 14:41] LABS: Prothrombin Time Whole Bld POC 56.1 sec (11.1-13.5); ~PT, ~INR - Anti Coag Clinic 4.7 (0.9-1.1)
--- NOTE | 2023-11-26 14:43 | MHC.OFFVISCO ---
Intake Intake Visit Reasons: Anticoagulation Allergies No Known Allergies Allergy (Verified 11/26/23 14:30) Medication List - Last Reconciled 11/26/23 by Hortencia Watt RN acetaminophen ER 650 mg PO Q8H PRN albuterol sulfate 90 mcg/actuation 2 puffs inhalation Q6H PRN allopurinol 450 mg (1.5 x 300 mg) PO DAILY benzonatate 200 mg PO TID PRN citalopram 40 mg PO DAILY comp.stocking,knee,long,medium Custom stockings- 20mmHg CPAP (CPAP Machine/Device) As directed, with supplies diclofenac sodium 75 mg PO BID doxycycline hyclate 100 mg PO BID 7 days furosemide 40 mg PO DAILY miscellaneous medical supply custom compressor class 1 stockings for 2 pair omeprazole 40 mg PO DAILY prednisone 20 mg PO BID tizanidine 2 mg PO TID PRN warfarin 2.5 mg See Protocol PO DAILY warfarin 1 tab See Protocol PO DAILY@1800 Nursing Note INR 4.7 out of therapeutic range Medications and supplements reviewed Patient status: States not feeling well, urine cloudy and smells like sulfur and very dark, some times has a pain that can be an 8/10 -pain decreases when he gets up to move around,states its sarahi colored, pt states sometime only has a few drops, fluids encouraged, states he has not take the furosemide only when he has edema, UA order given along with cup - states he may go tomorrow morning to give urine sample - does not feel able to urinate now. Medications or supplements: no changes Diet: has had decreased appetite Denies any signs and symptoms of bleeding or clotting or unusual bruising Bleeding, bruising, clotting discussed Nutritional guidance given:review food list weekly and have weekly greens Dose: hold today then decrease 5mg x 3 days/ 10mg x 4 days F/U INR Date : 1 week ?? Patient verbalizing understanding of instructions given. 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
== END 2023-11-26 15:25 | disposition home or self-care (01) ==
LOC: HO.ACS 14:25
PROVIDERS: PCP Internal Medicine; Visit Provider Internal Medicine
DX: Z79.01 Long term (current) use of anticoagulants (principal)

== ENCOUNTER 2023-11-27 10:44 | Outpatient (REF) | payer OTHER, SELFPAY ==
[2023-11-27 11:19] LABS: Appearance Urine Clear; Color Urine Dark Yellow; Glucose Urine UA Negative (Negative); Leukocyte Esterase Urine Trace (Negative); Nitrite Urine Negative (Negative); PH 5.5 (5.0-9.0); Specific Gravity - Urine >= 1.030 (1.005-1.025); UMIC TRIGGER UA YES; Urine Blood Negative (Negative); Urine Ketones Negative (Negative); Urine Protein Negative (Neg-Trace)
[2023-11-27 11:28] LABS: Bacteria Urine None Seen (None Seen); Hyaline Casts Urine 0-2 /LPF (0-2); RBC Urine 0-2 /HPF (0-2); Squamous Epithelial Cell Urine 0-2 /HPF (0-2); WBC Urine 21-50 /HPF (0-5)
== END 2023-11-27 10:45 | disposition home or self-care (01) ==
LOC: HO.LNP 10:44
PROVIDERS: Visit Provider Internal Medicine
DX: Z79.01 Long term (current) use of anticoagulants (principal)
CPT/HCPCS: 81001

== ENCOUNTER → 2023-11-29 14:00 | Outpatient (BNVA) | payer SELFPAY | PROVIDERS: PCP Internal Medicine; Visit Provider Physician Assistant Medical | DX: Z02.79 Encounter for issue of other medical certificate (principal) ==

== ENCOUNTER 2023-12-01 15:08 | Outpatient (AMB) | payer OTHER, SELFPAY ==
--- NOTE | 2023-12-01 15:09 | A.OFFVIS_ITS ---
Intake Intake Visit Reasons: urge frequency hx of stones Intake Note: New Patient presents for initial visit for urinary urgency and history of kidney stones Urology Medications: none Blood Thinner: warfarin PVR: 0ml Patient stated he drank water in the morning to take his pills, he has not drink any water since then. He has a history of kidney stones and followed up with Dr. 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: No Allergies No Known Allergies Allergy (Verified 12/02/23 00:11) Medication List - Last Reconciled 12/02/23 by KAROLINA Chaney- allopurinol 450 mg (1.5 x 300 mg) PO DAILY citalopram 40 mg PO DAILY comp.stocking,knee,long,medium Custom stockings- 20mmHg CPAP (CPAP Machine/Device) As directed, with supplies diclofenac sodium 75 mg PO BID furosemide 40 mg PO DAILY miscellaneous medical supply custom compressor class 1 stockings for 2 pair omeprazole 40 mg PO DAILY tamsulosin 0.4 mg PO BEDTIME 30 days warfarin 2.5 mg See Protocol PO DAILY warfarin 10 mg See Protocol PO DAILY@1800 HPI HPI Comments History of Present Illness Details Wm is a 58-year-old male patient of Dr. Torres. Who has a past medical history of morbid obesity, nephrolithiasis, leg edema, obstructive sleep apnea, osteoarthritis, and pulmonary embolisms on anticoagulation. He presents to the office today as a new patient for nephrolithiasis. In discussion with the patient today he reports previously following up with Dr. Ivey 5-6 years ago for history of nephrolithiasis. He reports noting more recently to be having issues with his urination and is u nsure if this is related to a possible kidney stone. He reports noting worsening urinary urgency. In office urinalysis results reviewed with the patient today. 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 Discussed trace proteinuria on urinalysis today. PVR 0 mL. He otherwise denies urinary frequency, incontinence, nocturia, hematuria, dysuria, foul smelling urine, changes to urinary stream, flank pain, fever, and or chills. Discussed obtaining retroperitoneal ultrasound for further assessment evaluation as well as PSA. He otherwise offers no other issues or concerns at this time. [facility] Medical History COVID-19 Annual physical exam Nephrolithiasis Leg edema KATIE (obstructive sleep apnea) Pulmonary embolism Osteoarthritis Morbid obesity with BMI of 60.0-69.9, adult Surgical History Hematoma of left knee region History of sleeve gastrectomy History of hernia repair History of appendectomy History of removal of laparoscopic gastric banding device Benny filter in place Hx of laparoscopic gastric banding Family History Father Lung cancer Bone cancer Mother No problems noted. Social History Household Members: None Housing: House Are you a primary associate director career services to a significant other at home: No Do you presently have visiting nurse or other home services: No Alcohol intake: current Alcohol intake frequency: holidays/special occasions only Patient Tobacco Use Status: Never used Tobacco e-Cigarette/Vaping Use: Never Used Advance Directives Date on File: 07/23/21 service: No Current occupational status: employed Current occupation: right handed. Review of Systems Const Reports as per HPI Eyes Reports no additional complaints ENT Reports no additional complaints Card Reports as per HPI Resp Reports as per HPI GI Reports no additional complaints Reports as per HPI Musc Reports no additional complaints Neuro Reports no additional complaints Psych Reports no additional complaints Endo Reports no additional complaints Azeem/Lymph Reports as per HPI Physical Exam Const General: cooperative, comfortable, no acute distress, well developed, alert and awake Nutritional Appearance: obese Orientation/consciousness: patient oriented x3 Limitations: ambulation with cane HEENT Head: Yes normal to inspection, Yes normocephalic and Yes atraumatic Ears: hearing grossly normal bilaterally Eyes General: appearance normal, both eyes and all related structures Neck Neck: Yes normal visual inspection and Yes trachea midline Chest Chest palpation & inspection: normal inspection of the chest Resp Effort & Inspection: normal respiratory effort and able to speak in complete sentences Cardio Rate: regular rate GI Inspection: Yes normal to inspection General: Yes no CVA tenderness Back/Spine/Pelvis Back: no CVA tenderness Skin General skin exam: no rashes or lesions noted Neuro General: patient oriented x3 Extrem General: Yes normal to inspection Psych Appearance: grossly normal and well kempt Mental Status: mental status grossly normal Speech and movement: Normal speech and movement present and Clear speech present Affect: normal affect Attitude: cooperative Thought process: Normal thought process present Thought content: Normal thought content present Insight: Fair insight present (Psych) Judgement: Fair judgement present (Psych) Results AMB Urinalysis, Automated UA Leukoctes 15 Andrez/uL Last Edit by [email or web address] on 12/01/23 15:46 UA Nitrite Negative Last Edit by [email or web address] on 12/01/23 15:46 UA Urobilinogen 0.2 mg/dL Last Edit by [employer] on 12/01/23 15:46 UA Protein 15 mg/dL Last Edit by [employer] on 12/01/23 15:46 UA pH 6.0 Last Edit by [employer] on 12/01/23 15:46 UA Blood 0 Schuyler/uL Last Edit by [employer] on 12/01/23 15:46 UA Specific Griffin 1.030 Last Edit by [employer] on 12/01/23 15:46 UA Ketone Negative Last Edit by [employer] on 12/01/23 15:46 UA Bilirubin 2 mg/dL Last Edit by [employer] on 12/01/23 15:46 UA Glucose 0 mg/dL Last Edit by [employer] on 12/01/23 15:46 Results Reviewed Results Reviewed: Laboratory Last Values Urine pH (Auto) 6.0 12/01/23 15:44 Specific Griffin (Auto) 1.030 12/01/23 15:44 Urine Protein (Auto) 15 mg/dL 12/01/23 15:44 Glucose (UA)(Auto) 0 mg/dL 12/01/23 15:44 Urine Ketones (Auto) Negative 12/01/23 15:44 Urine Blood (Auto) 0 Schuyler/uL 12/01/23 15:44 Urine Nitrite (Auto) Negative 12/01/23 15:44 Urine Bilirubin (Auto) 2 mg/dL 12/01/23 15:44 Urine Urobilinogen (Auto) 0.2 mg/dL 12/01/23 15:44 Leukocyte Esterase (Auto) 15 Andrez/uL 12/01/23 15:44 Assessment & Plan Assessment & Plan (1) Lower urinary tract symptoms: Code(s): R39.9 - Unspecified symptoms and signs involving the genitourinary system (2) Urinary urgency: Code(s): R39.15 - Urgency of urination (3) Proteinuria: Code(s): R80.9 - Proteinuria, unspecified (4) Nephrolithiasis: Comment: f/u Dr. Ivey Code(s): N20.0 - Calculus of kidney Plan In office urinalysis results reviewed with the patient today; as noted above Will obtain retroperitoneal ultrasound for further assessment evaluation. Will obtain PSA for further assessment evaluation. Will refer to Nephrology as requesting. Start Flomax as discussed and prescribed. Discussed at length potential causes for urinary urgency as well as n ephrolithiasis. Discussed at length importance of weight loss for overall health and well-being. Follow-up in 1-2 months with imaging and labs to be completed prior; or sooner with any issues, concerns, and or questions. Orders: Orders AMB Urinalysis Automated 12/01/23 Z13.9 - Encounter for screening, unspecified US retroperitoneal comp 12/01/23 N20.0 - Calculus of kidney, N40.0 - Benign prostatic hyperplasia without lower urinary tract symptoms, R39.15 - Urgency of urination, R39.9 - Unspecified symptoms and signs involving the genitourinary system Prostate Specific Antigen 12/01/23 R39.15 - Urgency of urination, R39.9 - Unsp ecified symptoms and signs involving the genitourinary system Referrals Nephrology Referral R80.9 - Proteinuria, unspecified Medications: New tamsulosin 0.4 mg PO BEDTIME 30 days 30 caps 1RF N40.1 - Benign prostatic hyperplasia with lower urinary tract symptoms, R35.1 - Nocturia Patient Instructions: The patient had an opportunity to ask questions regarding the treatment plan. All questions were answered. Physical exam, labs, and imaging were discussed and reviewed in detail. As well as risks, benefits, and discussion of treatment choices. No major barriers to understanding were identified. The patient expressed understanding and agreement with the above treatment plan. The patient was made aware they should contact our office by phone for worsening of their current condition, the appearance of new symptoms, or with any questions or concerns. Compliance is encouraged with any medications and follow up testing that is ordered. It is a privilege to be allowed the opportunity to participate in? your urological care.? Again, if you have any questions or concerns If you have any questions or concerns please do not hesitate to contact me. The office is [phone]. This note is constructed using voice recognition software. While every effort has been made to ensure accuracy manager rail errors may have been included. Yours sincerely, VELVET Chaney Coding Level of Care Code New Pt Level 4 (45540) Diagnoses Lower urinary tract symptoms R39.9 Urinary urgency R39.15 Proteinuria R80.9 Nephrolithiasis N20.0
== END 2023-12-01 15:57 | disposition home or self-care (01) ==
PROVIDERS: PCP Internal Medicine; Visit Provider Nurse Practitioner Family
DX: R39.9 Unspecified symptoms and signs involving the genitourinary system (principal); R39.15 Urgency of urination; R80.9 Proteinuria, unspecified; N20.0 Calculus of kidney
CPT/HCPCS: 99204

== ENCOUNTER → 2023-12-01 15:08 | Outpatient (BNVA) | payer OTHER, SELFPAY | PROVIDERS: PCP Internal Medicine; Visit Provider Nurse Practitioner Family | DX: N40.1 Benign prostatic hyperplasia with lower urinary tract symptoms (principal); R35.1 Nocturia; R39.15 Urgency of urination; R80.9 Proteinuria, unspecified; R39.9 Unspecified symptoms and signs involving the genitourinary system; N20.0 Calculus of kidney | CPT/HCPCS: 81003 ==

== ENCOUNTER 2023-12-10 11:29 | Outpatient (AMB) | payer OTHER, SELFPAY ==
[2023-12-10 11:33] VITALS: BP 94/60; PULSE 69; O2SAT 98; BMI 61.1
--- NOTE | 2023-12-10 11:33 | HO.NEPHOV_ITS ---
HPI HPI Comments History of Present Illness Details I would the delight of seeing Wm in consultation for proteinuria. 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 He has high BMI. He had multiple gastric intervention for weight loss which had been unsuccessful as per the patient. He has history of gout which is well controlled on allopurinol. He has sleep apnea and is on CPAP. He has joint pains and take diclofenac sodium twice a day. He has history of nephrolithiasis. He intermittently feels left flank pain without any hematuria, fever, nausea, suprapubic pain or urinary symptoms. 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 He has history of pulmonary embolism. He denies any worsening edema. He does not have any diabetes, hypertension, coronary artery disease, congestive heart failure. His renal functions have been stable. There is no family history of any proteinuria. [facility] Medical History COVID-19 Annual physical exam Nephrolithiasis Leg edema KTAIE (obstructive sleep apnea) Pulmonary embolism Osteoarthritis Morbid obesity with BMI of 60.0-69.9, adult Surgical History Hematoma of left knee region History of sleeve gastrectomy History of hernia repair History of appendectomy History of removal of laparoscopic gastric banding device Benny filter in place Hx of laparoscopic gastric banding Family History Father Lung cancer Bone cancer Mother No problems noted. Social History Household Members: None Housing: House Are you a primary rn progressive care unit to a significant other at home: No Do you presently have visiting nurse or other home services: No Alcohol intake: current Alcohol intake frequency: holidays/special occasions only Patient Tobacco Use Status: Never used Tobacco e-Cigarette/Vaping Use: Never Used Advance Directives Date on File: 07/23/21 service: No Current occupational status: employed Current occupation: right handed. Vital Signs 12/10/23 11:33 Height 5 ft 11 in Weight 438 lb 2 oz BMI 61.1 BP 94/60 Blood Pressure Location Lt radial Position Sitting Pulse 69 Pulse Source Pulse Oximeter Pulse Oximetry (%) 98 Oxygen Delivery Method Room Air Physical Exam Vital Signs: Last Vital Signs Pulse 69 12/10/23 11:33 BP 94/60 12/10/23 11:33 Pulse Ox 98 12/10/23 11:33 Oxygen Delivery Method Room Air 12/10/23 11:33 BMI result Body Mass Index 61.1 Const General: comfortable and no acute distress Orientation/consciousness: patient oriented x3 HEENT Head: Yes normocephalic Mouth: Normal oral and palatal mucosa present Eyes EOM: EOMs intact bilaterally Neck Neck: Yes supple Resp Auscultation: clear to auscultation bilaterally Cardio Jugular venous distension: no JVD Rate: regular rate GI Palpation (GI): Soft to palpation Auscultation: normal bowel sounds General: Yes no CVA tenderness Back/Spine/Pelvis Back: no CVA tenderness Skin General skin exam: no rashes or lesions noted Neuro General: patient oriented x3 and moves all extremities Extrem General: Yes no pedal edema Results AMB INR Fingerstick AMB INR Fingerstick 2.2 Last Edit by Manju Lee RN on 12/10/23 14:54 Assessment & Plan Assessment & Plan (1) Nephrolithiasis: Comment: f/u Dr. Ivey Code(s): N20.0 - Calculus of kidney (2) Proteinuria: Code(s): R80.9 - Proteinuria, unspecified Qualifiers: Proteinuria type: unspecified Qualified Code(s): R80.9 - Proteinuria, unspecified Plan Kiki has history of nephrolithiasis. He has not had a renal ultrasound for a while. He gets twinges of left flank pain. I ordered a renal ultrasound. He recently was found to have proteinuria during a DOT testing. I ordered workup including 24 hour urine collection for protein. If he genuinely has proteinuria it may be due to his high BMI causing secondary FSGS. I encouraged him to cut back on his diclofenac sodium. He should maintain good hydration and maintain a low-sodium diet especially given history of nephrolithiasis. I did not make any medication changes today. All these have been discussed in detail. All questions answered. Follow-up appointment given. Orders: Orders Electrolytes Today N20.0 - Calculus of kidney, R80.9 - Proteinuria, unspecified Blood Urea Nitrogen Today N20.0 - Calculus of kidney, R80.9 - Proteinuria, unspecified Creatinine Today N20.0 - Calculus of kidney, R80.9 - Proteinuria, unspecified UA and rflx microscopic Today N20.0 - Calculus of kidney, R80.9 - Proteinuria, unspecified US renal BI Today N20.0 - Calculus of kidney Protein, 24 Hr Urine Group Today N20.0 - Calculus of kidney, R80.9 - Proteinuria, unspecified Calcium Today N20.0 - Calculus of kidney, R80.9 - Proteinuria, unspecified Coding Level of Care Code New Pt Level 4 (81186) Diagnoses Nephrolithiasis N20.0 Proteinuria, unspecified type R80.9 Proteinuria type: unspecified Results Reviewed Nephrology Results: Hgb 11.9 g/dl (14.0-18.0) L 09/25/23 WBC 5.8 X10*3/uL (4.8-10.8) 09/25/23 Plt Count 227 X10*3/uL (160-400) 09/25/23 Sodium 144 mmol/L (135-145) 09/25/23 Potassium 4.6 mmol/L (3.3-5.1) 09/25/23 Chloride 113 mmol/L (96-108) H 09/25/23 Carbon Dioxide 25 mmol/L (22-29) 09/25/23 BUN 18 mg/dL (9-16) H 09/25/23 Creatinine 1.11 mg/dL (0.5-1.4) 09/25/23 Calcium 9.6 mg/dL (8.4-10.2) 09/25/23 Urine Protein Negative mg/dL (Neg-Trace) 11/27/23
== END 2023-12-10 12:27 | disposition home or self-care (01) ==
PROVIDERS: PCP Internal Medicine; Visit Provider Internal Medicine Nephrology
DX: N20.0 Calculus of kidney (principal); R80.9 Proteinuria, unspecified
CPT/HCPCS: 99204

== ENCOUNTER → 2023-12-10 11:29 | Outpatient (BNVA) | payer OTHER, SELFPAY | PROVIDERS: PCP Internal Medicine; Visit Provider Internal Medicine Nephrology | DX: R80.9 Proteinuria, unspecified (principal); Z87.442 Personal history of urinary calculi; Z86.718 Personal history of other venous thrombosis and embolism; Z51.81 Encounter for therapeutic drug level monitoring; Z79.01 Long term (current) use of anticoagulants | CPT/HCPCS: 85610; 99211 ==

== ENCOUNTER 2023-12-10 14:43 | Outpatient (AMB) | payer OTHER, SELFPAY ==
--- NOTE | 2023-12-10 15:03 | MHC.OFFVISCO ---
Intake Intake Visit Reasons: Anticoagulation Allergies No Known Allergies Allergy (Verified 12/10/23 14:47) Medication List - Last Reconciled 12/10/23 by Manju Lee RN allopurinol 450 mg (1.5 x 300 mg) PO DAILY citalopram 40 mg PO DAILY comp.stocking,knee,long,medium Custom stockings- 20mmHg CPAP (CPAP Machine/Device) As directed, with supplies diclofenac sodium 75 mg PO BID furosemide 40 mg PO DAILY PRN miscellaneous medical supply custom compressor class 1 stockings for 2 pair omeprazole 40 mg PO DAILY tamsulosin 0.4 mg PO BEDTIME 90 days warfarin 10 mg See Protocol PO DAILY@1800 Nursing Note PT. STATES THAT HE HAS BEEN TAKING 5MGM X2 AND 10MGM X5. WILL CONTINUE THIS DOSE AND FOLLOW-UP IN 1 WEEK. GOOD UNDERSTANDING OF DOSING INSTR. 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
[2023-12-13 07:42] LABS: Prothrombin Time Whole Bld POC 26.8 sec (11.1-13.5); ~PT, ~INR - Anti Coag Clinic 2.2 (0.9-1.1)
== END 2023-12-10 15:06 | disposition home or self-care (01) ==
LOC: HO.ACS 14:43
PROVIDERS: PCP Internal Medicine; Visit Provider Internal Medicine
DX: Z79.01 Long term (current) use of anticoagulants (principal)

== ENCOUNTER 2023-12-13 17:39 | Outpatient (REF) | payer OTHER, SELFPAY ==
[2023-12-13 18:17] LABS: Total Volume 24 Hour Urine 2050 mL
[2023-12-13 18:29] LABS: Creatinine, 24Hr Urine 0.9 G/Day (1.0-2.0); Creatinine, mg/dL 42.54; Protein 24 Hr Urine < 144 mg/Day (<150); Protein mg/dL < 7 mg/dL
== END 2023-12-13 17:40 | disposition home or self-care (01) ==
LOC: HO.LNP 17:39
PROVIDERS: Visit Provider Internal Medicine Nephrology
DX: N20.0 Calculus of kidney (principal); R80.9 Proteinuria, unspecified
CPT/HCPCS: 84156

== ENCOUNTER 2023-12-24 15:44 | Outpatient (REF) | payer OTHER, SELFPAY ==
--- NOTE | ~2023-12-24 | US_ITS ---
EXAMINATION: US RETROPERITONEAL LIMITED (RENAL ONLY) CLINICAL INFORMATION: BPH. COMPARISON: Renal ultrasound 05/30/2019, CT abdomen and pelvis 05/18/2018. TECHNIQUE: Renal ultrasound was performed. FINDINGS: RIGHT KIDNEY: 8.3 x 3.9 x 4.3 cm (SAG x AP x TRV). The kidney is normal in size, contour, and echogenicity. Renal cortical thickness is normal. No calculi or focal parenchymal lesions. No hydronephrosis. LEFT KIDNEY: 7.9 x 3.8 x 4.3 cm (SAG x AP x TRV). The kidney is normal in size, contour, and echogenicity. Renal cortical thickness is normal. No calculi or focal parenchymal lesions. No hydronephrosis. US/US renal BI IMPRESSION: Normal-appearing kidneys.
== END 2023-12-24 15:45 | disposition home or self-care (01) ==
LOC: HO.US 15:44
PROVIDERS: PCP Internal Medicine; Visit Provider Nurse Practitioner Family
DX: N40.0 Benign prostatic hyperplasia without lower urinary tract symptoms (principal); R39.15 Urgency of urination; R39.9 Unspecified symptoms and signs involving the genitourinary system
CPT/HCPCS: 76770; 76775

== ENCOUNTER 2023-12-30 14:35 | Outpatient (REF) | payer OTHER, SELFPAY ==
--- NOTE | ~2023-12-30 | US_ITS ---
EXAMINATION: US PELVIS LIMITED (BLADDER) CLINICAL INFORMATION: BPH, urgency. COMPARISON: Ultrasound kidneys and bladder 12/24/2023. Renal ultrasound 05/30/2019. CT abdomen and pelvis 08/18/2018. TECHNIQUE: Real-time imaging of the bladder. FINDINGS: BLADDER: Partially distended. Senior Quality Methods Specialist states that patient was unable to fill the bladder more fully as the patient was becoming uncomfortable. Bilateral ureteral jets are demonstrated. Prevoid bladder volume is 57.0 mL. Postvoid bladder volume is 7.3 mL. The prostate volume is 20.5 mL. US/US bladder IMPRESSION: 1. Postvoid bladder volume 7.3 mL. 2. Prostate volume 20.5 mL.
== END 2023-12-30 14:36 | disposition home or self-care (01) ==
LOC: HO.US 14:35
PROVIDERS: PCP Internal Medicine; Visit Provider Nurse Practitioner Family
DX: N40.0 Benign prostatic hyperplasia without lower urinary tract symptoms (principal); R39.15 Urgency of urination; R39.9 Unspecified symptoms and signs involving the genitourinary system; Z86.718 Personal history of other venous thrombosis and embolism; Z51.81 Encounter for therapeutic drug level monitoring; Z79.01 Long term (current) use of anticoagulants
CPT/HCPCS: 76857; 85610; 99211; 99212

== ENCOUNTER 2023-12-30 15:15 | Outpatient (AMB) | payer OTHER, SELFPAY ==
[2023-12-30 15:25] LABS: Prothrombin Time Whole Bld POC 16.7 sec (11.1-13.5); ~PT, ~INR - Anti Coag Clinic 1.4 (0.9-1.1)
--- NOTE | 2023-12-30 15:37 | MHC.OFFVISCO ---
Intake Intake Visit Reasons: Anticoagulation Allergies No Known Allergies Allergy (Verified 12/30/23 15:18) Medication List - Last Reconciled 12/30/23 by Martha Sebastian RN allopurinol 450 mg (1.5 x 300 mg) PO DAILY citalopram 40 mg PO DAILY comp.stocking,knee,long,medium Custom stockings- 20mmHg CPAP (CPAP Machine/Device) As directed, with supplies diclofenac sodium 75 mg PO BID furosemide 40 mg PO DAILY PRN miscellaneous medical supply custom compressor class 1 stockings for 2 pair omeprazole 40 mg PO DAILY tamsulosin 0.4 mg PO BEDTIME 90 days warfarin 10 mg See Protocol PO DAILY@1800 Nursing Note INR 1.4?out of therapeutic range of 2-3 Pt states he missed a dose on Mon, 3 days ago Medications and supplements reviewed, no changes Patient status: feels as usual Medications or supplements: no changes Diet: no changes Denies any signs and symptoms of bleeding or clotting or unusual bruising Bleeding, bruising, clotting discussed Nutritional guidance given: pt to have a serving of reds today and tomorrow To avoid greens until seen for retest in 5 days Dose: increased today's () dose to 15mg(10mg) then usual dose of 10 mg on Wed and Sat, 5mg on Sun and 10 mg on Mon F/U INR Date : 5 days, 01/04/24?? Patient verbalizing understanding of instructions given. 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
== END 2023-12-30 16:01 | disposition home or self-care (01) ==
LOC: HO.ACS 15:15
PROVIDERS: PCP Internal Medicine; Visit Provider Internal Medicine
DX: Z79.01 Long term (current) use of anticoagulants (principal)

== ENCOUNTER 2024-01-07 14:45 | Outpatient (AMB) | payer OTHER, SELFPAY ==
[2024-01-07 14:59] LABS: Prothrombin Time Whole Bld POC 23.5 sec (11.1-13.5)
--- NOTE | 2024-01-07 15:04 | MHC.OFFVISCO ---
Intake Intake Visit Reasons: Anticoagulation Allergies No Known Allergies Allergy (Verified 01/07/24 14:47) Nursing Note INR: 2.0 in therapeutic range of 2-3 Last INR 1.4. Pt states he cut down on his diclofenac because his MD told him to do that because of his kidneys. This med can increase the INR but decreasing the dose from BID to once Daily can decrease the INR. Pt started taking the diclofenac BID again. Medications and supplements reviewed: no changes No changes in health, diet, medications, or supplements, Denies any signs and symptoms of bleeding or bruising or clotting. Bleeding, bruising, clotting discussed Nutritional guidance given to have foods from the red side Dose: 5mg X2 days and 10 mg X 5days F/U INR: 10 days Patient verbalizes understanding of instructions given Anti-Coag Initial Assessment Social Hx Patient Tobacco Use Status: Never used Tobacco alcohol intake: current Alcohol intake frequency: holidays/special occasions only Coding Level of Care Code Est Patient Level 1 Diagnoses Current use of anticoagulant therapy Z79.01 Assessment & Plan Assessment & Plan (1) Current use of anticoagulant therapy: Onset Date: ~09/08/21 Code(s): Z79.01 - terminal 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
== END 2024-01-07 15:39 | disposition home or self-care (01) ==
LOC: HO.ACS 14:45
PROVIDERS: PCP Internal Medicine; Visit Provider Internal Medicine
DX: Z79.01 Long term (current) use of anticoagulants (principal)

== ENCOUNTER → 2024-01-07 14:45 | Outpatient (BNVA) | payer OTHER, SELFPAY | PROVIDERS: PCP Internal Medicine; Visit Provider Internal Medicine | DX: Z86.718 Personal history of other venous thrombosis and embolism (principal); Z51.81 Encounter for therapeutic drug level monitoring; Z79.01 Long term (current) use of anticoagulants | CPT/HCPCS: 85610; 99211 ==

== ENCOUNTER 2024-01-12 14:49 | Outpatient (AMB) | payer OTHER, SELFPAY ==
[2024-01-12 15:06] VITALS: BP 112/80; PULSE 85; O2SAT 97; BMI 61.2
--- NOTE | 2024-01-12 15:06 | HO.NEPHOV ---
HPI HPI Comments History of Present Illness Details I had the delight of seeing Wm in follow up for proteinuria. He has H/O nephrolithiasis. 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 He has high BMI. He had multiple gastric intervention for weight loss which had been unsuccessful as per the patient. He has history of gout which is well controlled on allopurinol. He has sleep apnea and is on CPAP. He has joint pains and take diclofenac sodium twice a day. He intermittently feels left flank pain without any hematuria, fever, nausea, suprapubic pain or urinary symptoms. 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 He has history of pulmonary embolism and is on anticoagulation. He denies any worsening edema. He does not have any diabetes, hypertension, coronary artery disease, congestive heart failure. His renal functions have been stable. There is no family history of any proteinuria. REPLACED BY [facility] Medical History COVID-19 Annual physical exam Nephrolithiasis Leg edema KATIE (obstructive sleep apnea) Pulmonary embolism Osteoarthritis Morbid obesity with BMI of 60.0-69.9, adult Surgical History Hematoma of left knee region History of sleeve gastrectomy History of hernia repair History of appendectomy History of removal of laparoscopic gastric banding device Benny filter in place Hx of laparoscopic gastric banding Family History Father Lung cancer Bone cancer Mother No problems noted. Social History Household Members: None Housing: House Are you a primary healthcare liaison to a significant other at home: No Do you presently have visiting nurse or other home services: No Alcohol intake: current Alcohol intake frequency: holidays/special occasions only Patient Tobacco Use Status: Never used Tobacco e-Cigarette/Vaping Use: Never Used Advance Directives Date on File: 07/23/21 service: No Current occupational status: employed Current occupation: right handed. Vital Signs 01/12/24 15:06 Height 5 ft 11 in Weight 439 lb 2 oz BMI 61.2 BP 112/80 Blood Pressure Location Lt radial Position Sitting Pulse 85 Pulse Source Pulse Oximeter Pulse Oximetry (%) 97 Oxygen Delivery Method Room Air Physical Exam Vital Signs: Last Vital Signs Pulse 85 01/12/24 15:06 BP 112/80 01/12/24 15:06 Pulse Ox 97 01/12/24 15:06 Oxygen Delivery Method Room Air 01/12/24 15:06 BMI result Body Mass Index 61.2 Const General: comfortable and no acute distress Orientation/consciousness: patient oriented x3 HEENT Head: Yes normocephalic Mouth: Normal oral and palatal mucosa present Eyes EOM: EOMs intact bilaterally Neck Neck: Yes supple Resp Auscultation: clear to auscultation bilaterally Cardio Jugular venous distension: no JVD Rate: regular rate GI Palpation (GI): Soft to palpation Auscultation: normal bowel sounds General: Yes no CVA tenderness Back/Spine/Pelvis Back: no CVA tenderness Skin General skin exam: no rashes or lesions noted Neuro General: patient oriented x3 and moves all extremities Extrem General: Yes no pedal edema Assessment & Plan Assessment & Plan (1) Proteinuria: Code(s): R80.9 - Proteinuria, unspecified Qualifiers: Proteinuria type: unspecified Qualified Code(s): R80.9 - Proteinuria, unspecified (2) Nephrolithiasis: Comment: f/u Dr. Ivey Code(s): N20.0 - Calculus of kidney Plan Wm has history of nephrolithiasis. He has not had a renal ultrasound for a while. He gets twinges of left flank pain. His renal ultrasound was unremarkable. He recently was found to have proteinuria during a DOT testing. His 24 hour urine collection for protein was normal. He is at risk for secondary FSGS from high BMI. I encouraged him to cut back on his diclofenac sodium. He should maintain good hydration and maintain a low-sodium diet especially given history of nephrolithiasis. I did not make any medication changes today. All these have been discussed in detail. All questions answered. Follow-up appointment given. Orders: Orders Blood Urea Nitrogen 01/12/24 R80.9 - Proteinuria, unspecified Protein Creatinine Ratio, Ur 01/12/24 R80.9 - Proteinuria, unspecified Creatinine 01/12/24 R80.9 - Proteinuria, unspecified Electrolytes 01/12/24 R80.9 - Proteinuria, unspecified Coding Level of Care Code Est Pt Level 4 (55890) Diagnoses Proteinuria, unspecified type R80.9 Proteinuria type: unspecified Nephrolithiasis N20.0 Results Reviewed Nephrology Results: Renal US 12/24/23
== END 2024-01-12 15:58 | disposition home or self-care (01) ==
PROVIDERS: PCP Internal Medicine; Visit Provider Internal Medicine Nephrology
DX: R80.9 Proteinuria, unspecified (principal); N20.0 Calculus of kidney
CPT/HCPCS: 99214

== ENCOUNTER → 2024-01-12 14:49 | Outpatient (BNVA) | payer OTHER, SELFPAY | PROVIDERS: PCP Internal Medicine; Visit Provider Internal Medicine Nephrology ==

== ENCOUNTER 2024-02-01 12:37 | Outpatient (AMB) | payer OTHER, SELFPAY ==
[2024-02-01 12:52] VITALS: BP 118/76; PULSE 97; O2SAT 97; BMI 60.9
--- NOTE | 2024-02-01 12:52 | MHC.PC.OV ---
Vital Signs 02/01/24 12:52 Height 5 ft 11 in Weight 437 lb BMI 60.9 BP 118/76 Blood Pressure Location Lt radial Position Sitting Pulse 97 Pulse Source Pulse Oximeter Pulse Oximetry (%) 97 Oxygen Delivery Method Room Air Intake Visit Reasons: Numbness in left hand and pain in back Intake Note: Pt is here today for a sick visit. Pt states that he needs to go back to work. Allergies No Known Allergies Allergy (Verified 02/01/24 12:57) Medication List - Last Reconciled 02/01/24 by Alessandra Torres MD allopurinol 450 mg (1.5 x 300 mg) PO DAILY citalopram 40 mg PO DAILY comp.stocking,knee,long,medium Custom stockings- 20mmHg CPAP (CPAP Machine/Device) As directed, with supplies diclofenac sodium 75 mg PO BID furosemide 40 mg PO DAILY PRN miscellaneous medical supply custom compressor class 1 stockings for 2 pair omeprazole 40 mg PO DAILY tamsulosin 0.4 mg PO BEDTIME 90 days warfarin 10 mg See Protocol PO DAILY@1800 Tobacco use date assessed: 02/01/24 Dental Screening Dental Screen Date: 02/01/24 Did you have a dental visit in the last 12 months?: Yes Did you have a dental problem in the last 6 months where you did not have access to dental care?: No Was dental information given to patient?: Patient has dentist HPI Numbness in left hand and pain in back HPI Details Patient presents for the follow-up. He complains of chronic lower extremity edema after DVT and you to venous insufficiency. Patient has been wearing support knee highs but needs a new prescription. He has been using CPAP for obstructive sleep apnea. 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 [facility] Medical History COVID-19 Annual physical exam Nephrolithiasis Leg edema KATIE (obstructive sleep apnea) Pulmonary embolism Osteoarthritis Morbid obesity with BMI of 60.0-69.9, adult Surgical History Hematoma of left knee region History of sleeve gastrectomy History of hernia repair History of appendectomy History of removal of laparoscopic gastric banding device Benny filter in place Hx of laparoscopic gastric banding Family History Father Lung cancer Bone cancer Mother No problems noted. Social History Household Members: None Housing: House Are you a primary home care associate to a significant other at home: No Do you presently have visiting nurse or other home services: No Alcohol intake: current Alcohol intake frequency: holidays/special occasions only Patient Tobacco Use Status: Never used Tobacco e-Cigarette/Vaping Use: Never Used Advance Directives Date on File: 07/23/21 service: No Current occupational status: employed Current occupation: right handed. Cognitive needs: No Hearing needs: No Vision needs: No Questionnaire Thrive Questionnaire Date Thrive assessed: 09/08/21 AUDIT C Alcohol Use Questionnaire (AUDIT-C) 1. How often do you have a drink containing alcohol?: Monthly or less 2. How many drinks containing alcohol do you have on a typical day when you are drinking?: 1 or 2 3. How often do you have six or more drinks on one occasion?: Never Total Score: 1 MOLLY-7 AMB Questionnaire MOLLY-7 Date MOLLY - 7 assessed: 09/08/21 Source: Developed by Drs. Wm Cannon, Taylor Lester, Dennys Liriano and colleagues, with an educational amador from [employer]. Review of Systems Const All systems reviewed & are unremarkable except as noted in HPI and below ENT Reports no additional complaints Card Reports no additional complaints Resp Reports no additional complaints GI Reports no additional complaints Reports no additional complaints Physical exam (Primary Care) Vital Signs: Last Vital Signs Pulse 97 02/01/24 12:52 BP 118/76 02/01/24 12:52 Pulse Ox 97 02/01/24 12:52 Oxygen Delivery Method Room Air 02/01/24 12:52 BMI result Body Mass Index 60.9 Tobacco/Smoking Status: Tobacco use Status Tobacco use date assessed 02/01/24 02/01/24 12:58 Patient Tobacco Use Status Never used Tobacco 02/01/24 12:58 e-Cigarette/Vaping Use Never Used 02/01/24 12:58 Thrive Assessment: Date of Thrive Assessment Date Thrive assessed 09/08/21 02/01/24 12:58 Const General: no acute distress HENMT Face and sinus: Yes normal facial exam Neck Neck: Yes supple Resp Effort & Inspection: normal respiratory effort Auscultation: clear to auscultation bilaterally Cardio Rhythm: regular rhythm Heart sounds: S1 normal heart sound present and S2 normal heart sound present Extrem Other: Nonpitting bilateral lower extremity edema Assessment and Plan Assessment & Plan (1) Right leg swelling: Comment: Cellulitis may be due to high BMI and lymphedema There is no tinea pedis Code(s): M79.89 - Other specified soft tissue disorders Plan: Continue Compression knee highs (2) Pulmonary embolism: Code(s): I26.99 - Other pulmonary embolism without acute cor pulmonale Plan: Continue Coumadin follow-up with Hematology (3) Annual physical exam: Code(s): Z00.00 - Encounter for general adult medical examination without abnormal findings (4) Hemolytic anemia: Comment: Follow-up with Hematology Code(s): D58.9 - Hereditary hemolytic anemia, unspecified (5) KATIE (obstructive sleep apnea): Code(s): G47.33 - Obstructive sleep apnea (adult) (pediatric) Plan: Continue CPAP weight loss discussed with the patient Orders: Orders Comprehensive [place]. Panel Fast 4 Months I26.99 - Other pulmonary embolism without acute cor pulmonale, M79.89 - Other specified soft tissue disorders, Z00.00 - Encounter for general adult medical examination without abnormal findings PSA,Total (Free>4and<10) 4 Months I26.99 - Other pulmonary embolism without acute cor pulmonale, M79.89 - Other specified soft tissue disorders, Z00.00 - Encounter for general adult medical examination without abnormal findings Complete Blood Count Auto Diff 4 Months I26.99 - Other pulmonary embolism without acute cor pulmonale, M79.89 - Other specified soft tissue disorders, Z00.00 - Encounter for general adult medical examination without abnormal findings Lipid Panel 4 Months I26.99 - Other pulmonary embolism without acute cor pulmonale, M79.89 - Other specified soft tissue disorders, Z00.00 - Encounter for general adult medical examination without abnormal findings Medications: Changed From comp.stocking,knee,long,medium Custom stockings- 20mmHg 2 ea 3RF M79.89 - Other specified soft tissue disorders To comp.stocking,knee,long,medium Custom stockings- 20mmHg, Addaptive, elverax 2 ea 3RF M79.89 - Other specified soft tissue disorders Coding Level of Care Code Est Pt Level 4 (03551) Diagnoses Right leg swelling M79.89 Pulmonary embolism I26.99 Annual physical exam Z00.00 Hemolytic anemia D58.9 KATIE (obstructive sleep apnea) G47.33
== END 2024-02-01 13:42 | disposition home or self-care (01) ==
PROVIDERS: PCP Internal Medicine; Visit Provider Internal Medicine
DX: M79.89 Other specified soft tissue disorders (principal); I26.99 Other pulmonary embolism without acute cor pulmonale; Z00.00 Encounter for general adult medical examination without abnormal findings; D58.9 Hereditary hemolytic anemia, unspecified; G47.33 Obstructive sleep apnea (adult) (pediatric)
CPT/HCPCS: 99214

== ENCOUNTER 2024-02-01 13:34 | Outpatient (REF) | payer OTHER, SELFPAY ==
[2024-02-01 17:23] LABS: Prostate Specific Antigen 0.57 ng/mL (<0.05-4.0)
== END 2024-02-01 13:35 | disposition home or self-care (01) ==
LOC: HO.HMGCLDS 13:34
PROVIDERS: PCP Internal Medicine; Visit Provider Nurse Practitioner Family
DX: Z12.5 Encounter for screening for malignant neoplasm of prostate (principal); R39.9 Unspecified symptoms and signs involving the genitourinary system; R39.15 Urgency of urination
CPT/HCPCS: 36415; 84153

== ENCOUNTER 2024-02-02 14:13 | Outpatient (AMB) | payer OTHER, SELFPAY ==
--- NOTE | 2024-02-02 14:46 | MHC.OFFVISCO ---
Intake Intake Visit Reasons: Anticoagulation Allergies No Known Allergies Allergy (Verified 02/02/24 14:29) Medication List - Last Reconciled 02/02/24 by Manju Lee RN allopurinol 450 mg (1.5 x 300 mg) PO DAILY citalopram 40 mg PO DAILY comp.stocking,knee,long,medium Custom stockings- 20mmHg, Addaptive, elverax CPAP (CPAP Machine/Device) As directed, with supplies diclofenac sodium 75 mg PO BID furosemide 40 mg PO DAILY PRN miscellaneous medical supply custom compressor class 1 stockings for 2 pair omeprazole 40 mg PO DAILY tamsulosin 0.4 mg PO BEDTIME 90 days warfarin 10 mg See Protocol PO DAILY@1800 Nursing Note PT.STATES THAT HE WILL BE RETURNING TO WORK IN 2-3 WEEKS. HE DENIES ANY CP,SOB,DIET/MED CHANGES OR SX OF BLEEDING. WARFARIN 5MGM TODAY THEN 5MGM X2 WEEKLY AND 10MGM X5. FOLLOW-UP HERE ON 02/09. 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 Anti-Coag Initial Assessment Social Hx Patient Tobacco Use Status: Never used Tobacco alcohol intake: current Alcohol intake frequency: holidays/special occasions only Coding Level of Care Code Est Patient Level 1 Diagnoses Current use of anticoagulant therapy Z79.01 Results AMB INR Fingerstick AMB INR Fingerstick 3.8 Last Edit by Manju Lee RN on 02/02/24 14:42 Assessment & Plan Assessment & Plan (1) Current use of anticoagulant therapy: Onset Date: ~09/08/21 Code(s): Z79.01 - nursing home (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
[2024-02-03 08:03] LABS: Prothrombin Time Whole Bld POC 45.2 sec (11.1-13.5); ~PT, ~INR - Anti Coag Clinic 3.8 (0.9-1.1)
== END 2024-02-02 14:52 | disposition home or self-care (01) ==
LOC: HO.ACS 14:13
PROVIDERS: PCP Internal Medicine; Visit Provider Internal Medicine
DX: Z79.01 Long term (current) use of anticoagulants (principal)

== ENCOUNTER → 2024-02-02 14:13 | Outpatient (BNVA) | payer OTHER, SELFPAY | PROVIDERS: PCP Internal Medicine; Visit Provider Internal Medicine | DX: Z86.718 Personal history of other venous thrombosis and embolism (principal); Z51.81 Encounter for therapeutic drug level monitoring; Z79.01 Long term (current) use of anticoagulants | CPT/HCPCS: 85610; 99211 ==

== ENCOUNTER 2024-02-10 13:59 | Outpatient (AMB) | payer OTHER, SELFPAY ==
--- NOTE | 2024-02-10 14:33 | MHC.OFFVISCO ---
Intake Intake Visit Reasons: Anticoagulation Allergies No Known Allergies Allergy (Verified 02/10/24 14:19) Medication List - Last Reconciled 02/10/24 by Martha Sebastian RN allopurinol 450 mg (1.5 x 300 mg) PO DAILY citalopram 40 mg PO DAILY comp.stocking,knee,long,medium Custom stockings- 20mmHg, Addaptive, elverax CPAP (CPAP Machine/Device) As directed, with supplies diclofenac sodium 75 mg PO BID furosemide 40 mg PO DAILY PRN miscellaneous medical supply custom compressor class 1 stockings for 2 pair omeprazole 40 mg PO DAILY tamsulosin 0.4 mg PO BEDTIME 90 days warfarin 10 mg See Protocol PO DAILY@1800 Nursing Note INR: 3.1 out of therapeutic range of 2-3 Medications and supplements reviewed: no changes No changes in health, diet, medications, or supplements, Denies any signs and symptoms of bleeding or bruising or clotting. Bleeding, bruising, clotting discussed Nutritional guidance given to have greens Dose: 10 mg X 5 days and 5mg X 2 days F/U INR: 2 weeks Patient verbalizes understanding of instructions given Anti-Coag Initial Assessment Social Hx Patient Tobacco Use Status: Never used Tobacco alcohol intake: current Alcohol intake frequency: holidays/special occasions only Coding Level of Care Code Est Patient Level 1 Diagnoses Current use of anticoagulant therapy Z79.01 Results AMB INR Fingerstick AMB INR Fingerstick 3.1 Last Edit by Martha Sebastian RN on 02/10/24 14:36 INTERFACE DELAY Assessment & Plan Assessment & Plan (1) Current use of anticoagulant therapy: Onset Date: ~09/08/21 Code(s): 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
[2024-02-10 14:40] LABS: Prothrombin Time Whole Bld POC 37.2 sec (11.1-13.5); ~PT, ~INR - Anti Coag Clinic 3.1 (0.9-1.1)
== END 2024-02-10 14:45 | disposition home or self-care (01) ==
LOC: HO.ACS 13:59
PROVIDERS: PCP Internal Medicine; Visit Provider Internal Medicine
DX: Z79.01 Long term (current) use of anticoagulants (principal)

== ENCOUNTER → 2024-02-10 13:59 | Outpatient (BNVA) | payer OTHER, SELFPAY | PROVIDERS: PCP Internal Medicine; Visit Provider Internal Medicine | DX: Z86.718 Personal history of other venous thrombosis and embolism (principal); Z51.81 Encounter for therapeutic drug level monitoring; Z79.01 Long term (current) use of anticoagulants | CPT/HCPCS: 85610; 99211 ==

== ENCOUNTER 2024-04-11 15:53 | Outpatient (AMB) | payer OTHER, SELFPAY ==
[2024-04-11 16:02] LABS: Prothrombin Time Whole Bld POC 48.9 sec (11.1-13.5); ~PT, ~INR - Anti Coag Clinic 4.1 (0.9-1.1)
--- NOTE | 2024-04-11 16:17 | MHC.OFFVISCO ---
Intake Intake Visit Reasons: Anticoagulation Allergies No Known Allergies Allergy (Verified 04/11/24 15:55) Medication List - Last Reconciled 04/11/24 by Hortencia Watt RN allopurinol 450 mg (1.5 x 300 mg) PO DAILY citalopram 40 mg PO DAILY comp.stocking,knee,long,medium Custom stockings- 20mmHg, Addaptive, elverax CPAP (CPAP Machine/Device) As directed, with supplies diclofenac sodium 75 mg PO BID furosemide 40 mg PO DAILY PRN miscellaneous medical supply custom compressor class 1 stockings for 2 pair omeprazole 40 mg PO DAILY tamsulosin 0.4 mg PO BEDTIME 90 days warfarin 10 mg See Protocol PO DAILY@1800 Nursing Note INR 4.1 out of therapeutic range Medications and supplements reviewed Patient status: has been non compliant due to work schedule, fell a few days ago and has bruises on his arms Medications or supplements: no changes Diet: good - has not had usual greens Denies any signs and symptoms of bleeding or clotting or unusual bruising Bleeding, bruising, clotting discussed Nutritional guidance given: greens today and tomorrow Dose: decrease dose to 5mg today, then resume usual dose 5mg x 2 days/ 10mg x 5 days F/U INR Date: 1 week pt enc to keep appt ? Patient verbalizing understanding of instructions given. Anti-Coag Initial Assessment Social Hx Patient Tobacco Use Status: Never used Tobacco alcohol intake: current Alcohol intake frequency: holidays/special occasions only Coding Level of Care Code Est Patient Level 1 Diagnoses Current use of anticoagulant therapy Z79.01 Results AMB INR Fingerstick AMB INR Fingerstick 4.1 Last Edit by Hortencia Watt RN on 04/11/24 16:05 manual entry delayed interfacing Assessment & Plan Assessment & Plan (1) Current use of anticoagulant therapy: Onset Date: ~09/08/21 Code(s): Z79.01 - jail (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
== END 2024-04-11 16:21 | disposition home or self-care (01) ==
LOC: HO.ACS 15:53
PROVIDERS: PCP Internal Medicine; Visit Provider Internal Medicine
DX: Z79.01 Long term (current) use of anticoagulants (principal)

== ENCOUNTER → 2024-04-11 15:53 | Outpatient (BNVA) | payer OTHER, SELFPAY | PROVIDERS: PCP Internal Medicine; Visit Provider Internal Medicine | DX: Z86.718 Personal history of other venous thrombosis and embolism (principal); Z51.81 Encounter for therapeutic drug level monitoring; Z79.01 Long term (current) use of anticoagulants | CPT/HCPCS: 85610; 99211 ==

== ENCOUNTER 2024-04-26 15:03 | Outpatient (AMB) | payer OTHER, SELFPAY ==
[2024-04-26 15:12] LABS: Prothrombin Time Whole Bld POC 26.8 sec (11.1-13.5); ~PT, ~INR - Anti Coag Clinic 2.2 (0.9-1.1)
--- NOTE | 2024-04-26 15:21 | MHC.OFFVISCO ---
Intake Intake Visit Reasons: Anticoagulation Allergies No Known Allergies Allergy (Verified 04/26/24 15:04) Medication List - Last Reconciled 04/26/24 by Manju Lee RN allopurinol 450 mg (1.5 x 300 mg) PO DAILY citalopram 40 mg PO DAILY comp.stocking,knee,long,medium Custom stockings- 20mmHg, Addaptive, elverax CPAP (CPAP Machine/Device) As directed, with supplies diclofenac sodium 75 mg PO BID furosemide 40 mg PO DAILY PRN miscellaneous medical supply custom compressor class 1 stockings for 2 pair omeprazole 40 mg PO DAILY tamsulosin 0.4 mg PO BEDTIME 90 days warfarin 10 mg See Protocol PO DAILY@1800 Nursing Note NO CP,SOB,DIET/MED CHANGES,FALLS OR SX OF BLEEDING. CONTINUE PRESENT DOSE AND FOLLOW-UP IN 2 WEEKS. GOOD UNDERSTANFING OF DOSING INSTR. Anti-Coag Initial Assessment Social Hx Patient Tobacco Use Status: Never used Tobacco alcohol intake: current Alcohol intake frequency: holidays/special occasions only Coding Level of Care Code Est Patient Level 1 Diagnoses Current use of anticoagulant therapy Z79.01 Assessment & Plan Assessment & Plan (1) Current use of anticoagulant therapy: Onset Date: ~09/08/21 Code(s): Z79.01 - [facility] (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
== END 2024-04-26 15:39 | disposition home or self-care (01) ==
LOC: HO.ACS 15:03
PROVIDERS: PCP Internal Medicine; Visit Provider Internal Medicine
DX: Z79.01 Long term (current) use of anticoagulants (principal)

== ENCOUNTER → 2024-04-26 15:03 | Outpatient (BNVA) | payer OTHER, SELFPAY | PROVIDERS: PCP Internal Medicine; Visit Provider Internal Medicine | DX: Z86.718 Personal history of other venous thrombosis and embolism (principal); Z51.81 Encounter for therapeutic drug level monitoring; Z79.01 Long term (current) use of anticoagulants | CPT/HCPCS: 85610; 99211 ==

== ENCOUNTER 2024-05-18 14:36 | Outpatient (AMB) | payer OTHER, SELFPAY ==
--- NOTE | 2024-05-18 14:37 | MHC.OFFVIS ---
Intake Visit Reasons: follow up/ US/ Labs(set) Intake Note: Patient presents today for tele visit follow up on: ultrasound and lab results Imaging Completed: 12/24/23 & 12/30/23 PSA: 0.57 Urology Medications: Tamsulosin Blood Thinner: warfarin Wheel Cutter Required: No Allergies No Known Allergies Allergy (Verified 05/18/24 15:03) Medication List - Last Reconciled 05/18/24 by KAROLINA Chaney- allopurinol 450 mg (1.5 x 300 mg) PO DAILY citalopram 40 mg PO DAILY comp.stocking,knee,long,medium Custom stockings- 20mmHg, Addaptive, elverax CPAP (CPAP Machine/Device) As directed, with supplies diclofenac sodium 75 mg PO BID furosemide 40 mg PO DAILY PRN miscellaneous medical supply custom compressor class 1 stockings for 2 pair omeprazole 40 mg PO DAILY tamsulosin 0.4 mg PO BEDTIME 90 days warfarin 10 mg See Protocol PO DAILY@1800 HPI Comments Details: Wm is a 58-year-old male patient of Dr. Torres. He has a past medical history of morbid obesity, nephrolithiasis, leg edema, obstructive sleep apnea, osteoarthritis, and pulmonary embolisms on anticoagulation. He presents to the office today for follow-up of his nephrolithiasis. Of note, patient was seen approximately 6 months ago as a new patient for nephrolithiasis and lower urinary tract symptoms at which time a retroperitoneal ultrasound and PSA were ordered for further assessment evaluation. These results were reviewed with the patient today. Bilateral kidneys with no calculi lesions, and or hydronephrosis. The bladder is partially distended. Bothered jets are demonstrated. Pre void bladder volume is approximately 60 mL. Postvoid bladder volume is approximately 5 mL. The prostate measures 21 mL. PSA 02/08 0.6. He reports significant improvement in urinary urgency with 0.4 mg of Flomax. He otherwise denies urinary frequency, incontinence, nocturia, hematuria, dysuria, foul smelling urine, changes to urinary stream, flank pain, fever, and or chills. He discusses previously following up with Dr. Ivey many years ago in undergoing in office cystoscopy. He also discusses having followed up with Nephrology as recommended for 3+ protein noted on urinalysis at last office visit. He otherwise offers no other issues or concerns at this time. [facility] Medical History (Reviewed 05/18/24 @ 15:06 by Clemencia Duron [facility]) COVID-19 Annual physical exam Nephrolithiasis Leg edema KATIE (obstructive sleep apnea) Pulmonary embolism Osteoarthritis Morbid obesity with BMI of 60.0-69.9, adult Surgical History Hematoma of left knee region History of sleeve gastrectomy History of hernia repair History of appendectomy History of removal of laparoscopic gastric banding device [place] filter in place Hx of laparoscopic gastric banding Family History Father Lung cancer Bone cancer Mother No problems noted. Social History Household Members: None Housing: House Are you a primary adult care provider to a significant other at home: No Do you presently have visiting nurse or other home services: No Alcohol intake: current Alcohol intake frequency: holidays/special occasions only Patient Tobacco Use Status: Never used Tobacco e-Cigarette/Vaping Use: Never Used Advance Directives Date on File: 07/23/21 service: No Current occupational status: employed Current occupation: right handed. Cognitive needs: No Hearing needs: No Vision needs: No Review of Systems Const Reports as per HPI Eyes Reports no additional complaints ENT Reports no additional complaints Card Reports as per HPI Resp Reports as per HPI GI Reports no additional complaints Reports as per HPI Musc Reports no additional complaints Neuro Reports no additional complaints Psych Reports no additional complaints Endo Reports no additional complaints Azeem/Lymph Reports as per HPI Physical Exam Const General: cooperative Orientation/consciousness: patient oriented x3 Resp Effort & Inspection: able to speak in complete sentences Neuro General: patient oriented x3 Psych Speech and movement: Clear speech present Affect: normal affect Attitude: cooperative Thought content: Normal thought content present Insight: Fair insight present (Psych) Judgement: Fair judgement present (Psych) Telehealth Telehealth Telehealth Platform: [facility] Location of provider rendering services: practice address Location of patient: address on file Patient Identification confirmed using: Name, : Yes Telehealth method: voice only Patient verbally consented to treatment: Yes Patient verbally consented to billing insurance company: Yes Patient informed of any privacy concerns related to visit: Yes Minutes spent on Phone/Video with Pt.: 15 Results Reviewed Results Reviewed: Date of Service: 12/24/23 EXAMINATION: US RETROPERITONEAL LIMITED (RENAL ONLY) FINDINGS: RIGHT KIDNEY: 8.3 x 3.9 x 4.3 cm (SAG x AP x TRV). The kidney is normal in size, contour, and echogenicity. Renal cortical thickness is normal. No calculi or focal parenchymal lesions. No hydronephrosis. LEFT KIDNEY: 7.9 x 3.8 x 4.3 cm (SAG x AP x TRV). The kidney is normal in size, contour, and echogenicity. Renal cortical thickness is normal. No calculi or focal parenchymal lesions. No hydronephrosis. IMPRESSION: Normal-appearing kidneys. Date of Service: 12/30/23 EXAMINATION: US PELVIS LIMITED (BLADDER) FINDINGS: BLADDER: Partially distended. Slicing Machine Feeder states that patient was unable to fill the bladder more fully as the patient was becoming uncomfortable. Bilateral ureteral jets are demonstrated. Prevoid bladder volume is 57.0 mL. Postvoid bladder volume is 7.3 mL. The prostate volume is 20.5 mL. IMPRESSION: 1. Postvoid bladder volume 7.3 mL. 2. Prostate volume 20.5 mL. Assessment & Plan Assessment & Plan (1) Lower urinary tract symptoms: Code(s): R39.9 - Unspecified symptoms and signs involving the genitourinary system Category: Medical (2) Nephrolithiasis: Comment: f/u Dr. Ivey Code(s): N20.0 - Calculus of kidney Category: Medical Plan Recent retroperitoneal ultrasound results reviewed with the patient today; as noted above. Recent PSA results reviewed with the patient today; as noted above. Patient reports to be extremely happy with current voiding parameters on 0.4 mg of Flomax; will continue; refill provided. He currently denies any bothersome urinary issues or concerns. Continue to follow with Nephrology for proteinuria. Follow-up in 6 months with [facility]; or sooner with any issues, concerns, and or questions. Medications: Refilled tamsulosin 0.4 mg PO BEDTIME 90 days 90 caps 3RF N40.1 - Benign prostatic hyperplasia with lower urinary tract symptoms, R35.1 - Nocturia Patient Instructions: The patient had an opportunity to ask questions regarding the treatment plan. All questions were answered. Physical exam, labs, and imaging were discussed and reviewed in detail. As well as risks, benefits, and discussion of treatment choices. No major barriers to understanding were identified. The patient expressed understanding and agreement with the above treatment plan. The patient was made aware they should contact our office by phone for worsening of their current condition, the appearance of new symptoms, or with any questions or concerns. Compliance is encouraged with any medications and follow up testing that is ordered. It is a privilege to be allowed the opportunity to participate in? your urological care.? Again, if you have any questions or concerns If you have any questions or concerns please do not hesitate to contact me. The office is [phone]. This note is constructed using voice recognition software. While every effort has been made to ensure accuracy supervisor tan room errors may have been included. Yours sincerely, VELVET Chaney Coding Level of Care Code Tele Est Pt Level 3 (96060) Diagnoses Lower urinary tract symptoms R39.9 Nephrolithiasis N20.0
--- OUTSIDE RECORDS SUMMARY | 2024-05-18 14:38 | XMS_ITS | Continuity of Care Document ---
Author Organization [facility] Address [address] [place] [address]- Care Team Providers Care Textile Supervisor Name Role Phone Jose Ramon SCHWAB, Zakia Meyer Primary Care Physician Encounter [facility] Date(s): 03/19/23 - 06/25/[address] [address] Encounter Diagnosis Cervicalgia(Final) - Discharge Disposition: A-D/C Home Attending Physician: Lu Jones Admitting Physician: Not on Staff, Admitting MD Referring Physician: Lu Jones Allergies, Adverse Reactions, Alerts Substance Reaction Severity Status warfarin 1 Pt states can only t brianna Coumadin hives Active PROzac anaphlaxis Active 1only generic coumadin Medications Allopurinol 300 mg, By Mouth, Daily, Maintenance, 12/08/13 11:30:21 EST Start Date: 12/08/13 Status: Ordered Citalopram = 20 mg, By Mouth, Daily, 0 Refills, Maintenance, 12/08/13 11:19:27 Start Date: 12/08/13 Status: Ordered Colace sodium 100 mg oral capsule 100 mg, 1, capsule, By Mouth, 2 times a day, # 60 capsule, Refills 0, Tot. Refills 0, Maintenance, 10/31/18 17:00:48 EST, Route to Pharmacy Electronically, [id number], [facility]/pharmacy #[id number] Start Date: 10/31/18 Status: Ordered Coumadin Tablet = 10 mg, By Mouth, Daily, Pt takes 12.5mg on Wednesday, 0 Refills, 05/25/08 5:21:07 EDT Start Date: 05/25/08 Status: Ordered diclofenac sodium 75 mg oral delayed release tablet 1 tablet = 75 mg, By Mouth, 2 times a day, # 180 tablet, 0 Refills, Maintenance, 09/15/18 10:05:30 EST, EC Tablet Start Date: 09/15/18 Status: Ordered enoxaparin 300 mg/3 mL injectable solution = 280 mg, Subcutaneous Injection, Daily, *Note: Treatment = 1.5mg/kg/day, renal dosing = 1mg/kg/day*, # 19.6 mL, 0 Refills, Maintenance, 09/20/18 7:08:27 EST Start Date: 09/20/18 Stop Date: 09/27/18 Status: Ordered Furosemide = 40 mg, By Mouth, Daily, PRN Other, EDEMA, 0 Refills, Maintenance, 12/08/13 11:19:51 EST Start Date: 12/08/13 Status: Ordered Omeprazole = 40 mg, By Mouth, Daily, 0 Refills, Maintenance, 09/07/18 10:43:10 EST Start Date: 09/07/18 Status: Ordered Problem List Condition Confirmation Course Effective Dates Status H ealth Status Informant Arthritis Confirmed Active Morbid obesity with BMI of 60.0-69.9, adult Confirmed Active Supraumbilical hernia Confirmed Active Klinefelter syndrome Confirmed Active Postop check Confirmed Active Thrombosis, Hx of PE, pt unsure of actual dx. Sees Heme/Onc at [facility]. Life long coumadin Confirmed Active Social History Social History Type Response Smoking Status Never smoker entered on: 12/08/13 Sex Implantable Device List Procedure Provider Procedure Date Device Type Site Repair Hernia Umbilical Laparoscopic Mes Benito Marsh MD 09/19/18 Unknown Umbilicus Device Identifier Serial Number Lot or Batch Number Manufacturing Date Expiration Date Distinct Identification Code MRI Safety Implantable Status Assigning Authority [id number] Unknown [id number] Unknown 06/14/20 Unknown Unknown Active GS1 Patient Care team information Care Team Personnel Name: Myra Hernandes RN Position: [facility] Radiation Control Worker Member Role: Primary Care Nurse Name: Zakia Albright MD Position: Reference Physician Member Role: PCP Address: Address: [address] [place] [address] Name: Lucille Frost RN Position: [facility] RN Member Role: Primary Care Nurse Care Team Related Persons Name: THOMASESTEFANI WEST Address: home [address] [place] [address] Name: JORY MOLINA Address: home [address] [place] [address]
--- OUTSIDE RECORDS SUMMARY | 2024-05-18 14:38 | XMS_ITS | Continuity of Care Document ---
Author Organization [facility] Address [address] [place] [address]- Care Team Providers Care Claim Approver Name Role Phone Alessandra Torres MD Primary Care Physician [phone] Encounter [facility] [id number] Date(s): 07/29/23 - 08/28/23 [facility] [address] [place] [address]- Attending Physician: Owen Cerda Admitting Physician: Admtr, Owen Referring Physician: Admtr Ar8 Allergies, Adverse Reactions, Alerts Substance Reaction Severity Status PROzac anaphlaxis Active warfarin 1 Pt states can only t brianna Coumadin hives Active 1only generic coumadin Medications Allopurinol 300 [...] 10/31/18 17:00:48 EST, Route to Pharmacy Electronically, [id number], [facility]/pharmacy #[id number] Start Date: 10/31/18 Status: Ordered [...] EC Tablet Start Date: 09/15/18 Status: Ordered Furosemide = 40 mg, By [...] unsure of actual dx. Sees Heme/Onc at [facility] Life long coumadin Confirmed Active Social History Social History Type Response Smoking Status Never smoker entered on: 12/08/13 Sex Implantable Device List Procedure Provider Procedure Date Device Type Site Repair Hernia Umbilical Laparoscopic Mes Benito Marsh MD 09/19/18 Unknown Umbilicus Device Identifier Serial Number Lot or Batch Number Manufacturing Date Expiration Date Distinct Identification Code MRI Safety Implantable Status Assigning Authority [id number] Unknown [id number] Unknown 06/14/20 Unknown Unknown Active GS1 Patient Care team information Care Team Personnel Name: Alessandra Torres MD Position: [facility] Physician - Primary Care Member Role: PCP Address: Address: [address] [place] [address]- Name: Myra Hernandes RN Position: [facility] SN Director Design Member Role: Primary Care Nurse Name: Lucille Frost RN Position: [facility] SN RN Member Role: Primary Care Nurse Care Team Related Persons Name: ESTEFANI MOTA Address: home [address] [place] [address] Name: JORY MOLINA Address: home [address] [place] [address]
--- OUTSIDE RECORDS SUMMARY | 2024-05-18 14:38 | XMS_ITS | Continuity of Care Document ---
Author Organization [facility] Address [address] [place] [address]- Care Team Providers Care Special Education Resource Room Teacher Name Role Phone Jose Ramon SCHWAB, Zakia Meyer Primary Care Physician Encounter [facility] Date(s): 05/20/23 - 06/19/[address] [address] Attending Physician: Oewn Cerda Admitting Physician: Owen Cerda Referring Physician: AdmtrOwen Allergies, Adverse Reactions, Alerts Substance Reaction Severity [...] 10/31/18 17:00:48 EST, Route to Pharmacy Electronically, [id number], [facility]/pharmacy #[id number] Start Date: 10/31/18 Status: Ordered [...] unsure of actual dx. Sees Heme/Onc at [facility]. Life long coumadin Confirmed Active Social History Social History Type Response Smoking Status Never smoker entered on: 12/08/13 Sex Implantable Device List Procedure Provider Procedure Date Device Type Site Repair Hernia Umbilical Laparoscopic Mes Benito Marsh MD 09/19/18 Unknown Umbilicus Device Identifier Serial Number Lot or Batch Number Manufacturing Date Expiration Date Distinct Identification Code MRI Safety Implantable Status Assigning Authority [id number] Unknown [id number] Unknown 06/14/20 Unknown Unknown Active GS1 Patient Care team information Care Team Personnel Name: Myra Hernandes RN Position: [facility] Plant Clerk Member Role: Primary Care Nurse Name: Zakia Albright MD Position: Reference Physician Member Role: PCP Address: Address: [address] [place] [id number] Name: Lucille Frost RN Position: [facility] RN Member Role: Primary Care Nurse Care Team Related Persons Name: FIORELLAESTEFANI GUADARRAMA Address: home [address] [place] [address] Name: JORY MOLINA Address: home [address] [place] [address]
== END 2024-05-18 15:16 | disposition home or self-care (01) ==
LOC: HO.HUSH 14:36
PROVIDERS: PCP Internal Medicine; Visit Provider Nurse Practitioner Family
DX: R39.9 Unspecified symptoms and signs involving the genitourinary system (principal); N20.0 Calculus of kidney
CPT/HCPCS: 99213

== ENCOUNTER → 2024-05-18 14:36 | Outpatient (BNVA) | payer OTHER, SELFPAY | PROVIDERS: PCP Internal Medicine; Visit Provider Nurse Practitioner Family ==

== ENCOUNTER 2024-05-22 15:19 | Outpatient (AMB) | payer OTHER, SELFPAY ==
--- NOTE | 2024-05-22 15:25 | MHC.OFFVISCO ---
Intake Intake Visit Reasons: Anticoagulation Allergies No Known Allergies Allergy (Verified 05/22/24 15:20) Medication List - Last Reconciled 05/22/24 by Bianca Gotti RN allopurinol 450 mg (1.5 x 300 mg) PO DAILY citalopram 40 mg PO DAILY comp.stocking,knee,long,medium Custom stockings- 20mmHg, Addaptive, elverax CPAP (CPAP Machine/Device) As directed, with supplies diclofenac sodium 75 mg PO BID furosemide 40 mg PO DAILY PRN miscellaneous medical supply custom compressor class 1 stockings for 2 pair omeprazole 40 mg PO DAILY tamsulosin 0.4 mg PO BEDTIME 90 days warfarin 10 mg See Protocol PO DAILY@1800 Nursing Note INR: 2.2- in therapeutic range of 2-3 Medications and supplements reviewed- no changes No changes in health, diet, medications, or supplements, Denies any signs and symptoms of bleeding or bruising or clotting. Bleeding, bruising, clotting discussed Nutritional guidance given Dose: 5mg x 2, 10mg x 5 F/U INR: pt req 2 weeks Patient verbalizes understanding of instructions given pt states may have missed a dose last week Anti-Coag Initial Assessment Social Hx Patient Tobacco Use Status: Never used Tobacco alcohol intake: current Alcohol intake frequency: holidays/special occasions only Coding Level of Care Code Est Patient Level 1 Diagnoses Current use of anticoagulant therapy Z79.01 Assessment & Plan Assessment & Plan (1) Current use of anticoagulant therapy: Onset Date: ~09/08/21 Code(s): Z79.01 - custodial (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
[2024-05-22 15:26] LABS: Prothrombin Time Whole Bld POC 26.6 sec (11.1-13.5); ~PT, ~INR - Anti Coag Clinic 2.2 (0.9-1.1)
== END 2024-05-22 15:33 | disposition home or self-care (01) ==
LOC: HO.ACS 15:19
PROVIDERS: PCP Internal Medicine; Visit Provider Internal Medicine
DX: Z79.01 Long term (current) use of anticoagulants (principal)

== ENCOUNTER → 2024-05-22 15:19 | Outpatient (BNVA) | payer OTHER, SELFPAY | PROVIDERS: PCP Internal Medicine; Visit Provider Internal Medicine | DX: Z86.718 Personal history of other venous thrombosis and embolism (principal); Z51.81 Encounter for therapeutic drug level monitoring; Z79.01 Long term (current) use of anticoagulants | CPT/HCPCS: 85610; 99211 ==

== ENCOUNTER 2024-06-09 15:08 | Outpatient (AMB) | payer OTHER, SELFPAY ==
[2024-06-09 15:21] LABS: Prothrombin Time Whole Bld POC 27.7 sec (11.1-13.5); ~PT, ~INR - Anti Coag Clinic 2.3 (0.9-1.1)
--- NOTE | 2024-06-09 15:29 | MHC.OFFVISCO ---
Intake Intake Visit Reasons: Anticoagulation Allergies No Known Allergies Allergy (Verified 06/09/24 15:15) Medication List - Last Reconciled 06/09/24 by Martha Sebastian RN allopurinol 450 mg (1.5 x 300 mg) PO DAILY citalopram 40 mg PO DAILY comp.stocking,knee,long,medium Custom stockings- 20mmHg, Addaptive, elverax CPAP (CPAP Machine/Device) As directed, with supplies diclofenac sodium 75 mg PO BID furosemide 40 mg PO DAILY PRN miscellaneous medical supply custom compressor class 1 stockings for 2 pair omeprazole 40 mg PO DAILY tamsulosin 0.4 mg PO BEDTIME 90 days warfarin 10 mg See Protocol PO DAILY@1800 Nursing Note INR: 2.3 in therapeutic range of 2-3 Medications and supplements reviewed No changes in health, diet, medications, or supplements, Denies any signs and symptoms of bleeding or bruising or clotting. Bleeding, bruising, clotting discussed Nutritional guidance given Dose: 10 mg X 5 days and 5mg X 2 day F/U INR: 4 weeks Patient verbalizes understanding of instructions given Anti-Coag Initial Assessment Social Hx Patient Tobacco Use Status: Never used Tobacco alcohol intake: current Alcohol intake frequency: holidays/special occasions only Coding Level of Care Code Est Patient Level 1 Diagnoses Current use of anticoagulant therapy Z79.01 Results AMB INR Fingerstick AMB INR Fingerstick 2.3 Last Edit by Martha Sebastian RN on 06/09/24 15:21 interface delay Assessment & Plan Assessment & Plan (1) Current use of anticoagulant therapy: Onset Date: ~09/08/21 Code(s): Z79.01 - 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
== END 2024-06-09 15:39 | disposition home or self-care (01) ==
LOC: HO.ACS 15:08
PROVIDERS: PCP Internal Medicine; Visit Provider Internal Medicine
DX: Z79.01 Long term (current) use of anticoagulants (principal)

== ENCOUNTER → 2024-06-09 15:08 | Outpatient (BNVA) | payer OTHER, SELFPAY | PROVIDERS: PCP Internal Medicine; Visit Provider Internal Medicine | DX: Z86.718 Personal history of other venous thrombosis and embolism (principal); Z51.81 Encounter for therapeutic drug level monitoring; Z79.01 Long term (current) use of anticoagulants | CPT/HCPCS: 85610; 99211 ==

== ENCOUNTER 2024-06-20 14:56 | Outpatient (REF) | payer OTHER, SELFPAY ==
[2024-06-20 16:06] LABS: MANUAL DIFF FLAG NO
[2024-06-20 16:22] LABS: Basophils Absolute Auto 0.1 X10*3/uL (0.0-0.2); Basophils Percent Auto 1.4 % (0-2); Eosinophils Absolute Auto 0.9 X10*3/uL (0.0-0.4); Eosinophils Percent Auto 18.4 % (0-4); Hematocrit 36.2 % (42.0-52.0); Hemoglobin 10.8 g/dl (14.0-18.0); Imm Gran Abs Auto 0.01 X10*3/uL (0.00-0.03); Imm Gran Pct Auto 0.2 % (0.0-0.4); Lymphocytes Absolute Auto 1.2 X10*3/uL (1.2-4.9); Lymphocytes Percent Auto 24.5 % (20-40); Mean Corpuscular HGB Conc 29.8 g/dl (31.0-36.0); Mean Corpuscular Hemoglobin 25.2 pg (27.0-33.0); Mean Corpuscular Volume 84.4 fL (80.0-98.0); Monocytes Absolute Auto 0.6 X10*3/uL (0.1-1.2); Monocytes Percent Auto 11.8 % (2-11); Neutrophils Absolute Auto 2.1 x10*3/uL (2.0-8.3); Neutrophils Percent Auto 43.7 % (45-73); Platelet Count 200 X10*3/uL (160-400); Red Blood Count 4.29 X10*6/uL (4.60-5.80); Red Cell Distribution Width 15.6 % (11.0-16.0); White Blood Count 4.9 X10*3/uL (4.8-10.8)
[2024-06-20 16:41] LABS: Alanine Aminotransferase 14 U/L (0-40); Alkaline Phosphatase 91 U/L (39-117); Anion Gap 13 (12-20); Aspartate Amino Transferase 18 U/L (5-37); Bilirubin Total 1.1 mg/dL (0.0-1.0); Blood Urea Nitrogen 15 mg/dL (9-16); Calcium 9.3 mg/dL (8.4-10.2); Carbon Dioxide 24 mmol/L (22-29); Chloride 109 mmol/L (96-108); Cholesterol 172 mg/dL (<200); Estimated Glomerular Filt Rate > 60; Glucose Fasting 97 mg/dL (60-99); HDL Cholesterol 46 mg/dL (>40); LDL Cholesterol Calculated 104 mg/dL (<100); Potassium 4.4 mmol/L (3.3-5.1); Sodium 142 mmol/L (135-145); Total Protein 6.4 g/dL (6.5-8.0); Triglycerides 114 mg/dL (<150)
[2024-06-20 17:05] LABS: PSA,Total (Free>4and<10) 0.38 ng/mL (0.00-4.00)
== END 2024-06-20 14:57 | disposition home or self-care (01) ==
LOC: HO.HMGCLDS 14:56
PROVIDERS: PCP Internal Medicine; Visit Provider Internal Medicine
DX: Z00.00 Encounter for general adult medical examination without abnormal findings (principal); I26.99 Other pulmonary embolism without acute cor pulmonale; M79.89 Other specified soft tissue disorders; Z12.5 Encounter for screening for malignant neoplasm of prostate
CPT/HCPCS: 36415; 80053; 80061; 84153; 85025

== ENCOUNTER → 2024-07-20 14:59 | Outpatient (BNVA) | payer OTHER, SELFPAY | PROVIDERS: PCP Internal Medicine; Visit Provider Internal Medicine ==

== ENCOUNTER 2024-07-21 15:45 | Outpatient (AMB) | payer OTHER, SELFPAY ==
[2024-07-21 15:53] LABS: Prothrombin Time Whole Bld POC 32.7 sec (11.1-13.5); ~PT, ~INR - Anti Coag Clinic 2.7 (0.9-1.1)
--- NOTE | 2024-07-21 15:59 | MHC.OFFVISCO ---
Intake Intake Visit Reasons: Anticoagulation Allergies No Known Allergies Allergy (Verified 07/21/24 15:46) Medication List - Last Reconciled 07/21/24 by Manju Lee RN allopurinol 450 mg (1.5 x 300 mg) PO DAILY citalopram 40 mg PO DAILY comp.stocking,knee,long,medium Custom stockings- 20mmHg, Addaptive, elverax CPAP (CPAP Machine/Device) As directed, with supplies diclofenac sodium 75 mg PO BID ferrous sulfate 325 mg PO DAILY folic acid 1 mg PO DAILY furosemide 40 mg PO DAILY PRN miscellaneous medical supply custom compressor class 1 stockings for 2 pair omeprazole 40 mg PO DAILY tamsulosin 0.4 mg PO BEDTIME 90 days warfarin 10 mg See Protocol PO DAILY@1800 Nursing Note NO CP,SOB,DIET/MED CHANGES,FALLS OR SX F BLEEDING. CONTINUE PRESENT DOSE AND FOLLOW-UP IN 4 WEEKS. GOOD UNDERSTANDING OF DOSING INSTR. Anti-Coag Initial Assessment Social Hx Patient Tobacco Use Status: Never used Tobacco alcohol intake: current Alcohol intake frequency: holidays/special occasions only Coding Level of Care Code Est Patient Level 1 Diagnoses Current use of anticoagulant therapy Z79.01 Assessment & Plan Assessment & Plan (1) Current use of anticoagulant therapy: Onset Date: ~09/08/21 Code(s): Z79.01 - long-term (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
== END 2024-07-21 16:07 | disposition home or self-care (01) ==
PROVIDERS: PCP Internal Medicine; Visit Provider Internal Medicine
DX: Z79.01 Long term (current) use of anticoagulants (principal)

== ENCOUNTER → 2024-07-21 15:45 | Outpatient (BNVA) | payer OTHER, SELFPAY | PROVIDERS: PCP Internal Medicine; Visit Provider Internal Medicine | DX: Z86.718 Personal history of other venous thrombosis and embolism (principal); Z79.01 Long term (current) use of anticoagulants; Z51.81 Encounter for therapeutic drug level monitoring | CPT/HCPCS: 85610; 99211 ==

== ENCOUNTER 2024-08-02 20:49 | Emergency (ER) | payer OTHER, SELFPAY ==
--- NOTE | ~2024-08-02 | XR_ITS ---
EXAMINATION: XR KNEE, LEFT CLINICAL INFORMATION: Pain. COMPARISON: None available. TECHNIQUE: Four views of the left knee. FINDINGS: The bony structures are osteopenic. There is moderate medial and mild lateral knee degenerative change with loss of joint space, subchondral sclerosis and osteophyte formation. There is medial displacement of the femur relative to the tibia. There is no acute fracture. There is no significant joint effusion. Prominent soft tissue calcifications are seen along the anterior tibia. There appears to be soft tissue edema. XR/XR knee LT 4V IMPRESSION: 1. Degenerative changes, most prominent in the medial compartment. 2. No acute fracture. 3. Osteopenia. 4. Soft tissue edema. Electronically signed by: Fabian Shearer MD 08/03/2024 04:57 AM EDT
--- NOTE | ~2024-08-02 | US_ITS ---
EXAMINATION: US TRIPLEX LOWER EXTREMITY, LEFT CLINICAL INFORMATION: Pain and swelling in the left gland COMPARISON: June 2017 TECHNIQUE: Color-flow triplex imaging with spectral analysis and compression Doppler were performed on the left lower extremity. FINDINGS: Respiratory variation, normal compression and augmented flow are noted throughout the left lower extremity. The visualized common femoral vein, superficial femoral vein, profunda femoral vein, popliteal vein and midcalf peroneal and posterior tibial venous segments show no evidence of deep venous thrombosis. There is no Choi's cyst. US/US venous duplex LE LT IMPRESSION: No evidence of deep venous thrombosis involving the left lower extremity. Electronically signed by: Johanna Lima MD 08/03/2024 08:10 AM EDT
[2024-08-02 21:05] VITALS: BP 121/77; PULSE 88; RESP 19; TEMP 36.6; O2SAT 96; BMI 60.0
[2024-08-03 00:09] VITALS: BP 141/72; PULSE 68; RESP 17; TEMP 36.5; O2SAT 98
--- NOTE | 2024-08-03 02:03 | ED.GENADULT ---
HPI - General Adult General Chief complaint: Extremity Injury, Lower Stated complaint: LT calf pain/knee Time Seen by Provider: 08/03/24 02:02 History of Present Illness ED Provider: Malcolm GUTIERREZ narrative: The patient is a 59-year-old male who says that 2 days ago he had a sudden onset pain in the back of his left lower leg just below the knee while he was walking. He was just arriving at work. 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 He says the pain was sudden, like a ?snap. 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 Last night he had great deal of pain in the leg simply walking around his house. He says the pain is worse when he 1st gets up but then feel somewhat better when he has been walking around for awhile. He has had a DVT in that leg in the past and is on warfarin. Related Data Home Medications ?Medication ?Instructions ?Recorded ?Confirmed furosemide 40 mg tablet 40 mg PO DAILY PRN leg fluid 12/10/23 06/30/24 Previous Rx's ?Medication ?Instructions ?Recorded miscellaneous medical supply #2 ea 08/25/21 CPAP (CPAP Machine/Device) #1 ea 12/04/22 warfarin 10 mg tablet 10 mg PO DAILY@1800 #90 tabs 11/26/23 citalopram 40 mg tablet 40 mg PO DAILY #90 tabs 11/29/23 comp.stocking,knee,long,medium #2 ea 02/01/24 diclofenac sodium 75 mg 75 mg PO BID #180 tabs 02/08/24 tablet,delayed release tamsulosin 0.4 mg capsule 0.4 mg PO BEDTIME 90 days #90 caps 05/18/24 ferrous sulfate 325 mg (65 mg 325 mg PO DAILY #60 tabs 07/01/24 iron) tablet folic acid 1 mg tablet 1 mg PO DAILY #90 tabs 07/01/24 allopurinol 300 mg tablet 450 mg (1.5 x 300 mg) PO DAILY 07/09/24 #135 tabs omeprazole 40 mg capsule,delayed 40 mg PO DAILY #90 caps 07/09/24 release Allergies Allergy/AdvReac Type Severity Reaction Status Date / Time No Known Allergies Allergy Verified 08/02/24 21:07 Review of Systems Review of Systems: Yes all other systems are reviewed and are negative FOR[facility]LY [facility] Past Medical History Medical History COVID-19 Annual physical exam Nephrolithiasis Leg edema KATIE (obstructive sleep apnea) Pulmonary embolism Osteoarthritis Morbid obesity with BMI of 60.0-69.9, adult Surgical History Hematoma of left knee region History of sleeve gastrectomy History of hernia repair History of appendectomy History of removal of laparoscopic gastric banding device Benny filter in place Hx of laparoscopic gastric banding Family History Family History Father Lung cancer Bone cancer Mother No problems noted. Social History Social History Household Members: None Housing: House Are you a primary hearing care professional to a significant other at home: No Do you presently have visiting nurse or other home services: No Alcohol intake: current Alcohol intake frequency: holidays/special occasions only Patient Tobacco Use Status: Never used Tobacco Smoked in Last 30 Days: No e-Cigarette/Vaping Use: Never Used Use of substances other than those prescribed or required for medical reasons: No Advance Directives: Yes Advance Directives on File: Yes Advance Directives Date on File: 07/23/21 Do you have a plan to hurt others: No Plan service: No Current occupational status: employed Current occupation: right handed. Cognitive needs: No Hearing needs: No Vision needs: No Physical Exam ED Vital Signs: Vital Signs - 24 hr 08/02/24 21:05 08/03/24 00:09 08/03/24 05:50 Temperature 98 F 97.7 F 97.7 F Pulse Rate 88 68 56 Respiratory Rate 19 17 18 Blood Pressure 121/77 141/72 H 108/63 Pulse Oximetry 96 98 98 Oxygen Delivery Method Room Air Room Air Room Air 08/03/24 06:56 08/03/24 08:53 08/03/24 09:01 Temperature 97.7 F Pulse Rate 58 65 65 Respiratory Rate 14 14 14 Blood Pressure 108/57 L 134/60 134/60 Pulse Oximetry 99 96 96 Oxygen Delivery Method Room Air Room Air Room Air BMI result Body Mass Index 60.0 Const Other: the patient is a very large man. He is 5 ft 11, 195 kg, BMI 60. he is awake, alert, pleasant, cooperative. He does not seem in overt distress. HENMT Other: Face is symmetrical. Mucous membranes moist. Eyes General: appearance normal, both eyes and all related structures Neck Neck: Yes full ROM Resp Effort & Inspection: normal respiratory effort Auscultation: clear to auscultation bilaterally Cardio Rate: regular rate Rhythm: regular rhythm Heart sounds: S1 normal heart sound present and S2 normal heart sound present GI Other: Abdomen is soft and nontender. Skin Other: The skin is pale and dry. No bruising. Neuro Other: The patient is awake and alert with normal mental status. Cranial nerves are grossly intact. He is able to move both of his extremities normally with normal sensation. Extrem Other: Patient has some tenderness to the very proximal posterior left lower leg, just below the popliteal fossa. There is no fullness or swelling palpable. The anterior left knee seems nontender. There is no tenderness along the course of the Achilles tendon or the mid or lower calf muscles. He is able to move the knee and the ankle but he has pain. There is no evident asymmetry in the size of the calves. Medical Decision Making Medical Decision Making MDM Narrative: The patient experienced an abrupt onset of pain in his left upper calf almost 48 hours ago. He was walking at the time when he felt a snap. Patient is on warfarin because of a previous DVT in the left leg. The patient has chronic knee problems bilaterally. 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 When not working he uses a cane. The patient's description of the onset of the pain suggested some kind of muscle tear as a possible explanation for the patient's pain. The location of the pain is much too high in the calf to suggest an Achilles tendon rupture. However the patient seems to describe the onset of the pain in a manner similar to something like an Achilles tendon rupture. There was no particular trauma. An x-ray of the left knee does not show any acute findings. DVT ultrasound does not show a DVT or a Choi's cyst. I suspect that this is some sort of partial muscle tear of the upper left calf muscles. We attempted to apply a knee immobilizer but the girth of the patient's left thigh would not allow us to apply the knee immobilizer in any meaningful way. The patient was offered crutches but he prefers to use a specialized cane he already has. I do not see any indication for additional testing in the emergency department. I think he may be discharged to follow-up with his PCP and with Orthopedics. Lab Data 08/03/24 02:29 08/03/24 02:29 Labs: Lab Results 08/03/24 Range/Units 02:29 WBC 4.3 L (4.8-10.8) X10*3/uL RBC 4.30 L (4.60-5.80) X10*6/uL Hgb 11.7 L (14.0-18.0) g/dl Hct 36.7 L (42.0-52.0) % MCV 85.3 (80.0-98.0) fL MCH 27.2 (27.0-33.0) pg MCHC 31.9 (31.0-36.0) g/dl RDW 16.5 H (11.0-16.0) % Plt Count 147 L (160-400) X10*3/uL MPV 9.8 (9.4-12.4) fL Immature Gran % (Auto) 0.5 H (0.0-0.4) % Neut % (Auto) 42.6 L (45-73) % Lymph % (Auto) 25.6 (20-40) % Emmet % (Auto) 12.9 H (2-11) % Eos % (Auto) 16.8 H (0-4) % Baso % (Auto) 1.6 (0-2) % Lymph # (Auto) 1.1 L (1.2-4.9) X10*3/uL Emmet # (Auto) 0.6 (0.1-1.2) X10*3/uL Eos # (Auto) 0.7 H (0.0-0.4) X10*3/uL Baso # (Auto) 0.1 (0.0-0.2) X10*3/uL Abs Immat Gran (auto) 0.02 (0.00-0.03) X10*3/uL Absolute Neuts (auto) 1.9 L (2.0-8.3) x10*3/uL Absolute Nucleated RBC 0.000 (0.0-0.012) X10*3/uL Nucleated RBC % (auto) 0.0 (0.0-0.2) /100WBC PT 21.2 H (10.9-12.4) SEC INR 1.8 H D (0.9-1.1) Sodium 144 (135-145) mmol/L Potassium 4.4 (3.3-5.1) mmol/L Chloride 111 H (96-108) mmol/L Carbon Dioxide 24 (22-29) mmol/L Anion Gap 13 (12-20) BUN 15 (9-16) mg/dL Creatinine 0.97 (0.5-1.4) mg/dL Estim Creat Clear Calc 144.6 Estimated GFR > 60 Random Glucose 102 (60-115) mg/dL Calcium 9.3 (8.4-10.2) mg/dL Discharge Plan Discharge Clinical Impression: Acute pain of left knee, Tearing of muscle Patient Disposition: Home, Self-Care Additional Instructions: Based on your description of the onset of the pain I suspect you have some degree of a muscle tear of the proximal portion of your calf muscles. Your ultrasound shows no blood clot. Your x-ray shows no new bony findings. I would recommend resting as much as you can for the next several days. You may use acetaminophen (Tylenol) as needed for pain. Continue your regular medications. Please plan on following up with your regular doctor and with your orthopedist if possible. I have provided a work note so you should be out of work until next . My hope is you will be feeling well enough to work at that point. Return to the emergency room if significantly worse. Prescriptions: No Action (DME) miscellaneous medical supply Misc See Rx Instructions .Route Qty: 2 0RF Rx Instructions: custom compressor class 1 stockings for 2 pair (DME) CPAP Machine/Device Device See Rx Instructions .Route Qty: 1 0RF Rx Instructions: As directed, with supplies citalopram 40 mg tablet 40 mg PO DAILY Qty: 90 3RF diclofenac sodium 75 mg tablet,delayed release (DR/EC) 75 mg PO BID Qty: 180 3RF omeprazole 40 mg capsule,delayed release(DR/EC) 40 mg PO DAILY Qty: 90 3RF allopurinol 300 mg tablet 450 mg PO DAILY Qty: 135 3RF folic acid 1 mg Tablet 1 mg PO DAILY Qty: 90 3RF ferrous sulfate 325 mg (65 mg iron) Tablet 325 mg PO DAILY Qty: 60 4RF (DME) comp.stocking,knee,long,medium Misc See Rx Instructions .Route Qty: 2 3RF Rx Instructions: Custom stockings- 20mmHg, Addaptive, elverax furosemide 40 mg tablet 40 mg PO DAILY PRN (Reason: leg fluid) warfarin 10 mg tablet 10 mg PO DAILY@1800 Qty: 90 3RF Protocol: Dose Management Condition: Wednesday (Week One) Dose/Route: 5 mg Instruction: 0.5 x 10 mg tablets Condition: Wednesday Dose/Route: 10 mg Instruction: 1 x 10 mg tablet Condition: Wednesday Dose/Route: 10 mg Instruction: 1 x 10 mg tablet Condition: Wednesday Dose/Route: 5 mg Instruction: 0.5 x 10 mg tablets Condition: Dose/Route: 10 mg Instruction: 1 x 10 mg tablet Condition: Wednesday Dose/Route: 10 mg Instruction: 1 x 10 mg tablet Condition: Wednesday Dose/Route: 10 mg Instruction: 1 x 10 mg tablet Condition: Wednesday (Week Two) Dose/Route: 5 mg Instruction: 0.5 x 10 mg tablets Condition: Wednesday Dose/Route: 10 mg Instruction: 1 x 10 mg tablet Condition: Wednesday Dose/Route: 10 mg Instruction: 1 x 10 mg tablet Condition: Wednesday Dose/Route: 5 mg Instruction: 0.5 x 10 mg tablets Condition: Dose/Route: 10 mg Instruction: 1 x 10 mg tablet Condition: Wednesday Dose/Route: 10 mg Instruction: 1 x 10 mg tablet Condition: Wednesday Dose/Route: 10 mg Instruction: 1 x 10 mg tablet Protocol Text: Adjustment Start Date: Wednesday07/21/24 INR Value: 2.7 INR Date: 07/21/24 Recheck Date: 08/18/24 tamsulosin 0.4 mg capsule 0.4 mg PO BEDTIME 90 Days Qty: 90 3RF Referrals: [facility] [place] Orthopedic Surgeons [Provider Group] (Left knee/upper calf pain.) Alessandra Torres MD [Physician] - (Left leg pain) Stand Alone Forms: Work/School Release Interventions: ED Discharge Assessment Last Done: 08/03/24 09:01 Discharge Date/Time: 08/03/24 09:02 Print Language: Citizen Of [place]
[2024-08-03 02:33] LABS: MANUAL DIFF FLAG NO
[2024-08-03 02:37] LABS: Basophils Absolute Auto 0.1 X10*3/uL (0.0-0.2); Basophils Percent Auto 1.6 % (0-2); Eosinophils Absolute Auto 0.7 X10*3/uL (0.0-0.4); Eosinophils Percent Auto 16.8 % (0-4); Hematocrit 36.7 % (42.0-52.0); Hemoglobin 11.7 g/dl (14.0-18.0); Imm Gran Abs Auto 0.02 X10*3/uL (0.00-0.03); Imm Gran Pct Auto 0.5 % (0.0-0.4); Lymphocytes Absolute Auto 1.1 X10*3/uL (1.2-4.9); Lymphocytes Percent Auto 25.6 % (20-40); Mean Corpuscular HGB Conc 31.9 g/dl (31.0-36.0); Mean Corpuscular Hemoglobin 27.2 pg (27.0-33.0); Mean Corpuscular Volume 85.3 fL (80.0-98.0); Mean Platelet Volume 9.8 fL (9.4-12.4); Monocytes Absolute Auto 0.6 X10*3/uL (0.1-1.2); Monocytes Percent Auto 12.9 % (2-11); Neutrophils Absolute Auto 1.9 x10*3/uL (2.0-8.3); Neutrophils Percent Auto 42.6 % (45-73); Platelet Count 147 X10*3/uL (160-400); Red Cell Distribution Width 16.5 % (11.0-16.0); White Blood Count 4.3 X10*3/uL (4.8-10.8)
[2024-08-03 02:42] LABS: INTERNATIONAL NORM RATIO 1.8 (0.9-1.1); Prothrombin Time 21.2 SEC (10.9-12.4)
[2024-08-03 02:48] LABS: Anion Gap 13 (12-20); Blood Urea Nitrogen 15 mg/dL (9-16); Calcium 9.3 mg/dL (8.4-10.2); Carbon Dioxide 24 mmol/L (22-29); Chloride 111 mmol/L (96-108); Creatinine Clr Calc Pharmacy 144.6; Estimated Glomerular Filt Rate > 60; Glucose Random 102 mg/dL (60-115); Potassium 4.4 mmol/L (3.3-5.1); Sodium 144 mmol/L (135-145)
[2024-08-03 05:50] VITALS: BP 108/63; PULSE 56; RESP 18; TEMP 36.5; O2SAT 98
[2024-08-03 06:56] VITALS: BP 108/57; PULSE 58; RESP 14; O2SAT 99
[2024-08-03 08:53] VITALS: BP 134/60; PULSE 65; RESP 14; O2SAT 96
[2024-08-03 09:01] VITALS: BP 134/60; PULSE 65; RESP 14; TEMP 36.5; O2SAT 96
== END 2024-08-03 09:02 | disposition home or self-care (01) ==
PROVIDERS: Emergency Provider Emergency Medicine
DX: S86.912A Strain of unspecified muscle(s) and tendon(s) at lower leg level, left leg, initial encounter (principal); X50.9XXA Other and unspecified overexertion or strenuous movements or postures, initial encounter; M79.662 Pain in left lower leg; Z86.718 Personal history of other venous thrombosis and embolism; Z79.01 Long term (current) use of anticoagulants; Y93.01 Activity, walking, marching and hiking; Y92.89 Other specified places as the place of occurrence of the external cause; Y99.9 Unspecified external cause status
CPT/HCPCS: 36415; 73564; 80048; 85025; 85610; 93971; 99284

== ENCOUNTER 2024-08-09 11:31 | Outpatient (AMB) | payer OTHER, SELFPAY ==
--- NOTE | 2024-08-09 11:36 | A.OFFVIS_ITS ---
Intake Visit Reasons: ED f/u - pain of left knee Intake Note: Wm a 59 year old male who presents today for an ER follow up of left knee pain. Patient reports on 08/01/24 while at work he had just walked down an incline when he felt a pop in his left knee. 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 He presented to [facility] ER but due to ER being full, he presented the following day, Xrays were taken as well as an US. Currently constant pain located at the posterior aspect that travels to the anterior. He also has pain in his calf. His pain increases with walking and extension. He states his pain is different than his usual knee pain. 08/01/24. Allergies No Known Allergies Allergy (Verified 08/09/24 11:39) Medication List - Last Reconciled 08/09/24 by Prieto Darden PA-C allopurinol 450 mg (1.5 x 300 mg) PO DAILY citalopram 40 mg PO DAILY comp.stocking,knee,long,medium Custom stockings- 20mmHg, Addaptive, elverax CPAP (CPAP Machine/Device) As directed, with supplies diclofenac sodium 75 mg PO BID ferrous sulfate 325 mg PO DAILY folic acid 1 mg PO DAILY furosemide 40 mg PO DAILY PRN miscellaneous medical supply custom compressor class 1 stockings for 2 pair omeprazole 40 mg PO DAILY tamsulosin 0.4 mg PO BEDTIME 90 days warfarin 10 mg See Protocol PO DAILY@1800 HPI HPI ED f/u - pain of left knee: Details: 59 yo male presents to the office today for pain in the left knee. He states he was at work and he felt a pop while he was walking to the garage. 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 He states as he did get off and began walking through the bus he had significant pain with walking in the left knee. He was seen in the ED, xrays and U/S obtained which were negative for acute fractures or DVT. He states since the pain began, he has been alternating from bed to chair and he has pain behind the leg which shoots from the calf to behind the knee. He states as he is walking he feels the knee will give out. He does ambulat with a cane. FORMERLY [facility] Medical History (Updated 08/07/24 @ 15:22 by Wm Jones MD) Hypogonadism, hypogonadotropic, with anosmia COVID-19 Annual physical exam Nephrolithiasis Leg edema KATIE (obstructive sleep apnea) Pulmonary embolism Osteoarthritis Morbid obesity with BMI of 60.0-69.9, adult Surgical History Hematoma of left knee region History of sleeve gastrectomy History of hernia repair History of appendectomy History of removal of laparoscopic gastric banding device [place] filter in place Hx of laparoscopic gastric banding Family History Father Lung cancer Bone cancer Mother No problems noted. Social History Household Members: None Housing: House Are you a primary field care manager to a significant other at home: No Do you presently have visiting nurse or other home services: No Alcohol intake: current Alcohol intake frequency: holidays/special occasions only Patient Tobacco Use Status: Never used Tobacco e-Cigarette/Vaping Use: Never Used Advance Directives Date on File: 07/23/21 service: No Current occupational status: employed Current occupation: right handed. Cognitive needs: No Hearing needs: No Vision needs: No Review of Systems Const All systems reviewed & are unremarkable except as noted in HPI and below Physical Exam Extrem Other: Left knee skin intact, no erythema or joint effusion. Tenderness along the medial joint line. ROM full with crepitus. Negative steinmans. No ligamentous laxity. NVI. Assessment & Plan Assessment & Plan (1) Osteoarthritis of left knee: Code(s): M17.12 - Unilateral primary osteoarthritis, left knee Category: Medical Plan: We discussed options today which include physical therapy and a cortisone injection. Like to hold off on the injection today and proceed with therapy an order was placed today. He will contact our office if symptoms persist or worsen otherwise follow up as needed. Orders: Orders PT Evaluation and Treatment Today M17.12 - Unilateral primary osteoarthritis, left knee Coding Level of Care Code Est Pt Level 3 (19547) Complex EM visit Add On G2211 Diagnoses Osteoarthritis of left knee M17.12
== END 2024-08-09 12:17 | disposition home or self-care (01) ==
PROVIDERS: Visit Provider Physician Assistant
DX: M17.12 Unilateral primary osteoarthritis, left knee (principal)
CPT/HCPCS: 99213

== ENCOUNTER → 2024-08-09 11:31 | Outpatient (BNVA) | payer OTHER, SELFPAY | PROVIDERS: Visit Provider Physician Assistant ==

== ENCOUNTER 2024-08-25 11:50 | Outpatient (AMB) | payer OTHER, SELFPAY ==
[2024-08-25 12:15] LABS: Prothrombin Time Whole Bld POC 25.9 sec (11.1-13.5); ~PT, ~INR - Anti Coag Clinic 2.2 (0.9-1.1)
--- NOTE | 2024-08-25 12:19 | MHC.OFFVISCO ---
Intake Intake Visit Reasons: Anticoagulation Allergies No Known Allergies Allergy (Verified 08/25/24 12:00) Medication List - Last Reconciled 08/25/24 by Martha Sebastian RN allopurinol 450 mg (1.5 x 300 mg) PO DAILY citalopram 40 mg PO DAILY comp.stocking,knee,long,medium Custom stockings- 20mmHg, Addaptive, elverax CPAP (CPAP Machine/Device) As directed, with supplies diclofenac sodium 75 mg PO BID ferrous sulfate 325 mg PO DAILY folic acid 1 mg PO DAILY furosemide 40 mg PO DAILY PRN miscellaneous medical supply custom compressor class 1 stockings for 2 pair omeprazole 40 mg PO DAILY tamsulosin 0.4 mg PO BEDTIME 90 days warfarin 10 mg See Protocol PO DAILY@1800 Nursing Note INR: 2.2 in therapeutic range 2-3 Medications and supplements reviewed No changes in health, diet, medications, or supplements, Denies any signs and symptoms of bleeding or bruising or clotting. Bleeding, bruising, clotting discussed Nutritional guidance given Dose: keep same dose of 10mg X 5 days and 5mg X 2 days F/U INR: 4 weeks Patient verbalizes understanding of instructions given Anti-Coag Initial Assessment Social Hx Patient Tobacco Use Status: Never used Tobacco alcohol intake: current Alcohol intake frequency: holidays/special occasions only Coding Level of Care Code Est Patient Level 1 Diagnoses Current use of anticoagulant therapy Z79.01 Results AMB INR Fingerstick AMB INR Fingerstick 2.2 Last Edit by Martha Sebastian RN on 08/25/24 12:11 interface delay Assessment & Plan Assessment & Plan (1) Current use of anticoagulant therapy: Onset Date: ~09/08/21 Code(s): Z79.01 - USP (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
== END 2024-08-25 12:24 | disposition home or self-care (01) ==
LOC: HO.ACS 11:50
PROVIDERS: PCP Internal Medicine; Visit Provider Internal Medicine
DX: Z79.01 Long term (current) use of anticoagulants (principal)

== ENCOUNTER → 2024-08-25 11:50 | Outpatient (BNVA) | payer OTHER, SELFPAY | PROVIDERS: PCP Internal Medicine; Visit Provider Internal Medicine | DX: Z86.718 Personal history of other venous thrombosis and embolism (principal); Z79.01 Long term (current) use of anticoagulants; Z51.81 Encounter for therapeutic drug level monitoring | CPT/HCPCS: 85610; 99211 ==

== ENCOUNTER 2024-09-12 18:55 | Outpatient (REF) | payer OTHER, SELFPAY ==
--- NOTE | ~2024-09-12 | MR_ITS ---
EXAMINATION: MR KNEE WITHOUT CONTRAST, LEFT CLINICAL INFORMATION: Left knee pain. Osteoarthritis. COMPARISON: Most recent left knee radiographs dated 08/03/2024. Left knee CT dated 08/13/2022. TECHNIQUE: MRI of the knee without contrast was performed using routine sequences on a high-field scanner. FINDINGS: MENISCI: Medial Meniscus: Diffuse complex tearing of the medial meniscus with significant attenuation and near-complete absence of the posterior horn and root. The meniscal body is extruded medially with an inferiorly displaced meniscal flap within the medial meniscotibial recess. Lateral Meniscus: Oblique inner margin tear of the anterior horn with extension to the femoral articular surface of the meniscal body and inner margin/tibial articular surface of the posterior horn. LIGAMENTS: Cruciate: Absence of the anterior cruciate ligament consistent with a chronic complete tear and ligament disruption. Diffuse thickening and degenerative signal throughout the posterior cruciate ligament. Collateral: Edema adjacent to the medial collateral ligament which may be related to the meniscal tear or indicate a grade 1 sprain. Intact fibular collateral ligament. EXTENSOR MECHANISM: Intact quadriceps and patellar tendons. ARTICULAR CARTILAGE/BONE: Patellofemoral Compartment: Diffuse articular cartilage thinning and signal heterogeneity with broad areas of full-thickness loss and mild subchondral cystic change. Moderate marginal osteophytes. Medial Compartment: Diffuse, full-thickness weightbearing articular cartilage loss with bony remodeling and subchondral marrow edema. Large marginal osteophytes. Lateral Compartment: Diffuse articular cartilage thinning with broad areas of full-thickness loss along the weightbearing lateral femoral condyle and lateral tibial plateau. Prominent marginal osteophytes. Chronic medial translation of the femoral condyles in relation to the tibial plateau. No acute fracture or dislocation. JOINT FLUID AND BURSAE: [id number] joint effusion with mild synovitis. Trace Choi's cyst. MUSCLE/TENDONS: Prominent edema within the distal semimembranosus muscle belly extending proximally beyond the image [id number] and consistent with an acute strain/partial tear. MR/MR knee LT wo con IMPRESSION: 1. Diffuse complex tearing of the medial meniscus with significant attenuation and near-complete absence of the posterior horn and root. The meniscal body is extruded medially with an inferiorly displaced meniscal flap. 2. Oblique inner margin tear of the lateral meniscus anterior horn with extension to the meniscal body and posterior horn. 3. 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 Degenerative signal throughout the posterior cruciate ligament. 4. Edema adjacent to the medial collateral ligament which may be related to the meniscal tear or indicate a grade 1 sprain. 5. Severe medial as well as [id number] patellofemoral and lateral compartment osteoarthritis. [id number] joint effusion with mild synovitis. Trace Choi's cyst. 6. Acute strain/partial tear of the distal semimembranosus muscle extending proximally beyond the image [id number]. Electronically signed by: Bandar Lobo MD 09/28/2024 12:40 PM [facility]
== END 2024-09-12 18:56 | disposition home or self-care (01) ==
LOC: HO.MRI 18:55
PROVIDERS: PCP Internal Medicine; Visit Provider Physician Assistant
DX: M17.12 Unilateral primary osteoarthritis, left knee (principal)
CPT/HCPCS: 73721

== ENCOUNTER 2024-09-18 15:29 | Outpatient (REF) | payer OTHER, SELFPAY ==
[2024-09-18 15:41] LABS: MANUAL DIFF FLAG NO
[2024-09-18 15:46] LABS: Basophils Absolute Auto 0.1 X10*3/uL (0.0-0.2); Basophils Percent Auto 1.3 % (0-2); Eosinophils Absolute Auto 0.7 X10*3/uL (0.0-0.4); Eosinophils Percent Auto 13.3 % (0-4); Hematocrit 39.3 % (42.0-52.0); Hemoglobin 12.6 g/dl (14.0-18.0); Imm Gran Abs Auto 0.02 X10*3/uL (0.00-0.03); Imm Gran Pct Auto 0.4 % (0.0-0.4); Lymphocytes Absolute Auto 1.5 X10*3/uL (1.2-4.9); Lymphocytes Percent Auto 27.8 % (20-40); Mean Corpuscular HGB Conc 32.1 g/dl (31.0-36.0); Mean Corpuscular Hemoglobin 28.1 pg (27.0-33.0); Mean Corpuscular Volume 87.7 fL (80.0-98.0); Mean Platelet Volume 9.4 fL (9.4-12.4); Monocytes Absolute Auto 0.6 X10*3/uL (0.1-1.2); Monocytes Percent Auto 11.4 % (2-11); Neutrophils Absolute Auto 2.5 x10*3/uL (2.0-8.3); Neutrophils Percent Auto 45.8 % (45-73); Platelet Count 160 X10*3/uL (160-400); Red Blood Count 4.48 X10*6/uL (4.60-5.80); Red Cell Distribution Width 16.1 % (11.0-16.0); White Blood Count 5.4 X10*3/uL (4.8-10.8)
--- NOTE | 2024-09-18 15:48 | P.PNHO-ONC_ITS ---
Medical Summary - Medical Summary Date of Service: 09/18/24 Chief complaint: Follow-up for: Autoimmune hemolytic anemia. Primary Care Provider: alex Encarnacion. Medical Summary: DIAGNOSIS: AUTOIMMUNE HEMOLYTIC ANEMIA. Second recurrence of autoimmune Hemolytic Anemia. CURRENT THERAPY: 1. Status post prednisone taper in September 2008 to October 2009. 2. Recurrent hemolytic anemia, resume prednisone 60 mg on January 21, 2011. 3. Presplenectomy immunization in September 2008. 4. Saw surgeon for laparoscopic splenectomy, but he did not need it yet. 5. Status post gastrectomy with removal of 90% of the stomach in April 24, 2014. 6. Completed Cycle 4 of Ruxience, on 07/17. Interval History Interval history: Interval History Interval history: This is a pleasant 59 year-old gentleman, here for a follow-up visit. He tells me he injured his left calf muscle. On 08/02, he was at work and trying to go down on an incline to the garage, when he heard a pop. Since then he started having pain in his left knee and the calf muscle. He was seen by orthopedics. An MRI was done on 09/05. It revealed: 1. Diffuse complex tearing of the medial meniscus with significant attenuation and near-complete absence of the posterior horn and root. The meniscal body is extruded medially with an inferiorly displaced meniscal flap. 2. Oblique inner margin tear of the lateral meniscus anterior horn with extension to the meniscal body and posterior horn. 3. 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 Degenerative signal throughout the posterior cruciate ligament. 4. Edema adjacent to the medial collateral ligament which may be related to the meniscal tear or indicate a grade 1 sprain. 5. Severe medial as well as glslzzpt-ja-fqkrvx patellofemoral and lateral compartment osteoarthritis. Hfvha-lg-jalukjmq joint effusion with mild synovitis. Trace Choi's cyst. 6. Acute strain/partial tear of the distal semimembranosus muscle extending proximally beyond the image glqdf-[id number]. He has to start physical therapy on Wednesday. Unfortunately he has not been able to get back to work. Other than that he feels quite well. His energy level is actually better. He denies body aches. His knees are hurting, especially the left. He denies headache. Occasionally he feels a little dizzy. He has been taking in more fluids. He denies any fever chills nor night sweats. He denies chest pain nor shortness of breath. No abdominal pain nausea vomiting heartburn indigestion. After he eats after 122 hours he notes diarrhea, without any gross blood in it. He has been trying to eat healthy. His appetite is good. He did not gone back to bariatrics, since he does not want another surgery. He is in good spirits. Rest of the review of systems is unremarkable. He has had problems with low testosterone levels. He was on testosterone gel but he has not kept up with follow-up with the endocrine doctor in [place]. He would like to see Dr. Jones here. Recent history: He was seen in the ER on 07/24 after he fell at work. 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 Denies head trauma or LOC. reports pain greatest behind knee. Denies numbness, tingling, weakness. Reevaluation #1: CT scan does not show extravasation. CT scan shows large suprapatellar joint effusion with severe arthritis. CT scan negative for blood. Presently no indication for arthrocentesis. Not suspecting septic joint. Trauma with knee swelling patient may need MRI machine to rule out meniscus/ligament tear Patient placed in Mark wrap crutches with pain medication and steroids. Patient informed to follow-up with orthopedic clinic. Spoke with Dr. Rowan agreeable with plan. He will be following up with orthopedics. Review of Systems - Constitutional Reports system reviewed and no additional complaints, except as documented, Denies lack of energy, Denies weight loss - Eyes Reports system reviewed and no additional complaints, except as documented - ENT Reports system reviewed and no additional complaints, except as documented - Cardiovascular Reports system reviewed and no additional complaints, except as documented - Respiratory Reports no additional respiratory complaints - Gastrointestinal Reports system reviewed and no additional complaints, except as documented - Genitourinary Genitourinary: Reports no additional male genitourinary complaints - Musculoskeletal Reports system reviewed and no additional complaints, except as documented - Integumentary/Breasts Skin/Breast: Reports no additional skin complaints - Neurologic Reports system reviewed and no additional complaints, except as documented - Psychiatric Reports system reviewed and no additional complaints, except as documented - Endocrine Reports no additional endocrine complaints - Hematologic/Lymphatic Reports system reviewed and no additional complaints, except as documented - Allergic/Immunologic Reports system reviewed and no additional complaints, except as documented COUNTS INCLUDE 234 BEDS AT THE [facility] Medical History: Medical History (Last Reviewed 09/18/24 @ 15:09 by Milton Contreras) Annual physical exam COVID-19 Hypogonadism, hypogonadotropic, with anosmia Leg edema Morbid obesity with BMI of 60.0-69.9, adult Nephrolithiasis KATIE (obstructive sleep apnea) Osteoarthritis Pulmonary embolism Functional capacity: uses cane/walker Patient : No Family History: Family History (Last Reviewed 09/18/24 @ 15:09 by Milton Contreras) Father Lung cancer Bone cancer Mother No problems noted. Surgical History: Surgical History (Last Reviewed 09/18/24 @ 15:09 by Milton Contreras) [place] filter in place Hematoma of left knee region History of appendectomy History of hernia repair History of removal of laparoscopic gastric banding device History of sleeve gastrectomy Hx of laparoscopic gastric banding Social History: Social History (Last Reviewed 09/18/24 @ 15:09 by Milton Contreras) Living Situation History: Household Members: None Housing: House Are you a primary manager career to a significant other at home: No Do you presently have visiting nurse or other home services: No Tobacco History: Patient Tobacco Use Status: Never used Tobacco e-Cigarette/Vaping Use: Never Used Advance Directives: Advance Directives Date on File: 07/23/21 Occupation Assessmet: service: No Current occupational status: employed Current occupation: right handed. Oncology Screenings - ECOG Performance Status ECOG Performance Status: 1 Home Medications and Allergies Home Medications ?Medication ?Instructions ?Recorded ?Confirmed ?Type furosemide 40 mg tablet 40 mg PO DAILY PRN leg fluid 12/10/23 09/18/24 History Allergies Allergy/AdvReac Type Severity Reaction Status Date / Time No Known Allergies Allergy Verified 09/18/24 15:09 Exam - Constitutional Present: no acute distress - Routine HEENT Exam Head: Present: normal inspection Eye: Present: normal appearance ENT: Present: mucous membranes moist - Routine Neck Exam Present: full ROM - Routine Respiratory Exam Present: CTAB - Routine Cardiovascular Exam Cardiovascular: Present: RRR, S1, S2 - Routine Abdominal Exam Present: soft, nontender - Routine Extremities Exam Present: nontender - Routine Back/Spine/Pelvis Exam Back/Spine: Present: full ROM - Routine Skin Exam Present: intact - Routine Neurological Exam Present: alert, oriented X3 - Routine Psychiatric Exam Present: normal affect Data - Labs CBC & Chem 7: 09/18/24 15:40 09/18/24 15:40 Labs: Laboratory Last Values WBC 5.4 X10*3/uL (4.8-10.8) 09/18/24 15:40 RBC 4.48 X10*6/uL (4.60-5.80) L 09/18/24 15:40 Hgb 12.6 g/dl (14.0-18.0) L 09/18/24 15:40 Hct 39.3 % (42.0-52.0) L 09/18/24 15:40 MCV 87.7 fL (80.0-98.0) 09/18/24 15:40 MCH 28.1 pg (27.0-33.0) 09/18/24 15:40 MCHC 32.1 g/dl (31.0-36.0) 09/18/24 15:40 RDW 16.1 % (11.0-16.0) H 09/18/24 15:40 Plt Count 160 X10*3/uL (160-400) 09/18/24 15:40 MPV 9.4 fL (9.4-12.4) 09/18/24 15:40 Immature Gran % (Auto) 0.4 % (0.0-0.4) 09/18/24 15:40 Neut % (Auto) 45.8 % (45-73) 09/18/24 15:40 Lymph % (Auto) 27.8 % (20-40) 09/18/24 15:40 [place] % (Auto) 11.4 % (2-11) H 09/18/24 15:40 Eos % (Auto) 13.3 % (0-4) H 09/18/24 15:40 Baso % (Auto) 1.3 % (0-2) 09/18/24 15:40 Lymph # (Auto) 1.5 X10*3/uL (1.2-4.9) 09/18/24 15:40 [place] # (Auto) 0.6 X10*3/uL (0.1-1.2) 09/18/24 15:40 Eos # (Auto) 0.7 X10*3/uL (0.0-0.4) H 09/18/24 15:40 Baso # (Auto) 0.1 X10*3/uL (0.0-0.2) 09/18/24 15:40 Abs Immat Gran (auto) 0.02 X10*3/uL (0.00-0.03) 09/18/24 15:40 Absolute Neuts (auto) 2.5 x10*3/uL (2.0-8.3) 09/18/24 15:40 Absolute Nucleated RBC 0.000 X10*3/uL (0.0-0.012) 09/18/24 15:40 Nucleated RBC % (auto) 0.0 /100WBC (0.0-0.2) 09/18/24 15:40 Assessment and Plan Patient Active problem list reviewed?: Yes (1) Hemolytic anemia Status: Acute Assessment and plan: 59 year-old gentleman with history of Autoimmune Hemolytic Anemia. He was on prednisone for that, twice and then remained in remission, since spring. His blood count has been stable. He had bariatric surgery at [facility], but he does not want to go back there. At this point, he would rather be followed here at [place]. I gave him the phone number for the bariatric program, so that he could be established here for followup etc., and other nutritional recommendations. He would like to lose weight, and is motivated. However, when he tries to exercise, his knees had an issue on account of the arthritis. He mentioned breast pain. I scheduled him for a mammogram and ultrasound of his left breast for further evaluation. This was done on 06/06/2021: No mammographic evidence of malignancy or focal inflammatory changes. Unremarkable targeted left breast ultrasound. 11/14:Retic 1.1, hapto 136, LDH 236. Back in May, he was feeling very fatigued. His hemoglobin was low. It was 11.9, was 10.8, on 06/16, previously 11.1. LDH is normal at 248, although up from 212, in April. I was concerned that the hemolytic anemia may be recurring. I checked coomb's test. This came back positive. Since the hemolytic screen confirmed relapse, l decided to treat with rituximab. A biosimilar Ruxience was approved by insurance. Details of the regimen including potential side effects of hypersensitivity reaction skin rash, diarrhea, pancytopenia, risk of hepatitis-B reactivation, cardiopulmonary toxicity were all addressed with him. He understood and was willing to proceed. He completed 4 weeks of treatment, on 07/17/22. He tolerated it well. His energy level was good for a while. His hemoglobin was stable at 11.3. Retic 1.2. LDH: 210. INR 1.6. Again in June, he felt exhausted. He had some loose stools so he could have been dehydrated. However he had labs done on 06/20. CBC: WBC 4.9, HGB 10.8, HCT 36.2, MCV 84.4, PLT 200. He had become more anemic. I proceeded with an anemia workup. l checked hemolytic screen: Retic 1.4, LDH 229, Coomb's test negative. Check iron studies and a ferritin: 34/345/08/07. Checked B12 and folate:327/3.2. Does not appear that he had hemolysis however his iron studies were consistent with iron deficiency anemia. l referred him to GI, for further evaluation. Meanwhile I started him on Iron and Folate replacement. He has more energy now. Hemoglobin is up to 12.6. LDH: 222. No evidence of hemolysis right now. He is having some knee issues. He had an MRI he has to follow-up with orthopedic. PLAN: It does not appear that he has been seen by GI yet. Will call again. He will continue on the oral iron. I will continue to monitor his blood count on a 3 monthly basis. He wanted to follow-up with Dr. Jones regarding his low testosterone levels. He has been referred. I strongly encouraged him to joined the bariatric program, for weight loss. Thank you, CC: Dr. Benito Bentley. Dr. Marsh. - Time Spent With Patient Time Spent with Patient (in minutes): 25
[2024-09-18 15:49] LABS: INTERNATIONAL NORM RATIO 2.1 (0.9-1.1); Prothrombin Time 24.7 SEC (10.9-12.4)
[2024-09-18 15:58] LABS: Alanine Aminotransferase 18 U/L (0-40); Albumin Level 4.1 g/dL (3.5-5.0); Alkaline Phosphatase 92 U/L (39-117); Anion Gap 13 (12-20); Aspartate Amino Transferase 22 U/L (5-37); Bilirubin Total 1.2 mg/dL (0.0-1.0); Blood Urea Nitrogen 17 mg/dL (9-16); Calcium 9.5 mg/dL (8.4-10.2); Carbon Dioxide 24 mmol/L (22-29); Chloride 110 mmol/L (96-108); Estimated Glomerular Filt Rate 58; Glucose Random 83 mg/dL (60-115); Lactate Dehydrogenase 222 U/L (118-273); Potassium 4.4 mmol/L (3.3-5.1); Sodium 143 mmol/L (135-145); Total Protein 6.7 g/dL (6.5-8.0)
== END 2024-09-18 15:30 | disposition home or self-care (01) ==
LOC: HO.LAB 15:29
PROVIDERS: Internal Medicine Medical Oncology; Visit Provider Internal Medicine
DX: D58.9 Hereditary hemolytic anemia, unspecified (principal); Z79.01 Long term (current) use of anticoagulants
CPT/HCPCS: 36415; 80053; 83615; 85025; 85610; 99213

== ENCOUNTER 2024-09-19 07:08 | Outpatient (AMB) | payer OTHER, SELFPAY ==
--- NOTE | 2024-09-19 07:09 | MHC.OFFVISCO ---
Intake Intake Visit Reasons: Anticoagulation Allergies No Known Allergies Allergy (Verified 09/18/24 15:09) Nursing Note pt seen today by Dr Wong. Pt added to ACS visit today while he was here because it is often challenging for him to come to appt due to difficulty walking INR: 2.1 in therapeutic range Medications and supplements reviewed No changes in health, diet, medications, or supplements, Denies any signs and symptoms of bleeding or bruising or clotting. Bleeding, bruising, clotting discussed Nutritional guidance given Dose: keep same 5mg x 2 days/ 10mg x 5 days F/U INR: 10/09/24 Patient verbalizes understanding of instructions given and will call with any medication or health changes Anti-Coag Initial Assessment Social Hx Patient Tobacco Use Status: Never used Tobacco alcohol intake: current Alcohol intake frequency: holidays/special occasions only Questionnaires HAS-BLED Does the patient had uncontrolled Hypertension?: No Does the patient have renal disease?: Yes Does the patient have liver disease?: No Does the patient have a history of stroke?: No Has the patient had major bleeding or predisposition to bleeding?: No Does the patient have labile INRs?: Yes Is the patient over 65 years of age?: No Is the patient on medications that gives them a predisposition to bleeding?: Yes Does the patient use alcohol?: Yes HAS-BLED Score: 4 CHADSVASC Age: <65 Gender: Male Does the patient have a history of CHF?: No Does the patient have a history of Hypertension?: No Does the patient have a history of Stroke/TIA/Thromboembolism?: Yes Does the patient have a history of Vascular Disease (prior HI, PAD or aortic plaque)?: Yes Does the patient have a history of Diabetes?: No CHADS VACS Score: 3 Maritza Prediction Score Rsk VTE Active Cancer: No Previous VTE, excluding superficial vein thrombosis: Yes Reduced mobility: Yes 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 ) With-in last month Trauma and/or Surgery: No Elderly 70 year or older: No Heart and/or Respiratory Failure: No Acute Myocardial infarction and/or Ischemic Stroke: No Acute Infection and/or Rheumatologic Disorder: Yes Obesity (BMI 30 or greater): Yes Ongoing Hormonal Treatment: No Score: 11 Maritza Score less than 4; Low Risk of VTE Maritza Score 4 or greater; High Risk of VTE Coding Level of Care Code Est Patient Level 1 Diagnoses Current use of anticoagulant therapy Z79.01 Assessment & Plan Assessment & Plan (1) Current use of anticoagulant therapy: Onset Date: ~09/08/21 Code(s): Z79.01 - CHCF (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
== END 2024-09-19 07:16 | disposition home or self-care (01) ==
LOC: HO.ACS 07:08
PROVIDERS: PCP Internal Medicine; Visit Provider Internal Medicine
DX: Z79.01 Long term (current) use of anticoagulants (principal)

== ENCOUNTER → 2024-09-19 07:08 | Outpatient (BNVA) | payer OTHER, SELFPAY | PROVIDERS: PCP Internal Medicine; Visit Provider Internal Medicine | DX: Z86.718 Personal history of other venous thrombosis and embolism (principal); Z79.01 Long term (current) use of anticoagulants; Z51.81 Encounter for therapeutic drug level monitoring | CPT/HCPCS: 99211 ==

== ENCOUNTER 2024-10-17 11:10 | Outpatient (AMB) | payer OTHER, SELFPAY ==
[2024-10-17 11:13] VITALS: BMI 61.5
--- NOTE | 2024-10-17 11:13 | MHC.OFFVIS ---
Vital Signs 10/17/24 11:13 Height 5 ft 10 in Weight 429 lb BMI 61.5 Intake Visit Reasons: OV- Left knee pain MRI review Intake Note: Wm a 59 year old male who presents today for an MRI review of left knee pain. Patient reports that he continues to have pain that seems to be getting worse. He is unable to use stairs and has difficulty with applying weight to his left leg. Allergies No Known Allergies Allergy (Verified 10/17/24 11:18) Medication List - Last Reconciled 10/17/24 by Prieto Darden PA-C allopurinol 450 mg (1.5 x 300 mg) PO DAILY citalopram 40 mg PO DAILY comp.stocking,knee,long,medium Custom stockings- 20mmHg, Addaptive, elverax CPAP (CPAP Machine/Device) As directed, with supplies diclofenac sodium 75 mg PO BID ferrous sulfate 325 mg PO DAILY folic acid 1 mg PO DAILY furosemide 40 mg PO DAILY PRN miscellaneous medical supply custom compressor class 1 stockings for 2 pair omeprazole 40 mg PO DAILY tamsulosin 0.4 mg PO BEDTIME 90 days warfarin 10 mg See Protocol PO DAILY@1800 HPI HPI OV- Left knee pain MRI review: Details: 59-year-old gentleman follows up today for left knee MRI. He continues to have pain along the medial and lateral joint of the knee. He has difficulty with stairs and walking short and long distances. He ambulates with a cane. 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 [facility] Medical History (Updated 09/21/24 @ 22:39 by Brian Wong MD) Hypogonadism, hypogonadotropic, with anosmia COVID-19 Annual physical exam Nephrolithiasis Leg edema KATIE (obstructive sleep apnea) Pulmonary embolism Osteoarthritis Morbid obesity with BMI of 60.0-69.9, adult Surgical History Hematoma of left knee region History of sleeve gastrectomy History of hernia repair History of appendectomy History of removal of laparoscopic gastric banding device Benny filter in place Hx of laparoscopic gastric banding Family History Father Lung cancer Bone cancer Mother No problems noted. Social History (Reviewed 10/17/24 @ 11:17 by Barbaar Mendieta [facility]) Household Members: None Housing: House Are you a primary floor care specialist to a significant other at home: No Do you presently have visiting nurse or other home services: No Alcohol intake: current Alcohol intake frequency: holidays/special occasions only Patient Tobacco Use Status: Never used Tobacco e-Cigarette/Vaping Use: Never Used Advance Directives Date on File: 07/23/21 service: No Current occupational status: employed Current occupation: right handed. Cognitive needs: No Hearing needs: No Vision needs: No Review of Systems Const All systems reviewed & are unremarkable except as noted in HPI and below Physical Exam Vital Signs: BMI result Body Mass Index 61.5 Extrem Other: Left knee skin intact, no erythema or joint effusion. Tenderness along the medial joint line. ROM full with crepitus. Negative steinmans. No ligamentous laxity. NVI. Results Reviewed Results Reviewed: MRi left knee IMPRESSION: 1. Diffuse complex tearing of the medial meniscus with significant attenuation and near-complete absence of the posterior horn and root. The meniscal body is extruded medially with an inferiorly displaced meniscal flap. 2. Oblique inner margin tear of the lateral meniscus anterior horn with extension to the meniscal body and posterior horn. 3. 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 Degenerative signal throughout the posterior cruciate ligament. 4. Edema adjacent to the medial collateral ligament which may be related to the meniscal tear or indicate a grade 1 sprain. 5. Severe medial as well as sgzpfmaq-oi-gctbzy patellofemoral and lateral compartment osteoarthritis. Ecbgi-kw-lcctohhx joint effusion with mild synovitis. Trace Choi's cyst. 6. Acute strain/partial tear of the distal semimembranosus muscle extending proximally beyond the image [id number]. Assessment & Plan Assessment & Plan (1) Osteoarthritis of left knee: Code(s): M17.12 - Unilateral primary osteoarthritis, left knee Category: Medical Plan: MRI was discussed and reviewed in detail. Given his morbid obesity and severe degenerative arthritis continued conservative management is not as successful at this time. 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 This is currently being managed by Dr. Wong. There was a discussion of seeing Dr. Jones to try Ozempic. I told him I am not familiar with this medication and he would have to have a thorough conversation with his primary given his other comorbidities. I think overall if he is able to lose weight this will help him with managing his knee pain and also potentially getting him to a point where he could have a successful outcome with conservative versus surgical intervention. He was offered a cortisone injection today which she declined. He will continue with his home exercise program. Follow up as needed. Coding Level of Care Code Est Pt Level 3 (53383) Diagnoses Osteoarthritis of left knee M17.12
== END 2024-10-17 11:51 | disposition home or self-care (01) ==
PROVIDERS: PCP Internal Medicine; Visit Provider Physician Assistant
DX: M17.12 Unilateral primary osteoarthritis, left knee (principal)
CPT/HCPCS: 99213

== ENCOUNTER → 2024-10-17 11:10 | Outpatient (BNVA) | payer OTHER, SELFPAY | PROVIDERS: PCP Internal Medicine; Visit Provider Physician Assistant ==

== ENCOUNTER 2024-10-20 15:11 | Outpatient (AMB) | payer OTHER, SELFPAY ==
[2024-10-20 15:28] LABS: Prothrombin Time Whole Bld POC 23.5 sec (11.1-13.5)
--- NOTE | 2024-10-20 15:37 | MHC.OFFVISCO ---
Intake Intake Visit Reasons: Anticoagulation Allergies No Known Allergies Allergy (Verified 10/20/24 15:19) Medication List - Last Reconciled 10/20/24 by Hortencia Watt RN allopurinol 450 mg (1.5 x 300 mg) PO DAILY citalopram 40 mg PO DAILY comp.stocking,knee,long,medium Custom stockings- 20mmHg, Addaptive, elverax CPAP (CPAP Machine/Device) As directed, with supplies diclofenac sodium 75 mg PO BID ferrous sulfate 325 mg PO DAILY folic acid 1 mg PO DAILY furosemide 40 mg PO DAILY PRN miscellaneous medical supply custom compressor class 1 stockings for 2 pair omeprazole 40 mg PO DAILY tamsulosin 0.4 mg PO BEDTIME 90 days warfarin 10 mg See Protocol PO DAILY@1800 Nursing Note INR: 2.0 in therapeutic range Medications and supplements reviewed Has extreme left knee pain s/p fall 08/01/24- states he has multiple injuries in it - Not sure what treatment he can have yet or PT Denies any signs and symptoms of bleeding or bruising or clotting. Bleeding, bruising, clotting discussed Nutritional guidance given Dose: 5MG X 2 DAYS/ 10MG X 5 DAYS F/U INR: 1 MONTH Patient verbalizes understanding of instructions given Anti-Coag Initial Assessment Social Hx Patient Tobacco Use Status: Never used Tobacco alcohol intake: current Alcohol intake frequency: holidays/special occasions only Coding Level of Care Code Est Patient Level 1 Diagnoses Current use of anticoagulant therapy Z79.01 Assessment & Plan Assessment & Plan (1) Current use of anticoagulant therapy: Onset Date: ~09/08/21 Code(s): Z79.01 - terminologist (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
== END 2024-10-20 15:43 | disposition home or self-care (01) ==
LOC: HO.ACS 15:11
PROVIDERS: PCP Internal Medicine; Visit Provider Internal Medicine
DX: Z79.01 Long term (current) use of anticoagulants (principal)

== ENCOUNTER → 2024-10-20 15:11 | Outpatient (BNVA) | payer OTHER, SELFPAY | PROVIDERS: PCP Internal Medicine; Visit Provider Internal Medicine | DX: I48.91 Unspecified atrial fibrillation (principal); Z79.01 Long term (current) use of anticoagulants; Z51.81 Encounter for therapeutic drug level monitoring | CPT/HCPCS: 85610; 99211 ==

== ENCOUNTER 2024-12-21 15:07 | Outpatient (AMB) | payer OTHER, SELFPAY ==
[2024-12-21 16:18] LABS: Prothrombin Time Whole Bld POC 16.2 sec (11.1-13.5); ~PT, ~INR - Anti Coag Clinic 1.4 (0.9-1.1)
--- NOTE | 2024-12-21 16:23 | MHC.OFFVISCO ---
Intake Intake Visit Reasons: Anticoagulation Allergies No Known Allergies Allergy (Verified 12/21/24 16:14) Medication List - Last Reconciled 12/21/24 by Martha Sebastian RN allopurinol 450 mg (1.5 x 300 mg) PO DAILY citalopram 40 mg PO DAILY comp.stocking,knee,long,medium Custom stockings- 20mmHg, Addaptive, elverax CPAP (CPAP Machine/Device) As directed, with supplies diclofenac sodium 75 mg PO BID ferrous sulfate 325 mg PO DAILY folic acid 1 mg PO DAILY furosemide 40 mg PO DAILY PRN miscellaneous medical supply custom compressor class 1 stockings for 2 pair omeprazole 40 mg PO DAILY tamsulosin 0.4 mg PO BEDTIME 90 days warfarin 10 mg PO DAILY warfarin 2.5 mg PO DAILY warfarin 10 mg See Protocol PO DAILY@1800 Nursing Note INR: 1.4 out of therapeutic range of 2-3 Pt denies missed dose. Medications and supplements reviewed Patient status: no change Medications or supplements: no change Diet: states his eating has been off Denies any signs and symptoms of bleeding or clotting or unusual bruising Bleeding, bruising, clotting discussed Nutritional guidance given: to avoid greens X 2 days and to review the food list and focus on foods that raise the INR Dose: increase today's dose to 15mg (10mg), tomorrow's dose to 12.5mg (10mg) then usual dose Sun of 5mg then retest F/U INR Date : 12/25/24 Patient verbalizing understanding of instructions with read back given. Anti-Coag Initial Assessment Social Hx Patient Tobacco Use Status: Never used Tobacco alcohol intake: current Alcohol intake frequency: holidays/special occasions only Coding Level of Care Code Est Patient Level 1 Diagnoses Current use of anticoagulant therapy Z79.01 Results AMB INR Fingerstick AMB INR Fingerstick 1.4 Last Edit by Martha Sebastian RN on 12/21/24 16:18 interface delay Assessment & Plan Assessment & Plan (1) Current use of anticoagulant therapy: Onset Date: ~09/08/21 Code(s): Z79.01 - [facility] (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
--- OUTSIDE RECORDS SUMMARY | 2024-12-21 18:38 | XMS_ITS ---
Author Organization [facility] Address [address] [place] [address] Care Team Providers Care Construction Project Coordinator Name Role Phone Melissa SCHWAB, Alessandra Primary Care Provider Unavaila Minnie Munoz Unavailable [phone] Brian Wong Unavailable Unavailable REASON FOR VISIT Patient presents today for diarrhea, rectal itching Encounters Encounter Location Date Provider Diagnosis [facility] 10 [facility] [address] [place] [phone] 12/06/2024 Minnie Kiran Plan Of Treatment No Information Progress Notes * MINNIE MOTADOB:1964 (59 yo M)Acc No.[id number]:12/06/2024 Progress Notes Patient:?MINNIE MOTA Provider:?Minnie Kiran MD :1965???Age:59 Y???Sex:Male Von e:12/06/2024 [facility] Pcp:Alessandra Torres MD Subjective: * Chief Complaints: * ???1. Patient presents today for diarrhea, rectal itching. * Medical History:? Objective: * Vitals:? Assessment: Plan: * Treatment: * * The named appointment provid er may or may not be the originator of this progress note, and it is not deemed complete until electronically signed by the appointment provider. Sign off status: Pending * Provider:?Minnie Kiran MD Date:? 025 Generated for Kristin cartagena/Kathy/eTransmitting on:?12/21/2024 06:38 PM EST
--- OUTSIDE RECORDS SUMMARY | 2024-12-21 18:38 | XMS_ITS ---
Author Organization [facility] Address [address] [place] [address] Care Team Providers Care Wash Plant Operator Name Role Phone Melissa SCHWAB, Alessandra Primary Care Provider Unavaila Minnie Munoz Unavailable [phone] Brian Wong Unavailable Unavailable REASON FOR VISIT Patient presents today for diarrhea, rectal itching Encounters Encounter Location Date Provider Diagnosis [facility] 10 [facility] [address] [place] [address] 11/08/2024 Minnie Kiran Plan Of Treatment No Information Progress Notes * MINNIE MOTADOB:1964 (59 yo M)Acc No.[id number]:11/08/2024 Progress Notes Patient:?MINNIE MOTA Provider:?Minnie Kiran MD :1965???Age:59 Y???Sex:Male Von e:11/08/2024 Address[facility] Pcp:Alessandra Torres MD Subjective: * Chief Complaints: [...]
--- OUTSIDE RECORDS SUMMARY | 2024-12-21 18:38 | XMS_ITS | Patient Health Record ---
Author Organization [facility] Address [address] [place] [address] Care Team Providers Care Service Coordinator Elderly Facility Name Role Phone Alessandra Torres MD Primary Care Provider Minnie Mcknight Unavailable [phone] Brian Wong Unavailable Unavailable Allergies Allergen (clinical drug ingredient) Drug/Non Drug Allergy documented on EMR Reaction Allergy Type Onset Date Status warfarin Warfarin Sodium Unknown Drug Allergy A ctive Reason For Referral No Information Medications Medication SIG (Take, Route, Fr equency, Duration) Notes Start Date End Date Status coumadin Active Allopurinol Active Citalopram Hydrobromide Active Omeprazole Active Calcium Citrate Acti ve Problems Problem Type SNOMED Code ICD Code Onset Dates Problem Status W/U Status Risk Notes Problem 416776817 Encounter for screening for malignant neoplasm of colon (Z12.11) Active confirmed Problem Screening for malignant neoplasm of rectum (902694858) Encounter for screening for malignant neoplasm of rectum (Z12.12) Active confirmed Problem 811400296 Gastroesophageal reflux disease, esophagitis presence not specified (K21.9) Active confirmed Encounters Encounter Location Date Provider Diagnosis [facility] [address] [place] [phone] 11/07/2024 Minnie Kiran [facility] [address] [place] [phone] 12/05/2024 Minnie Kiran Plan Of Treatment Pending Test Test Name Order Date GI BIOPSY 08/10/2016 Future Test Test Name Order Date UPPER GI ENDOSCOPY 03/24/2016 COLONOSCOPY 03/24/2016 Insurance Providers Payer Name Payer Address Payer Phone Subscriber Number Group Number Insured Name Patient Relationship to Insured Coverage Start Date Coverage End Date [facility] [address] [address] [place] [phone] [id number] THOMAS WEST, MINNIE Self - patient is the insured Medical (General) History Medical History History ICD Code Colonoscopy 08-07-2005--neg. except for internal hemorrhoids DVT with PE in 1993--taken o ff Coumadin, but then had another PE--has a [place] filter Denies MD,DM,CVA,Lung disease,renal dise ase Knee pain--arthritis Gout GERD Sleep apnea--uses CPAP Surgical History Surgery Date(Month/Year) Leg surgery for hematoma Appendectomy Gastric sleeve--Dr. Rosado i--2013--lost 100#, but then gained weight back
--- OUTSIDE RECORDS SUMMARY | 2024-12-21 18:38 | XMS_ITS ---
Author Organization [facility] Address [address] [place] [address] Care Team Providers Care Tip Fixer Name Role Phone Alessandra Torres MD Primary Care Provider Minnie Mcknight Unavailable [phone] Brian Wong Unavailable Unavailable REASON FOR VISIT cancel appt on 12/06/2024 Encounters Encounter Location Date Provider Diagnosis [facility] [address] [place] [address] 12/05/2024 Minnie Kiran Plan Of Treatment No Information Progress Notes * MINNIE MOTADOB:1964 (59 yo M)Acc No.[id number]:12/05/2024 Patient:?MINNIE MOTA :1965???Age:59 Y???Sex:Male Address:[place] [address] * true * Date:? Generated for Kristin cartagena/Kathy/eTransmitting on:?12/21/2024 06:38 PM EST
== END 2024-12-21 16:38 | disposition home or self-care (01) ==
LOC: HO.ACS 15:07
PROVIDERS: PCP Internal Medicine; Visit Provider Internal Medicine
DX: Z79.01 Long term (current) use of anticoagulants (principal)

== ENCOUNTER → 2024-12-21 15:07 | Outpatient (BNVA) | payer OTHER, SELFPAY | PROVIDERS: PCP Internal Medicine; Visit Provider Internal Medicine | DX: Z86.718 Personal history of other venous thrombosis and embolism (principal); Z79.01 Long term (current) use of anticoagulants; Z51.81 Encounter for therapeutic drug level monitoring | CPT/HCPCS: 85610; 99211 ==

== ENCOUNTER 2024-12-25 14:12 | Outpatient (AMB) | payer OTHER, SELFPAY ==
--- NOTE | 2024-12-25 14:33 | MHC.OFFWIV ---
Intake Vital Signs 12/25/24 14:34 Weight 440 lb BP 136/80 Blood Pressure Location Rt brachial Position Sitting Pulse 81 Pulse Source Pulse Oximeter Temp 98.0 F Temp Source Oral Pulse Oximetry (%) 97 Intake Visit Reasons: EP strep?? Intake Note: Patient here for sore throat, cough,sneezing that started wednesday morning. Patient Tobacco Use Status: Never used Tobacco Allergies No Known Allergies Allergy (Verified 12/25/24 14:34) Do you need a note to return to daycare/school/sports/work: No HPI HPI Comments History of Present Illness Details History - The patient is a 59-year-old male presenting with sore throat and suspected strep infection. - Symptoms began two days ago, with 3 suspected exposures to diagnosed cases of streptococcal pharyngitis. - Feels like he is swallowing knives - Reports subjective fever, accompanied by new onset of cough and discomfort in the throat and ears. - Has not take any OTC meds to treat symptoms. - Denies hx of asthma or COPD or smoking. Physical Exam General: Cooperative, healthy appearing, comfortable and no acute distress Orientation/consciousness: Patient oriented x3 Limitations: No limitations Head: Normal to inspection Ears: Hearing grossly normal bilaterally, external ears normal, Right TM with fluid, left TM normal Nose: Normal external nose present, Normal nares present and No nasal discharge present Face and sinus: Normal facial exam and Yes sinuses nontender Mouth: Normal oral and palatal mucosa present and moist mucous membranes Throat: Yes tonsils normal, Yes uvula midline. Posterior oropharynx erythema, no exudates Eyes: Appearance normal, both eyes and all related structures Neck: Normal visual inspection, glands feel swollen Respiratory: Clear to auscultation bilaterally. Normal respiratory effort, able to speak in complete sentences, Actively coughing, no respiratory distress, not tachypneic, no tripod positioning and no use of accessory muscles Cardiovascular: Regular rate and rhythm. Normal S1 and S2 Skin: No rashes or lesions noted Neuro: Patient oriented x3 Extremities: Normal to inspection and Yes no clubbing, cyanosis or edema [facility] Medical History (Updated 12/25/24 @ 15:00 by Madelin Burkett PA-C) Hypogonadism, hypogonadotropic, with anosmia COVID-19 Annual physical exam Nephrolithiasis Leg edema KATIE (obstructive sleep apnea) Pulmonary embolism Osteoarthritis Morbid obesity with BMI of 60.0-69.9, adult Surgical History Hematoma of left knee region History of sleeve gastrectomy History of hernia repair History of appendectomy History of removal of laparoscopic gastric banding device G[place] filter in place Hx of laparoscopic gastric banding Family History Father Lung cancer Bone cancer Mother No problems noted. Social History Household Members: None Housing: House Are you a primary patient care representative to a significant other at home: No Do you presently have visiting nurse or other home services: No Alcohol intake: current Alcohol intake frequency: holidays/special occasions only Patient Tobacco Use Status: Never used Tobacco e-Cigarette/Vaping Use: Never Used Advance Directives Date on File: 07/23/21 service: No Current occupational status: employed Current occupation: right handed. Cognitive needs: No Hearing needs: No Vision needs: No Review of Systems Const All systems reviewed & are unremarkable except as noted in HPI and below Physical Exam Vital Signs: Last Vital Signs Temp 98.0 F 12/25/24 14:34 Pulse 81 12/25/24 14:34 BP 136/80 12/25/24 14:34 Pulse Ox 97 12/25/24 14:34 Results AMB Rapid Strep AMB Rapid Strep Negative Last Edit by YAJAIRA Ramirez on 12/25/24 14:48 Results Reviewed Results Reviewed: Laboratory Last Values Strep Scn Rapid Clinic Negative 12/25/24 14:47 Assessment & Plan Assessment & Plan (1) URI, acute: Code(s): J06.9 - Acute upper respiratory infection, unspecified Plan: The patient presents with symptoms suggestive of an upper respiratory infection, initially suspected to be streptococcal pharyngitis. A negative rapid strep test directed further evaluation towards viral etiology, no exudates on exam, pending results for influenza, COVID-19, and RSV testing. Management strategies include starting amoxicillin if viral panel negative as pt is symptomatic and did have an exposure. Supportive care such as antihistamines were advised for symptomatic relief related to ear fluid. The patient was made aware of nearby lab facilities for required INR testing. Patient was informed and verbally consented to the use of an ambient scribe for clinic note documentation during this visit Orders: Orders AMB Rapid Strep Screen Today Z13.9 - Encounter for screening, unspecified Coding Level of Care Code Est Pt Level 3 (71194) Diagnoses URI, acute J06.9
[2024-12-25 14:34] VITALS: BP 136/80; PULSE 81; TEMP 36.7; O2SAT 97
--- OUTSIDE RECORDS SUMMARY | 2024-12-25 16:14 | XMS_ITS ---
Author Organization [facility] Address [address] [place] [address] Care Team Providers Care Bottom Presser Name Role Phone Alessandra Torres MD Primary Care Provider Minnie Mcknight Unavailable [phone] Brian Wong Unavailable Unavailable REASON FOR VISIT cancel appt on 12/06/2024 Encounters Encounter Location Date Provider Diagnosis [facility] [address] [place] [phone] 12/05/2024 Minnie Kiran Plan Of Treatment No Information Progress Notes * MINNIE MOTADOB:1964 (59 yo M)Acc No.[id number]:12/05/2024 Patient:?MINNIE MOTA :1965???Age:59 Y???Sex:Male Address:[place] [address] * true * Date:? Generated for Pani osiel/Kathy/eTransmitting on:?12/25/2024 04:13 PM EDT
--- OUTSIDE RECORDS SUMMARY | 2024-12-25 16:14 | XMS_ITS | Patient Health Record ---
Author Organization [facility] Address [address] [place] [address] Care Team Providers Care Farm Tractor Mechanic Name Role Phone Alessandra Torres MD Primary Care Provider Minnie Mcknight Unavailable [phone] Brian Wong Unavailable Unavailable Allergies Allergen (clinical [...] Problem Status W/U Status Risk Notes Problem [id number] Encounter for screening for malignant neoplasm of colon (Z12.11) Active confirmed Problem Screening for malignant neoplasm of rectum (354672714) Encounter for screening for malignant neoplasm of rectum (Z12.12) Active confirmed Problem 084139983 Gastroesophageal reflux disease, esophagitis presence not specified (K21.9) Active confirmed Encounters Encounter Location Date Provider Diagnosis [facility] [address] [place] [phone] 11/07/2024 Minnie Kiran [facility] [address] [place] [phone] 12/05/2024 Minnie Kiran Plan Of Treatment Pending Test Test Name Order Date GI BIOPSY 08/10/2016 Future Test Test Name Order Date UPPER GI ENDOSCOPY 03/24/2016 COLONOSCOPY 03/24/2016 Insurance Providers Payer Name Payer Address Payer Phone Subscriber Number Group Number Insured Name Patient Relationship to Insured Coverage Start Date Coverage End Date [facility] [address] [place] [phone] [id number] THOMAS WEST, MINNIE Self - patient is the insured Medical (General) History Medical History History ICD Code Colonoscopy 08-07-2005--neg. except for internal hemorrhoids DVT with PE in 1993--taken o ff Coumadin, but then had another PE--has a [place] filter Denies [place],DM,CVA,Lung disease,renal dise ase Knee pain--arthritis Gout GERD Sleep apnea--uses CPAP Surgical History Surgery Date(Month/Year) Leg surgery for hematoma Appendectomy Gastric sleeve--Dr. Rosado i--2013--lost 100#, but then gained weight back
--- OUTSIDE RECORDS SUMMARY | 2024-12-25 16:14 | XMS_ITS ---
Author Organization [facility] Address [address] [place] [address] Care Team Providers Care Supervisor Central Supply Name Role Phone Melissa SCHWAB, Alessandra Primary Care Provider Unavaila Minnie Munoz Unavailable [phone] Brian Wong Unavailable Unavailable REASON FOR VISIT Patient presents today for diarrhea, rectal itching Encounters Encounter Location Date Provider Diagnosis [facility] 10 [facility] [address] [place] [phone] 12/06/2024 Minnie Kiran Plan Of Treatment No Information Progress Notes * MINNIE MOTADOB:1964 (59 yo M)Acc No.[id number]:12/06/2024 Progress Notes Patient:?MINNIE MOTA Provider:?Minnie Kiran MD :1965???Age:59 Y???Sex:Male Von e:12/06/2024 [facility] Pcp:Alessandra Torres MD Subjective: * Chief Complaints: [...] MD Date:? 025 Generated for Kristin cartagena/Kathy/eTransmitting on:?12/25/2024 04:14 PM EDT
--- OUTSIDE RECORDS SUMMARY | 2024-12-25 16:14 | XMS_ITS ---
Author Organization [facility] Address [address] [place] [phone] Care Team Providers Care Texturing Machine Fixer Name Role Phone Melissa SCHWAB, Alessandra Primary Care Provider Unavaila Minnie Munoz Unavailable [phone] Brian Wong Unavailable Unavailable REASON FOR VISIT Patient presents today for diarrhea, rectal itching Encounters Encounter Location Date Provider Diagnosis [facility] 10 [facility] [address] [place] [address] 11/08/2024 Minnie Kiran Plan Of Treatment No Information Progress Notes * MINNIE MOTADOB:1964 (59 yo M)Acc No.[id number]:11/08/2024 Progress Notes Patient:?MINNIE MOTA Provider:?Minnie Kiran MD :1965???Age:59 Y???Sex:Male Von e:11/08/2024 Address[facility] Pcp:Alessandra Torres MD Subjective: * Chief Complaints: [...]
== END 2024-12-25 15:20 | disposition home or self-care (01) ==
PROVIDERS: PCP Internal Medicine; Visit Provider Physician Assistant
DX: Z13.9 Encounter for screening, unspecified (principal); J06.9 Acute upper respiratory infection, unspecified

== ENCOUNTER 2024-12-25 14:13 | Outpatient (REF) | payer OTHER, SELFPAY ==
[2024-12-26 09:38] LABS: Influenza A PCR NEGATIVE (Negative); Influenza B PCR NEGATIVE (Negative); Resp Syncy Virus RNA Qual PCR NEGATIVE (Negative); SARS COV2 PCR INHOUSE NEGATIVE (Negative)
== END 2024-12-25 14:14 | disposition home or self-care (01) ==
LOC: HO.LNP 14:13
PROVIDERS: PCP Internal Medicine; Visit Provider Physician Assistant
DX: J06.9 Acute upper respiratory infection, unspecified (principal); R09.89 Other specified symptoms and signs involving the circulatory and respiratory systems
CPT/HCPCS: 0241U; 87880

== ENCOUNTER 2024-12-26 08:29 | Outpatient (REF) | payer OTHER, SELFPAY ==
--- OUTSIDE RECORDS SUMMARY | 2024-12-26 09:10 | XMS_ITS ---
Author Organization [facility] Address [address] [place] [address] Care Team Providers Care Clinical Nurse Manager Name Role Phone Alessandra Torres MD Primary Care Provider Minnie Mcknight Unavailable [phone] Brian Wong Unavailable Unavailable REASON FOR VISIT cancel appt on 12/06/2024 Encounters Encounter Location Date Provider Diagnosis [facility] [address] [place] [address] 12/05/2024 Minnie Kiran Plan Of Treatment No Information Progress Notes * MINNIE MOTADOB:1964 (59 yo M)Acc No.[id number]:12/05/2024 Patient:?MINNIE MOTA :1965???Age:59 Y???Sex:Male Address:[place] [address] * true * Date:? Generated for Pani osiel/Kathy/eTransmitting on:?12/26/2024 09:10 AM EDT
--- OUTSIDE RECORDS SUMMARY | 2024-12-26 09:10 | XMS_ITS | Patient Health Record ---
Author Organization [facility] Address [address] [place] [address] Care Team Providers Care Liquid Loader Name Role Phone Alessandra Torres MD Primary Care Provider Minnie Mcknight Unavailable [phone] Brian Wong Unavailable Unavailable Allergies Allergen (clinical [...] Problem Status W/U Status Risk Notes Problem [id number] Encounter for screening for malignant neoplasm of colon (Z12.11) Active confirmed Problem Screening for malignant neoplasm of rectum (191438230) Encounter for screening for malignant neoplasm of rectum (Z12.12) Active confirmed Problem [id number] Gastroesophageal reflux disease, esophagitis presence not specified (K21.9) Active confirmed Encounters Encounter Location Date Provider Diagnosis [facility] [address] [place] [address] 11/07/2024 Minnie Kiran [facility] [address] [place] [address] 12/05/2024 Minnie Kiran Plan Of Treatment Pending Test Test Name Order Date GI BIOPSY 08/10/2016 Future Test Test Name Order Date UPPER GI ENDOSCOPY 03/24/2016 COLONOSCOPY 03/24/2016 Insurance Providers Payer Name Payer Address Payer Phone Subscriber Number Group Number Insured Name Patient Relationship to Insured Coverage Start Date Coverage End Date [facility] [address] [place] [phone] [id number] THOMAS WEST, MINNIE Self - patient is the insured Medical (General) History Medical History History ICD Code Colonoscopy 08-07-2005--neg. except for internal hemorrhoids DVT with PE in 1993--taken o ff Coumadin, but then had another PE--has a Benny filter Denies [place],DM,CVA,Lung disease,renal dise ase Knee pain--arthritis Gout GERD Sleep apnea--uses CPAP Surgical History Surgery Date(Month/Year) Leg surgery for hematoma Appendectomy Gastric sleeve--Dr. Rosado i--2013--lost 100#, but then gained weight back
--- OUTSIDE RECORDS SUMMARY | 2024-12-26 09:11 | XMS_ITS ---
Author Organization [facility] Address [address] [place] [address] Care Team Providers Care General Medical Practitioner Name Role Phone Melissa SCHWAB, Alessandra Primary Care Provider Unavaila Minnie Munoz Unavailable [phone] Brian Wong Unavailable Unavailable REASON FOR VISIT Patient presents today for diarrhea, rectal itching Encounters Encounter Location Date Provider Diagnosis [facility] [address] [facility] [address] [place] [address] 12/06/2024 Minnie Kiran Plan Of Treatment No Information Progress Notes * MINNIE MOTADOB:1964 (59 yo M)Acc No.[id number]:12/06/2024 Progress Notes Patient:?MINNIE MOTA Provider:?Minnie Kiran MD :1965???Age:59 Y???Sex:Male Von e:12/06/2024 [facility] Pcp:Alessandra Torres MD Subjective: * Chief Complaints: [...] MD Date:? 025 Generated for Kristin cartagena/Kathy/eTransmitting on:?12/26/2024 09:10 AM EDT
--- OUTSIDE RECORDS SUMMARY | 2024-12-26 09:11 | XMS_ITS ---
Author Organization [facility] Address [address] [place] [address] Care Team Providers Care Motor Grader Rough Grade Name Role Phone Melissa SCHWAB, Alessandra Primary Care Provider Unavaila Minnie Munoz Unavailable [phone] Brian Wong Unavailable Unavailable REASON FOR VISIT Patient presents today for diarrhea, rectal itching Encounters Encounter Location Date Provider Diagnosis [facility] 10 [facility] [address] [place] [address] 11/08/2024 Minnie Kiran Plan Of Treatment No Information Progress Notes * MINNIE MOTADOB:1964 (59 yo M)Acc No.[id number]:11/08/2024 Progress Notes Patient:?MINNIE MOTA Provider:?Minnie Kiran MD :1965???Age:59 Y???Sex:Male Von e:11/08/2024 [facility] Pcp:Alessandra Torres MD Subjective: * Chief Complaints: [...]
== END 2024-12-26 08:30 | disposition home or self-care (01) ==
LOC: HO.LNP 08:29
PROVIDERS: Visit Provider Physician Assistant
DX: Z13.89 Encounter for screening for other disorder (principal)

== ENCOUNTER 2024-12-27 13:14 | Outpatient (AMB) | payer OTHER, SELFPAY ==
--- NOTE | 2024-12-27 13:16 | MHC.OFFVIS ---
Intake Visit Reasons: OV- Left knee pain/OA Intake Note: Wm is a 59 year old male who presents today for a follow up of his Left Knee OA. At his last visit he was offered a cortisone injection which he declined. We also discussed the role of weightloss in his treatment of surgical vs non-surgical treatment options. He reports continued knee and back pain Allergies No Known Allergies Allergy (Verified 12/25/24 14:34) Medication List - Last Reconciled 12/27/24 by Prieto Darden PA-C allopurinol 450 mg (1.5 x 300 mg) PO DAILY citalopram 40 mg PO DAILY comp.stocking,knee,long,medium Custom stockings- 20mmHg, Addaptive, elverax CPAP (CPAP Machine/Device) As directed, with supplies diclofenac sodium 75 mg PO BID ferrous sulfate 325 mg PO DAILY folic acid 1 mg PO DAILY furosemide 40 mg PO DAILY PRN miscellaneous medical supply custom compressor class 1 stockings for 2 pair omeprazole 40 mg PO DAILY tamsulosin 0.4 mg PO BEDTIME 90 days warfarin 10 mg See Protocol PO DAILY warfarin 2.5 mg See Protocol PO DAILY warfarin 10 mg See Protocol PO DAILY@1800 HPI HPI OV- Left knee pain/OA: Details: 59-year-old gentleman presents to the office today for a follow up bilateral knee pain. He continues to have difficulty with daily activities due to the pain. He has had injections in the past which have been somewhat helpful. [facility] Medical History (Updated 12/27/24 @ 13:26 by Prieto Darden PA-C) Hypogonadism, hypogonadotropic, with anosmia COVID-19 Annual physical exam Nephrolithiasis Leg edema KATIE (obstructive sleep apnea) Pulmonary embolism Osteoarthritis Morbid obesity with BMI of 60.0-69.9, adult Surgical History Hematoma of left knee region History of sleeve gastrectomy History of hernia repair History of appendectomy History of removal of laparoscopic gastric banding device [place] filter in place Hx of laparoscopic gastric banding Family History Father Lung cancer Bone cancer Mother No problems noted. Social History Household Members: None Housing: House Are you a primary regular senior care provider to a significant other at home: No Do you presently have visiting nurse or other home services: No Alcohol intake: current Alcohol intake frequency: holidays/special occasions only Patient Tobacco Use Status: Never used Tobacco e-Cigarette/Vaping Use: Never Used Advance Directives Date on File: 07/23/21 service: No Current occupational status: employed Current occupation: right handed. Cognitive needs: No Hearing needs: No Vision needs: No Review of Systems Const All systems reviewed & are unremarkable except as noted in HPI and below Physical Exam Const General: cooperative and no acute distress Orientation/consciousness: patient oriented x3 Resp Effort & Inspection: normal respiratory effort and able to speak in complete sentences Cardio Peripheral pulses: Peripheral pulses 2+ throughout Neuro General: patient oriented x3 Extrem Other: Bilateral knee skin intact, no erythema or joint effusion. Tenderness along the medial joint line. ROM full with crepitus. Negative steinmans. No ligamentous laxity. NVI. Office Procedures AMB Joint Injection/Aspiration Joint Injection/Aspiration Primary Site: right knee Secondary Site: left knee Prep: site was prepped using aseptic technique, ethochloride spray was applied and injection warnings given Injected: 40 mg of (each knee), DepoMedrol, with 8 mL of and 1% plain lidocaine Approach Used: anterolateral Procedure: The patient tolerated the procedure well and there was some relief with the local anesthesia Coding 87520 - Glenohumeral/Tronchanteric Bursa/Intraarticular Procedure code (CPT) selection complete Assessment & Plan Assessment & Plan (1) Bilateral post-traumatic osteoarthritis of knee: Code(s): M17.2 - Bilateral post-traumatic osteoarthritis of knee Category: Medical Plan We discussed options today, which include steroid injection. The patient did consent to move forward with the injection in both knees, which was tolerated well.? I recommended rest, ice and elevation and OTC antiinflammatories prn for discomfort. If symptoms persist over the next 6-8 weeks, they will contact our office, otherwise, prn Coding Level of Care Code Est Pt Level 3 (68205) Complex EM visit Add On G2211 Diagnoses Bilateral post-traumatic osteoarthritis of knee M17.2 CPT Codes Coding - Joint 7: 29695 - Glenohumeral/Tronchanteric Bursa/Intraarticular ([id number])
--- OUTSIDE RECORDS SUMMARY | 2024-12-27 15:31 | XMS_ITS ---
Author Organization [facility] Address [address] [place] [address] Care Team Providers Care Audiovisual Production Specialist Name Role Phone Melissa SCHWAB, Alessandra Primary Care Provider Unavaila Minnie Munoz Unavailable [phone] Brian Wong Unavailable Unavailable REASON FOR VISIT Patient presents today for diarrhea, rectal itching Encounters Encounter Location Date Provider Diagnosis [facility] 10 [facility] [address] [place] [address] 12/06/2024 Minnie Kiran Plan Of Treatment No Information Progress Notes * MINNIE MOTADOB:1964 (59 yo M)Acc No.[id number]:12/06/2024 Progress Notes Patient:?MINNIE MOTA Provider:?Minnie Kiran MD :1965???Age:59 Y???Sex:Male Von e:12/06/2024 Address[facility] Pcp:Alessandra Torres MD Subjective: * Chief Complaints: [...] MD Date:? 025 Generated for Kristin cartagena/Kathy/eTransmitting on:?12/27/2024 03:31 PM EDT
--- OUTSIDE RECORDS SUMMARY | 2024-12-27 15:31 | XMS_ITS ---
Author Organization [facility] Address [address] [place] [address] Care Team Providers Care General Internist Name Role Phone Alessandra Torres MD Primary Care Provider Minnie Mcknight Unavailable [phone] Brian Wong Unavailable Unavailable REASON FOR VISIT cancel appt on 12/06/2024 Encounters Encounter Location Date Provider Diagnosis [facility] [address] [place] [address] 12/05/2024 Minnie Kiran Plan Of Treatment No Information Progress Notes * MINNIE MOTADOB:1964 (59 yo M)Acc No.[id number]:12/05/2024 Patient:?MINNIE MOTA :1965???Age:59 Y???Sex:Male Address:[place] [address] * true * Date:? Generated for Pani osiel/Kathy/eTransmitting on:?12/27/2024 03:31 PM EDT
--- OUTSIDE RECORDS SUMMARY | 2024-12-27 15:31 | XMS_ITS | Patient Health Record ---
Author Organization [facility] Address [address] [place] [address] Care Team Providers Care Algorithm Developer Name Role Phone Alessandra Torres MD Primary Care Provider Minnie Mcknight Unavailable [phone] Brian Wong Unavailable Unavailable Allergies Allergen (clinical [...] Problem Status W/U Status Risk Notes Problem [id number] Encounter for screening for malignant neoplasm of colon (Z12.11) Active confirmed Problem Screening for malignant neoplasm of rectum (208995271) Encounter for screening for malignant neoplasm of rectum (Z12.12) Active confirmed Problem 070792776 Gastroesophageal reflux disease, esophagitis presence not specified (K21.9) Active confirmed Encounters Encounter Location Date Provider Diagnosis [facility] [address] [place] [address] 11/07/2024 Minnie Kiran [facility] [address] [place] [address] 12/05/2024 Minnie Kiran Plan Of Treatment Pending Test Test Name Order Date GI BIOPSY 08/10/2016 Future Test Test Name Order Date UPPER GI ENDOSCOPY 03/24/2016 COLONOSCOPY 03/24/2016 Insurance Providers Payer Name Payer Address Payer Phone Subscriber Number Group Number Insured Name Patient Relationship to Insured Coverage Start Date Coverage End Date [facility] [address] [address] [place] [phone] [id number] THOMAS WEST, MINNIE Self - patient is the insured Medical (General) History Medical History History ICD Code Colonoscopy 08-07-2005--neg. except for internal hemorrhoids DVT with PE in 1993--taken o ff Coumadin, but then had another PE--has a Benny filter Denies [place],DM,CVA,Lung disease,renal dise ase Knee pain--arthritis Gout GERD Sleep apnea--uses CPAP Surgical History Surgery Date(Month/Year) Leg surgery for hematoma Appendectomy Gastric sleeve--Dr. Rosado i--2013--lost 100#, but then gained weight back
--- OUTSIDE RECORDS SUMMARY | 2024-12-27 15:31 | XMS_ITS ---
Author Organization [facility] Address [address] [place] [address] Care Team Providers Care Special Service Representative Name Role Phone Melissa SCHWAB, Alessandra Primary Care Provider Unavaila Minnie Munoz Unavailable [phone] Brian Wong Unavailable Unavailable REASON FOR VISIT Patient presents today for diarrhea, rectal itching Encounters Encounter Location Date Provider Diagnosis [facility] 10 [facility] [address] [place] [address] 11/08/2024 Minnie Kiran Plan Of Treatment No Information Progress Notes * MINNIE MOTADOB:1964 (59 yo M)Acc No.[id number]:11/08/2024 Progress Notes Patient:?MINNIE MOTA Provider:?Minnie Kiran MD :1965???Age:59 Y???Sex:Male Von e:11/08/2024 Address[facility] Pcp:Alessandra Torres MD Subjective: * Chief Complaints: [...]
== END 2024-12-27 13:38 | disposition home or self-care (01) ==
LOC: HO.HOS 13:15
PROVIDERS: PCP Internal Medicine; Visit Provider Physician Assistant
DX: M17.2 Bilateral post-traumatic osteoarthritis of knee (principal)
CPT/HCPCS: 20610; 99213

== ENCOUNTER → 2024-12-27 13:14 | Outpatient (BNVA) | payer OTHER, SELFPAY | PROVIDERS: PCP Internal Medicine; Visit Provider Physician Assistant | DX: M17.2 Bilateral post-traumatic osteoarthritis of knee (principal) | CPT/HCPCS: 20610; J1010; J2003 ==

== ENCOUNTER 2025-01-01 15:41 | Outpatient (AMB) | payer OTHER, SELFPAY ==
[2025-01-01 15:51] LABS: Prothrombin Time Whole Bld POC 29.4 sec (11.1-13.5); ~PT, ~INR - Anti Coag Clinic 2.4 (0.9-1.1)
--- NOTE | 2025-01-01 16:01 | MHC.OFFVISCO ---
Intake Intake Visit Reasons: Anticoagulation Allergies No Known Allergies Allergy (Verified 01/01/25 15:42) Medication List - Last Reconciled 01/01/25 by Hortencia Watt RN allopurinol 450 mg (1.5 x 300 mg) PO DAILY citalopram 40 mg PO DAILY comp.stocking,knee,long,medium Custom stockings- 20mmHg, Addaptive, elverax CPAP (CPAP Machine/Device) As directed, with supplies diclofenac sodium 75 mg PO BID ferrous sulfate 325 mg PO DAILY folic acid 1 mg PO DAILY furosemide 40 mg PO DAILY PRN miscellaneous medical supply custom compressor class 1 stockings for 2 pair omeprazole 40 mg PO DAILY tamsulosin 0.4 mg PO BEDTIME 90 days warfarin 10 mg See Protocol PO DAILY warfarin 2.5 mg See Protocol PO DAILY Nursing Note INR: 2. 4 in therapeutic range Medications and supplements reviewed pt currently has a cold- strep r/o, he stated last week he had a strange sensation of having a sensation of hollowing sensation-that lasts 5 minutes or so- almost feels like indigestion feeling with a hollow feeling - enc to discuss with MD to r/o any heart issues and or anxiety Denies any signs and symptoms of bleeding or bruising or clotting. Bleeding, bruising, clotting discussed Nutritional guidance given Dose: 5MG X 2 DAYS/ 10MG X 5 DAYS F/U INR: 3 weeks Patient verbalizes understanding of instructions given Anti-Coag Initial Assessment Social Hx Patient Tobacco Use Status: Never used Tobacco alcohol intake: current Alcohol intake frequency: holidays/special occasions only Coding Level of Care Code Est Patient Level 1 Diagnoses Current use of anticoagulant therapy Z79.01 Results AMB INR Fingerstick AMB INR Fingerstick 2.4 Last Edit by Hortencia Watt RN on 01/01/25 15:56 manual entry Assessment & Plan Assessment & Plan (1) Current use of anticoagulant therapy: Onset Date: ~09/08/21 Code(s): Z79.01 - intermediate (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
--- OUTSIDE RECORDS SUMMARY | 2025-01-01 18:06 | XMS_ITS ---
Author Organization [facility] Address [address] [place] [address] Care Team Providers Care Roofer Applicator Name Role Phone Alessandra Torres MD Primary Care Provider Minnie Mcknight Unavailable [phone] Brian Wong Unavailable Unavailable REASON FOR VISIT cancel appt on 12/06/2024 Encounters Encounter Location Date Provider Diagnosis [facility] [address] [place] [address] 12/05/2024 Minnie Kiran Plan Of Treatment No Information Progress Notes * MINNIE MOTADOB:1964 (59 yo M)Acc No.[id number]:12/05/2024 Patient:?MINNIE MOTA :1965???Age:59 Y???Sex:Male Address:[place] [address] * true * Date:? Generated for Pani osiel/Kathy/eTransmitting on:?01/01/2025 06:06 PM EDT
--- OUTSIDE RECORDS SUMMARY | 2025-01-01 18:07 | XMS_ITS | Patient Health Record ---
Author Organization [facility] Address [address] [place] [address] Care Team Providers Care Shearer Helper Name Role Phone Alessandra Torres MD Primary Care Provider Minnie Mcknight Unavailable [phone] Brian Wong Unavailable Unavailable Allergies Allergen (clinical [...] Problem Status W/U Status Risk Notes Problem [id number] Encounter for screening for malignant neoplasm of colon (Z12.11) Active confirmed Problem Screening for malignant neoplasm of rectum (271451126) Encounter for screening for malignant neoplasm of rectum (Z12.12) Active confirmed Problem 833510921 Gastroesophageal reflux disease, esophagitis presence not specified (K21.9) Active confirmed Encounters Encounter Location Date Provider Diagnosis [facility] [address] [place] [phone] 11/07/2024 Minnie Kiran [facility] [address] [place] [address] 12/05/2024 Minnie Kiran Plan Of Treatment Pending Test Test Name Order Date GI BIOPSY 08/10/2016 Future Test Test Name Order Date UPPER GI ENDOSCOPY 03/24/2016 COLONOSCOPY 03/24/2016 Insurance Providers Payer Name Payer Address Payer Phone Subscriber Number Group Number Insured Name Patient Relationship to Insured Coverage Start Date Coverage End Date [facility] [address] [place] [phone] [id number] THOMAS WEST, MINNIE Self - patient is the insured Medical (General) History Medical History History ICD Code Colonoscopy 08-07-2005--neg. except for internal hemorrhoids DVT with PE in 1993--taken o ff Coumadin, but then had another PE--has a Benny filter Denies [place],DM,CVA,Lung disease,renal dise ase Knee pain--arthritis Gout GERD Sleep apnea--uses CPAP Surgical History Surgery Date(Month/Year) Leg surgery for hematoma Appendectomy Gastric sleeve--Dr. Rosado i--2013--lost 100#, but then gained weight back
--- OUTSIDE RECORDS SUMMARY | 2025-01-01 18:07 | XMS_ITS ---
Author Organization [facility] Address [address] [place] [address] Care Team Providers Care Senior Hr Manager Name Role Phone Melissa SCHWAB, Alessandra Primary Care Provider Unavaila Minnie Munoz Unavailable [phone] Brian Wong Unavailable Unavailable REASON FOR VISIT Patient presents today for diarrhea, rectal itching Encounters Encounter Location Date Provider Diagnosis [facility] 10 [facility] [address] [place] [address] 12/06/2024 Minnie Kiran Plan Of Treatment No Information Progress Notes * MINNIE MOTADOB:1964 (59 yo M)Acc No.[id number]:12/06/2024 Progress Notes Patient:?MINNIE MOTA Provider:?Minnie Kiran MD :1965???Age:59 Y???Sex:Male Von e:12/06/2024 Address:[facility] Pcp:Alessandra Torres MD Subjective: * Chief Complaints: [...] MD Date:? 025 Generated for Kristin cartagena/Kathy/eTransmitting on:?01/01/2025 06:07 PM EDT
--- OUTSIDE RECORDS SUMMARY | 2025-01-01 18:07 | XMS_ITS ---
Author Organization [facility] Address [address] [place] [address] Care Team Providers Care Global President Name Role Phone Melissa SCHWAB, Alessandra Primary Care Provider Unavaila Minnie Munoz Unavailable [phone] Brian Wong Unavailable Unavailable REASON FOR VISIT Patient presents today for diarrhea, rectal itching Encounters Encounter Location Date Provider Diagnosis [facility] 10 [facility] [address] [place] [address] 11/08/2024 Minnie Kiran Plan Of Treatment No Information Progress Notes * MINNIE MOTADOB:1964 (59 yo M)Acc No.[id number]:11/08/2024 Progress Notes Patient:?MINNIE MOTA Provider:?Minnie Kiran MD :1965???Age:59 Y???Sex:Male Von e:11/08/2024 Address[facility] Pcp:Alessandra Torres MD Subjective: * Chief Complaints: [...]
== END 2025-01-01 16:11 | disposition home or self-care (01) ==
LOC: HO.ACS 15:41
PROVIDERS: PCP Internal Medicine; Visit Provider Internal Medicine
DX: Z79.01 Long term (current) use of anticoagulants (principal)

== ENCOUNTER → 2025-01-01 15:41 | Outpatient (BNVA) | payer OTHER, SELFPAY | PROVIDERS: PCP Internal Medicine; Visit Provider Internal Medicine | DX: Z86.718 Personal history of other venous thrombosis and embolism (principal); Z79.01 Long term (current) use of anticoagulants; Z51.81 Encounter for therapeutic drug level monitoring | CPT/HCPCS: 85610; 99211 ==

== ENCOUNTER 2025-01-31 14:49 | Outpatient (AMB) | payer OTHER, SELFPAY ==
[2025-01-31 15:00] LABS: Prothrombin Time Whole Bld POC 24.2 sec (11.1-13.5)
--- NOTE | 2025-01-31 15:08 | MHC.OFFVISCO ---
Intake Intake Visit Reasons: Anticoagulation Allergies No Known Allergies Allergy (Verified 01/31/25 14:53) Medication List - Last Reconciled 01/31/25 by Manju Lee RN allopurinol 450 mg (1.5 x 300 mg) PO DAILY citalopram 40 mg PO DAILY comp.stocking,knee,long,medium Custom stockings- 20mmHg, Addaptive, elverax CPAP (CPAP Machine/Device) As directed, with supplies diclofenac sodium 75 mg PO BID ferrous sulfate 325 mg PO DAILY folic acid 1 mg PO DAILY furosemide 40 mg PO DAILY PRN miscellaneous medical supply custom compressor class 1 stockings for 2 pair omeprazole 40 mg PO DAILY tamsulosin 0.4 mg PO BEDTIME 90 days warfarin 10 mg See Protocol PO DAILY warfarin 2.5 mg See Protocol PO DAILY Nursing Note NO CP,SOB,DIET/MED CHANGES,FALLS OR SX OF BLEEDING. CONTINUE PRESENT DOSE AND FOLLOW-UP IN 4 WEEKS. GOOD UNDERSTANDING OF DOSING INSTR. Anti-Coag Initial Assessment Social Hx Patient Tobacco Use Status: Never used Tobacco alcohol intake: current Alcohol intake frequency: holidays/special occasions only Coding Level of Care Code Est Patient Level 1 Diagnoses Current use of anticoagulant therapy Z79.01 Assessment & Plan Assessment & Plan (1) Current use of anticoagulant therapy: Onset Date: ~09/08/21 Code(s): Z79.01 - residential (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
--- OUTSIDE RECORDS SUMMARY | 2025-01-31 17:33 | XMS_ITS | Patient Health Record ---
Author Organization [facility] Address [address] [place] [phone] Care Team Providers Care Farm Machinery Mechanic Name Role Phone Alessandra Torres MD Primary Care Provider Minnie Mcknight Unavailable [phone] Brian Wong Unavailable Unavailable Allergies Allergen (clinical [...] Problem Status W/U Status Risk Notes Problem [id number] Encounter for screening for malignant neoplasm of colon (Z12.11) Active confirmed Problem Screening for malignant neoplasm of rectum (528968042) Encounter for screening for malignant neoplasm of rectum (Z12.12) Active confirmed Problem [id number] Gastroesophageal reflux disease, esophagitis presence not specified (K21.9) Active confirmed Encounters Encounter Location Date Provider Diagnosis [facility] [address] [place] [phone] 11/07/2024 Minnie Kiran [facility] [address] [place] [phone] 12/05/2024 Minnie Kiran Plan Of Treatment Pending Test Test Name Order Date GI BIOPSY 08/10/2016 Future Test Test Name Order Date UPPER GI ENDOSCOPY 03/24/2016 COLONOSCOPY 03/24/2016 Insurance Providers Payer Name Payer Address Payer Phone Subscriber Number Group Number Insured Name Patient Relationship to Insured Coverage Start Date Coverage End Date [facility] [place] [phone] [id number] THOMAS WEST, MINNIE Self - patient is the insured Medical (General) History Medical History History ICD Code Colonoscopy 08-07-2005--neg. except for internal hemorrhoids DVT with PE in 1993--taken o ff Coumadin, but then had another PE--has a Benny filter Denies NC,DM,CVA,Lung disease,renal dise ase Knee pain--arthritis Gout GERD Sleep apnea--uses CPAP Surgical History Surgery Date(Month/Year) Leg surgery for hematoma Appendectomy Gastric sleeve--Dr. Rosado i--2013--lost 100#, but then gained weight back
--- OUTSIDE RECORDS SUMMARY | 2025-01-31 17:33 | XMS_ITS ---
Author Organization [facility] Address [address] [place] [phone] Care Team Providers Care Incident Handler Name Role Phone Melissa SCHWAB, Alessandra Primary Care Provider Unavaila Minnie Munoz Unavailable [phone] Brian Wong Unavailable Unavailable REASON FOR VISIT Patient presents today for diarrhea, rectal itching Encounters Encounter Location Date Provider Diagnosis [facility] [address] [facility] [address] [place] [phone] 11/08/2024 Minnie Kiran Plan Of Treatment No Information Progress Notes * MINNIE MOTADOB:1964 (59 yo M)Acc No.[id number]:11/08/2024 Progress Notes Patient:?MINNIE MOTA Provider:?Minnie Kiran MD :1965???Age:59 Y???Sex:Male Von e:11/08/2024 [facility] Pcp:Alessandra Torres MD Subjective: * Chief Complaints: [...] MD Date:? 025 Generated for Kristin cartagena/Kathy/eTransmitting on:?01/31/2025 05:33 PM EDT
--- OUTSIDE RECORDS SUMMARY | 2025-01-31 17:33 | XMS_ITS ---
Author Organization [facility] Address [address] [place] [phone] Care Team Providers Care Boat Hand Name Role Phone Melissa SCHWAB, Alessandra Primary Care Provider Unavaila Minnie Munoz Unavailable [phone] Brian Wong Unavailable Unavailable REASON FOR VISIT Patient presents today for diarrhea, rectal itching Encounters Encounter Location Date Provider Diagnosis [facility] [address] [facility] [address] [place] [phone] 12/06/2024 Minnie Kiran Plan Of Treatment No Information Progress Notes * MINNIE MOTADOB:1964 (59 yo M)Acc No.[id number]:12/06/2024 Progress Notes Patient:?MINNIE MOTA Provider:?Minnie Kiran MD :1965???Age:59 Y???Sex:Male Von e:12/06/2024 [facility] Pcp:Alessandra Torres MD Subjective: * Chief Complaints: [...]
--- OUTSIDE RECORDS SUMMARY | 2025-01-31 17:33 | XMS_ITS ---
Author Organization [facility] Address [address] [place] [phone] Care Team Providers Care Pouch Maker Name Role Phone Alessandra Torres MD Primary Care Provider Minnie Mcknight Unavailable [phone] Brian Wong Unavailable Unavailable REASON FOR VISIT cancel appt on 12/06/2024 Encounters Encounter Location Date Provider Diagnosis [facility] [address] [place] [phone] 12/05/2024 Minnie Kiran Plan Of Treatment No Information Progress Notes * MINNIE MOTADOB:1964 (59 yo M)Acc No.[id number]:12/05/2024 Patient:?MINNIE MOTA :1965???Age:59 Y???Sex:Male Address:[place] [address] * true * Date:? Generated for Pani osiel/Kathy/eTransmitting on:?01/31/2025 05:32 PM EDT
== END 2025-01-31 15:11 | disposition home or self-care (01) ==
LOC: HO.ACS 14:49
PROVIDERS: PCP Internal Medicine; Visit Provider Internal Medicine Medical Oncology
DX: Z79.01 Long term (current) use of anticoagulants (principal)

== ENCOUNTER → 2025-01-31 14:49 | Outpatient (BNVA) | payer OTHER, SELFPAY | PROVIDERS: PCP Internal Medicine; Visit Provider Internal Medicine Medical Oncology | DX: Z86.718 Personal history of other venous thrombosis and embolism (principal); Z51.81 Encounter for therapeutic drug level monitoring; Z79.01 Long term (current) use of anticoagulants | CPT/HCPCS: 85610; 99211 ==

== ENCOUNTER 2025-03-16 12:01 | Outpatient (AMB) | payer OTHER, SELFPAY ==
--- NOTE | 2025-03-16 12:08 | MHC.PC.OV ---
Vital Signs 03/16/25 12:09 Height 5 ft 10 in Weight 455 lb BMI 65.3 BP 110/80 Blood Pressure Location Lt radial Position Sitting Respiration 18 Pulse 104 H Pulse Source Pulse Oximeter Temp 98.4 F Temp Source Oral Pulse Oximetry (%) 98 Oxygen Delivery Method Room Air Intake Visit Reasons: Annual PE Intake Note: Pt is here today for his PE Allergies No Known Allergies Allergy (Verified 03/16/25 12:28) Medication List - Last Reconciled 03/16/25 by Alessandra Torres MD allopurinol 450 mg (1.5 x 300 mg) PO DAILY citalopram 40 mg PO DAILY comp.stocking,knee,long,medium Custom stockings- 20mmHg, Addaptive, elverax CPAP (CPAP Machine/Device) As directed, with supplies diclofenac sodium 75 mg PO BID ferrous sulfate 325 mg PO DAILY folic acid 1 mg PO DAILY furosemide 40 mg PO DAILY PRN miscellaneous medical supply custom compressor class 1 stockings for 2 pair omeprazole 40 mg PO DAILY tamsulosin 0.4 mg PO BEDTIME 90 days warfarin 10 mg See Protocol PO DAILY warfarin 2.5 mg See Protocol PO DAILY Tobacco use date assessed: 03/16/25 Dental Screening Dental Screen Date: 03/16/25 Did you have a dental visit in the last 12 months?: No Did you have a dental problem in the last 6 months where you did not have access to dental care?: No Was dental information given to patient?: Patient has dentist HPI Annual PE HPI Details Patient presents for a physical. He has not been able to work for 6 months because of severe pain due to advanced lumbar spine degenerative arthritis and bilateral knee advanced osteoarthritis. Patient is ambulating with a walker. He was evaluated by orthopedic surgeons but no surgical intervention was recommended because of patient's morbid obesity with a BMI of 65.3. Patient has been decreasing caloric intake, trying to increase physical activity for over 6 months unsuccessfully. Patient tried weight watchers programs in the past unsuccessfully. He is interested in trying GLP 1 agonist to facilitate weight loss. [facility] Medical History Hypogonadism, hypogonadotropic, with anosmia COVID-19 Annual physical exam Nephrolithiasis Leg edema KATIE (obstructive sleep apnea) Pulmonary embolism Osteoarthritis Morbid obesity with BMI of 60.0-69.9, adult Surgical History Hematoma of left knee region History of sleeve gastrectomy History of hernia repair History of appendectomy History of removal of laparoscopic gastric banding device [place] filter in place Hx of laparoscopic gastric banding Family History Father Lung cancer Bone cancer Mother No problems noted. Social History Household Members: None Housing: House Are you a primary acute care nursing assistant to a significant other at home: No Do you presently have visiting nurse or other home services: No Alcohol intake: current Alcohol intake frequency: holidays/special occasions only Patient Tobacco Use Status: Never used Tobacco e-Cigarette/Vaping Use: Never Used Advance Directives Date on File: 07/23/21 service: No Current occupational status: unemployed Current occupation: right handed. Cognitive needs: No Hearing needs: No Vision needs: No Questionnaire PHQ-9 Over the last 2 weeks, how often have you been bothered by any of the following problems? 1. Little interest or pleasure in doing things: nearly every day 2. Feeling down, depressed, or hopeless: not at all 3. Trouble falling or staying asleep, or sleeping too much: several days 4. Feeling tired or having little energy: more than half the days 5. Poor appetite or overeating: not at all 6. Feeling bad about yourself - or that you are a failure or have let yourself or your family down: not at all 7. Trouble concentrating on things, such as reading the newspaper or watching television: not at all 8. Moving or speaking so slowly that other people could have noticed. Or the opposite - being so fidgety or restless that you have been moving around a lot more than usual: not at all 9. Thoughts that you would be better off or of hurting yourself in some way: not at all Total score: 6 Depression Screening Interpretation: Negative Depression Screening Done: Yes 79883 - PHQ-9 Billing: Yes Source: Developed by Drs. Wm Cannon, Taylor Lester, Dennys Liriano and colleagues, with an educational amador from [employer] Thrive Questionnaire Date Thrive assessed: 03/16/25 I am a: Patient What is your living situation today?: I have a place to live, but I am worried about losing it in the future Within the past 12 months, did the food you bought not last and you didn't have the money to get more?: Never true Within the past 12 months, did you worry whether your food would run out before you got money to buy more?: Never true Do you have trouble paying for medicines?: No Do you have trouble getting transportation to medical appointments?: No Do you have trouble paying your heating and electricity bill?: No Do you have trouble taking care of your child, family member or friend?: No Do you have trouble with day-to-day activities such as bathing, preparing meals, shopping, managing finances, etc.?: No Are you currently unemployed and looking for a job?: No Are you interested in more education?: Yes Please select the resources that you would like help with: Utilities Currently or been in a relationship where the following occur: No concerns reported THRIVE Score: 1 AUDIT C Alcohol Use Questionnaire (AUDIT-C) 1. How often do you have a drink containing alcohol?: Monthly or less 2. How many drinks containing alcohol do you have on a typical day when you are drinking?: 1 or 2 3. How often do you have six or more drinks on one occasion?: Never Total Score: 1 MOLLY-7 AMB Questionnaire MOLLY-7 Date MOLLY - 7 assessed: 03/16/25 Feeling nervous, anxious, or on edge: 1 = Several days Not being able to stop or control worryin = Several days Worrying too much about different things: 1 = Several days Trouble relaxin = Not at all Being so restless that it is hard to sit still: 1 = Several days Becoming easily annoyed or irritable: 0 = Not at all Feeling afraid as if something awful might happen: 0 = Not at all Total MOLLY-7 score (0-4 normal; 5-9 mild; 10-14 moderate; 15-21 severe): 4 Source: Developed by Drs. Wm Cannon, Taylor Lester, Dennys Liriano and colleagues, with an educational amador from [employer]. Review of Systems Const All systems reviewed & are unremarkable except as noted in HPI and below Eyes Reports no additional complaints ENT Reports no additional complaints Card Reports no additional complaints Resp Reports no additional complaints GI Reports no additional complaints Reports no additional complaints Physical exam (Primary Care) Vital Signs: Last Vital Signs Temp 98.4 F 03/16/25 12:09 Pulse 104 H 03/16/25 12:09 Resp 18 03/16/25 12:09 BP 110/80 03/16/25 12:09 Pulse Ox 98 03/16/25 12:09 Oxygen Delivery Method Room Air 03/16/25 12:09 BMI result Body Mass Index 65.3 Tobacco/Smoking Status: Tobacco use Status Tobacco use date assessed 03/16/25 03/16/25 12:15 Patient Tobacco Use Status Never used Tobacco 03/16/25 12:15 e-Cigarette/Vaping Use Never Used 03/16/25 12:15 PHQ-9: PHQ-9 Score PHQ-9: Total score 6 03/16/25 12:28 Depression Screening Interpretation: Negative Thrive Assessment: Date of Thrive Assessment Date Thrive assessed 03/16/25 03/16/25 12:15 Currently or been in a relationship where the following occur: No concerns reported Const General: no acute distress HENMT Head: Yes normal to inspection Ears: TM's normal bilaterally Mouth: Normal oral and palatal mucosa present Neck Neck: Yes no lymphadenopathy and Yes supple Resp Effort & Inspection: normal respiratory effort Auscultation: clear to auscultation bilaterally Cardio Rhythm: regular rhythm Heart sounds: S1 normal heart sound present and S2 normal heart sound present GI Inspection: Yes normal to inspection Palpation (GI): Soft to palpation Percussion: Yes normal to percussion Auscultation: normal bowel sounds Extrem Other: Nonpitting lower extremity edema bilaterally Coding Level of Care Code Est Pt Prev Care 40-64y(63982) Diagnoses Hypogonadism, hypogonadotropic, with anosmia E23.0 Hemolytic anemia D58.9 Morbid obesity with BMI of 60.0-69.9, adult E66.01; Z68.44 Current use of anticoagulant therapy Z79.01 Annual physical exam Z00.00 Additional Codes PHQ-9 - 10175 - PHQ-9 Billing: Yes ([id number]) Assessment & Plan Assessment & Plan (1) Hypogonadism, hypogonadotropic, with anosmia: Code(s): E23.0 - Hypopituitarism Category: Medical Plan: Established with endocrinology Dr. Jones (2) Hemolytic anemia: Code(s): D58.9 - Hereditary hemolytic anemia, unspecified Category: Medical Plan: Established with Hematology (3) Morbid obesity with BMI of 60.0-69.9, adult: Code(s): E66.01 - Morbid (severe) obesity due to excess calories; Z68.44 - Body mass index [BMI] 60.0-69.9, adult Category: Medical Plan: Decreasing caloric intake increasing physical activity in effort to lose weight discussed with the patient. 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 He is up-to-date with colonoscopy. Orders: Orders Comprehensive [place]. Panel Fast Today D58.9 - Hereditary hemolytic anemia, unspecified, E23.0 - Hypopituitarism, E66.01 - Morbid (severe) obesity due to excess calories, Z00.00 - Encounter for general adult medical examination without abnormal findings, Z68.44 - Body mass index [BMI] 60.0-69.9, adult, Z79.01 - residential (current) use of anticoagulants Lipid Panel Today D58.9 - Hereditary hemolytic anemia, unspecified, E23.0 - Hypopituitarism, E66.01 - Morbid (severe) obesity due to excess calories, Z00.00 - Encounter for general adult medical examination without abnormal findings, Z68.44 - Body mass index [BMI] 60.0-69.9, adult, Z79.01 - rodent exterminator (current) use of anticoagulants Complete Blood Count Auto Diff Today D58.9 - Hereditary hemolytic anemia, unspecified, E23.0 - Hypopituitarism, E66.01 - Morbid (severe) obesity due to excess calories, Z00.00 - Encounter for general adult medical examination without abnormal findings, Z68.44 - Body mass index [BMI] 60.0-69.9, adult, Z79.01 - rodent exterminator (current) use of anticoagulants Hemoglobin A1c Today D58.9 - Hereditary hemolytic anemia, unspecified, E23.0 - Hypopituitarism, E66.01 - Morbid (severe) obesity due to excess calories, Z00.00 - Encounter for general adult medical examination without abnormal findings, Z68.44 - Body mass index [BMI] 60.0-69.9, adult, Z79.01 - rodent exterminator (current) use of anticoagulants PSA,Total (Free>4and<10) Today D58.9 - Hereditary hemolytic anemia, unspecified, E23.0 - Hypopituitarism, E66.01 - Morbid (severe) obesity due to excess calories, Z00.00 - Encounter for general adult medical examination without abnormal findings, Z68.44 - Body mass index [BMI] 60.0-69.9, adult, Z79.01 - residential (current) use of anticoagulants TSH reflex Free T4 Today D58.9 - Hereditary hemolytic anemia, unspecified, E23.0 - Hypopituitarism, E66.01 - Morbid (severe) obesity due to excess calories, Z00.00 - Encounter for general adult medical examination without abnormal findings, Z68.44 - Body mass index [BMI] 60.0-69.9, adult, Z79.01 - residential (current) use of anticoagulants UA w Microscopic Today D58.9 - Hereditary hemolytic anemia, unspecified, E23.0 - Hypopituitarism, E66.01 - Morbid (severe) obesity due to excess calories, Z00.00 - Encounter for general adult medical examination without abnormal findings, Z68.44 - Body mass index [BMI] 60.0-69.9, adult, Z79.01 - rodent exterminator (current) use of anticoagulants Vitamin B12 and Folate Today D58.9 - Hereditary hemolytic anemia, unspecified, E23.0 - Hypopituitarism, E66.01 - Morbid (severe) obesity due to excess calories, Z00.00 - Encounter for general adult medical examination without abnormal findings, Z68.44 - Body mass index [BMI] 60.0-69.9, adult, Z79.01 - rodent exterminator (current) use of anticoagulants IRON PROFILE Today D58.9 - Hereditary hemolytic anemia, unspecified, E23.0 - Hypopituitarism, E66.01 - Morbid (severe) obesity due to excess calories, Z00.00 - Encounter for general adult medical examination without abnormal findings, Z68.44 - Body mass index [BMI] 60.0-69.9, adult, Z79.01 - residential (current) use of anticoagulants
[2025-03-16 12:09] VITALS: BP 110/80; PULSE 104; RESP 18; TEMP 36.9; O2SAT 98; BMI 65.3
--- OUTSIDE RECORDS SUMMARY | 2025-03-16 12:44 | XMS_ITS ---
Author Organization [facility] Address [address] [place] [phone] Care Team Providers Care Websphere Portal Architect Name Role Phone Alessandra Torres MD Primary Care Provider Minnie Mcknight Unavailable [phone] Brian Wong Unavailable Unavailable REASON FOR VISIT cancel appt on 12/06/2024 Encounters Encounter Location Date Provider Diagnosis [facility] [address] [place] [phone] 12/05/2024 Minnie Kiran Plan Of Treatment No Information Progress Notes * MINNIE MOTADOB:1964 (59 yo M)Acc No.[id number]:12/05/2024 Patient:?MINNIE MOTA :1965???Age:59 Y???Sex:Male Address:[place] [address] * true * Date:? Generated for Pani osiel/Kathy/eTransmitting on:?03/16/2025 12:44 PM EDT
== END 2025-03-16 12:50 | disposition home or self-care (01) ==
LOC: HO.HMCC 12:02
PROVIDERS: PCP Internal Medicine; Visit Provider Internal Medicine
DX: Z00.00 Encounter for general adult medical examination without abnormal findings (principal); E23.0 Hypopituitarism; E66.01 Morbid (severe) obesity due to excess calories; Z68.44 Body mass index [BMI] 60.0-69.9, adult; D58.9 Hereditary hemolytic anemia, unspecified; Z79.01 Long term (current) use of anticoagulants

== ENCOUNTER → 2025-03-16 12:01 | Outpatient (BNVA) | payer OTHER, SELFPAY | PROVIDERS: PCP Internal Medicine; Visit Provider Internal Medicine | DX: Z00.00 Encounter for general adult medical examination without abnormal findings (principal); M17.0 Bilateral primary osteoarthritis of knee; E66.01 Morbid (severe) obesity due to excess calories; E23.0 Hypopituitarism; D58.9 Hereditary hemolytic anemia, unspecified; Z79.01 Long term (current) use of anticoagulants; Z68.44 Body mass index [BMI] 60.0-69.9, adult | CPT/HCPCS: 96127; 99396 ==

== ENCOUNTER 2025-03-27 14:13 | Outpatient (AMB) | payer OTHER, SELFPAY ==
--- NOTE | 2025-03-27 14:47 | MHC.OFFVISCO ---
Intake Intake Visit Reasons: Anticoagulation Allergies No Known Allergies Allergy (Verified 03/16/25 12:28) Nursing Note INR: 2.1 in therapeutic range Medications and supplements reviewed No changes in health, diet, medications, or supplements, Pt go on weight loss med - waiting for insurance approval Denies any signs and symptoms of bleeding or bruising or clotting. Bleeding, bruising, clotting discussed Nutritional guidance given Dose: 5MG X 2 DAYS/10MG X 5 DAYS F/U INR: 1 MONTH Patient verbalizes understanding of instructions given Anti-Coag Initial Assessment Social Hx Patient Tobacco Use Status: Never used Tobacco alcohol intake: current Alcohol intake frequency: holidays/special occasions only Questionnaires HAS-BLED Does the patient had uncontrolled Hypertension?: No Does the patient have renal disease?: Yes Does the patient have liver disease?: No Does the patient have a history of stroke?: No Has the patient had major bleeding or predisposition to bleeding?: No Does the patient have labile INRs?: Yes Is the patient over 65 years of age?: No Is the patient on medications that gives them a predisposition to bleeding?: Yes Does the patient use alcohol?: Yes HAS-BLED Score: 4 CHADSVASC Age: <65 Gender: Male Does the patient have a history of CHF?: No Does the patient have a history of Hypertension?: No Does the patient have a history of Stroke/TIA/Thromboembolism?: Yes Does the patient have a history of Vascular Disease (prior HI, PAD or aortic plaque)?: Yes Does the patient have a history of Diabetes?: No CHADS VACS Score: 3 Maritza Prediction Score Rsk VTE Active Cancer: No Previous VTE, excluding superficial vein thrombosis: Yes Reduced mobility: Yes 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 ) With-in last month Trauma and/or Surgery: No Elderly 70 year or older: No Heart and/or Respiratory Failure: No Acute Myocardial infarction and/or Ischemic Stroke: No Acute Infection and/or Rheumatologic Disorder: No Obesity (BMI 30 or greater): Yes Ongoing Hormonal Treatment: Yes Score: 11 Maritza Score less than 4; Low Risk of VTE Maritza Score 4 or greater; High Risk of VTE Coding Level of Care Code Est Patient Level 1 Diagnoses Current use of anticoagulant therapy Z79.01 Results AMB INR Fingerstick AMB INR Fingerstick 2.1 Last Edit by Hortencia Watt RN on 03/27/25 14:35 MANUAL ENTRY Assessment & Plan Assessment & Plan (1) Current use of anticoagulant therapy: Onset Date: ~09/08/21 Comment: For 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
[2025-03-27 15:14] LABS: Prothrombin Time Whole Bld POC 24.9 sec (11.1-13.5); ~PT, ~INR - Anti Coag Clinic 2.1 (0.9-1.1)
--- OUTSIDE RECORDS SUMMARY | 2025-03-27 17:07 | XMS_ITS ---
Author Organization [facility] Address [address] [place] [phone] Care Team Providers Care Prize Jacker Name Role Phone Alessandra Torres MD Primary Care Provider Minnie Mcknight Unavailable [phone] Brian Wong Unavailable Unavailable REASON FOR VISIT cancel appt on 12/06/2024 Encounters Encounter Location Date Provider Diagnosis [facility] [address] [place] [phone] 12/05/2024 Minnie Kiran Plan Of Treatment No Information Progress Notes * MINNIE MOTADOB:1964 (59 yo M)Acc No.[id number]:12/05/2024 Patient:?MINNIE MOTA :1965???Age:59 Y???Sex:Male Address:[place] [address] * true * Date:? Generated for Pani osiel/Kathy/eTransmitting on:?03/27/2025 05:07 PM EDT
== END 2025-03-27 15:00 | disposition home or self-care (01) ==
LOC: HO.ACS 14:13
PROVIDERS: PCP Internal Medicine; Visit Provider Internal Medicine Medical Oncology
DX: Z79.01 Long term (current) use of anticoagulants (principal)

== ENCOUNTER → 2025-03-27 14:13 | Outpatient (BNVA) | payer OTHER, SELFPAY | PROVIDERS: PCP Internal Medicine; Visit Provider Internal Medicine Medical Oncology | DX: Z86.718 Personal history of other venous thrombosis and embolism (principal); Z79.01 Long term (current) use of anticoagulants; Z51.81 Encounter for therapeutic drug level monitoring | CPT/HCPCS: 85610; 99211 ==

== ENCOUNTER 2025-04-25 14:51 | Outpatient (AMB) | payer OTHER, SELFPAY ==
[2025-04-25 15:05] LABS: Prothrombin Time Whole Bld POC 19.6 sec (11.1-13.5); ~PT, ~INR - Anti Coag Clinic 1.6 (0.9-1.1)
--- NOTE | 2025-04-25 15:24 | MHC.OFFVISCO ---
Intake Intake Visit Reasons: Anticoagulation Allergies No Known Allergies Allergy (Verified 04/25/25 15:00) Medication List - Last Reconciled 04/25/25 by Manju Lee RN allopurinol 450 mg (1.5 x 300 mg) PO DAILY citalopram 40 mg PO DAILY comp.stocking,knee,long,medium Custom stockings- 20mmHg, Addaptive, elverax CPAP (CPAP Machine/Device) As directed, with supplies diclofenac sodium 75 mg PO BID ferrous sulfate 325 mg PO DAILY folic acid 1 mg PO DAILY furosemide 40 mg PO DAILY PRN miscellaneous medical supply custom compressor class 1 stockings for 2 pair omeprazole 40 mg PO DAILY phentermine 37.5 mg PO DAILY tamsulosin 0.4 mg PO BEDTIME 90 days warfarin 10 mg See Protocol PO DAILY warfarin 2.5 mg See Protocol PO DAILY Zepbound (tirzepatide (weight loss)) 2.5 mg (0.5 mL) subcut QWEEK NS Nursing Note PT.STATES THAT HE MISSED ONE DOSE THIS WEEK. NO CP,SOB,DIET/MED CHANGES,FALLS OR SX OF BLEEDING. BOOST WARFARIN TO 10MG TODAY AND FOLLOW-UP IN 2 WEEKS. NO GREENS 2-3 DAYS GOOD UNDERSTANDING OF DOSING INSTR. 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
== END 2025-04-25 15:42 | disposition home or self-care (01) ==
LOC: HO.ACS 14:51
PROVIDERS: PCP Internal Medicine; Visit Provider Internal Medicine Medical Oncology
DX: Z79.01 Long term (current) use of anticoagulants (principal)

== ENCOUNTER → 2025-04-25 14:51 | Outpatient (BNVA) | payer OTHER, SELFPAY | PROVIDERS: PCP Internal Medicine; Visit Provider Internal Medicine Medical Oncology | DX: Z79.01 Long term (current) use of anticoagulants (principal) | CPT/HCPCS: 85610; 99211 ==

== ENCOUNTER 2025-05-22 15:32 | Outpatient (REF) | payer OTHER, SELFPAY ==
[2025-05-22 16:43] LABS: INTERNATIONAL NORM RATIO 5.2 (0.9-1.1); Prothrombin Time 60.1 SEC (10.9-12.4)
== END 2025-05-22 15:33 | disposition home or self-care (01) ==
LOC: HO.LAB 15:32
PROVIDERS: PCP Internal Medicine; Visit Provider Internal Medicine Medical Oncology
DX: Z51.81 Encounter for therapeutic drug level monitoring (principal); Z79.01 Long term (current) use of anticoagulants
CPT/HCPCS: 36415; 85610; 99211; 99212

== ENCOUNTER 2025-05-22 15:32 | Outpatient (AMB) | payer OTHER, SELFPAY ==
[2025-05-22 15:38] LABS: Prothrombin Time Whole Bld POC 67.3 sec (11.1-13.5); ~PT, ~INR - Anti Coag Clinic 5.6 (0.9-1.1)
--- NOTE | 2025-05-22 15:53 | MHC.OFFVISCO ---
Intake Intake Visit Reasons: Anticoagulation Allergies No Known Allergies Allergy (Verified 05/22/25 15:32) Medication List - Last Reconciled 05/22/25 by Martha Sebastian RN allopurinol 450 mg (1.5 x 300 mg) PO DAILY citalopram 40 mg PO DAILY comp.stocking,knee,long,medium Custom stockings- 20mmHg, Addaptive, elverax CPAP (CPAP Machine/Device) As directed, with supplies diclofenac sodium 75 mg PO BID ferrous sulfate 325 mg PO DAILY folic acid 1 mg PO DAILY furosemide 40 mg PO DAILY PRN miscellaneous medical supply custom compressor class 1 stockings for 2 pair omeprazole 40 mg PO DAILY phentermine 37.5 mg PO DAILY tamsulosin 0.4 mg PO BEDTIME 90 days warfarin 10 mg See Protocol PO DAILY warfarin 2.5 mg See Protocol PO DAILY Zepbound (tirzepatide (weight loss)) 2.5 mg (0.5 mL) subcut QWEEK NS Nursing Note Pt to ACS with use of wheeled walker. INR: 5.6 by POC out of therapeutic range of 2-3 Pt sent to lab for venous draw to verify. Result: 5.2 Pt states under a lot of stress. Trying to get on disablity and has a lot of paperwork to fill out. States he forgot a dose or two and took 12.5mg to make up for it. Patient status: usual state of health Medications or supplements: no changes Diet: usual diet for pt Denies any signs and symptoms of bleeding or clotting or unusual bruising Bleeding, bruising, clotting discussed Nutritional guidance given: to have a serving of greens today Dose: hold dose of 10mg today and dose of 5mg tomorrow then retest F/U INR Date: 2 days?? Patient verbalizing understanding of instructions with read back given. Composed note sent to Dr Wong. Could not reach by phone due to late hour. INR of 5.2 reported with dosing plan and next retest date. 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
--- OUTSIDE RECORDS SUMMARY | 2025-05-22 15:55 | XMS_ITS | Clinical Summary ---
Author Organization [facility] Address [address] [place] [address] Phone Care Team Providers Care Business Mgr Name Role Phone Nahid Taylor MD Primary Care Provider Unav ailable Social History Tobacco Use Types Packs/Day Years Used Date Smoking Tobacco: Never Assessed Education Answer Date Recorded Are you interested in more education? Not on pat e 02/28/2023 Are you concerned about learning? Not on file 02/28/2023 No 02/28/2023 No 02/28/2023 Digital Access Answer Date Recorded No 03/14/2023 No 03/14/2023 No 03/14/2023 Reliable internet access at home? Not on file 03/14/2023 Device with a working camera? Not on file Sex and Gender Information Value Date Recorded Sex Assigned at Not on file Legal Sex Male 6:20 PM EST Gender Identity Not on file Sexual Orientation Not on file Plan of Treatment Not on file Medical Devices Not on file Insurance [facility] MULTIPLAN MULTIPLAN MULTIPLAN MULTIPLAN MULTIPLAN MULTIPLAN [place] [address] [address] MULTIPLAN Care Teams Business Mgr Relationship Specialty Start Date End Date Nahid Taylor MD [address] [place] [address] Dr JIMENES [address] [place] [address] PCP - General 04/17/14 Additional Source Comments The information contained in this document represents components of the legal health record. It is not the complete legal health record.[facility]
--- OUTSIDE RECORDS SUMMARY | 2025-05-22 15:56 | XMS_ITS | Patient Health Record ---
Author Organization [facility] Address [address] [place] [address] Care Team Providers Care Fiction And Nonfiction Prose Writer Name Role Phone Alessandra Torres MD Primary Care Provider Minnie Mcknight Unavailable [phone] Brian Wong Unavailable Unavailable Allergies Allergen (clinical [...] Problem Status W/U Status Risk Notes Problem [id number] Encounter for screening for malignant neoplasm of colon (Z12.11) Active confirmed Problem Encounter for screening for malignant neoplasm of rectum (Z12.12) Active confirmed Problem [id number] Gastroesophageal reflux disease, esophagitis presence not specified (K21.9) Active confirmed Encounters Encounter Location Date Provider Diagnosis [facility] [address] [place] [phone] 11/07/2024 Minnie Kiran [facility] [address] [place] [phone] 12/05/2024 Minnie Kiran Plan Of Treatment Pending Test Test Name Order Date GI BIOPSY 08/10/2016 Future Test Test Name Order Date UPPER GI ENDOSCOPY 03/24/2016 COLONOSCOPY 03/24/2016 Insurance Providers Payer Name Payer Address Payer Phone Subscriber Number Group Number Insured Name Patient Relationship to Insured Coverage Start Date Coverage End Date [facility] [address] [place] [address] [phone] [id number] [facility] MINNIE Self - patient is the insured Medical (General) History Medical History History ICD Code Colonoscopy 08-07-2005--neg. except for internal hemorrhoids DVT with PE in 1993--taken o ff Coumadin, but then had another PE--has a [place] filter Denies [place],DM,CVA,Lung disease,renal dise ase Knee pain--arthritis Gout GERD Sleep apnea--uses CPAP Surgical History Surgery Date(Month/Year) Leg surgery for hematoma Appendectomy Gastric sleeve--Dr. Rosado i--2013--lost 100#, but then gained weight back
== END 2025-05-22 16:56 | disposition home or self-care (01) ==
LOC: HO.ACS 15:32
PROVIDERS: PCP Internal Medicine; Visit Provider Internal Medicine Medical Oncology
DX: Z79.01 Long term (current) use of anticoagulants (principal)

== ENCOUNTER 2025-05-24 15:36 | Outpatient (AMB) | payer OTHER, SELFPAY ==
--- OUTSIDE RECORDS SUMMARY | 2025-05-24 15:38 | XMS_ITS | Clinical Summary ---
Author Organization [facility] Address [address] [place] [address] Phone Care Team Providers Care Steel Grinder Name Role Phone Nahid Taylor MD Primary [...] file Medical Devices Not on file Insurance [facility] MULTIPLAN MULTIPLAN MULTIPLAN MULTIPLAN MULTIPLAN MULTIPLAN [place] [address] [address] MULTIPLAN Care Teams Steel Grinder Relationship Specialty Start Date End Date Nahid Taylor MD [address] [place] [address] Dr JIMENES [address] [place] [address] PCP - General 04/17/14 Additional Source Comments The information contained in this document represents components of the legal health record. It is not the complete legal health record.[facility]
--- OUTSIDE RECORDS SUMMARY | 2025-05-24 15:38 | XMS_ITS | Patient Health Record ---
Author Organization [facility] Address [address] [place] [address] Care Team Providers Care Regulatory Auditor Name Role Phone Alessandra Torres MD Primary Care Provider Minnie Mcknight Unavailable [phone] Brian Wong Unavailable Unavailable Allergies Allergen (clinical [...] Problem Status W/U Status Risk Notes Problem [id number] Encounter for screening for malignant neoplasm of colon (Z12.11) Active confirmed Problem Encounter for screening for malignant neoplasm of rectum (Z12.12) Active confirmed Problem [id number] Gastroesophageal reflux disease, esophagitis presence not specified (K21.9) Active confirmed Encounters Encounter Location Date Provider Diagnosis [facility] [address] [place] [phone] 11/07/2024 Minnie Kiran [facility] [address] [place] [phone] 12/05/2024 Minnie Kiran Plan Of Treatment Pending Test Test Name Order Date GI BIOPSY 08/10/2016 Future Test Test Name Order Date UPPER GI ENDOSCOPY 03/24/2016 COLONOSCOPY 03/24/2016 Insurance Providers Payer Name Payer Address Payer Phone Subscriber Number Group Number Insured Name Patient Relationship to Insured Coverage Start Date Coverage End Date [facility] [address] [place] [address] [id number] [facility] MINNIE Self - patient is the insured Medical (General) History Medical History History ICD Code Colonoscopy 08-07-2005--neg. except for internal hemorrhoids DVT with PE in 1993--taken o ff Coumadin, but then had another PE--has a [place] filter Denies [place],DM,CVA,Lung disease,renal dise ase Knee pain--arthritis Gout GERD Sleep apnea--uses CPAP Surgical History Surgery Date(Month/Year) Leg surgery for hematoma Appendectomy Gastric sleeve--Dr. Rosado i--2013--lost 100#, but then gained weight back
--- NOTE | 2025-05-24 15:42 | MHC.OFFVISCO ---
Intake Intake Visit Reasons: Anticoagulation Allergies No Known Allergies Allergy (Verified 05/24/25 15:36) Medication List - Last Reconciled 05/24/25 by Bianca Gotti RN allopurinol 450 mg (1.5 x 300 mg) PO DAILY citalopram 40 mg PO DAILY comp.stocking,knee,long,medium Custom stockings- 20mmHg, Addaptive, elverax CPAP (CPAP Machine/Device) As directed, with supplies diclofenac sodium 75 mg PO BID ferrous sulfate 325 mg PO DAILY folic acid 1 mg PO DAILY furosemide 40 mg PO DAILY PRN miscellaneous medical supply custom compressor class 1 stockings for 2 pair omeprazole 40 mg PO DAILY phentermine 37.5 mg PO DAILY tamsulosin 0.4 mg PO BEDTIME 90 days warfarin 10 mg See Protocol PO DAILY warfarin 2.5 mg See Protocol PO DAILY Zepbound (tirzepatide (weight loss)) 2.5 mg (0.5 mL) subcut QWEEK NS Nursing Note INR 4.0-?? out of therapeutic range of 2-3 Medications and supplements reviewed Patient status: pt amb with taty clark knee pain Medications or supplements: no changes. pt states on zepbound tablets Diet: same Denies any signs and symptoms of bleeding or clotting or unusual bruising Bleeding, bruising, clotting discussed - denies bleeding, cont to monitor Nutritional guidance given: eat greens to lower Dose: reduce dose today to 2.5mg then cont reg F/U INR Date : wed05/28/25?? Patient verbalizing understanding of instructions given. 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
[2025-05-24 15:43] LABS: Prothrombin Time Whole Bld POC 47.8 sec (11.1-13.5); ~PT, ~INR - Anti Coag Clinic 4.0 (0.9-1.1)
== END 2025-05-24 15:58 | disposition home or self-care (01) ==
LOC: HO.ACS 15:36
PROVIDERS: PCP Internal Medicine; Visit Provider Internal Medicine Medical Oncology
DX: Z79.01 Long term (current) use of anticoagulants (principal)

== ENCOUNTER → 2025-05-24 15:36 | Outpatient (BNVA) | payer OTHER, SELFPAY | PROVIDERS: PCP Internal Medicine; Visit Provider Internal Medicine Medical Oncology | DX: Z79.01 Long term (current) use of anticoagulants (principal) | CPT/HCPCS: 85610; 99211 ==

== ENCOUNTER 2025-05-28 15:26 | Outpatient (AMB) | payer OTHER, SELFPAY ==
[2025-05-28 15:32] LABS: Prothrombin Time Whole Bld POC 15.9 sec (11.1-13.5); ~PT, ~INR - Anti Coag Clinic 1.3 (0.9-1.1)
--- OUTSIDE RECORDS SUMMARY | 2025-05-28 15:37 | XMS_ITS | Clinical Summary ---
Author Organization [facility] Address [address] [place] [address] Phone Care Team Providers Care Hospital Internship Name Role Phone Nahid Taylor MD Primary [...] file Medical Devices Not on file Insurance [facility] MULTIPLAN MULTIPLAN MULTIPLAN MULTIPLAN MULTIPLAN MULTIPLAN MULTIP[place]AN [address] [address] MULTIPLAN Care Teams Hospital Internship Relationship Specialty Start Date End Date Nahid Taylor MD [address] [place] [address] Dr JIMENES [address] [place] [address] PCP - General 04/17/14 Additional Source Comments The information contained in this document represents components of the legal health record. It is not the complete legal health record.[facility]
--- OUTSIDE RECORDS SUMMARY | 2025-05-28 15:37 | XMS_ITS | Patient Health Record ---
Author Organization [facility] Address [address] [place] [address] Care Team Providers Care Brewer Helper Name Role Phone Alessandra Torres MD Primary Care Provider Minnie Mcknight Unavailable [phone] Brian Wong Unavailable Unavailable Allergies Allergen (clinical [...] Problem Status W/U Status Risk Notes Problem [id number] Encounter for screening for malignant neoplasm of colon (Z12.11) Active confirmed Problem Encounter for screening for malignant neoplasm of rectum (Z12.12) Active confirmed Problem [id number] Gastroesophageal reflux disease, esophagitis presence not specified (K21.9) Active confirmed Encounters Encounter Location Date Provider Diagnosis [facility] [address] [place] [phone] 11/07/2024 Minnie Kiran [facility] [address] [place] [phone] 12/05/2024 Minnie Kiran Plan Of Treatment Pending Test Test Name Order Date GI BIOPSY 08/10/2016 Future Test Test Name Order Date UPPER GI ENDOSCOPY 03/24/2016 COLONOSCOPY 03/24/2016 Insurance Providers Payer Name Payer Address Payer Phone Subscriber Number Group Number Insured Name Patient Relationship to Insured Coverage Start Date Coverage End Date [facility] [address] [facility] [place] [address] [id number] [facility]TT, MINNIE Self - patient is the insured Medical (General) History Medical History History ICD Code Colonoscopy 08-07-2005--neg. except for internal hemorrhoids DVT with PE in 1993--taken o ff Coumadin, but then had another PE--has a [place] filter Denies [place],DM,CVA,Lung disease,renal dise ase Knee pain--arthritis Gout GERD Sleep apnea--uses CPAP Surgical History Surgery Date(Month/Year) Leg surgery for hematoma Appendectomy Gastric sleeve--Dr. Rosado i--2013--lost 100#, but then gained weight back
--- NOTE | 2025-05-28 15:54 | MHC.OFFVISCO ---
Intake Intake Visit Reasons: Anticoagulation Allergies No Known Allergies Allergy (Verified 05/28/25 15:26) Medication List - Last Reconciled 05/28/25 by Martha Sebastian RN allopurinol 450 mg (1.5 x 300 mg) PO DAILY citalopram 40 mg PO DAILY comp.stocking,knee,long,medium Custom stockings- 20mmHg, Addaptive, elverax CPAP (CPAP Machine/Device) As directed, with supplies diclofenac sodium 75 mg PO BID ferrous sulfate 325 mg PO DAILY folic acid 1 mg PO DAILY furosemide 40 mg PO DAILY PRN miscellaneous medical supply custom compressor class 1 stockings for 2 pair omeprazole 40 mg PO DAILY phentermine 37.5 mg PO DAILY tamsulosin 0.4 mg PO BEDTIME 90 days warfarin 10 mg See Protocol PO DAILY warfarin 2.5 mg See Protocol PO DAILY Zepbound (tirzepatide (weight loss)) 2.5 mg (0.5 mL) subcut QWEEK NS Held on 05/24/25. Instructions: Doctor's Order Nursing Note INR: 1.3 out of therapeutic range of 2-3 Previous INR's last week 5.2 and 4.0. Pt Medications and supplements reviewed Patient status: no changes Medications or supplements: no changes Diet: pt has been eating turnip greens and spinach in large amounts to help lower the INR Denies any signs and symptoms of bleeding or clotting or unusual bruising Bleeding, bruising, clotting discussed Nutritional guidance given: to stop eating greens and to have 1-2 servings of foods that raise the INR. Pt states he will have tomatoes and strawberries and states he will only have a serving. Dose: increase dose for next 2 days to 12.5mg (usually 10mg) then to return to ACS F/U INR Date: 05/30/25?? Patient verbalizing understanding of instructions with read back given. 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
== END 2025-05-28 16:17 | disposition home or self-care (01) ==
LOC: HO.ACS 15:26
PROVIDERS: PCP Internal Medicine; Visit Provider Internal Medicine Medical Oncology
DX: Z79.01 Long term (current) use of anticoagulants (principal)

== ENCOUNTER → 2025-05-28 15:26 | Outpatient (BNVA) | payer OTHER, SELFPAY | PROVIDERS: PCP Internal Medicine; Visit Provider Internal Medicine Medical Oncology | DX: Z79.01 Long term (current) use of anticoagulants (principal) | CPT/HCPCS: 85610; 99211 ==

== ENCOUNTER 2025-05-30 13:32 | Outpatient (AMB) | payer OTHER, SELFPAY ==
[2025-05-30 13:41] LABS: Prothrombin Time Whole Bld POC 16.3 sec (11.1-13.5); ~PT, ~INR - Anti Coag Clinic 1.4 (0.9-1.1)
--- NOTE | 2025-05-30 13:51 | MHC.OFFVISCO ---
Intake Intake Visit Reasons: Anticoagulation Allergies No Known Allergies Allergy (Verified 05/30/25 13:36) Medication List - Last Reconciled 05/30/25 by Manju Lee RN allopurinol 450 mg (1.5 x 300 mg) PO DAILY [bariatric shower chair Wt 434lbs, HT 5'10 ] citalopram 40 mg PO DAILY comp.stocking,knee,long,medium Custom stockings- 20mmHg, Addaptive, elverax CPAP (CPAP Machine/Device) As directed, with supplies diclofenac sodium 75 mg PO BID ferrous sulfate 325 mg PO DAILY folic acid 1 mg PO DAILY furosemide 40 mg PO DAILY PRN miscellaneous medical supply custom compressor class 1 stockings for 2 pair omeprazole 40 mg PO DAILY phentermine 37.5 mg PO DAILY tamsulosin 0.4 mg PO BEDTIME 90 days warfarin 10 mg See Protocol PO DAILY warfarin 2.5 mg See Protocol PO DAILY Zepbound (tirzepatide (weight loss)) 2.5 mg (0.5 mL) subcut QWEEK NS Held on 05/24/25. Instructions: Doctor's Order Nursing Note PT.DENIES ANY MISSED DOSES,CP ,SOB,DIET/MED CHANGES,FALLS OR SX OF BLEEDING. BOOST WARFARIN TO 10MGM TODAY AND 10MG TOMORROW--FOLLOW-UP ON 06/01. NO GREENS IN MEANTIME. WILL INCREASE REDS. CALL TO ([place]) AT 2PM WITH INR AND PLAN OF CARE. ? LOVENOX. 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
--- OUTSIDE RECORDS SUMMARY | 2025-05-30 13:58 | XMS_ITS | Patient Health Record ---
Author Organization [facility] Address [address] [place] [address] Care Team Providers Care Transit Clerk Name Role Phone Alessandra Torres MD Primary Care Provider Minnie Mcknight Unavailable [phone] Brian Wong Unavailable Unavailable Allergies Allergen (clinical [...] Problem Status W/U Status Risk Notes Problem [id number] Encounter for screening for malignant neoplasm of colon (Z12.11) Active confirmed Problem Encounter for screening for malignant neoplasm of rectum (Z12.12) Active confirmed Problem [id number] Gastroesophageal reflux disease, esophagitis presence not specified (K21.9) Active confirmed Encounters Encounter Location Date Provider Diagnosis [facility] [address] [place] [phone] 11/07/2024 Minnie Kiran [facility] [address] [place] [phone] 12/05/2024 Minnie Kiran Plan Of Treatment Pending Test Test Name Order Date GI BIOPSY 08/10/2016 Future Test Test Name Order Date UPPER GI ENDOSCOPY 03/24/2016 COLONOSCOPY 03/24/2016 Insurance Providers Payer Name Payer Address Payer Phone Subscriber Number Group Number Insured Name Patient Relationship to Insured Coverage Start Date Coverage End Date [facility] [address] [place] [address] [phone] [id number] [facility] MINNIE Self - patient is the insured Medical (General) History Medical History History ICD Code Colonoscopy 08-07-2005--neg. except for internal hemorrhoids DVT with PE in 1993--taken o ff Coumadin, but then had another PE--has a [place] filter Denies [place],DM,CVA,Lung disease,renal dise ase Knee pain--arthritis Gout GERD Sleep apnea--uses CPAP Surgical History Surgery Date(Month/Year) Leg surgery for hematoma Appendectomy Gastric sleeve--Dr. Rosado i--2013--lost 100#, but then gained weight back
--- OUTSIDE RECORDS SUMMARY | 2025-05-30 13:58 | XMS_ITS | Clinical Summary ---
Author Organization [facility] Address [address] [place] [address] Phone Care Team Providers Care Business Manager College Or University Name Role Phone Nahid Taylor MD Primary [...] file Medical Devices Not on file Insurance [facility] MULTIPLAN MULTIPLAN MULTIPLAN MULTIPLAN MULTIPLAN MULTIPLAN [place]ULTIP[place] [address] [place] [address] MULTIPLAN Care Teams Business Manager College Or [employer] Relationship Specialty Start Date End Date Nahid Taylor MD [address] [place] [address] Dr JIMENES [address] [place] [address] PCP - General 04/17/14 Additional Source Comments The information contained in this document represents components of the legal health record. It is not the complete legal health record.[facility]
== END 2025-05-30 15:07 | disposition home or self-care (01) ==
LOC: HO.ACS 13:32
PROVIDERS: PCP Internal Medicine; Visit Provider Internal Medicine Medical Oncology
DX: Z79.01 Long term (current) use of anticoagulants (principal)

== ENCOUNTER → 2025-05-30 13:32 | Outpatient (BNVA) | payer OTHER, SELFPAY | PROVIDERS: PCP Internal Medicine; Visit Provider Internal Medicine Medical Oncology | DX: Z79.01 Long term (current) use of anticoagulants (principal) | CPT/HCPCS: 85610; 99211 ==

== ENCOUNTER 2025-06-01 15:16 | Outpatient (AMB) | payer OTHER, SELFPAY ==
--- OUTSIDE RECORDS SUMMARY | 2025-06-01 15:17 | XMS_ITS | Clinical Summary ---
Author Organization [facility] Address [address] [place] [address] Phone Care Team Providers Care Assistant Program Director Name Role Phone Nahid Taylor MD Primary [...] file Medical Devices Not on file Insurance [facility] MULTIPLAN MULTIPLAN MULTIPLAN MULTIPLAN MULTIPLAN MULTIPLAN [place]IP[place] [place] [address] MULTIPLAN Care Teams Assistant Program Director Relationship Specialty Start Date End Date Nahid Taylor MD [address] [place] [address] Dr JIMENES [address] [place] [address] PCP - General 04/17/14 Additional Source Comments The information contained in this document represents components of the legal health record. It is not the complete legal health record.[facility]
--- OUTSIDE RECORDS SUMMARY | 2025-06-01 15:18 | XMS_ITS | Patient Health Record ---
Author Organization [facility] Address [address] [place] [address] Care Team Providers Care Bakery And Deli Sales Manager Name Role Phone Alessandra Torres MD Primary Care Provider Minnie Mcknight Unavailable [phone] Brian Wong Unavailable Unavailable Allergies Allergen (clinical [...] Problem Status W/U Status Risk Notes Problem [id number] Encounter for screening for malignant neoplasm of colon (Z12.11) Active confirmed Problem Encounter for screening for malignant neoplasm of rectum (Z12.12) Active confirmed Problem 437678508 Gastroesophageal reflux disease, esophagitis presence not specified (K21.9) Active confirmed Encounters Encounter Location Date Provider Diagnosis [facility] [address] [place] [phone] 11/07/2024 Minnie Kiran [facility] [address] [place] [phone] 12/05/2024 Minnie Kiran Plan Of Treatment Pending Test Test Name Order Date GI BIOPSY 08/10/2016 Future Test Test Name Order Date UPPER GI ENDOSCOPY 03/24/2016 COLONOSCOPY 03/24/2016 Insurance Providers Payer Name Payer Address Payer Phone Subscriber Number Group Number Insured Name Patient Relationship to Insured Coverage Start Date Coverage End Date [facility] [address] [place] [address] [phone] [id number] [facility] MINNIE Self - patient is the insured Medical (General) History Medical History History ICD Code Colonoscopy 08-07-2005--neg. except for internal hemorrhoids DVT with PE in 1993--taken o ff Coumadin, but then had another PE--has a [place] filter Denies [place],DM,CVA,Lung disease,renal dise ase Knee pain--arthritis Gout GERD Sleep apnea--uses CPAP Surgical History Surgery Date(Month/Year) Leg surgery for hematoma Appendectomy Gastric sleeve--Dr. Rosado i--2013--lost 100#, but then gained weight back
[2025-06-01 15:23] LABS: Prothrombin Time Whole Bld POC 21.2 sec (11.1-13.5); ~PT, ~INR - Anti Coag Clinic 1.8 (0.9-1.1)
--- NOTE | 2025-06-01 15:28 | MHC.OFFVISCO ---
Intake Intake Visit Reasons: Anticoagulation Allergies No Known Allergies Allergy (Verified 06/01/25 15:19) Medication List - Last Reconciled 06/01/25 by Manju Lee RN allopurinol 450 mg (1.5 x 300 mg) PO DAILY [bariatric shower chair Wt 434lbs, HT 5'10 ] citalopram 40 mg PO DAILY comp.stocking,knee,long,medium Custom stockings- 20mmHg, Addaptive, elverax CPAP (CPAP Machine/Device) As directed, with supplies diclofenac sodium 75 mg PO BID ferrous sulfate 325 mg PO DAILY folic acid 1 mg PO DAILY furosemide 40 mg PO DAILY PRN miscellaneous medical supply custom compressor class 1 stockings for 2 pair omeprazole 40 mg PO DAILY phentermine 37.5 mg PO DAILY tamsulosin 0.4 mg PO BEDTIME 90 days warfarin 10 mg See Protocol PO DAILY warfarin 2.5 mg See Protocol PO DAILY Zepbound (tirzepatide (weight loss)) 2.5 mg (0.5 mL) subcut QWEEK NS Held on 05/24/25. Instructions: Doctor's Order Nursing Note NO CP,SOB,DIET/MED CHANGES,FALLS OR SX OF BLEEDING. BOOST TODAY TO 12.5MGM THEN RESUME USUAL DOSING AND RECHECK ON 06/06/25. NO GREENS 2 DAYS. PT.AGREES TO INCREASE FRUITS,ETC. GOOD UNDERSTANDING OF DOSING INSTR. 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
== END 2025-06-01 15:31 | disposition home or self-care (01) ==
LOC: HO.ACS 15:16
PROVIDERS: PCP Internal Medicine; Visit Provider Internal Medicine Medical Oncology
DX: Z79.01 Long term (current) use of anticoagulants (principal)

== ENCOUNTER → 2025-06-01 15:16 | Outpatient (BNVA) | payer OTHER, SELFPAY | PROVIDERS: PCP Internal Medicine; Visit Provider Internal Medicine Medical Oncology | DX: Z79.01 Long term (current) use of anticoagulants (principal) | CPT/HCPCS: 85610; 99211 ==

== ENCOUNTER 2025-06-25 15:24 | Outpatient (AMB) | payer OTHER, SELFPAY ==
--- OUTSIDE RECORDS SUMMARY | 2024-11-08 11:40 | XMS_ITS ---
Author Organization [facility] Address [address] [place] [phone] Care Team Providers Care Apartment Maintenance Technician Name Role Phone Melissa SCHWAB, Alessandra Primary Care Provider Minnie Mcknight Unavailable [phone] Brian Wong Unavailable Unavailable REASON FOR VISIT Patient presents today for diarrhea, rectal itching Encounters Encounter Location Date Provider Diagnosis [facility] [address] [facility] [address] [place] [phone] 11/08/2024 Minnie Kiran Plan Of Treatment No Information Progress Notes * MINNIE MOTADOB:1964 (59 yo M)Acc No.[id number]:11/08/2024 Progress Notes Patient: MINNIE CORRAL Provider: Mellisa Kiran MD :1965 A ge:59 Y S ex:Male Date:11/08/2024 Address:[place] [id number] Pcp:Alessandra Torres MD Subjective: * Chief Complaints: [...] 0 11/08/2024 Generated for Pani osiel/Kathy/eTransmitting on: 0 06/25/2025 06:26 PM EDT
--- OUTSIDE RECORDS SUMMARY | 2024-12-06 10:00 | XMS_ITS ---
Author Organization [facility] Address [address] [place] [address] Care Team Providers Care Online Education Manager Name Role Phone Melissa SCHWAB, Alessandra Primary Care Provider Minnie Mcknight Unavailable [phone] Brian Wong Unavailable Unavailable REASON FOR VISIT Patient presents today for diarrhea, rectal itching Encounters Encounter Location Date Provider Diagnosis [facility] 10 [facility] [address] [place] [phone] 12/06/2024 Minnie Kiran Plan Of Treatment No Information Progress Notes * MINNIE MOTADOB:1964 (59 yo M)Acc No.[id number]:12/06/2024 Progress Notes Patient: MINNIE CORRAL Provider: Mellisa Kiran MD :1965 A ge:59 Y S ex:Male Date:12/06/2024 Address:[address] [facility] Pcp:Alessandra Torres MD Subjective: * Chief Complaints: [...] 0 12/06/2024 Generated for Pani osiel/Kathy/eTransmitting on: 0 06/25/2025 06:26 PM EDT
[2025-06-25 15:34] LABS: Prothrombin Time Whole Bld POC 32.3 sec (11.1-13.5); ~PT, ~INR - Anti Coag Clinic 2.7 (0.9-1.1)
--- NOTE | 2025-06-25 15:41 | MHC.OFFVISCO ---
Intake Intake Visit Reasons: Anticoagulation Allergies No Known Allergies Allergy (Verified 06/25/25 15:26) Medication List - Last Reconciled 06/25/25 by Martha Sebastian RN allopurinol 450 mg (1.5 x 300 mg) PO DAILY [bariatric shower chair Wt 434lbs, HT 5'10 ] citalopram 40 mg PO DAILY comp.stocking,knee,long,medium Custom stockings- 20mmHg, Addaptive, elverax CPAP (CPAP Machine/Device) As directed, with supplies diclofenac sodium 75 mg PO BID ferrous sulfate 325 mg PO DAILY folic acid 1 mg PO DAILY furosemide 40 mg PO DAILY PRN miscellaneous medical supply custom compressor class 1 stockings for 2 pair omeprazole 40 mg PO DAILY phentermine 37.5 mg PO DAILY tamsulosin 0.4 mg PO BEDTIME 90 days warfarin 10 mg See Protocol PO DAILY warfarin 2.5 mg See Protocol PO DAILY Zepbound (tirzepatide (weight loss)) 2.5 mg (0.5 mL) subcut QWEEK NS Held on 05/24/25. Instructions: Doctor's Order Nursing Note INR: 2.7 in therapeutic range 2-3 Medications and supplements reviewed No changes in health, diet, medications, or supplements, Denies any signs and symptoms of bleeding or bruising or clotting. 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
--- OUTSIDE RECORDS SUMMARY | 2025-06-25 18:26 | XMS_ITS | Patient Health Record ---
Author Organization [facility] Address [address] [place] [address] Care Team Providers Care Laser Operator Name Role Phone Alessandra Torres MD Primary Care Provider Minnie Mcknight Unavailable [phone] Brian Wong Unavailable Unavailable Allergies Allergen (clinical [...] Problem Status W/U Status Risk Notes Problem [id number] Encounter for screening for malignant neoplasm of colon (Z12.11) Active confirmed Problem Screening for malignant neoplasm of rectum (383643356) Encounter for screening for malignant neoplasm of rectum (Z12.12) Active confirmed Problem [id number] Gastroesophageal reflux disease, esophagitis presence not specified (K21.9) Active confirmed Encounters Encounter Location Date Provider Diagnosis [facility] [address] [place] [phone] 11/07/2024 Minnie Kiran [facility] [address] [place] [phone] 12/05/2024 Minnie Kiran Plan Of Treatment Pending Test Test Name Order Date GI BIOPSY 08/10/2016 Future Test Test Name Order Date UPPER GI ENDOSCOPY 03/24/2016 COLONOSCOPY 03/24/2016 Insurance Providers Payer Name Payer Address Payer Phone Subscriber Number Group Number Insured Name Patient Relationship to Insured Coverage Start Date Coverage End Date [facility] [address] [place] [phone] [id number] THOMAS WEST, MINNIE Self - patient is the insured Medical (General) History Medical History History ICD Code Colonoscopy 08-07-2005--neg. except for internal hemorrhoids DVT with PE in 1993--taken o ff Coumadin, but then had another PE--has a [place] filter Denies [place],DM,CVA,Lung disease,renal dise ase Knee pain--arthritis Gout GERD Sleep apnea--uses CPAP Surgical History Surgery Date(Month/Year) Leg surgery for hematoma Appendectomy Gastric sleeve--Dr. Rosado i--2013--lost 100#, but then gained weight back
--- OUTSIDE RECORDS SUMMARY | 2025-06-25 18:26 | XMS_ITS | Clinical Summary ---
Author Organization [facility] Address [address] [place] [address] Phone Care Team Providers Care Outside Cutter Hand Name Role Phone Nahid Taylor MD Primary [...] file Medical Devices Not on file Insurance [facility] MULTIPLAN MULTIPLAN MULTIPLAN MULTIPLAN MULTIPLAN MULTIPLAN [place] [address] [address] [address] MULTIPLAN Care Teams Outside Cutter Hand Relationship Specialty Start Date End Date Nahid Taylor MD [address] [place] [address] Dr JIMENES [address] [place] [id number] PCP - General 04/17/14 Additional Source Comments The information contained in this document represents components of the legal health record. It is not the complete legal health record.[facility]
== END 2025-06-25 15:48 | disposition home or self-care (01) ==
LOC: HO.ACS 15:24
PROVIDERS: PCP Internal Medicine; Visit Provider Internal Medicine Medical Oncology
DX: Z79.01 Long term (current) use of anticoagulants (principal)

== ENCOUNTER → 2025-06-25 15:24 | Outpatient (BNVA) | payer OTHER, SELFPAY | PROVIDERS: PCP Internal Medicine; Visit Provider Internal Medicine Medical Oncology | DX: Z86.718 Personal history of other venous thrombosis and embolism (principal); Z79.01 Long term (current) use of anticoagulants; Z51.81 Encounter for therapeutic drug level monitoring | CPT/HCPCS: 85610; 99211 ==

== ENCOUNTER 2025-07-18 13:32 | Outpatient (AMB) | payer OTHER, SELFPAY ==
--- NOTE | 2025-07-18 13:44 | MHC.OFFVISCO ---
Intake Intake Visit Reasons: Anticoagulation Allergies No Known Allergies Allergy (Verified 07/18/25 13:37) Medication List - Last Reconciled 07/18/25 by Bianca Gotti RN allopurinol 450 mg (1.5 x 300 mg) PO DAILY [bariatric shower chair Wt 434lbs, HT 5'10 ] citalopram 40 mg PO DAILY comp.stocking,knee,long,medium Custom stockings- 20mmHg, Addaptive, elverax CPAP (CPAP Machine/Device) As directed, with supplies diclofenac sodium 75 mg PO BID ferrous sulfate 325 mg PO DAILY folic acid 1 mg PO DAILY furosemide 40 mg PO DAILY PRN miscellaneous medical supply custom compressor class 1 stockings for 2 pair omeprazole 40 mg PO DAILY phentermine 37.5 mg PO DAILY tamsulosin 0.4 mg PO BEDTIME 90 days warfarin 10 mg See Protocol PO DAILY warfarin 10 mg PO DAILY warfarin 2.5 mg PO DAILY Zepbound (tirzepatide (weight loss)) 2.5 mg (0.5 mL) subcut QWEEK NS Held on 05/24/25. Instructions: Doctor's Order Nursing Note INR 1.8-?? out of therapeutic range 2-3 denies missed dose Medications and supplements reviewed Patient status: amb with walker Medications or supplements: no changes Diet: same Denies any signs and symptoms of bleeding or clotting or unusual bruising Bleeding, bruising, clotting discussed Nutritional guidance given: no greens for 2 days, eat reds to raise Dose: increase dose today to 10mg then cont 5mg x 2, 10mg x 5 F/U INR Date : 2 weeks? Patient verbalizing understanding of instructions given. 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
--- OUTSIDE RECORDS SUMMARY | 2025-07-18 14:44 | XMS_ITS | Clinical Summary ---
Author Organization [facility] Address [address] [place] [address] Phone Care Team Providers Care Production Dispatcher Name Role Phone Nahid Taylor MD Primary [...] file Medical Devices Not on file Insurance [facility] MULTIPLAN MULTIPLAN MULTIPLAN MULTIPLAN MULTIPLAN MULTIPLAN [place] [address] [place] [address] MULTIPLAN Care Teams Production Dispatcher Relationship Specialty Start Date End Date Nahid Taylor MD [address] [place] [address] Dr JIMENES [address] [place] [id number] PCP - General 04/17/14 Additional Source Comments The information contained in this document represents components of the legal health record. It is not the complete legal health record.[facility]
[2025-07-19 13:44] LABS: Prothrombin Time Whole Bld POC 22.2 sec (11.1-13.5); ~PT, ~INR - Anti Coag Clinic 1.8 (0.9-1.1)
== END 2025-07-18 13:53 | disposition home or self-care (01) ==
LOC: HO.ACS 13:32
PROVIDERS: PCP Internal Medicine; Visit Provider Internal Medicine Medical Oncology
DX: Z79.01 Long term (current) use of anticoagulants (principal)

== ENCOUNTER → 2025-07-18 13:32 | Outpatient (BNVA) | payer OTHER, SELFPAY | PROVIDERS: PCP Internal Medicine; Visit Provider Internal Medicine Medical Oncology | DX: Z86.718 Personal history of other venous thrombosis and embolism (principal); Z79.01 Long term (current) use of anticoagulants; Z51.81 Encounter for therapeutic drug level monitoring | CPT/HCPCS: 85610; 99211 ==

== ENCOUNTER 2025-08-02 15:57 | Outpatient (AMB) | payer OTHER, SELFPAY ==
--- OUTSIDE RECORDS SUMMARY | 2024-11-08 11:40 | XMS_ITS ---
Author Organization [facility] Address [address] [place] [address] Care Team Providers Care Action Finisher Name Role Phone Melissa SCHWAB, Alessandra Primary Care Provider Minnie Mcknight Unavailable [phone] Brian Wong Unavailable Unavailable REASON FOR VISIT Patient presents today for diarrhea, rectal itching Encounters Encounter Location Date Provider Diagnosis [facility] [address] [facility] [address] [place] [phone] 11/08/2024 Minnie Kiran Plan Of Treatment No Information Progress Notes * MINNIE MOTADOB:1964 (60 yo M)Acc No.[id number]:11/08/2024 Progress Notes Patient: MINNIE CORRAL Provider: Mellisa Kiran MD :1965 A ge:59 Y S ex:Male Date:11/08/2024 Address:[address] [facility] Pcp:Alessandra Torres MD Subjective: * Chief Complaints: [...] 0 11/08/2024 Generated for Pani osiel/Kathy/eTransmitting on: 1 07:35 PM EDT
--- OUTSIDE RECORDS SUMMARY | 2024-12-06 10:00 | XMS_ITS ---
Author Organization [facility] Address [address] [place] [address] Care Team Providers Care Labor Economics Teacher Name Role Phone Melissa SCHWAB, Alessandra Primary Care Provider Minnie Mcknight Unavailable [phone] Brian Wong Unavailable Unavailable REASON FOR VISIT Patient presents today for diarrhea, rectal itching Encounters Encounter Location Date Provider Diagnosis [facility] 10 [facility] [address] [place] [address] 12/06/2024 Minnie Kiran Plan Of Treatment No Information Progress Notes * MINNIE MOTADOB:1964 (60 yo M)Acc No.[id number]:12/06/2024 Progress Notes Patient: MINNIE CORRAL Provider: Mellisa Kiran MD :1965 A ge:59 Y S ex:Male Date:12/06/2024 Address:[address] [facility] Pcp:Alessandra Torres MD Subjective: * Chief Complaints: [...] 12/06/2024 Generated for Pani osiel/Kathy/eTransmitting on: 1 07:35 PM EDT
[2025-08-02 16:04] LABS: Prothrombin Time Whole Bld POC 28.4 sec (11.1-13.5); ~PT, ~INR - Anti Coag Clinic 2.4 (0.9-1.1)
--- NOTE | 2025-08-02 16:09 | MHC.OFFVISCO ---
Intake Intake Visit Reasons: Anticoagulation Allergies No Known Allergies Allergy (Verified 08/02/25 15:59) Medication List - Last Reconciled 08/02/25 by Martha Sebastian RN allopurinol 450 mg (1.5 x 300 mg) PO DAILY [bariatric shower chair Wt 434lbs, HT 5'10 ] citalopram 40 mg PO DAILY comp.stocking,knee,long,medium Custom stockings- 20mmHg, Addaptive, elverax CPAP (CPAP Machine/Device) As directed, with supplies diclofenac sodium 75 mg PO BID ferrous sulfate 325 mg PO DAILY folic acid 1 mg PO DAILY furosemide 40 mg PO DAILY PRN miscellaneous medical supply custom compressor class 1 stockings for 2 pair omeprazole 40 mg PO DAILY phentermine 37.5 mg PO DAILY tamsulosin 0.4 mg PO BEDTIME 90 days warfarin 10 mg See Protocol PO DAILY warfarin 2.5 mg See Protocol PO DAILY Zepbound (tirzepatide (weight loss)) 2.5 mg (0.5 mL) subcut QWEEK NS Held on 05/24/25. Instructions: Doctor's Order Nursing Note INR: 2.4 in therapeutic range of 2-3 Medications and supplements reviewed No changes in health, diet, medications, or supplements, Denies any signs and symptoms of bleeding or bruising or clotting. Bleeding, bruising, clotting discussed Nutritional guidance given Dose: 10mg X 5 days and 5mg X 2 days (Wed & Wed) F/U INR: 3 weeks Patient verbalizes understanding of instructions given Anti-Coag Initial Assessment Social Hx Patient Tobacco Use Status: Never used Tobacco alcohol intake: current Alcohol intake frequency: holidays/special occasions only Coding Level of Care Code Est Patient Level 1 Diagnoses Current use of anticoagulant therapy Z79.01 Results AMB INR Fingerstick AMB INR Fingerstick 2.4 Last Edit by Martha Sebastian RN on 08/02/25 16:05 interface delay Assessment & Plan Assessment & Plan (1) Current use of anticoagulant therapy: Onset Date: ~09/08/21 Comment: 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
--- OUTSIDE RECORDS SUMMARY | 2025-08-02 19:35 | XMS_ITS | Patient Health Record ---
Author Organization [facility] Address [address] [place] [phone] Care Team Providers Care Sales Mgr Name Role Phone Alessandra Torres MD Primary Care Provider Minnie Mcknight Unavailable [phone] Brian Wong Unavailable Unavailable Allergies Allergen (clinical [...] Problem Status W/U Status Risk Notes Problem Screening for malignant neoplasm of colon (618804891) Encounter for screening for malignant neoplasm of colon (Z12.11) Active confirmed Problem Screening for malignant neoplasm of rectum (044153033) Encounter for screening for malignant neoplasm of rectum (Z12.12) Active confirmed Problem Gastroesophageal reflux disease (943085888) Gastroesophageal reflux disease, esophagitis presence not specified (K21.9) Active confirmed Encounters Encounter Location Date Provider Diagnosis [facility] [address] [place] [phone] 11/07/2024 Minnie Kiran [facility] [address] [place] [phone] 12/05/2024 Minnie Kiran Plan Of Treatment Pending Test Test Name Order Date GI BIOPSY 08/10/2016 Future Test Test Name Order Date UPPER GI ENDOSCOPY 03/24/2016 COLONOSCOPY 03/24/2016 Insurance Providers Payer Name Payer Address Payer Phone Subscriber Number Group Number Insured Name Patient Relationship to Insured Coverage Start Date Coverage End Date [facility] [address] [place], [place] [phone] [id number] MINNIE BRITO Self - patient is the insured Medical (General) History Medical History History ICD Code Colonoscopy 08-07-2005--neg. except for internal hemorrhoids DVT with PE in 1993--taken o ff Coumadin, but then had another PE--has a [place] filter Denies [place],DM,CVA,Lung disease,renal dise ase Knee pain--arthritis Gout GERD Sleep apnea--uses CPAP Surgical History Surgery Date(Month/Year) Leg surgery for hematoma Appendectomy Gastric sleeve--Dr. Rosado i--2013--lost 100#, but then gained weight back
--- OUTSIDE RECORDS SUMMARY | 2025-08-02 19:35 | XMS_ITS | Clinical Summary ---
Author Organization [facility] Address [address] [place] [address] Phone Care Team Providers Care Dental Officer Name Role Phone Nahid Taylor MD Primary [...] file Medical Devices Not on file Insurance [facility] MULTIPLAN MULTIPLAN MULTIPLAN MULTIPLAN MULTIPLAN MULTIPLAN MULTIPLAN [place] [address] [address] MULTIPLAN Care Teams Dental Officer Relationship Specialty Start Date End Date Nahid Taylor MD [address] [place] [address] Dr JIMENES [address] [place] [id number] PCP - General 04/17/14 Additional Source Comments The information contained in this document represents components of the legal health record. It is not the complete legal health record.[facility]
== END 2025-08-02 16:12 | disposition home or self-care (01) ==
LOC: HO.ACS 15:57
PROVIDERS: PCP Internal Medicine; Visit Provider Internal Medicine Medical Oncology
DX: Z79.01 Long term (current) use of anticoagulants (principal)

== ENCOUNTER → 2025-08-02 15:57 | Outpatient (BNVA) | payer OTHER, SELFPAY | PROVIDERS: PCP Internal Medicine; Visit Provider Internal Medicine Medical Oncology | DX: Z86.718 Personal history of other venous thrombosis and embolism (principal); Z79.01 Long term (current) use of anticoagulants; Z51.81 Encounter for therapeutic drug level monitoring | CPT/HCPCS: 85610; 99211 ==

== ENCOUNTER 2025-08-23 14:27 | Outpatient (AMB) | payer OTHER, SELFPAY ==
--- OUTSIDE RECORDS SUMMARY | 2024-11-08 10:40 | XMS_ITS ---
Author Organization [facility] Address [address] [place] [id number] Care Team Providers Care Parking Enforcement Specialist Name Role Phone Melissa SCHWAB, Alessandra Primary Care Provider Minnie Mcknight Unavailable [phone] Brian Wong Unavailable Unavailable REASON FOR VISIT Patient presents today for diarrhea, rectal itching Encounters Encounter Location Date Provider Diagnosis [facility] [address] [place] [id number] 11/08/2024 Minnie Kiran Plan Of Treatment No Information Progress Notes * MINNIE MOTADOB:1964 (60 yo M)Acc No.[id number]:11/08/2024 Progress Notes Patient: MINNIE CORRAL Provider: Mellisa Kiran MD :1965 A ge:59 Y S ex:Male Date:11/08/2024 Address:[place] [facility] Pcp:Alessandra Torres MD Subjective: * Chief Complaints: * 1 . Patient presents today for diarrhea, rectal itching. * Medical History: Objective: * Vitals: Assessment: Plan: * Treatment: * * The named appointment provid er may or may not be the originator of this progress note, and it is not deemed complete until electronically signed by the appointment provider. Sign off status: Pending * Provider: Mellisa Kiran MD Date: 0 11/08/2024 Generated for Pani osiel/Kathy/eTransmitting on: 10/23/2024 05:33 PM EST
--- OUTSIDE RECORDS SUMMARY | 2024-12-06 09:00 | XMS_ITS ---
Author Organization [facility] Address [address] [place] [address] Care Team Providers Care Stumper Feller Name Role Phone Melissa SCHWAB, Alessandra Primary Care Provider Minnie Mcknight Unavailable [phone] Brian Wong Unavailable Unavailable REASON FOR VISIT Patient presents today for diarrhea, rectal itching Encounters Encounter Location Date Provider Diagnosis [facility] 10 [facility] [address] [place] [address] 12/06/2024 Minnie Kiran Plan Of Treatment No Information Progress Notes * MINNIE MOTADOB:1964 (60 yo M)Acc No.[id number]:12/06/2024 Progress Notes Patient: MINNIE CORRAL Provider: Mellisa Kiran MD :1965 A ge:59 Y S ex:Male Date:12/06/2024 Address:[address] [facility] Pcp:Alessandra Torres MD Subjective: * Chief Complaints: [...] * Provider: Mellisa Kiran MD Date: 0 12/06/2024 Generated for Pani osiel/Kathy/eTransmitting on: 1 10/23/2024 05:34 PM EST
[2025-08-23 14:47] LABS: Prothrombin Time Whole Bld POC 50.4 sec (11.1-13.5); ~PT, ~INR - Anti Coag Clinic 4.2 (0.9-1.1)
--- NOTE | 2025-08-23 15:04 | MHC.OFFVISCO ---
Intake Intake Visit Reasons: Anticoagulation Allergies No Known Allergies Allergy (Verified 08/23/25 14:38) Medication List - Last Reconciled 08/23/25 by Hortencia Watt RN allopurinol 450 mg (1.5 x 300 mg) PO DAILY [bariatric shower chair Wt 434lbs, HT 5'10 ] citalopram 40 mg PO DAILY comp.stocking,knee,long,medium Custom stockings- 20mmHg, Addaptive, elverax CPAP (CPAP Machine/Device) As directed, with supplies diclofenac sodium 75 mg PO BID ferrous sulfate 325 mg PO DAILY folic acid 1 mg PO DAILY furosemide 40 mg PO DAILY PRN miscellaneous medical supply custom compressor class 1 stockings for 2 pair omeprazole 40 mg PO DAILY phentermine 37.5 mg PO DAILY tamsulosin 0.4 mg PO BEDTIME 90 days warfarin 10 mg See Protocol PO DAILY warfarin 2.5 mg See Protocol PO DAILY Nursing Note INR 4.2 out of therapeutic range Medications and supplements reviewed Patient status: Decrease appetite, eating less protein and greens Medications or supplements: sates no changes Diet: decrease appetite protein and greens Denies any signs and symptoms of bleeding or clotting or unusual bruising Bleeding, bruising, clotting discussed Nutritional guidance given: greens weekly Dose: hold today then decrease 5mg x 3 days/ 10mg x 4 days F/U INR Date: 1 week 08/31/25 ?? Patient verbalizing understanding of instructions given. 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
--- OUTSIDE RECORDS SUMMARY | 2025-08-23 17:33 | XMS_ITS | Patient Health Record ---
Author Organization [facility] Address [address] [place] [address] Care Team Providers Care Helicopter Crew Chief Name Role Phone Alessandra Torres MD Primary Care Provider Minnie Mcknight Unavailable [phone] Brian Wong Unavailable Unavailable Allergies Allergen (clinical [...] Problem Screening for malignant neoplasm of colon (071287302) Encounter for screening for malignant neoplasm of colon (Z12.11) Active confirmed Problem Screening for malignant neoplasm of rectum (670429360) Encounter for screening for malignant neoplasm of rectum (Z12.12) Active confirmed Problem Gastroesophageal reflux disease (102008820) Gastroesophageal reflux disease, esophagitis presence not specified (K21.9) Active confirmed Encounters Encounter Location Date Provider Diagnosis [facility] [address] [place] [phone] 11/07/2024 Minnie Kiran [facility] [address] [place] [phone] 12/05/2024 Minnie Kiran Plan Of Treatment Pending Test Test Name Order Date GI BIOPSY 08/10/2016 Future Test Test Name Order Date UPPER GI ENDOSCOPY 03/24/2016 COLONOSCOPY 03/24/2016 Insurance Providers Payer Name Payer Address Payer Phone Subscriber Number Group Number Insured Name Patient Relationship to Insured Coverage Start Date Coverage End Date [facility] [address] [place], [place] [phone] [id number] MINNIE BRTIO Self - patient is the insured Medical (General) History Medical History History ICD Code Colonoscopy 08-07-2005--neg. except for internal hemorrhoids DVT with PE in 1993--taken o ff Coumadin, but then had another PE--has a [place] filter Denies [place],DM,CVA,Lung disease,renal dise ase Knee pain--arthritis Gout GERD Sleep apnea--uses CPAP Surgical History Surgery Date(Month/Year) Leg surgery for hematoma Appendectomy Gastric sleeve--Dr. Rosado i--2013--lost 100#, but then gained weight back
--- OUTSIDE RECORDS SUMMARY | 2025-08-23 17:33 | XMS_ITS | Clinical Summary ---
Author Organization [facility] Address [address] [place] [address] Phone Care Team Providers Care Yarn Dry Room Worker Name Role Phone Nahid Taylor MD Primary [...] file Medical Devices Not on file Insurance [facility] MULTIPLAN MULTIPLAN MULTIPLAN MULTIPLAN MULTIPLAN MULTIPLAN MULTIPLAN [place] [address] MULTIPLAN Care Teams Yarn Dry Room Worker Relationship Specialty Start Date End Date Nahid Taylor MD [address] [place] [address] Dr JIMENES [address] [place] [id number] PCP - General 04/17/14 Additional Source Comments The information contained in this document represents components of the legal health record. It is not the complete legal health record.[facility]
== END 2025-08-23 15:08 | disposition home or self-care (01) ==
LOC: HO.ACS 14:27
PROVIDERS: PCP Internal Medicine; Visit Provider Internal Medicine Medical Oncology
DX: Z79.01 Long term (current) use of anticoagulants (principal)

== ENCOUNTER → 2025-08-23 14:27 | Outpatient (BNVA) | payer OTHER, SELFPAY | PROVIDERS: PCP Internal Medicine; Visit Provider Internal Medicine Medical Oncology | DX: Z79.01 Long term (current) use of anticoagulants (principal) | CPT/HCPCS: 85610; 99211 ==

== ENCOUNTER 2025-08-31 14:35 | Outpatient (AMB) | payer OTHER, SELFPAY ==
[2025-08-31 14:45] LABS: Prothrombin Time Whole Bld POC 50.2 sec (11.1-13.5); ~PT, ~INR - Anti Coag Clinic 4.2 (0.9-1.1)
--- NOTE | 2025-08-31 14:59 | MHC.OFFVISCO ---
Intake Intake Visit Reasons: Anticoagulation Allergies No Known Allergies Allergy (Verified 08/31/25 14:38) Medication List - Last Reconciled 08/31/25 by Hortencia Watt RN allopurinol 450 mg (1.5 x 300 mg) PO DAILY [bariatric shower chair Wt 434lbs, HT 5'10 ] citalopram 40 mg PO DAILY comp.stocking,knee,long,medium Custom stockings- 20mmHg, Addaptive, elverax CPAP (CPAP Machine/Device) As directed, with supplies diclofenac sodium 75 mg PO BID ferrous sulfate 325 mg PO DAILY folic acid 1 mg PO DAILY furosemide 40 mg PO DAILY PRN miscellaneous medical supply custom compressor class 1 stockings for 2 pair omeprazole 40 mg PO DAILY phentermine 37.5 mg PO DAILY tamsulosin 0.4 mg PO BEDTIME 90 days warfarin 10 mg See Protocol PO DAILY warfarin 2.5 mg See Protocol PO DAILY Nursing Note INR: 4.2 OUT therapeutic range Medications and supplements reviewed * pt states he has had decreased appetite, he did not follow decreased dose plan last week, he took 5mg x 2 days instead 3 days, plus he had cranberry juice because that was all he had at home. Denies any signs and symptoms of bleeding or bruising or clotting. 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
== END 2025-08-31 15:05 | disposition home or self-care (01) ==
LOC: HO.ACS 14:35
PROVIDERS: PCP Internal Medicine; Visit Provider Internal Medicine Medical Oncology
DX: Z79.01 Long term (current) use of anticoagulants (principal)

== ENCOUNTER → 2025-08-31 14:35 | Outpatient (BNVA) | payer OTHER, SELFPAY | PROVIDERS: PCP Internal Medicine; Visit Provider Internal Medicine Medical Oncology | DX: Z86.718 Personal history of other venous thrombosis and embolism (principal); Z51.81 Encounter for therapeutic drug level monitoring; Z79.01 Long term (current) use of anticoagulants | CPT/HCPCS: 85610; 99211 ==

== ENCOUNTER 2025-09-17 13:04 | Outpatient (AMB) | payer OTHER, SELFPAY ==
[2025-09-17 13:13] LABS: Prothrombin Time Whole Bld POC 27.1 sec (11.1-13.5); ~PT, ~INR - Anti Coag Clinic 2.3 (0.9-1.1)
--- NOTE | 2025-09-17 13:24 | MHC.OFFVISCO ---
Intake Intake Visit Reasons: Anticoagulation Allergies No Known Allergies Allergy (Verified 08/31/25 14:38) Nursing Note INR: 2.3 in therapeutic range Medications and supplements reviewed No changes in health, diet, medications, or supplements, Denies any signs and symptoms of bleeding or bruising or clotting. Bleeding, bruising, clotting discussed Nutritional guidance given Dose: pt went back to his usual dose 5mg x 2 days/ 10mg x 5 days F/U INR: 3 weeks Patient verbalizes understanding of instructions given Anti-Coag Initial Assessment Social Hx Patient Tobacco Use Status: Never used Tobacco alcohol intake: current Alcohol intake frequency: holidays/special occasions only Coding Level of Care Code Est Patient Level 1 Diagnoses Current use of anticoagulant therapy Z79.01 Results AMB INR Fingerstick AMB INR Fingerstick 3.2 Last Edit by Hortencia Watt RN on 09/17/25 13:15 manual entry AMB INR Fingerstick AMB INR Fingerstick 2.3 Last Edit by Hortencia Watt RN on 09/17/25 13:15 manual entry AMB INR Fingerstick AMB INR Fingerstick 2.3 Last Edit by Hortencia Watt RN on 09/17/25 13:16 manual entry Assessment & Plan Assessment & Plan (1) Current use of anticoagulant therapy: Onset Date: ~09/08/21 Comment: 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
--- OUTSIDE RECORDS SUMMARY | 2025-09-17 16:43 | XMS_ITS | Clinical Summary ---
Author Organization [facility] Address [address] [place] [phone] Phone Care Team Providers Care Fiscal Services Director Name Role Phone Nahid Taylor MD [...] file Medical Devices Not on file Insurance [facility] MULTIPLAN MULTIPLAN MULTIPLAN MULTIPLAN MULTIPLAN MULTIPLAN [place] [address] [place] [address] MULTIPLAN Care Teams Fiscal Services Director Relationship Specialty Start Date End Date Nahid Taylor MD [address] [place] [address] Dr JIMENES [address] [place] [id number] PCP - General 04/17/14 Additional Source Comments The information contained in this document represents components of the legal health record. It is not the complete legal health record.[facility]
== END 2025-09-17 13:26 | disposition home or self-care (01) ==
LOC: HO.ACS 13:04
PROVIDERS: PCP Internal Medicine; Visit Provider Internal Medicine Medical Oncology
DX: Z79.01 Long term (current) use of anticoagulants (principal)

== ENCOUNTER → 2025-09-17 13:04 | Outpatient (BNVA) | payer OTHER, SELFPAY | PROVIDERS: PCP Internal Medicine; Visit Provider Internal Medicine Medical Oncology | DX: Z86.718 Personal history of other venous thrombosis and embolism (principal); Z51.81 Encounter for therapeutic drug level monitoring; Z79.01 Long term (current) use of anticoagulants | CPT/HCPCS: 85610; 99211 ==